=== PATIENT | female | born 1975 | race Caucasian/White ===

== ENCOUNTER 2020-09-13 14:30 | Outpatient (REF) | payer OTHER, SELFPAY ==
--- NOTE | 2020-09-13 14:34 | US_ITS ---
EXAMINATION: US RETROPERITONEAL LIMITED (RENAL ONLY) CLINICAL INFORMATION: Unspecified abdominal pain. COMPARISON: CT abdomen and pelvis 12/28/2018. Ultrasound abdomen 08/09/2010. TECHNIQUE: Real-time imaging of the kidneys. FINDINGS: RIGHT KIDNEY: 10.8 x 4.5 x 5.0 cm (SAG x AP x TRV). The kidney is normal in size, contour, and echogenicity. Renal cortical thickness is normal. No calculi or focal parenchymal lesions. No hydronephrosis. LEFT KIDNEY: 11.1 x 4.6 x 4.9 cm (SAG x AP x TRV). The kidney is normal in size, contour, and echogenicity. Renal cortical thickness is normal. No calculi or focal parenchymal lesions. No hydronephrosis. US/US renal BI IMPRESSION: Unremarkable renal ultrasound.
== END 2020-09-13 14:31 | disposition home or self-care (01) ==
LOC: HO.HMGCX 14:30
PROVIDERS: PCP Internal Medicine; Visit Provider Nurse Practitioner Family
DX: R10.9 Unspecified abdominal pain (principal); R31.9 Hematuria, unspecified
CPT/HCPCS: 76775

== ENCOUNTER 2021-01-02 08:56 | Outpatient (REF) | payer OTHER, SELFPAY ==
[2021-01-02 11:51] LABS: Hematocrit 42.1 % (37-47); Hemoglobin 13.8 g/dl (12.0-16.0)
[2021-01-02 12:02] LABS: Alanine Aminotransferase 24 U/L (0-31); Albumin Level 4.2 g/dL (3.5-5.0); Alkaline Phosphatase 62 U/L (39-117); Anion Gap 12 (12-20); Aspartate Amino Transferase 16 U/L (5-31); Bilirubin Direct 0.3 mg/dL (0.0-0.5); Bilirubin Total 0.7 mg/dL (0.0-1.0); Blood Urea Nitrogen 11 mg/dL (9-16); Calcium 9.6 mg/dL (8.4-10.2); Carbon Dioxide 24 mmol/L (22-29); Chloride 106 mmol/L (96-108); Cholesterol 193 mg/dL; Estimated Glomerular Filt Rate > 60; Glucose Fasting 85 mg/dL (60-99); HDL Cholesterol 49 mg/dL; LDL Cholesterol Calculated 126 mg/dl; Potassium 4.3 mmol/L (3.3-5.1); Sodium 138 mmol/L (135-145); Total Protein 6.7 g/dL (6.5-8.0); Triglycerides 90 mg/dL
== END 2021-01-02 08:57 | disposition home or self-care (01) ==
LOC: HO.HMGCLDS 08:56
PROVIDERS: PCP Internal Medicine; Visit Provider Internal Medicine
DX: Z00.00 Encounter for general adult medical examination without abnormal findings (principal)
CPT/HCPCS: 36415; 80048; 80061; 80076; 85014; 85018

== ENCOUNTER → 2021-01-25 09:17 | Outpatient (REF) | payer OTHER, SELFPAY ==
--- NOTE | 2021-01-25 09:22 | CA_ITS ---
Acquisition Time: 2021-01-25 09:52:30 Total Exercise Time: 00:08:25 Test Indications: R07.9 - Chest pain, unspecified Medications: Protocol: TATIANA Max HR: 123 BPM 71% of Pred: 173 BPM Max BP: 152/086 mmHG Max Work Load: 10.1 METS Exercise stress test using Tatiana protocol, total of 8 min 25 sec. METS 10.10and TAPHR up to 71%. Pt denies any anginal sx. EKG with occ. PVC's no ischemic changes seen during exercise or in recovery, however suboptimal stress test as pt's HR up to only 69% of TAPHR. Normotensive response to exercise. Will call PCP and recommend ECHO, pt does not want to have pharmacological stress test. Test reviewed with Dr. Burgos. Referred By: Lj Murcia Overread By: Mary Mireles NP
== END ==
LOC: HO.CARD 09:17
PROVIDERS: Visit Provider Internal Medicine
DX: R07.9 Chest pain, unspecified (principal)
CPT/HCPCS: 93016; 93017; 93018

== ENCOUNTER → 2021-01-31 11:05 | Outpatient (BNVA) | payer OTHER, SELFPAY | PROVIDERS: PCP Internal Medicine; Referring Provider Internal Medicine; Visit Provider Internal Medicine Cardiovascular Disease | DX: R00.2 Palpitations (principal); R07.89 Other chest pain | CPT/HCPCS: 99202 ==

== ENCOUNTER 2021-09-30 13:21 | Outpatient (REF) | payer OTHER, SELFPAY ==
[2021-09-30 17:15] LABS: TSH reflex Free T4 1.08 uIU/mL (0.32-4.0)
== END 2021-09-30 13:22 | disposition home or self-care (01) ==
LOC: HO.HMGCLDS 13:21
PROVIDERS: PCP Internal Medicine; Visit Provider Internal Medicine
DX: R63.5 Abnormal weight gain (principal)
CPT/HCPCS: 36415; 84443

== ENCOUNTER 2021-10-30 08:23 | Outpatient (REF) | payer OTHER, SELFPAY ==
[2021-10-30 11:08] LABS: MANUAL DIFF FLAG NO
[2021-10-30 11:15] LABS: Basophils Absolute Auto 0.1 X10*3/uL (0.0-0.2); Basophils Percent Auto 0.5 % (0-2); Eosinophils Absolute Auto 0.4 X10*3/uL (0.0-0.4); Hemoglobin 14.2 g/dl (12.0-16.0); Imm Gran Abs Auto 0.03 X10*3/uL (0.00-0.03); Imm Gran Pct Auto 0.3 % (0.0-0.4); Lymphocytes Absolute Auto 1.8 X10*3/uL (1.2-4.9); Lymphocytes Percent Auto 19.6 % (20-40); Mean Corpuscular Hemoglobin 29.8 pg (27.0-33.0); Mean Corpuscular Volume 90.3 fL (80.0-98.0); Mean Platelet Volume 11.3 fL (9.4-12.3); Monocytes Absolute Auto 0.6 X10*3/uL (0.1-1.2); Monocytes Percent Auto 6.6 % (2-11); Neutrophils Absolute Auto 6.3 x10*3/uL (2.0-8.3); Platelet Count 379 X10*3/uL (160-400); Red Blood Count 4.76 X10*6/uL (4.20-5.50); Red Cell Distribution Width 12.3 % (11.0-16.0); White Blood Count 9.2 X10*3/uL (4.8-10.8)
[2021-10-30 11:36] LABS: Alanine Aminotransferase 25 U/L (0-31); Albumin Level 4.2 g/dL (3.5-5.0); Alkaline Phosphatase 72 U/L (39-117); Anion Gap 13 (12-20); Aspartate Amino Transferase 18 U/L (5-31); Bilirubin Total 0.5 mg/dL (0.0-1.0); Blood Urea Nitrogen 15 mg/dL (9-16); Calcium 10.1 mg/dL (8.4-10.2); Carbon Dioxide 22 mmol/L (22-29); Chloride 107 mmol/L (96-108); Cholesterol 197 mg/dL; Estimated Glomerular Filt Rate > 60; Glucose Fasting 108 mg/dL (60-99); HDL Cholesterol 44 mg/dL; LDL Cholesterol Calculated 140 mg/dl; Potassium 4.5 mmol/L (3.3-5.1); Sodium 137 mmol/L (135-145); Total Protein 7.1 g/dL (6.5-8.0); Triglycerides 68 mg/dL
[2021-11-03 15:17] LABS: Vitamin D 25-OH, D2 <4 ng/mL; Vitamin D 25-OH, D3 16 ng/mL; Vitamin D 25-OH, Total 16 ng/mL (30-100)
== END 2021-10-30 08:24 | disposition home or self-care (01) ==
LOC: HO.HMGCLDS 08:23
PROVIDERS: Visit Provider Internal Medicine
DX: Z00.01 Encounter for general adult medical examination with abnormal findings (principal); J45.909 Unspecified asthma, uncomplicated; R63.5 Abnormal weight gain; R92.1 Mammographic calcification found on diagnostic imaging of breast; Z72.0 Tobacco use
CPT/HCPCS: 36415; 80053; 80061; 82306; 85025

== ENCOUNTER → 2021-11-07 14:51 | Outpatient (BNVA) | payer OTHER, SELFPAY | PROVIDERS: PCP Internal Medicine; Referring Provider Internal Medicine; Visit Provider Surgery | DX: K40.90 Unilateral inguinal hernia, without obstruction or gangrene, not specified as recurrent (principal); R07.89 Other chest pain; R00.2 Palpitations; J45.40 Moderate persistent asthma, uncomplicated; Z72.0 Tobacco use; Z91.041 Radiographic dye allergy status; Z91.018 Allergy to other foods; Z91.013 Allergy to seafood; Z88.7 Allergy status to serum and vaccine; Z88.8 Allergy status to other drugs, medicaments and biological substances; Z91.09 Other allergy status, other than to drugs and biological substances; Z79.899 Other long term (current) drug therapy | CPT/HCPCS: 99212 ==

== ENCOUNTER 2021-11-27 08:43 | Outpatient (REF) | payer OTHER, SELFPAY ==
[2021-11-27 11:51] LABS: Appearance Urine CLOUDY; Color Urine YELLOW; Glucose Urine UA NEG (NEG); Leukocyte Esterase Urine NEG (NEG); Nitrite Urine NEG (NEG); PH 5.5 (5.0-8.0); Specific Gravity - Urine >= 1.030 (1.005-1.025); UACC Culture Trigger NO; Urine Blood TRACE (NEG); Urine Ketones NEG (NEG); Urine Protein NEG (NEG-TRACE)
[2021-11-27 12:03] LABS: WBC Urine 0 /HPF (0-4)
[2021-11-27 12:04] LABS: Amorphous Sediment Urine 4+ /LPF; RBC Urine 0 /HPF (0); Squamous Epithelial Cell Urine 1+ /LPF
== END 2021-11-27 08:44 | disposition home or self-care (01) ==
LOC: HO.HMGCLDS 08:43
PROVIDERS: Visit Provider Internal Medicine
DX: R35.0 Frequency of micturition (principal)
CPT/HCPCS: 81001

== ENCOUNTER → 2021-12-17 12:55 | Outpatient (REF) | payer OTHER, SELFPAY ==
--- NOTE | 2021-12-17 12:58 | CA_ITS ---
Transthoracic Echocardiogram Patient (Last, First, Middle): Annette Fenton, Gender: Female Date of : 1975 Age: 46 Procedure Date: 12/17/2021 Procedure Type: Transthoracic Echocardiogram Location: OP Height: 165.1 cm Weight: 76.2 kg BSA: 1.84 m2 Heart Rate: bpm BP: 122 / 78 mmHg Lining Brusher: ALYSE Referring MD: Luis Kearney MD Symptoms: I42.9 - Cardiomyopathy, unspecified Conclusions: - Normal left ventricular size and systolic function. There is mildly increased left ventricular wall thickness. The visually estimated ejection fraction is between 55-60%. - Normal right ventricular cavity size and systolic function. Findings Left Ventricle Normal left ventricular size and systolic function. There is mildly increased left ventricular wall thickness. The visually estimated ejection fraction is between 55-60%. There is no evidence of regional wall motion abnormalities. Diastolic function is normal for age. Right Ventricle Normal right ventricular cavity size and systolic function. Atria Both atria are normal in size. Aortic Valve There is a normal trileaflet aortic valve. There is mild thickening of the aortic valve. There is no aortic valve stenosis. There is no aortic valve regurgitation. Mitral Valve Normal mitral valve structure and function. There is no mitral valve regurgitation. There is no mitral valve stenosis. Pulmonic Valve The pulmonic valve is likely normal. Tricuspid Valve Normal tricuspid valve structure and function. There is trace tricuspid valve regurgitation. Normal right atrial pressure. There is no evidence of pulmonary hypertension. Great Vessels All visible segments of the aorta are normal in size. The visualized portions of the pulmonary artery and branches are normal. Venous The inferior vena cava is normal in size and collapses greater than 50% with inspiration. Pericardium/Pleural There is no evidence of pericardial effusion. Prior Study Comparison No prior study available for comparison. Measurements 2D Linear Measurements IVSd: 1.12 0.6-0.9/0.6-1.0 cm LVIDd: 3.88 3.9-5.3/4.2-5.9 cm LVIDd Index: 2.11 2.4-3.2/2.2-3.1 cm/m2 LVIDs: 2.40 2.0-3.6 cm LVPWd: 1.12 0.7-1.1 cm LA Diam: 3.50 2.7-3.8/3.0-4.0 cm LAIDs Index: 1.90 1.5-2.3 cm/m2 LV Mass: 177.64 67-162/88-224 g LV Mass Index: 96.54 43-95/49-115 g/m2 LVOT Diam: 2.10 3.0+(-)1.3 cm 2D Systolic Function EF 4C: 66.80 >55% EF 2C: 65.60 >55% EF BiP: 66.00 >55% Mitral Valve MV Pk E: 0.86 MV PK A: 0.79 MV Decel Time: 187.00 E/A: 1.10 E'Lateral: 9.90 E'Medial: 7.94 E/E' Med: 10.80 E/E' Lat: 8.70 PHT: 55.00 MVA PHT: 4.00 Decel Gila: 4.61 Aortic Valve AoV Pk Isaias: 1.36 AoV Pk Grad: 7.00 LVOT LVOT Pk Isaias: 0.61 LVOT Mn Isaias: 0.65 LVOT VTI: 0.21 LVOT Pk Grad: 1.00 LVOT Mn Grad: 2.00 LVOT Diam: 2.10 LVOT Area: 3.46 Diastolic Function MV Pk E: 0.86 MV Pk A: 0.79 E/A: 1.10 E'Medial: 7.94 E/E' Med: 10.80 E' Laterial: 9.90 E/E' Lat: 8.70 Right Ventricle TAPSE (mm): 1.87 TVS' Isaias: 12.80 Tricuspid Valve TR Pk Isaias: 2.25 TR Pk Grad: 20.00 RA Press: 3.00 RVSP: 23.00 Great Vessels Aorta Sinus of Valsalva: 3.00 2.0-3.5 cm Ao Asc: 2.90 2.1-3.4 cm Updated in Other Vendor System with Status of Final Luis Kearney MD electronically signed on 12/18/2021 3:23:31 PM with status of Final
== END ==
LOC: HO.CARD 12:55
PROVIDERS: Visit Provider Internal Medicine Cardiovascular Disease
DX: I42.9 Cardiomyopathy, unspecified (principal); R00.2 Palpitations
CPT/HCPCS: 93306

== ENCOUNTER 2022-01-15 08:45 | Outpatient (REF) | payer OTHER, SELFPAY ==
[2022-01-15 11:51] LABS: Appearance Urine CLOUDY; Color Urine YELLOW; Glucose Urine UA NEG (NEG); Leukocyte Esterase Urine NEG (NEG); Nitrite Urine NEG (NEG); PH 5.5 (5.0-8.0); Specific Gravity - Urine >= 1.030 (1.005-1.025); UACC Culture Trigger NO; Urine Blood 1+ (NEG); Urine Ketones NEG (NEG); Urine Protein NEG (NEG-TRACE)
[2022-01-15 12:01] LABS: Estimated Average Glucose 108 mg/dL; Hemoglobin A1c % 5.4 %
[2022-01-15 12:02] LABS: Alanine Aminotransferase 20 U/L (0-31); Albumin Level 4.1 g/dL (3.5-5.0); Alkaline Phosphatase 75 U/L (39-117); Anion Gap 11 (12-20); Aspartate Amino Transferase 15 U/L (5-31); Bilirubin Total 0.5 mg/dL (0.0-1.0); Blood Urea Nitrogen 11 mg/dL (9-16); Calcium 9.9 mg/dL (8.4-10.2); Carbon Dioxide 24 mmol/L (22-29); Chloride 108 mmol/L (96-108); Cholesterol 186 mg/dL; Estimated Glomerular Filt Rate > 60; Glucose Fasting 107 mg/dL (60-99); HDL Cholesterol 44 mg/dL; LDL Cholesterol Calculated 134 mg/dl; Potassium 4.5 mmol/L (3.3-5.1); Sodium 138 mmol/L (135-145); Total Protein 7.1 g/dL (6.5-8.0); Triglycerides 41 mg/dL
[2022-01-15 12:08] LABS: RBC Urine 0-2 /HPF (0); Squamous Epithelial Cell Urine 2+ /LPF; WBC Urine 0-2 /HPF (0-4)
[2022-01-15 12:09] LABS: Amorphous Sediment Urine 3+ /LPF; Bacteria Urine TRACE /LPF
[2022-01-21 14:36] LABS: Vitamin D 25-OH, D2 <4 ng/mL; Vitamin D 25-OH, D3 19 ng/mL; Vitamin D 25-OH, Total 19 ng/mL (30-100)
== END 2022-01-15 08:46 | disposition home or self-care (01) ==
LOC: HO.HMGCLDS 08:45
PROVIDERS: PCP Internal Medicine; Visit Provider Internal Medicine
DX: E55.9 Vitamin D deficiency, unspecified (principal); R35.0 Frequency of micturition; R73.01 Impaired fasting glucose; R00.2 Palpitations; J45.909 Unspecified asthma, uncomplicated; Z72.0 Tobacco use
CPT/HCPCS: 36415; 80053; 80061; 81001; 81003; 82306; 83036

== ENCOUNTER → 2022-11-07 11:01 | Outpatient (BNVA) | payer OTHER, SELFPAY | PROVIDERS: PCP Internal Medicine; Visit Provider Surgery | DX: K40.90 Unilateral inguinal hernia, without obstruction or gangrene, not specified as recurrent (principal); F17.210 Nicotine dependence, cigarettes, uncomplicated | CPT/HCPCS: 99212 ==

== ENCOUNTER 2022-12-30 11:25 | Outpatient (REF) | payer OTHER, SELFPAY ==
[2022-12-30 13:56] LABS: MANUAL DIFF FLAG NO
[2022-12-30 14:06] LABS: Basophils Absolute Auto 0.1 X10*3/uL (0.0-0.2); Basophils Percent Auto 0.8 % (0-2); Eosinophils Absolute Auto 0.3 X10*3/uL (0.0-0.4); Eosinophils Percent Auto 3.3 % (0-4); Hematocrit 43.8 % (37.0-47.0); Hemoglobin 14.4 g/dl (12.0-16.0); Imm Gran Abs Auto 0.02 X10*3/uL (0.00-0.03); Imm Gran Pct Auto 0.2 % (0.0-0.4); Lymphocytes Absolute Auto 2.1 X10*3/uL (1.2-4.9); Lymphocytes Percent Auto 22.3 % (20-40); Mean Corpuscular HGB Conc 32.9 g/dl (31.0-35.0); Mean Corpuscular Hemoglobin 29.4 pg (27.0-33.0); Mean Corpuscular Volume 89.6 fL (80.0-98.0); Mean Platelet Volume 11.1 fL (9.4-12.3); Monocytes Absolute Auto 0.5 X10*3/uL (0.1-1.2); Monocytes Percent Auto 5.5 % (2-11); Neutrophils Absolute Auto 6.3 x10*3/uL (2.0-8.3); Neutrophils Percent Auto 67.9 % (45-73); Platelet Count 384 X10*3/uL (160-400); Red Blood Count 4.89 X10*6/uL (4.20-5.50); Red Cell Distribution Width 12.7 % (11.0-16.0); White Blood Count 9.3 X10*3/uL (4.8-10.8)
[2022-12-30 14:12] LABS: Appearance Urine Clear; Color Urine Yellow; Glucose Urine UA Negative (Negative); Leukocyte Esterase Urine Negative (Negative); Nitrite Urine Negative (Negative); PH 5.5 (5.0-9.0); Specific Gravity - Urine 1.015 (1.005-1.025); UMIC TRIGGER UACC YES; Urine Blood Small (1+) (Negative); Urine Ketones Negative (Negative); Urine Protein Negative (Neg-Trace)
[2022-12-30 14:22] LABS: Bacteria Urine Trace (None Seen); Hyaline Casts Urine 0-2 /LPF (0-2); RBC Urine 0-2 /HPF (0-2); Squamous Epithelial Cell Urine 0-2 /HPF (0-2); WBC Urine 0-5 /HPF (0-5)
[2022-12-30 14:32] LABS: Alanine Aminotransferase 35 U/L (0-31); Albumin Level 4.1 g/dL (3.5-5.0); Alkaline Phosphatase 80 U/L (39-117); Anion Gap 11 (12-20); Aspartate Amino Transferase 19 U/L (5-31); Bilirubin Total 0.5 mg/dL (0.0-1.0); Blood Urea Nitrogen 9 mg/dL (9-16); Calcium 9.3 mg/dL (8.4-10.2); Carbon Dioxide 25 mmol/L (22-29); Chloride 108 mmol/L (96-108); Cholesterol 176 mg/dL; Estimated Glomerular Filt Rate > 60; Glucose Fasting 84 mg/dL (60-99); HDL Cholesterol 43 mg/dL; LDL Cholesterol Calculated 124 mg/dl; Potassium 4.4 mmol/L (3.3-5.1); Sodium 140 mmol/L (135-145); Total Protein 6.7 g/dL (6.5-8.0); Triglycerides 47 mg/dL
[2022-12-30 14:56] LABS: Estimated Average Glucose 114 mg/dL; Hemoglobin A1c % 5.6 %
== END 2022-12-30 11:26 | disposition home or self-care (01) ==
LOC: HO.HMGCLDS 11:25
PROVIDERS: PCP Internal Medicine; Visit Provider Internal Medicine
DX: Z00.01 Encounter for general adult medical examination with abnormal findings (principal); E66.3 Overweight; G43.909 Migraine, unspecified, not intractable, without status migrainosus; K59.01 Slow transit constipation; R42 Dizziness and giddiness; R73.01 Impaired fasting glucose
CPT/HCPCS: 36415; 80053; 80061; 81001; 83036; 84443; 85025

== ENCOUNTER 2023-02-07 14:02 | Outpatient (REF) | payer OTHER, SELFPAY ==
[2023-02-10 22:09] LABS: Lyme Abs Screen <0.90 index
== END 2023-02-07 14:03 | disposition home or self-care (01) ==
LOC: HO.HMGCLDS 14:02
PROVIDERS: PCP Internal Medicine; Visit Provider Nurse Practitioner Family
DX: T14.8XXA Other injury of unspecified body region, initial encounter (principal); W57.XXXA Bitten or stung by nonvenomous insect and other nonvenomous arthropods, initial encounter
CPT/HCPCS: 36415; 86617; 86618

== ENCOUNTER 2023-07-01 10:43 | Outpatient (AMB) | payer OTHER, SELFPAY ==
[2023-07-01 10:43] VITALS: BP 134/82; PULSE 89; O2SAT 97; BMI 35.4
--- NOTE | 2023-07-01 10:43 | A.OFFPC_ITS ---
Vital Signs 07/01/23 10:43 Height 5 ft Weight 181 lb 6 oz BMI 35.4 BP 134/82 Blood Pressure Location Rt brachial Position Sitting Pulse 89 Pulse Source Pulse Oximeter Pulse Oximetry (%) 97 Oxygen Delivery Method Room Air Intake Visit Reasons: 6 Month follow up Allergies epinephrine [From EPIFRIN] Allergy (Intermediate, Verified 07/01/23 10:44) HEADACHES AND TACHYCARDIA Iodinated Contrast Media [IVP DYE] Allergy (Intermediate, Verified 07/01/23 10:44) DIFFICULTY BREATHING amoxicillin Allergy (Unknown, Verified 07/01/23 10:44) itchy tongue cantaloupe [CANTALOUPE] Allergy (Unknown, Verified 07/01/23 10:44) SHORTNESS OF BREATH cheese [CHEESE] Allergy (Unknown, Verified 07/01/23 10:44) UNKNOWN schulz [SCHULZ] Allergy (Unknown, Verified 07/01/23 10:44) SHORTNESS OF BREATH divalproex sodium [From DEPAKOTE] Allergy (Unknown, Verified 07/01/23 10:44) oral bumps fish derived [FISH] Allergy (Unknown, Verified 07/01/23 10:44) HIVES grapefruit [GRAPEFRUIT] Allergy (Unknown, Verified 07/01/23 10:44) UNKNOWN Nitrate Analogues [NITRATE ANALOGUES] Allergy (Unknown, Verified 07/01/23 10:44) UNKNOWN nut - unspecified [NUTS] Allergy (Unknown, Verified 07/01/23 10:44) SHORTNESS OF BREATH paroxetine [From PAXIL] Allergy (Unknown, Verified 07/01/23 10:44) somulence tetanus and diphtheria toxoids Allergy (Unknown, Verified 07/01/23 10:44) fever/hallucinations environmental Allergy (Unknown, Uncoded 02/07/23 13:55) unknown Medication List - Last Reconciled 07/01/23 by Lj Murcia MD albuterol sulfate 90 mcg/actuation (Ventolin HFA) 1 inh inhalation QID PRN 30 days fluticasone propionate 220 mcg/actuation 2 puffs inhalation BID 30 days ibuprofen 600 mg PO BID PRN meclizine 25 mg PO TID PRN 7 days naratriptan mg PO onabotulinumtoxinA (Botox) subcut .[id number] polyethylene glycol 3350 (Miralax) 17 grams PO DAILY 30 days verapamil mg PO Tobacco use date assessed: 07/01/23 Dental Screening Dental Screen Date: 07/01/23 Did you have a dental visit in the last 12 months?: Yes Did you have a dental problem in the last 6 months where you did not have access to dental care?: No Was dental information given to patient?: Patient has dentist HPI 6 Month follow up HPI Details Patient is a 48-year-old female came in today for six-month follow-up appointment on Asthma Patient is on steroid inhaler however tells me that she usually forgets to take it Currently patient is recovering from upper respiratory tract infection, 2 weeks ago she was evaluated in walk-in clinic in [place] And was given antibiotic and prednisone She has finished antibiotic but did not take prednisone Now she has dry irritated cough. She is taking DayQuil, I have told her to stop doing that She may take Delsym [id number]-pfvlrgn and prednisone 5 mg a day for next 1 week. Patient have 20 mg tablets she will break it down into for She also would like to have a Cologuard test done does not want colonoscopy patient is now 48 years old. Migraine treatment is through neurology Patient has impaired fasting sugar diet controlled And chronic vertigo which is stable BMI is elevated at 35.4, patient is obese, I have ordered her appointment with corporate consultant which she has declined Follow-up 6 months [facility] Medical History Palpitations Atypical chest pain Asthma, moderate Tobacco abuse Surgical History History of breast surgery Hx of tubal ligation Family History Father Alcoholic Mother Elevated cholesterol CVD (cardiovascular disease) History of blood clots Son Anxiety Daughter Hearing loss Daughter Asthma Daughter Acid reflux Sister No problems noted. Other Mental health disorder Substance use disorder Social History Housing: Apartment Alcohol intake: current Alcohol intake frequency: holidays/special occasions only Patient Tobacco Use Status: Current everyday Tobacco user Tobacco use type: Cigarette Cigarette Packs Per Day: 1 Cigarettes Per Day: 20 Years Smoked: 30 Packs Per Year: 30 Packs per year/per ci.00 e-Cigarette/Vaping Use: Never Used service: No Current occupational status: unemployed Cognitive needs: No Hearing needs: No Vision needs: No Questionnaire PHQ-9 Over the last 2 weeks, how often have you been bothered by any of the following problems? 1. Little interest or pleasure in doing things: not at all 2. Feeling down, depressed, or hopeless: not at all 3. Trouble falling or staying asleep, or sleeping too much: several days 4. Feeling tired or having little energy: several days 5. Poor appetite or overeating: several days 6. Feeling bad about yourself - or that you are a failure or have let yourself or your family down: not at all 7. Trouble concentrating on things, such as reading the newspaper or watching television: not at all 8. Moving or speaking so slowly that other people could have noticed. Or the opposite - being so fidgety or restless that you have been moving around a lot more than usual: not at all 9. Thoughts that you would be better off or of hurting yourself in some way: not at all Total score: 3 Depression Screening Interpretation: Negative Depression Screening Done: Yes [id number] - PHQ-9 Billing: Yes Source: Developed by Drs. Barrington Guy, Ulysses Mayers and colleagues, with an educational carmen from [employer]. Thrive Questionnaire Date Thrive assessed: 12/30/22 AUDIT C Alcohol Use Questionnaire (AUDIT-C) 1. How often do you have a drink containing alcohol?: Never 3. How often do you have six or more drinks on one occasion?: Never Total Score: 0 Score Reviewed/Action Taken: Yes SUE-7 AMB Questionnaire SUE-7 Date SUE - 7 assessed: 12/30/22 Source: Developed by Drs. Barrington Guy, Ulysses Mayers and colleagues, with an educational carmen from [employer]. Review of Systems Const Denies chills and Denies fever(s) ENT Denies epistaxis and Denies nasal discharge Card Denies chest pain Resp Denies chest congestion and Denies hemoptysis GI Denies diarrhea and Denies nausea Skin/Breast Denies rash Neuro Reports no additional complaints Psych Reports no additional complaints Endo Reports no additional complaints Physical exam (Primary Care) Vital Signs: Last Vital Signs Pulse 89 07/01/23 10:43 BP 134/82 07/01/23 10:43 Pulse Ox 97 07/01/23 10:43 Oxygen Delivery Method Room Air 07/01/23 10:43 BMI result Body Mass Index 35.4 Tobacco/Smoking Status: Tobacco use Status Tobacco use date assessed 07/01/23 07/01/23 10:47 Patient Tobacco Use Status Current everyday Tobacco 07/01/23 10:47 Tobacco use type Cigarette 07/01/23 10:47 e-Cigarette/Vaping Use Never Used 07/01/23 10:47 PHQ-9: PHQ-9 Score PHQ-9: Total score 3 07/01/23 11:11 Depression Screening Interpretation: Negative Thrive Assessment: Date of Thrive Assessment Date Thrive assessed 12/30/22 07/01/23 10:47 Const General: cooperative, comfortable and no acute distress Orientation/consciousness: patient oriented x3 HENMT Head: Yes normocephalic Eyes General: appearance normal, both eyes and all related structures Neck Neck: Yes supple Resp Effort & Inspection: normal respiratory effort and no stridor Auscultation: clear to auscultation bilaterally Cardio Rhythm: regular rhythm Heart sounds: S1 normal heart sound present and S2 normal heart sound present Skin General skin exam: turgor normal Neuro General: patient oriented x3, tone normal and moves all extremities Extrem Right lower extremity: no edema Left lower extremity: no edema Assessment and Plan Assessment & Plan (1) Persistent dry cough: Code(s): R05.3 - Chronic cough (2) Asthma, moderate: Code(s): J45.909 - Unspecified asthma, uncomplicated Qualifiers: Asthma persistence: persistent Asthma complication type: uncomplicated Qualified Code(s): J45.40 - Moderate persistent asthma, uncomplicated (3) Impaired fasting blood sugar: Code(s): R73.01 - Impaired fasting glucose (4) Chronic vertigo: Code(s): R42 - Dizziness and giddiness (5) Obesity due to excess calories: Code(s): E66.09 - Other obesity due to excess calories Qualifiers: Obesity classification: adult class 2 (BMI 35 - 39.9) Serious obesity comorbidity presence: without serious comorbidity Body mass index: BMI 35.0- 35.9 Qualified Code(s): E66.09 - Other obesity due to excess calories; Z68.35 - Body mass index [BMI] 35.0-35.9, adult (6) Migraine headache: Code(s): G43.909 - Migraine, unspecified, not intractable, without status migrainosus Qualifiers: Migraine type: unspecified Status migrainosus presence: without status migrainosus Intractability: intractable Qualified Code(s): G43.919 - Migraine, unspecified, intractable, without status migrainosus Plan Patient is a 48-year-old female came in today for six-month follow-up appo intment on Asthma Patient is on steroid inhaler however tells me that she usually forgets to take it Currently patient is recovering from upper respiratory tract infection, 2 weeks ago she was evaluated in walk-in clinic in [place] And was given antibiotic and prednisone She has finished antibiotic but did not take prednisone Now she has dry irritated cough. She is taking DayQuil, I have told her to stop doing that She may take Delsym onxu-nay-vdxzzhb and prednisone 5 mg a day for next 1 week. Patient have 20 mg tablets she will break it down into for She also would like to have a Cologuard test done does not want colonoscopy patient is now 48 years old. Migraine treatment is through neurology Patient has impaired fasting sugar diet controlled And chronic vertigo which is stable BMI is elevated at 35.4, patient is obese, I have ordered her appointment with corporate consultant which she has declined Follow-up 6 months Orders: Referrals Cologuard Test Z12.11 - Encounter for screening for malignant neoplasm of colon, Z12.12 - Encounter for screening for malignant neoplasm of rectum Medications: Refilled albuterol sulfate 90 mcg/actuation (Ventolin HFA) 1 inh inhalation QID PRN 6.7 grams 5RF shortness of breath or wheezing 30 days fluticasone propionate 220 mcg/actuation 2 puffs inhalation BID 12 grams 2RF 30 days Discontinued meclizine Discontinued Reason: Doctor's Order 25 mg PO TID 7 days PRN 21 tabs 0RF dizziness Coding Level of Care Code Est Pt Level 4 (83002) Diagnoses Persistent dry cough R05.3 Moderate persistent asthma without complication J45.40 Asthma persistence: persistent Asthma complication type: uncomplicated Impaired fasting blood sugar R73.01 Chronic vertigo R42 Class 2 obesity due to excess calories without serious comorbidity with body mass index (BMI) of 35.0 to 35.9 in adult E66.09; Z68.35 Obesity classification: adult class 2 (BMI 35 - 39.9) Serious obesity comorbidity presence: without serious comorbidity Body mass index: BMI 35.0-35.9 Intractable migraine without status migrainosus, unspecified migraine type G43.919 Migraine type: unspecified Status migrainosus presence: without status migrainosus Intractability: intractable
== END 2023-07-01 14:59 | disposition home or self-care (01) ==
PROVIDERS: Visit Provider Internal Medicine
DX: R05.3 Chronic cough (principal); J45.40 Moderate persistent asthma, uncomplicated; R73.01 Impaired fasting glucose; R42 Dizziness and giddiness; E66.09 Other obesity due to excess calories; Z68.35 Body mass index [BMI] 35.0-35.9, adult; G43.919 Migraine, unspecified, intractable, without status migrainosus
CPT/HCPCS: 99214

== ENCOUNTER 2023-08-12 11:57 | Outpatient (AMB) | payer OTHER, SELFPAY ==
--- NOTE | 2023-08-12 11:58 | MHC.PC.OV ---
Vital Signs 08/12/23 12:00 Height 5 ft Weight 180 lb 2 oz BMI 35.2 BP 138/88 Blood Pressure Location Rt brachial Position Sitting Pulse 81 Pulse Source Pulse Oximeter Pulse Oximetry (%) 98 Oxygen Delivery Method Room Air Intake Visit Reasons: rib pain Allergies epinephrine [From EPIFRIN] Allergy (Intermediate, Verified 08/12/23 12:02) HEADACHES AND TACHYCARDIA Iodinated Contrast Media [IVP DYE] Allergy (Intermediate, Verified 08/12/23 12:02) DIFFICULTY BREATHING amoxicillin Allergy (Unknown, Verified 08/12/23 12:02) itchy tongue cantaloupe [CANTALOUPE] Allergy (Unknown, Verified 08/12/23 12:02) SHORTNESS OF BREATH cheese [CHEESE] Allergy (Unknown, Verified 08/12/23 12:02) UNKNOWN schulz [SCHULZ] Allergy (Unknown, Verified 08/12/23 12:02) SHORTNESS OF BREATH divalproex sodium [From DEPAKOTE] Allergy (Unknown, Verified 08/12/23 12:02) oral bumps fish derived [FISH] Allergy (Unknown, Verified 08/12/23 12:02) HIVES grapefruit [GRAPEFRUIT] Allergy (Unknown, Verified 08/12/23 12:02) UNKNOWN Nitrate Analogues [NITRATE ANALOGUES] Allergy (Unknown, Verified 08/12/23 12:02) UNKNOWN nut - unspecified [NUTS] Allergy (Unknown, Verified 08/12/23 12:02) SHORTNESS OF BREATH paroxetine [From PAXIL] Allergy (Unknown, Verified 08/12/23 12:02) somulence tetanus and diphtheria toxoids Allergy (Unknown, Verified 08/12/23 12:02) fever/hallucinations environmental Allergy (Unknown, Uncoded 02/07/23 13:55) unknown Medication List - Last Reconciled 08/12/23 by Lj Murcia MD albuterol sulfate 90 mcg/actuation (Ventolin HFA) 1 inh inhalation QID PRN 30 days fluticasone propionate 220 mcg/actuation 2 puffs inhalation BID 30 days ibuprofen 600 mg PO BID PRN naratriptan mg PO onabotulinumtoxinA (Botox) subcut .[id number] polyethylene glycol 3350 (Miralax) 17 grams PO DAILY 30 days verapamil mg PO Tobacco use date assessed: 08/12/23 Dental Screening Dental Screen Date: 08/12/23 Did you have a dental visit in the last 12 months?: Yes Did you have a dental problem in the last 6 months where you did not have access to dental care?: No Was dental information given to patient?: Patient has dentist HPI rib pain HPI Details Patient is a 48-year-old female came in today to be evaluated for pain right mid back Patient says that the pain started 3 days ago and got worse. She has been using heating pad locally which has caused erythema and it is difficult to see the underneath rash now However there are couple of papules which I can still see. I am treating her with famciclovir 3 times a day which patient is reluctant to take. I have also taken urine sample just to make sure that she does not have any bladder infection causing pain in costovertebral angle Urine is clean, except presence of blood due to recurrent spotting patient is going through menopause Patient is to return in 2 days for follow-up [facility] Medical History Palpitations Atypical chest pain Asthma, moderate Tobacco abuse Surgical History History of breast surgery Hx of tubal ligation Family History Father Alcoholic Mother Elevated cholesterol CVD (cardiovascular disease) History of blood clots Son Anxiety Daughter Hearing loss Daughter Asthma Daughter Acid reflux Sister No problems noted. Other Mental health disorder Substance use disorder Social History Housing: Apartment Alcohol intake: current Alcohol intake frequency: holidays/special occasions only Patient Tobacco Use Status: Current everyday Tobacco user Tobacco use type: Cigarette Cigarette Packs Per Day: 1 Cigarettes Per Day: 20 Years Smoked: 30 e-Cigarette/Vaping Use: Never Used service: No Current occupational status: unemployed Cognitive needs: No Hearing needs: No Vision needs: No Questionnaire Thrive Questionnaire Date Thrive assessed: 12/30/22 AUDIT C Alcohol Use Questionnaire (AUDIT-C) 1. How often do you have a drink containing alcohol?: Never 3. How often do you have six or more drinks on one occasion?: Never Total Score: 0 Score Reviewed/Action Taken: Yes SUE-7 AMB Questionnaire SUE-7 Date SUE - 7 assessed: 12/30/22 Source: Developed by DrsShine Guy, Caryn Hodge, Ulysses Thurman and colleagues, with an educational carmen from [email or web address]. Review of Systems Const All systems reviewed & are unremarkable except as noted in HPI and below Physical exam (Primary Care) Vital Signs: Last Vital Signs Pulse 81 08/12/23 12:00 BP 138/88 08/12/23 12:00 Pulse Ox 98 08/12/23 12:00 Oxygen Delivery Method Room Air 08/12/23 12:00 BMI result Body Mass Index 35.2 Tobacco/Smoking Status: Tobacco use Status Tobacco use date assessed 08/12/23 08/12/23 12:03 Patient Tobacco Use Status Current everyday Tobacco 08/12/23 12:03 Tobacco use type Cigarette 08/12/23 12:03 e-Cigarette/Vaping Use Never Used 08/12/23 12:03 Thrive Assessment: Date of Thrive Assessment Date Thrive assessed 12/30/22 08/12/23 12:03 Const General: no acute distress Orientation/consciousness: patient oriented x3 Eyes General: appearance normal, both eyes and all related structures Resp Effort & Inspection: normal respiratory effort and able to speak in complete sentences Auscultation: clear to auscultation bilaterally Back/Spine/Pelvis Back/spine/pelvis image: 1. Erythema and pain Neuro General: patient oriented x3 Psych Mental Status: mental status grossly normal Results AMB Urinalysis, Automated UA Leukoctes 0 Max/uL Last Edit by Ruma Herring CMA on 08/12/23 12:33 UA Nitrite Negative Last Edit by Ruma Herring CMA on 08/12/23 12:33 UA Urobilinogen 0.2 mg/dL Last Edit by Ruma Herring CMA on 08/12/23 12:33 UA Protein 0 mg/dL Last Edit by Ruma Herring CMA on 08/12/23 12:33 UA pH 6.0 Last Edit by Ruma Herring CMA on 08/12/23 12:33 UA Blood 200 Frank/uL Last Edit by Ruma Herring CMA on 08/12/23 12:33 UA Specific [place] 1.020 Last Edit by Ruma Herring CMA on 08/12/23 12:33 UA Ketone Negative Last Edit by Ruma Herring CMA on 08/12/23 12:33 UA Bilirubin 0 mg/dL Last Edit by Ruma Herring CMA on 08/12/23 12:33 UA Glucose 0 mg/dL Last Edit by Ruma Herring CMA on 08/12/23 12:33 Results Reviewed Results Reviewed: Laboratory Last Values Urine pH (Auto) 6.0 08/12/23 12:31 Specific [place] (Auto) 1.020 08/12/23 12:31 Urine Protein (Auto) 0 mg/dL 08/12/23 12:31 Glucose (UA)(Auto) 0 mg/dL 08/12/23 12:31 Urine Ketones (Auto) Negative 08/12/23 12:31 Urine Blood (Auto) 200 Frank/uL 08/12/23 12:31 Urine Nitrite (Auto) Negative 08/12/23 12:31 Urine Bilirubin (Auto) 0 mg/dL 08/12/23 12:31 Urine Urobilinogen (Auto) 0.2 mg/dL 08/12/23 12:31 Leukocyte Esterase (Auto) 0 Max/uL 08/12/23 12:31 Assessment and Plan Assessment & Plan (1) Herpes zoster: Code(s): B02.9 - Zoster without complications Qualifiers: Herpes zoster complications: without complications Qualified Code(s): B02.9 - Zoster without complications (2) Mid back pain on right side: Code(s): M54.9 - Dorsalgia, unspecified (3) Hematuria: Code(s): R31.9 - Hematuria, unspecified Qualifiers: Hematuria type: asymptomatic microscopic Qualified Code(s): R31.21 - Asymptomatic microscopic hematuria Plan Patient is a 48-year-old female came in today to be evaluated for pain right mid back Patient says that the pain started 3 days ago and got worse. She has been using heating pad locally which has caused erythema and it is difficult to see the underneath rash now However there are couple of papules which I can still see. I am treating her with famciclovir 3 times a day which patient is reluctant to take. I have also taken urine sample just to make sure that she does not have any bladder infection causing pain in costovertebral angle Urine is clean except presence of blood, patient is seeing that she is going through menopause and continued to have spotting she has no frequency or dysuria Patient is to return in 2 days for follow-up Review system: No fever no chills no nausea vomiting diarrhea, no headache There is slight discomfort in abdomen, but appetite is intact Orders: Orders AMB Urinalysis Automated Today Z13.9 - Encounter for screening, unspecified Medications: New famciclovir 500 mg PO Q8H 21 tabs 0RF 7 days Coding Level of Care Code Est Pt Level 4 (89530) Diagnoses Herpes zoster without complication B02.9 Herpes zoster complications: without complications Mid back pain on right side M54.9 Asymptomatic microscopic hematuria R31.21 Hematuria type: asymptomatic microscopic
[2023-08-12 12:00] VITALS: BP 138/88; PULSE 81; O2SAT 98; BMI 35.2
== END 2023-08-12 15:42 | disposition home or self-care (01) ==
PROVIDERS: PCP Internal Medicine; Visit Provider Internal Medicine
DX: B02.9 Zoster without complications (principal); M54.9 Dorsalgia, unspecified; R31.21 Asymptomatic microscopic hematuria
CPT/HCPCS: 81003; 99214

== ENCOUNTER 2023-08-14 07:41 | Outpatient (AMB) | payer OTHER, SELFPAY ==
--- NOTE | 2023-08-14 07:45 | A.OFFPC_ITS ---
Vital Signs 3 08/14/23 07:47 Height 5 ft Weight 178 lb BMI 34.8 BP 132/80 Blood Pressure Location Rt brachial Position Sitting Pulse 85 Pulse Source Pulse Oximeter Pulse Oximetry (%) 99 Oxygen Delivery Method Room Air Intake Visit Reasons: Follow Up Allergies epinephrine [From EPIFRIN] Allergy (Intermediate, Verified 08/14/23 07:45) HEADACHES AND TACHYCARDIA Iodinated Contrast Media [IVP DYE] Allergy (Intermediate, Verified 08/14/23 07:45) DIFFICULTY BREATHING amoxicillin Allergy (Unknown, Verified 08/14/23 07:45) itchy tongue cantaloupe [CANTALOUPE] Allergy (Unknown, Verified 08/14/23 07:45) SHORTNESS OF BREATH cheese [CHEESE] Allergy (Unknown, Verified 08/14/23 07:45) UNKNOWN schulz [SCHULZ] Allergy (Unknown, Verified 08/14/23 07:45) SHORTNESS OF BREATH divalproex sodium [From DEPAKOTE] Allergy (Unknown, Verified 08/14/23 07:45) oral bumps fish derived [FISH] Allergy (Unknown, Verified 08/14/23 07:45) HIVES grapefruit [GRAPEFRUIT] Allergy (Unknown, Verified 08/14/23 07:45) UNKNOWN Nitrate Analogues [NITRATE ANALOGUES] Allergy (Unknown, Verified 08/14/23 07:45) UNKNOWN nut - unspecified [NUTS] Allergy (Unknown, Verified 08/14/23 07:45) SHORTNESS OF BREATH paroxetine [From PAXIL] Allergy (Unknown, Verified 08/14/23 07:45) somulence tetanus and diphtheria toxoids Allergy (Unknown, Verified 08/14/23 07:45) fever/hallucinations environmental Allergy (Unknown, Uncoded 08/14/23 07:45) unknown Medication List - Last Reconciled 08/14/23 by Lj Murcia MD albuterol sulfate 90 mcg/actuation (Ventolin HFA) 1 inh inhalation QID PRN 30 days baclofen 10 mg PO BID 7 days ibuprofen 600 mg PO BID PRN naratriptan mg PO onabotulinumtoxinA (Botox) subcut .[id number] polyethylene glycol 3350 (Miralax) 17 grams PO DAILY 30 days verapamil mg PO Tobacco use date assessed: 08/14/23 Dental Screening Dental Screen Date: 12/08/23 Did you have a dental visit in the last 12 months?: Yes Did you have a dental problem in the last 6 months where you did not have access to dental care?: Yes Was dental information given to patient?: Patient has dentist HPI Follow Up 2 HPI0 Details Patient is a 48-year-old female who was seen 2 days ago when she presented with rash right mid back She has also been using heating pad which was causing erythema. It was not clear if she has developed shingles or it is because of heating pad Patient is also having spotting she is going through menopause I did UA to see if there is any signs of infection, there was blood but no signs of infection I started her on Famvir thinking it could be a shingles rash However patient never took the medication, she says that she does not think it is shingles That night pain got worse, today she is feeling slightly better, I see the erythema due to heating pad has resolved There is no clear shingles rash but pain is located right mid back She says that it hurts to move and cough I have ordered stat ultrasound of her kidneys to rule out kidney stones Meanwhile I have ordered x-ray of her ribs as well right side Patient is to start Levaquin 500 for 5 days And I have sent Percocet t.i.d. for p.r.n. for 4 days. Patient is to return for follow-up Thursday She has no fever no chills nausea or vomiting [facility] Medical History Palpitations Atypical chest pain Asthma, moderate Tobacco abuse Surgical History History of breast surgery Hx of tubal ligation Family History Father Alcoholic Mother Elevated cholesterol CVD (cardiovascular disease) History of blood clots Son Anxiety Daughter Hearing loss Daughter Asthma Daughter Acid reflux Sister No problems noted. Other Mental health disorder Substance use disorder Social History Housing: Apartment Alcohol intake: current Alcohol intake frequency: holidays/special occasions only Patient Tobacco Use Status: Current everyday Tobacco user Tobacco use type: Cigarette Cigarette Packs Per Day: 1 Cigarettes Per Day: 20 Years Smoked: 30 e-Cigarette/Vaping Use: Never Used service: No Current occupational status: unemployed Cognitive needs: No Hearing needs: No Vision needs: No Questionnaire Thrive Questionnaire Date Thrive assessed: 12/30/22 SUE-7 AMB Questionnaire SUE-7 Date SUE - 7 assessed: 12/30/22 Source: Developed by Drs. Barrington Guy, Caryn Hodge, Ulysses Thurman and colleagues, with an educational carmen from [employer]. Review of Systems Const Denies chills and Denies fever(s) ENT Denies epistaxis and Denies nasal discharge Card Denies chest pain Resp Denies chest congestion, Denies cough and Denies hemoptysis GI Denies diarrhea and Denies nausea Skin/Breast Denies rash Neuro Reports no additional complaints Psych Reports no additional complaints Endo Reports no additional complaints Physical exam (Primary Care) Vital Signs: Last Vital Signs Pulse 85 08/14/23 07:47 BP 132/80 08/14/23 07:47 Pulse Ox 99 08/14/23 07:47 Oxygen Delivery Method Room Air 08/14/23 07:47 BMI result Body Mass Index 34.8 Tobacco/Smoking Status: Tobacco use Status Tobacco use date assessed 08/14/23 08/14/23 07:49 Patient Tobacco Use Status Current everyday Tobacco 08/14/23 07:49 Tobacco use type Cigarette 08/14/23 07:49 e-Cigarette/Vaping Use Never Used 08/14/23 07:49 Thrive Assessment: Date of Thrive Assessment Date Thrive assessed 12/30/22 08/14/23 07:49 Const General: cooperative, comfortable and no acute distress Orientation/consciousness: patient oriented x3 [facility] Head: Yes normocephalic Eyes General: appearance normal, both eyes and all related structures Neck Neck: Yes supple Resp Effort & Inspection: normal respiratory effort, no cough and no stridor Cardio Rhythm: regular rhythm Heart sounds: S1 normal heart sound present and S2 normal heart sound present Back/Spine/Pelvis Back/spine/pelvis image: 2 1. Site of pain, still slight erythema present Skin General skin exam: turgor normal Neuro General: patient oriented x3, tone normal and moves all extremities Extrem Right lower extremity: no edema Left lower extremity: no edema Assessment and Plan Assessment & Plan (1) Hematuria: Code(s): R31.9 - Hematuria, unspecified Qualifiers: Hematuria type: asymptomatic microscopic Qualified Code(s): R31.21 - Asymptomatic microscopic hematuria (2) Mid back pain on right side: Code(s): M54.9 - Dorsalgia, unspecified (3) Chest pain, non-cardiac: Code(s): R07.89 - Other chest pain Plan Patient is a 48-year-old female who was seen 2 days ago when she presented with rash right mid back She has also been using heating pad which was causing erythema. It was not clear if she has developed shingles or it is because of heating pad Patient is also having spotting she is going through menopause I did UA to see if there is any signs of infection, there was blood but no signs of infection I started her on Famvir thinking it could be a shingles rash However patient never took the medication, she says that she does not think it is shingles That night pain got worse, today she is feeling slightly better, I see the erythema due to heating pad has resolved There is no clear shingles rash but pain is located right mid back She says that it hurts to move and cough I have ordered stat ultrasound of her kidneys to rule out kidney stones Meanwhile I have ordered x-ray of her ribs as well right side Patient is to start Levaquin 500 for 5 days And I have sent Percocet t.i.d. for p.r.n. for 4 days. Patient is to return for follow-up Thursday She has no fever no chills nausea or vomiting Orders: Orders 2 XR ribs RT min 3V w CXR1V Today R07.89 - Other chest pain Medications: New 2 oxycodone-acetaminophen 5-325 mg (Percocet) Partial Fill upon patient request. 1 tab PO TID PRN 12 tabs 0RF pain 4 days levofloxacin 500 mg PO DAILY 5 tabs 0RF 5 days Refilled 2 baclofen 10 mg PO BID 14 tabs 0RF 7 days B02.9 - Zoster without complications Coding Level of Care Code Est Pt Level 5 (91840) Diagnoses Asymptomatic microscopic hematuria R31.21 Hematuria type: asymptomatic microscopic Mid back pain on right side M54.9 Chest pain, non-cardiac R07.89 Time Spent (min) 45 Comment 20 with patient, 6 charting, 19 minutes arranging for stat ultrasound
[2023-08-14 07:47] VITALS: BP 132/80; PULSE 85; O2SAT 99; BMI 34.8
== END 2023-08-14 11:21 | disposition home or self-care (01) ==
PROVIDERS: PCP Internal Medicine; Visit Provider Internal Medicine
DX: R31.21 Asymptomatic microscopic hematuria (principal); M54.9 Dorsalgia, unspecified; R07.89 Other chest pain
CPT/HCPCS: 99215

== ENCOUNTER 2023-08-14 10:55 | Outpatient (REF) | payer OTHER, SELFPAY ==
--- NOTE | ~2023-08-14 | US_ITS ---
EXAMINATION: US RETROPERITONEAL LIMITED (RENAL ONLY) CLINICAL INFORMATION: Hematuria. COMPARISON: Previous renal ultrasound from [address] of the abdomen and pelvis from 2019 TECHNIQUE: Grayscale and color imaging of the kidneys FINDINGS: RIGHT KIDNEY: 11 x 5 x 5.6 cm (SAG x AP x TRV). The kidney is normal in size, contour, and echogenicity. Renal cortical thickness is normal. Small cyst in the lateral lower pole measuring 1.8 x 1.1 x 1 cm. No imaging follow-up recommended. No calculi or other focal parenchymal lesions. No hydronephrosis. LEFT KIDNEY: 11.8 x 5 x 6 cm (SAG x AP x TRV). The kidney is normal in size, contour, and echogenicity. Renal cortical thickness is normal. No calculi or focal parenchymal lesions. No hydronephrosis. US/US renal BI IMPRESSION: No stone or hydronephrosis.
--- NOTE | ~2023-08-14 | XR_ITS ---
EXAMINATION: XR RIBS, RIGHT CLINICAL INFORMATION: Chest pain COMPARISON: Chest x-ray there are 2017 TECHNIQUE: 3 views of the right ribs were obtained. FINDINGS: Cardiac silhouette is normal in size. Lungs are well aerated. There is no lobar consolidation. No pleural effusion or pneumothorax. Nondisplaced fracture of the right posterolateral 10th rib. Soft tissue calcifications adjacent to the greater tuberosity of the right humerus. XR/XR ribs RT min 3V w CXR1V IMPRESSION: Nondisplaced fracture of the right posterolateral 10th rib. No pneumothorax.
== END 2023-08-14 10:56 | disposition home or self-care (01) ==
LOC: HO.HMGCX 10:55
PROVIDERS: PCP Internal Medicine; Visit Provider Internal Medicine
DX: R07.89 Other chest pain (principal); R31.9 Hematuria, unspecified; M54.9 Dorsalgia, unspecified
CPT/HCPCS: 71101; 76775

== ENCOUNTER 2023-11-12 09:02 | Outpatient (AMB) | payer OTHER, SELFPAY ==
[2023-11-12 10:37] VITALS: BP 122/86; PULSE 82; O2SAT 98
--- NOTE | 2023-11-12 10:37 | MHC.OFFWIV ---
Intake Vital Signs 11/12/23 10:37 Weight 180 lb BP 122/86 Blood Pressure Location Rt brachial Position Sitting Pulse 82 Pulse Source Pulse Oximeter Pulse Oximetry (%) 98 Oxygen Delivery Method Room Air Intake Visit Reasons: EST/right foot infection [id number] Intake Note: Patient here for right big toe pain, she states she does not remember injuring it but could have stubbed her foot a couple of months ago. Patient Tobacco Use Status: Current everyday Tobacco user Allergies epinephrine [From EPIFRIN] Allergy (Intermediate, Verified 11/12/23 10:37) HEADACHES AND TACHYCARDIA Iodinated Contrast Media [IVP DYE] Allergy (Intermediate, Verified 11/12/23 10:37) DIFFICULTY BREATHING amoxicillin Allergy (Unknown, Verified 11/12/23 10:37) itchy tongue cantaloupe [CANTALOUPE] Allergy (Unknown, Verified 11/12/23 10:37) SHORTNESS OF BREATH cheese [CHEESE] Allergy (Unknown, Verified 11/12/23 10:37) UNKNOWN plummer [PLUMMER] Allergy (Unknown, Verified 11/12/23 10:37) SHORTNESS OF BREATH divalproex sodium [From DEPAKOTE] Allergy (Unknown, Verified 11/12/23 10:37) oral bumps fish derived [FISH] Allergy (Unknown, Verified 11/12/23 10:37) HIVES grapefruit [GRAPEFRUIT] Allergy (Unknown, Verified 11/12/23 10:37) UNKNOWN Nitrate Analogues [NITRATE ANALOGUES] Allergy (Unknown, Verified 11/12/23 10:37) UNKNOWN nut - unspecified [NUTS] Allergy (Unknown, Verified 11/12/23 10:37) SHORTNESS OF BREATH paroxetine [From PAXIL] Allergy (Unknown, Verified 11/12/23 10:37) somulence tetanus and diphtheria toxoids Allergy (Unknown, Verified 11/12/23 10:37) fever/hallucinations environmental Allergy (Unknown, Uncoded 11/12/23 10:37) unknown Do you need a note to return to daycare/school/sports/work: No HPI EST/right foot infection [id number] HPI Details This is a 48-year-old female patient who presents today with right big toe pain. She states that she stopped her toenail a few months ago, and this distorted her big toenail growth. Since then she has had slight pain and redness at that nailbed, increasing recently. She denies any drainage. Denies ant fever or chills. Is able to flex the great toe without pain. [facility] Medical History Palpitations Atypical chest pain Asthma, moderate Tobacco abuse Surgical History History of breast surgery Hx of tubal ligation Family History Father Alcoholic Mother Elevated cholesterol CVD (cardiovascular disease) History of blood clots Son Anxiety Daughter Hearing loss Daughter Asthma Daughter Acid reflux Sister No problems noted. Other Mental health disorder Substance use disorder Social History Housing: Apartment Alcohol intake: current Alcohol intake frequency: holidays/special occasions only Patient Tobacco Use Status: Current everyday Tobacco user Tobacco use type: Cigarette Cigarette Packs Per Day: 1 Cigarettes Per Day: 20 Years Smoked: 30 e-Cigarette/Vaping Use: Never Used service: No Current occupational status: unemployed Cognitive needs: No Hearing needs: No Vision needs: No Review of Systems Const All systems reviewed & are unremarkable except as noted in HPI and below Physical Exam Vital Signs: Last Vital Signs Pulse 82 11/12/23 10:37 BP 122/86 11/12/23 10:37 Pulse Ox 98 11/12/23 10:37 Oxygen Delivery Method Room Air 11/12/23 10:37 Const General: cooperative and no acute distress Resp Effort & Inspection: normal respiratory effort Skin Other: Right great toe with cracked/abnormally shaped toenail. Some erythema and tenderness to palpation along medial aspect of nailbed and that side of toe. No excessive warmth. No abscess identified. Full toe ROM. Extrem General: Yes capillary refill normal and Yes no clubbing, cyanosis or edema Psych Appearance: grossly normal Mental Status: mental status grossly normal Speech and movement: Normal speech and movement present Assessment & Plan Assessment & Plan (1) Infection of nail bed of toe of right foot: Code(s): L03.031 - Cellulitis of right toe Plan: Advised Epsom salt soaking on topical antibiotic ointment. I offered to start patient on oral antibiotics for this. She states that the only antibiotic she can tolerate without s/e is azithromycin. I discussed with her that this may not be effective for this type of infection, however am willing to prescribe it to see if she obtains any benefit. We reviewed indications, use, possible side effects of this. She may also take Ibuprofen as needed for pain/inflammation. She has an appointment scheduled with her PCP here next week, which I encouraged she keep. Based on her toenail, she may benefit from seeing podiatry. She will discuss this with her PCP next week. She verbalizes understanding and agrees to plan. Medications: New azithromycin For 250 mg dose pack: take 500 mg today (day 1), then 250 mg for 4 days (days 2-5) PO 6 tabs 0RF L03.031 - Cellulitis of right toe Coding Level of Care Code Est Pt Level 3 (70249) Diagnoses Infection of nail bed of toe of right foot L03.031
== END 2023-11-12 11:47 | disposition home or self-care (01) ==
PROVIDERS: PCP Internal Medicine; Visit Provider Nurse Practitioner Family
DX: L03.031 Cellulitis of right toe (principal)
CPT/HCPCS: 99213

== ENCOUNTER 2023-11-17 10:44 | Outpatient (AMB) | payer OTHER, SELFPAY ==
[2023-11-17 10:52] VITALS: BP 136/80; PULSE 86; TEMP 36.7; O2SAT 96; BMI 35.3
--- NOTE | 2023-11-17 10:52 | MHC.OFFWIV ---
Intake Vital Signs 11/17/23 10:52 Height 5 ft Weight 181 lb BMI 35.3 BP 136/80 Blood Pressure Location Lt brachial Position Sitting Pulse 86 Pulse Source Pulse Oximeter Temp 98.0 F Temp Source Temporal Artery Scan Pulse Oximetry (%) 96 Oxygen Delivery Method Room Air Intake Visit Reasons: EP Ingrown toe nail Intake Note: pt is here today for ingrown toe nail started 3 months Patient Tobacco Use Status: Current everyday Tobacco user Allergies epinephrine [From EPIFRIN] Allergy (Intermediate, Verified 11/17/23 10:52) HEADACHES AND TACHYCARDIA Iodinated Contrast Media [IVP DYE] Allergy (Intermediate, Verified 11/17/23 10:52) DIFFICULTY BREATHING amoxicillin Allergy (Unknown, Verified 11/17/23 10:52) itchy tongue cantaloupe [CANTALOUPE] Allergy (Unknown, Verified 11/17/23 10:52) SHORTNESS OF BREATH cheese [CHEESE] Allergy (Unknown, Verified 11/17/23 10:52) UNKNOWN plummer [PLUMMER] Allergy (Unknown, Verified 11/17/23 10:52) SHORTNESS OF BREATH divalproex sodium [From DEPAKOTE] Allergy (Unknown, Verified 11/17/23 10:52) oral bumps fish derived [FISH] Allergy (Unknown, Verified 11/17/23 10:52) HIVES grapefruit [GRAPEFRUIT] Allergy (Unknown, Verified 11/17/23 10:52) UNKNOWN Nitrate Analogues [NITRATE ANALOGUES] Allergy (Unknown, Verified 11/17/23 10:52) UNKNOWN nut - unspecified [NUTS] Allergy (Unknown, Verified 11/17/23 10:52) SHORTNESS OF BREATH paroxetine [From PAXIL] Allergy (Unknown, Verified 11/17/23 10:52) somulence tetanus and diphtheria toxoids Allergy (Unknown, Verified 11/17/23 10:52) fever/hallucinations environmental Allergy (Unknown, Uncoded 11/12/23 10:37) unknown Do you need a note to return to daycare/school/sports/work: Yes HPI HPI Comments History of Present Illness Details Patient is a 48yo F who presents to office for L great toe infection Seen 11/11 for same issue Was given topical antibiotic and Azithromycin (due to allergies) She said she had improvment of redness/swelling but pain still present 12/15, worse with palpation No fever, chills or drainage She has an area of white/yellow discoloration that occured after injury a while ago Denies seeing lithoduplicator operator of PCP for this [facility] Medical History Palpitations Atypical chest pain Asthma, moderate Tobacco abuse Surgical History History of breast surgery Hx of tubal ligation Family History Father Alcoholic Mother Elevated cholesterol CVD (cardiovascular disease) History of blood clots Son Anxiety Daughter Hearing loss Daughter Asthma Daughter Acid reflux Sister No problems noted. Other Mental health disorder Substance use disorder Social History Housing: Apartment Alcohol intake: current Alcohol intake frequency: holidays/special occasions only Patient Tobacco Use Status: Current everyday Tobacco user Tobacco use type: Cigarette Cigarette Packs Per Day: 1 Cigarettes Per Day: 20 Years Smoked: 30 e-Cigarette/Vaping Use: Never Used service: No Current occupational status: unemployed Cognitive needs: No Hearing needs: No Vision needs: No Review of Systems Const Denies chills, Denies fever(s) and Denies weakness Resp Denies cough Musc Reports arthralgias (L great toe) and Denies tingling Skin/Breast Reports change in pigmentation (nail color change) Neuro Denies tingling and Denies weakness Physical Exam Vital Signs: Last Vital Signs Temp 98.0 F 11/17/23 10:52 Pulse 86 11/17/23 10:52 BP 136/80 11/17/23 10:52 Pulse Ox 96 11/17/23 10:52 Oxygen Delivery Method Room Air 11/17/23 10:52 BMI result Body Mass Index 35.3 General: Non-toxic, NAD. Speaking full sentences. Skin: Warm dry through. L great toenail has white/yellow thickening of distal nail. No significant surrounding edema, erythema or ecchymosis. + tenderness to palpation L great toe distal lateral nail edge. No cuticle tenderness to palpation. No drainage. Respiratory: No respiratory distress Cardiac: Cap refill < 2 seconds L great toe MSK: Full ROM extremities. Neurology: A/O. No aphasia or facial droop. Gait without abnormality Psych: Good mood and affect Assessment & Plan Assessment & Plan (1) Onychomycosis: Code(s): B35.1 - Tinea unguium Plan: Patient seen and evaluated. No bacterial infection/paronychia on exam Discussed continuing warm soaks Topical fungal cream ordered Sent message to patients PCP for podiatry referral Patient gave verbal understanding and had no additional questions or concerns at time of discharge All questions answered Medications: New efinaconazole 10% (Jublia) 1 appl topical DAILY 48 weeks 8 mL 0RF Coding Level of Care Code Est Pt Level 3 (93454) Diagnoses Onychomycosis B35.1
== END 2023-11-17 11:38 | disposition home or self-care (01) ==
PROVIDERS: PCP Internal Medicine; Visit Provider Physician Assistant
DX: B35.1 Tinea unguium (principal)
CPT/HCPCS: 99213

== ENCOUNTER 2023-11-25 12:09 | Outpatient (AMB) | payer OTHER, SELFPAY ==
[2023-11-25 12:17] VITALS: BP 122/78; PULSE 93; O2SAT 96; BMI 35.0
--- NOTE | 2023-11-25 12:17 | A.OFFPC_ITS ---
Vital Signs 3 11/25/23 12:17 Height 5 ft Weight 179 lb 6 oz BMI 35.0 BP 122/78 Blood Pressure Location Lt brachial Position Sitting Pulse 93 Pulse Source Pulse Oximeter Pulse Oximetry (%) 96 Oxygen Delivery Method Room Air Intake Visit Reasons: In grown toe nail Allergies epinephrine [From EPIFRIN] Allergy (Intermediate, Verified 11/25/23 12:17) HEADACHES AND TACHYCARDIA Iodinated Contrast Media [IVP DYE] Allergy (Intermediate, Verified 11/25/23 12:17) DIFFICULTY BREATHING amoxicillin Allergy (Unknown, Verified 11/25/23 12:17) itchy tongue cantaloupe [CANTALOUPE] Allergy (Unknown, Verified 11/25/23 12:17) SHORTNESS OF BREATH cheese [CHEESE] Allergy (Unknown, Verified 11/25/23 12:17) UNKNOWN schulz [SCHULZ] Allergy (Unknown, Verified 11/25/23 12:17) SHORTNESS OF BREATH divalproex sodium [From DEPAKOTE] Allergy (Unknown, Verified 11/25/23 12:17) oral bumps fish derived [FISH] Allergy (Unknown, Verified 11/25/23 12:17) HIVES grapefruit [GRAPEFRUIT] Allergy (Unknown, Verified 11/25/23 12:17) UNKNOWN Nitrate Analogues [NITRATE ANALOGUES] Allergy (Unknown, Verified 11/25/23 12:17) UNKNOWN nut - unspecified [NUTS] Allergy (Unknown, Verified 11/25/23 12:17) SHORTNESS OF BREATH paroxetine [From PAXIL] Allergy (Unknown, Verified 11/25/23 12:17) somulence tetanus and diphtheria toxoids Allergy (Unknown, Verified 11/25/23 12:17) fever/hallucinations environmental Allergy (Unknown, Uncoded 11/12/23 10:37) unknown Medication List - Last Reconciled 11/25/23 by Lj Murcia MD ciclopirox 0.77% 1 appl topical BID 4 weeks ibuprofen 600 mg PO BID PRN meclizine 25 mg PO TID PRN 14 days naratriptan mg PO onabotulinumtoxinA (Botox) subcut .[id number] polyethylene glycol 3350 (Miralax) 17 grams PO DAILY 30 days Pulmicort Flexhaler 90 mcg/actuation (budesonide) 1 inh inhalation BID NS Ventolin HFA 90 mcg/actuation (albuterol sulfate) 1 inh inhalation QID PRN 30 days NS verapamil mg PO Tobacco use date assessed: 11/25/23 Dental Screening Dental Screen Date: 11/25/23 Did you have a dental visit in the last 12 months?: Yes Did you have a dental problem in the last 6 months where you did not have access to dental care?: No Was dental information given to patient?: Patient has dentist HPI In grown toe nail 2 HPI0 Details Patient had injury to right toenail few days ago followed by pain and inflammation She was evaluated in walk-in clinic and was given azithromycin which did help She came in today as pain as restarted, she is also requesting referral to Podiatry which I have placed for her More azithromycin sent [facility] Medical History Palpitations Atypical chest pain Asthma, moderate Tobacco abuse Surgical History History of breast surgery Hx of tubal ligation Family History Father Alcoholic Mother Elevated cholesterol CVD (cardiovascular disease) History of blood clots Son Anxiety Daughter Hearing loss Daughter Asthma Daughter Acid reflux Sister No problems noted. Other Mental health disorder Substance use disorder Social History Housing: Apartment Alcohol intake: current Alcohol intake frequency: holidays/special occasions only Patient Tobacco Use Status: Current everyday Tobacco user Tobacco use type: Cigarette Cigarette Packs Per Day: 1 Cigarettes Per Day: 20 Years Smoked: 30 Packs Per Year: 30 Packs per year/per ci.00 e-Cigarette/Vaping Use: Never Used service: No Current occupational status: unemployed Cognitive needs: No Hearing needs: No Vision needs: No Questionnaire PHQ-9 Over the last 2 weeks, how often have you been bothered by any of the following problems? 1. Little interest or pleasure in doing things: not at all 2. Feeling down, depressed, or hopeless: not at all 3. Trouble falling or staying asleep, or sleeping too much: not at all 4. Feeling tired or having little energy: not at all 5. Poor appetite or overeating: not at all 6. Feeling bad about yourself - or that you are a failure or have let yourself or your family down: not at all 7. Trouble concentrating on things, such as reading the newspaper or watching television: not at all 8. Moving or speaking so slowly that other people could have noticed. Or the opposite - being so fidgety or restless that you have been moving around a lot more than usual: not at all 9. Thoughts that you would be better off or of hurting yourself in some way: not at all Total score: 0 Depression Screening Interpretation: Negative Depression Screening Done: Yes 44441 - PHQ-9 Billing: Yes Source: Developed by Drs. Barrington Guy, Caryn Hodge, Ulysses Thurman and colleagues, with an educational carmen from [employer]. Thrive Questionnaire Date Thrive assessed: 11/25/23 I am a: Patient What is your living situation today?: I choose not to answer this question Within the past 12 months, did the food you bought not last and you didn't have the money to get more?: Never true Within the past 12 months, did you worry whether your food would run out before you got money to buy more?: Never true Do you have trouble paying for medicines?: No Do you have trouble getting transportation to medical appointments?: No Do you have trouble paying your heating and electricity bill?: No Do you have trouble taking care of your child, family member or friend?: No Do you have trouble with day-to-day activities such as bathing, preparing meals, shopping, managing finances, etc.?: No Are you currently unemployed and looking for a job?: No Are you interested in more education?: No Please select the resources that you would like help with: None Currently or been in a relationship where the following occur: no concerns reported THRIVE Score: 0 AUDIT C Alcohol Use Questionnaire (AUDIT-C) 1. How often do you have a drink containing alcohol?: Never 3. How often do you have six or more drinks on one occasion?: Never Total Score: 0 Score Reviewed/Action Taken: No SUE-7 AMB Questionnaire SUE-7 Date SUE - 7 assessed: 11/25/23 Feeling nervous, anxious, or on edge: 0 = Not at all Not being able to stop or control worryin = Not at all Worrying too much about different things: 0 = Not at all Trouble relaxin = Not at all Being so restless that it is hard to sit still: 0 = Not at all Becoming easily annoyed or irritable: 0 = Not at all Feeling afraid as if something awful might happen: 0 = Not at all Total SUE-7 score (0-4 normal; 5-9 mild; 10-14 moderate; 15-21 severe): 0 Source: Developed by Drs. Barrington Guy, Caryn Hodge, Ulysses Thurman and colleagues, with an educational carmen from [employer]. SUE-7 Assessment Billing SUE-7 Assessment Tool: SUE-7 Assessment 98824 Review of Systems Const All systems reviewed & are unremarkable except as noted in HPI and below Physical exam (Primary Care) Vital Signs: Last Vital Signs Pulse 93 11/25/23 12:17 BP 122/78 11/25/23 12:17 Pulse Ox 96 11/25/23 12:17 Oxygen Delivery Method Room Air 11/25/23 12:17 BMI result Body Mass Index 35.0 Tobacco/Smoking Status: Tobacco use Status Tobacco use date assessed 11/25/23 11/25/23 12:18 Patient Tobacco Use Status Current everyday Tobacco 11/25/23 12:18 Tobacco use type Cigarette 11/25/23 12:18 e-Cigarette/Vaping Use Never Used 11/25/23 12:18 PHQ-9: PHQ-9 Score PHQ-9: Total score 0 11/25/23 12:54 Depression Screening Interpretation: Negative Thrive Assessment: Date of Thrive Assessment Date Thrive assessed 11/25/23 11/25/23 12:54 Currently or been in a relationship where the following occur: no concerns reported Const General: no acute distress Orientation/consciousness: patient oriented x3 Eyes General: appearance normal, both eyes and all related structures Resp Effort & Inspection: normal respiratory effort and able to speak in complete sentences Auscultation: clear to auscultation bilaterally Neuro General: patient oriented x3 Extrem Ankle/foot/toe images: 2 1. Disfigured discolored nail with slight inflammation Psych Mental Status: mental status grossly normal Assessment and Plan Assessment & Plan (1) Ingrowing toenail with infection: Code(s): L60.0 - Ingrowing nail (2) Onychomycosis: Code(s): B35.1 - Tinea unguium Plan Patient had injury to right toenail few days ago followed by pain and inflammation She was evaluated in walk-in clinic and was given azithromycin which did help She came in today as pain as restarted, she is also requesting referral to Podiatry which I have placed for her More azithromycin sent Orders: Referrals 2 Podiatry Referral B35.1 - Tinea unguium Medications: Changed 2 From azithromycin For 250 mg dose pack: take 500 mg today (day 1), then 250 mg for 4 days (days 2-5) PO 6 tabs 0RF L03.031 - Cellulitis of right toe To azithromycin Two tablets today then 1 daily until finished 11 tabs 0RF L03.031 - Cellulitis of right toe Discontinued 2 ciclopirox 0.77% Discontinued Reason: Doctor's Order 1 appl topical BID 4 weeks 30 grams 0RF B35.1 - Tinea unguium Coding Level of Care Code Est Pt Level 3 (95117) Diagnoses Ingrowing toenail with infection L60.0 Onychomycosis B35.1 Additional Codes SUE-7 Assessment Billing - SUE-7 Assessment Tool: SUE-7 Assessment 32499 ([id number])
== END 2023-11-25 13:16 | disposition home or self-care (01) ==
PROVIDERS: PCP Internal Medicine; Visit Provider Internal Medicine
DX: L60.0 Ingrowing nail (principal); B35.1 Tinea unguium
CPT/HCPCS: 99213

== ENCOUNTER 2024-01-05 13:28 | Outpatient (AMB) | payer OTHER, SELFPAY ==
[2024-01-05 13:30] VITALS: BP 130/84; PULSE 84; O2SAT 98; BMI 34.0
--- NOTE | 2024-01-05 13:30 | MHC.PC.OV ---
Vital Signs 01/05/24 13:30 Height 5 ft Weight 174 lb BMI 34.0 BP 130/84 Blood Pressure Location Rt brachial Position Sitting Pulse 84 Pulse Source Pulse Oximeter Pulse Oximetry (%) 98 Oxygen Delivery Method Room Air Intake Visit Reasons: 6 m followup asthma Allergies epinephrine [From EPIFRIN] Allergy (Intermediate, Verified 01/05/24 13:30) HEADACHES AND TACHYCARDIA Iodinated Contrast Media [IVP DYE] Allergy (Intermediate, Verified 01/05/24 13:30) DIFFICULTY BREATHING amoxicillin Allergy (Unknown, Verified 01/05/24 13:30) itchy tongue cantaloupe [CANTALOUPE] Allergy (Unknown, Verified 01/05/24 13:30) SHORTNESS OF BREATH cheese [CHEESE] Allergy (Unknown, Verified 01/05/24 13:30) UNKNOWN schulz [SCHULZ] Allergy (Unknown, Verified 01/05/24 13:30) SHORTNESS OF BREATH divalproex sodium [From DEPAKOTE] Allergy (Unknown, Verified 01/05/24 13:30) oral bumps fish derived [FISH] Allergy (Unknown, Verified 01/05/24 13:30) HIVES grapefruit [GRAPEFRUIT] Allergy (Unknown, Verified 01/05/24 13:30) UNKNOWN Nitrate Analogues [NITRATE ANALOGUES] Allergy (Unknown, Verified 01/05/24 13:30) UNKNOWN nut - unspecified [NUTS] Allergy (Unknown, Verified 01/05/24 13:30) SHORTNESS OF BREATH paroxetine [From PAXIL] Allergy (Unknown, Verified 01/05/24 13:30) somulence tetanus and diphtheria toxoids Allergy (Unknown, Verified 01/05/24 13:30) fever/hallucinations environmental Allergy (Unknown, Uncoded 11/12/23 10:37) unknown Medication List - Last Reconciled 01/05/24 by Lj Murcia MD ibuprofen 600 mg PO BID PRN meclizine 25 mg PO TID PRN 14 days naratriptan mg PO onabotulinumtoxinA (Botox) subcut .[id number] polyethylene glycol 3350 (Miralax) 17 grams PO DAILY 30 days Pulmicort Flexhaler 90 mcg/actuation (budesonide) 1 inh inhalation BID NS Ventolin HFA 90 mcg/actuation (albuterol sulfate) 1 inh inhalation QID PRN 30 days NS verapamil mg PO Tobacco use date assessed: 01/05/24 Dental Screening Dental Screen Date: 01/05/24 Did you have a dental visit in the last 12 months?: Yes Did you have a dental problem in the last 6 months where you did not have access to dental care?: No Was dental information given to patient?: Patient has dentist HPI 6 m followup asthma HPI Details Has started eating more vegetables and protein, feeling better and has started losing weight Asthma is stable patient is on Pulmicort which she just recently started as she had leftover Flovent before. She says that she like Flovent better Patient does have seasonal allergy and her allergies are acting up, she can not take long-acting antihistamine as that triggers headache She suffers from migraine headaches and is taking verapamil for that reason, she goes to a Neurology for Botox injection as well Dizziness is stable with meclizine as needed Constipation: Manageable with increasing water and MiraLax, refill sent Continued to smoke, once again we talked about it patient says that she can only do 1 thing at a time She want to lose weight 1st and then she will come to tobacco. She is to return in 3 months for follow-up appointment [facility] Medical History Palpitations Atypical chest pain Asthma, moderate Tobacco abuse Surgical History History of breast surgery Hx of tubal ligation Family History Father Alcoholic Mother Elevated cholesterol CVD (cardiovascular disease) History of blood clots Son Anxiety Daughter Hearing loss Daughter Asthma Daughter Acid reflux Sister No problems noted. Other Mental health disorder Substance use disorder Social History Housing: Apartment Alcohol intake: current Alcohol intake frequency: holidays/special occasions only Patient Tobacco Use Status: Current everyday Tobacco user Tobacco use type: Cigarette Cigarette Packs Per Day: 1 Cigarettes Per Day: 20 Years Smoked: 30 e-Cigarette/Vaping Use: Never Used service: No Current occupational status: unemployed Cognitive needs: No Hearing needs: No Vision needs: No Questionnaire Thrive Questionnaire Date Thrive assessed: 11/25/23 AUDIT C Alcohol Use Questionnaire (AUDIT-C) 1. How often do you have a drink containing alcohol?: Never 3. How often do you have six or more drinks on one occasion?: Never Total Score: 0 Score Reviewed/Action Taken: Yes SUE-7 AMB Questionnaire SUE-7 Date SUE - 7 assessed: 11/25/23 Source: Developed by Drs. Barrington Guy, Caryn Hodge, Ulysses Thurman and colleagues, with an educational carmen from [employer]. Review of Systems Const Denies chills and Denies fever(s) ENT Denies epistaxis and Denies nasal discharge Card Denies chest pain Resp Denies chest congestion, Denies cough and Denies hemoptysis GI Denies diarrhea and Denies nausea Skin/Breast Denies rash Neuro Reports no additional complaints Psych Reports no additional complaints Endo Reports no additional complaints Physical exam (Primary Care) Vital Signs: Last Vital Signs Pulse 84 01/05/24 13:30 BP 130/84 01/05/24 13:30 Pulse Ox 98 01/05/24 13:30 Oxygen Delivery Method Room Air 01/05/24 13:30 BMI result Body Mass Index 34.0 Tobacco/Smoking Status: Tobacco use Status Tobacco use date assessed 01/05/24 01/05/24 13:37 Patient Tobacco Use Status Current everyday Tobacco 01/05/24 13:37 Tobacco use type Cigarette 01/05/24 13:37 e-Cigarette/Vaping Use Never Used 01/05/24 13:37 Thrive Assessment: Date of Thrive Assessment Date Thrive assessed 11/25/23 01/05/24 13:37 Const General: cooperative, comfortable and no acute distress Orientation/consciousness: patient oriented x3 HENTX Head: Yes normocephalic Eyes General: appearance normal, both eyes and all related structures Neck Neck: Yes supple Resp Effort & Inspection: normal respiratory effort, no cough and no stridor Cardio Rhythm: regular rhythm Heart sounds: S1 normal heart sound present and S2 normal heart sound present Skin General skin exam: turgor normal Neuro General: patient oriented x3, tone normal and moves all extremities Extrem Right lower extremity: no edema Left lower extremity: no edema Assessment and Plan Assessment & Plan (1) Chronic vertigo: Code(s): R42 - Dizziness and giddiness (2) Tobacco abuse: Code(s): Z72.0 - Tobacco use (3) Asthma, moderate: Code(s): J45.909 - Unspecified asthma, uncomplicated Qualifiers: Asthma complication type: uncomplicated Asthma persistence: persistent Qualified Code(s): J45.40 - Moderate persistent asthma, uncomplicated (4) Migraine headache: Code(s): G43.909 - Migraine, unspecified, not intractable, without status migrainosus Qualifiers: Intractability: intractable Migraine type: unspecified Status migrainosus presence: without status migrainosus Qualified Code(s): G43.919 - Migraine, unspecified, intractable, without status migrainosus (5) Obesity due to excess calories: Code(s): E66.09 - Other obesity due to excess calories Qualifiers: Body mass index: BMI 35.0-35.9 Obesity classification: adult class 2 (BMI 35 - 39.9) Serious obesity comorbidity presence: without serious comorbidity Qualified Code(s): E66.09 - Other obesity due to excess calories; Z68.35 - Body mass index [BMI] 35.0-35.9, adult (6) Constipation by delayed colonic transit: Code(s): K59.01 - Slow transit constipation (7) Environmental allergies: Code(s): Z91.09 - Other allergy status, other than to drugs and biological substances Plan she has started eating more vegetables and protein, feeling better and has started losing weight Asthma is stable patient is on Pulmicort which she just recently started as she had leftover Flovent before. She says that she like Flovent better Patient does have seasonal allergy and her allergies are acting up, she can not take long-acting antihistamine as that triggers headache She suffers from migraine headaches and is taking verapamil for that reason, she goes to a Neurology for Botox injection as well Dizziness is stable with meclizine as needed Constipation: Manageable with increasing water and MiraLax, refill sent Continued to smoke, once again we talked about it patient says that she can only do 1 thing at a time She want to lose weight 1st and then she will come to tobacco. She is to return in 3 months for follow-up appointment Medications: Refilled polyethylene glycol 3350 (Miralax) 17 grams PO DAILY 510 grams 3RF 30 days meclizine 25 mg PO TID PRN 30 tabs 0RF dizziness 14 days Pulmicort Flexhaler 90 mcg/actuation (budesonide) 1 inh inhalation BID 1 ea 2RF NS Ventolin HFA 90 mcg/actuation (albuterol sulfate) 1 inh inhalation QID PRN 8 grams 2RF shortness of breath or wheezing 30 days NS Coding Level of Care Code Est Pt Level 4 (33179) Complex EM visit Add On G2211 Diagnoses Chronic vertigo R42 Tobacco abuse Z72.0 Moderate persistent asthma without complication J45.40 Asthma complication type: uncomplicated Asthma persistence: persistent Intractable migraine without status migrainosus, unspecified migraine type G43.919 Intractability: intractable Migraine type: unspecified Status migrainosus presence: without status migrainosus Class 2 obesity due to excess calories without serious comorbidity with body mass index (BMI) of 35.0 to 35.9 in adult E66.09; Z68.35 Body mass index: BMI 35.0-35.9 Obesity classification: adult class 2 (BMI 35 - 39.9) Serious obesity comorbidity presence: without serious comorbidity Constipation by delayed colonic transit K59.01 Environmental allergies Z91.09
== END 2024-01-05 13:50 | disposition home or self-care (01) ==
PROVIDERS: PCP Internal Medicine; Visit Provider Internal Medicine
DX: R42 Dizziness and giddiness (principal); Z72.0 Tobacco use; J45.40 Moderate persistent asthma, uncomplicated; G43.919 Migraine, unspecified, intractable, without status migrainosus; E66.09 Other obesity due to excess calories; Z68.35 Body mass index [BMI] 35.0-35.9, adult; K59.01 Slow transit constipation; Z91.09 Other allergy status, other than to drugs and biological substances
CPT/HCPCS: 99214; G2211

== ENCOUNTER 2024-01-20 10:12 | Outpatient (AMB) | payer OTHER, SELFPAY ==
[2024-01-20 10:21] VITALS: BP 122/78; PULSE 68; O2SAT 96; BMI 33.0
--- NOTE | 2024-01-20 10:21 | A.OFFPC_ITS ---
Vital Signs 3 01/20/24 10:21 Height 5 ft Weight 169 lb 2 oz BMI 33.0 BP 122/78 Blood Pressure Location Lt brachial Position Sitting Pulse 68 Pulse Source Pulse Oximeter Pulse Oximetry (%) 96 Oxygen Delivery Method Room Air Intake Visit Reasons: Referral Req/ Concerns of pneumiona~ Allergies epinephrine [From EPIFRIN] Allergy (Intermediate, Verified 01/20/24 10:24) HEADACHES AND TACHYCARDIA Iodinated Contrast Media [IVP DYE] Allergy (Intermediate, Verified 01/20/24 10:24) DIFFICULTY BREATHING amoxicillin Allergy (Unknown, Verified 01/20/24 10:24) itchy tongue cantaloupe [CANTALOUPE] Allergy (Unknown, Verified 01/20/24 10:24) SHORTNESS OF BREATH cheese [CHEESE] Allergy (Unknown, Verified 01/20/24 10:24) UNKNOWN schulz [SCHULZ] Allergy (Unknown, Verified 01/20/24 10:24) SHORTNESS OF BREATH divalproex sodium [From DEPAKOTE] Allergy (Unknown, Verified 01/20/24 10:24) oral bumps fish derived [FISH] Allergy (Unknown, Verified 01/20/24 10:24) HIVES grapefruit [GRAPEFRUIT] Allergy (Unknown, Verified 01/20/24 10:24) UNKNOWN Nitrate Analogues [NITRATE ANALOGUES] Allergy (Unknown, Verified 01/20/24 10:24) UNKNOWN nut - unspecified [NUTS] Allergy (Unknown, Verified 01/20/24 10:24) SHORTNESS OF BREATH paroxetine [From PAXIL] Allergy (Unknown, Verified 01/20/24 10:24) somulence tetanus and diphtheria toxoids Allergy (Unknown, Verified 01/20/24 10:24) fever/hallucinations environmental Allergy (Unknown, Uncoded 11/12/23 10:37) unknown Medication List - Last Reconciled 01/20/24 by Lj Murcia MD ibuprofen 600 mg PO BID PRN meclizine 25 mg PO TID PRN 14 days naratriptan mg PO onabotulinumtoxinA (Botox) subcut .[id number] polyethylene glycol 3350 (Miralax) 17 grams PO DAILY 30 days Pulmicort Flexhaler 90 mcg/actuation (budesonide) 1 inh inhalation BID NS Ventolin HFA 90 mcg/actuation (albuterol sulfate) 1 inh inhalation QID PRN 30 days NS verapamil mg PO Tobacco use date assessed: 01/20/24 Dental Screening Dental Screen Date: 01/20/24 Did you have a dental visit in the last 12 months?: Yes Did you have a dental problem in the last 6 months where you did not have access to dental care?: No Was dental information given to patient?: Patient has dentist HPI Referral Req/ Concerns of pneumiona~ 2 HPI0 Details right big toe nail Patient is a 48-year-old female she came in today to talk about couple of medical problems Patient have severe allergies but she can not take any allergy medication, long- acting antihistamine trigger headaches. And she can not afford montelukast last time she checked I have sent montelukast again she can check with the pharmacy and see how much it cost out of pocket It seems as if her insurance does cover it. She has seen physician office specialist for her right big toe disfigured nail, procedure was explained to patient and she decided not to do it Patient is requesting a 2nd opinion. Referral placed [facility] Medical History Palpitations Atypical chest pain Asthma, moderate Tobacco abuse Surgical History History of breast surgery Hx of tubal ligation Family History Father Alcoholic Mother Elevated cholesterol CVD (cardiovascular disease) History of blood clots Son Anxiety Daughter Hearing loss Daughter Asthma Daughter Acid reflux Sister No problems noted. Other Mental health disorder Substance use disorder Social History Housing: Apartment Alcohol intake: current Alcohol intake frequency: holidays/special occasions only Patient Tobacco Use Status: Current everyday Tobacco user Tobacco use type: Cigarette Cigarette Packs Per Day: 1 Cigarettes Per Day: 20 Years Smoked: 30 Packs Per Year: 30 Packs per year/per ci.00 e-Cigarette/Vaping Use: Never Used service: No Current occupational status: unemployed Cognitive needs: No Hearing needs: No Vision needs: No Questionnaire PHQ-9 Over the last 2 weeks, how often have you been bothered by any of the following problems? 1. Little interest or pleasure in doing things: not at all 2. Feeling down, depressed, or hopeless: not at all 3. Trouble falling or staying asleep, or sleeping too much: not at all 4. Feeling tired or having little energy: not at all 5. Poor appetite or overeating: not at all 6. Feeling bad about yourself - or that you are a failure or have let yourself or your family down: not at all 7. Trouble concentrating on things, such as reading the newspaper or watching television: not at all 8. Moving or speaking so slowly that other people could have noticed. Or the opposite - being so fidgety or restless that you have been moving around a lot more than usual: not at all 9. Thoughts that you would be better off or of hurting yourself in some way: not at all Total score: 0 Depression Screening Interpretation: Negative Depression Screening Done: Yes 93214 - PHQ-9 Billing: Yes Source: Developed by Drs. Barrington Guy, Caryn Hodge, Ulysses Thurman and colleagues, with an educational carmen from [employer]. Thrive Questionnaire Date Thrive assessed: 01/20/24 I am a: Patient What is your living situation today?: I have a steady place to live Within the past 12 months, did the food you bought not last and you didn't have the money to get more?: Never true Within the past 12 months, did you worry whether your food would run out before you got money to buy more?: Never true Do you have trouble paying for medicines?: No Do you have trouble getting transportation to medical appointments?: No Do you have trouble paying your heating and electricity bill?: No Do you have trouble taking care of your child, family member or friend?: No Do you have trouble with day-to-day activities such as bathing, preparing meals, shopping, managing finances, etc.?: No Are you currently unemployed and looking for a job?: No Are you interested in more education?: No Please select the resources that you would like help with: None Currently or been in a relationship where the following occur: no concerns reported THRIVE Score: 0 AUDIT C Alcohol Use Questionnaire (AUDIT-C) 1. How often do you have a drink containing alcohol?: Never 3. How often do you have six or more drinks on one occasion?: Never Total Score: 0 Score Reviewed/Action Taken: Yes SUE-7 AMB Questionnaire SUE-7 Date SUE - 7 assessed: 01/20/24 Feeling nervous, anxious, or on edge: 1 = Several days Not being able to stop or control worryin = Not at all Worrying too much about different things: 0 = Not at all Trouble relaxin = Not at all Being so restless that it is hard to sit still: 0 = Not at all Becoming easily annoyed or irritable: 0 = Not at all Feeling afraid as if something awful might happen: 0 = Not at all Total SUE-7 score (0-4 normal; 5-9 mild; 10-14 moderate; 15-21 severe): 1 Source: Developed by Drs. Barrington Guy, Caryn Hodge, Ulysses Thurman and colleagues, with an educational carmen from [employer]. SUE-7 Assessment Billing SUE-7 Assessment Tool: SUE-7 Assessment 79776 Review of Systems Const Denies chills and Denies fever(s) ENT Denies epistaxis and Denies nasal discharge Card Denies chest pain Resp Denies hemoptysis GI Denies diarrhea and Denies nausea Skin/Breast Denies rash Neuro Reports no additional complaints Psych Reports no additional complaints Endo Reports no additional complaints Physical exam (Primary Care) Vital Signs: Last Vital Signs Pulse 68 01/20/24 10:21 BP 122/78 01/20/24 10:21 Pulse Ox 96 01/20/24 10:21 Oxygen Delivery Method Room Air 01/20/24 10:21 BMI result Body Mass Index 33.0 Tobacco/Smoking Status: Tobacco use Status Tobacco use date assessed 01/20/24 01/20/24 10:25 Patient Tobacco Use Status Current everyday Tobacco 01/20/24 10:25 Tobacco use type Cigarette 01/20/24 10:25 e-Cigarette/Vaping Use Never Used 01/20/24 10:25 PHQ-9: PHQ-9 Score PHQ-9: Total score 0 01/20/24 10:46 Depression Screening Interpretation: Negative Thrive Assessment: Date of Thrive Assessment Date Thrive assessed 01/20/24 01/20/24 10:46 Currently or been in a relationship where the following occur: no concerns reported Const General: cooperative, comfortable and no acute distress Orientation/consciousness: patient oriented x3 HENMT Head: Yes normocephalic Eyes General: appearance normal, both eyes and all related structures Neck Neck: Yes supple Resp Effort & Inspection: normal respiratory effort, no cough and no stridor Skin General skin exam: turgor normal Neuro General: patient oriented x3, tone normal and moves all extremities Extrem Ankle/foot/toe images: 2 1. Slightly disfigured nail causing recurrent ingrown toenail Assessment and Plan Assessment & Plan (1) Ingrowing toenail with infection: Code(s): L60.0 - Ingrowing nail (2) Environmental allergies: Code(s): Z91.09 - Other allergy status, other than to drugs and biological substances (3) Postnasal drip: Code(s): R09.82 - Postnasal drip (4) Nasal discharge: Code(s): J34.89 - Other specified disorders of nose and nasal sinuses Plan Patient is a 48-year-old female she came in today to talk about couple of medical problems Patient have severe allergies but she can not take any allergy medication, long- acting antihistamine trigger headaches. And she can not afford montelukast last time she checked I have sent montelukast again she can check with the pharmacy and see how much it cost out of pocket It seems as if her insurance does cover it. She has seen physician office specialist for her right big toe disfigured nail, procedure was explained to patient and she decided not to do it Patient is requesting a 2nd opinion. Referral placed Orders: Referrals 2 Podiatry Referral L60.0 - Ingrowing nail Medications: New 2 montelukast 10 mg PO DAILY 30 tabs 0RF Coding Level of Care Code Est Pt Level 3 (84705) Diagnoses Ingrowing toenail with infection L60.0 Environmental allergies Z91.09 Postnasal drip R09.82 Nasal discharge J34.89 Additional Codes SUE-7 Assessment Billing - SUE-7 Assessment Tool: SUE-7 Assessment 64001 ([id number])
== END 2024-01-20 11:48 | disposition home or self-care (01) ==
PROVIDERS: PCP Internal Medicine; Visit Provider Internal Medicine
DX: R09.82 Postnasal drip (principal); L60.0 Ingrowing nail; Z91.09 Other allergy status, other than to drugs and biological substances; J34.89 Other specified disorders of nose and nasal sinuses
CPT/HCPCS: 99213

== ENCOUNTER 2024-01-26 09:46 | Outpatient (AMB) | payer OTHER, SELFPAY ==
[2024-01-26 10:03] VITALS: BP 116/80; PULSE 77; TEMP 36.3; O2SAT 97; BMI 33.2
--- NOTE | 2024-01-26 10:03 | MHC.OFFWIV ---
Intake Vital Signs 01/26/24 10:03 Height 5 ft Weight 170 lb BMI 33.2 BP 116/80 Blood Pressure Location Lt brachial Position Sitting Pulse 77 Pulse Source Pulse Oximeter Temp 97.4 F Temp Source Temporal Artery Scan Pulse Oximetry (%) 97 Oxygen Delivery Method Room Air Intake Visit Reasons: ep/ ? asthma [phone] Intake Note: pt is here today for asthma started 2 days Patient Tobacco Use Status: Current everyday Tobacco user Allergies epinephrine [From EPIFRIN] Allergy (Intermediate, Verified 01/26/24 10:05) HEADACHES AND TACHYCARDIA Iodinated Contrast Media [IVP DYE] Allergy (Intermediate, Verified 01/26/24 10:05) DIFFICULTY BREATHING amoxicillin Allergy (Unknown, Verified 01/26/24 10:05) itchy tongue cantaloupe [CANTALOUPE] Allergy (Unknown, Verified 01/26/24 10:05) SHORTNESS OF BREATH cheese [CHEESE] Allergy (Unknown, Verified 01/26/24 10:05) UNKNOWN plummer [PLUMMER] Allergy (Unknown, Verified 01/26/24 10:05) SHORTNESS OF BREATH divalproex sodium [From DEPAKOTE] Allergy (Unknown, Verified 01/26/24 10:05) oral bumps fish derived [FISH] Allergy (Unknown, Verified 01/26/24 10:05) HIVES grapefruit [GRAPEFRUIT] Allergy (Unknown, Verified 01/26/24 10:05) UNKNOWN Nitrate Analogues [NITRATE ANALOGUES] Allergy (Unknown, Verified 01/26/24 10:05) UNKNOWN nut - unspecified [NUTS] Allergy (Unknown, Verified 01/26/24 10:05) SHORTNESS OF BREATH paroxetine [From PAXIL] Allergy (Unknown, Verified 01/26/24 10:05) somulence tetanus and diphtheria toxoids Allergy (Unknown, Verified 01/26/24 10:05) fever/hallucinations environmental Allergy (Unknown, Uncoded 11/12/23 10:37) unknown Do you need a note to return to daycare/school/sports/work: No HPI HPI Comments History of Present Illness Details 48-year-old female presents today complaining of rapid heart rate palpitations and concerns this was an exacerbation of her asthma. She states she did not have any wheezing but was using her albuterol inhaler 2 or 3 times a day. [facility] Medical History Palpitations Atypical chest pain Asthma, moderate Tobacco abuse Surgical History History of breast surgery Hx of tubal ligation Family History Father Alcoholic Mother Elevated cholesterol CVD (cardiovascular disease) History of blood clots Son Anxiety Daughter Hearing loss Daughter Asthma Daughter Acid reflux Sister No problems noted. Other Mental health disorder Substance use disorder Social History Housing: Apartment Alcohol intake: current Alcohol intake frequency: holidays/special occasions only Patient Tobacco Use Status: Current everyday Tobacco user Tobacco use type: Cigarette Cigarette Packs Per Day: 1 Cigarettes Per Day: 20 Years Smoked: 30 e-Cigarette/Vaping Use: Never Used service: No Current occupational status: unemployed Cognitive needs: No Hearing needs: No Vision needs: No Review of Systems Const All systems reviewed & are unremarkable except as noted in HPI and below Eyes Reports no additional complaints ENT Reports no additional complaints Card Reports rapid heart rate, Reports irregular heart rhythm and Reports dyspnea Resp Reports no additional complaints and Reports dyspnea GI Reports no additional complaints Physical Exam Const General: healthy appearing and no acute distress HEENT Head: Yes normal to inspection, Yes normocephalic and Yes atraumatic Ears: hearing grossly normal bilaterally General nose exam: Normal external nose present Face and sinus: Yes normal facial exam Resp Effort & Inspection: normal respiratory effort Auscultation: clear to auscultation bilaterally Cardio Rate: regular rate Rhythm: regular rhythm Heart sounds: S1 normal heart sound present and S2 normal heart sound present Results Reviewed Results Reviewed: EKG done in the office today was normal Assessment & Plan Assessment & Plan (1) Chest pain: Code(s): R07.9 - Chest pain, unspecified Plan: The patient is asymptomatic at the time of her visit. She will return if any chest pain or go to the emergency department. She will follow up her palpitations with her PCP Plan see plan Coding Level of Care Code Est Pt Level 3 (93493) Diagnoses Chest pain R07.9
== END 2024-01-26 11:04 | disposition home or self-care (01) ==
PROVIDERS: PCP Internal Medicine; Visit Provider Physician Assistant Medical
DX: R07.9 Chest pain, unspecified (principal)
CPT/HCPCS: 93000; 99213

== ENCOUNTER → 2024-03-08 14:39 | Outpatient (BNVA) | payer OTHER, SELFPAY | PROVIDERS: PCP Internal Medicine; Visit Provider Surgery | DX: K21.9 Gastro-esophageal reflux disease without esophagitis (principal); E65 Localized adiposity; Z87.19 Personal history of other diseases of the digestive system | CPT/HCPCS: 99212 ==

== ENCOUNTER 2024-03-22 13:29 | Outpatient (AMB) | payer OTHER, SELFPAY ==
[2024-03-22 13:39] VITALS: BP 118/58; PULSE 80; BMI 32.7
--- NOTE | 2024-03-22 13:39 | MHC.OFFVIS ---
Vital Signs 03/22/24 13:39 Height 5 ft Weight 167 lb 8.821 oz BMI 32.7 BP 118/58 L Blood Pressure Location Lt brachial Position Sitting Pulse 80 Pulse Source Monitor Intake Visit Reasons: [facility] ED02/03-Palpitations Allergies epinephrine [From EPIFRIN] Allergy (Intermediate, Verified 03/22/24 13:59) HEADACHES AND TACHYCARDIA Iodinated Contrast Media [IVP DYE] Allergy (Intermediate, Verified 03/22/24 13:59) DIFFICULTY BREATHING amoxicillin Allergy (Unknown, Verified 03/22/24 13:59) itchy tongue cantaloupe [CANTALOUPE] Allergy (Unknown, Verified 03/22/24 13:59) SHORTNESS OF BREATH cheese [CHEESE] Allergy (Unknown, Verified 03/22/24 13:59) UNKNOWN schulz [SCHULZ] Allergy (Unknown, Verified 03/22/24 13:59) SHORTNESS OF BREATH divalproex sodium [From DEPAKOTE] Allergy (Unknown, Verified 03/22/24 13:59) oral bumps fish derived [FISH] Allergy (Unknown, Verified 03/22/24 13:59) HIVES grapefruit [GRAPEFRUIT] Allergy (Unknown, Verified 03/22/24 13:59) UNKNOWN Nitrate Analogues [NITRATE ANALOGUES] Allergy (Unknown, Verified 03/22/24 13:59) UNKNOWN nut - unspecified [NUTS] Allergy (Unknown, Verified 03/22/24 13:59) SHORTNESS OF BREATH paroxetine [From PAXIL] Allergy (Unknown, Verified 03/22/24 13:59) somulence tetanus and diphtheria toxoids Allergy (Unknown, Verified 03/22/24 13:59) fever/hallucinations environmental Allergy (Unknown, Uncoded 03/22/24 13:59) unknown Medication List - Last Reconciled 03/22/24 by Letty Flood NP ibuprofen 600 mg PO BID PRN meclizine 25 mg PO TID PRN 14 days naratriptan mg PO onabotulinumtoxinA (Botox) subcut .d01hgmtm polyethylene glycol 3350 (Miralax) 17 grams PO DAILY 30 days Pulmicort Flexhaler 90 mcg/actuation (budesonide) 1 inh inhalation BID NS Ventolin HFA 90 mcg/actuation (albuterol sulfate) 1 inh inhalation QID PRN 30 days NS verapamil mg PO HPI Comments Details: 48-year-old female presents today for a new patient visit. She had last seen Dr. Kearney back in 2020. She was at [facility] Emergency Department on 02/04/2024 for palpitations and shortness of breath. She was diagnosed with a respiratory infection. Since she has recovered from the respiratory infection her palpitations have improved and they are on an occasion. Her inhaler helps with the shortness of breath. She had a holter placed as she left [facility] ED and that showed less than 1% of ventricular and supraventricular ectopy. She is a smoker. [facility] Medical History Palpitations Atypical chest pain Asthma, moderate Tobacco abuse Surgical History History of breast surgery Hx of tubal ligation Family History Father Alcoholic Mother Elevated cholesterol CVD (cardiovascular disease) History of blood clots Son Anxiety Daughter Hearing loss Daughter Asthma Daughter Acid reflux Sister No problems noted. Other Mental health disorder Substance use disorder Social History Housing: Apartment Alcohol intake: current Alcohol intake frequency: holidays/special occasions only Patient Tobacco Use Status: Current everyday Tobacco user Tobacco use type: Cigarette Cigarette Packs Per Day: 1 Cigarettes Per Day: 20 Years Smoked: 30 e-Cigarette/Vaping Use: Never Used service: No Current occupational status: unemployed Cognitive needs: No Hearing needs: No Vision needs: No Review of Systems Const Denies weakness ENT Denies dizziness Card Denies chest pain, Denies chest pain with activity, Denies syncope, Denies rapid heart rate, Denies pedal edema, Denies edema, Denies leg edema, Denies lightheadedness, Denies palpitations, Denies dyspnea, Denies dyspnea on exertion and Denies orthopnea Resp Denies cough, Denies dyspnea and Denies dyspnea on exertion GI Denies hematochezia and Denies change in stool character Musc Denies abnormal gait, Denies muscle cramps, Denies muscle weakness, Denies numbness, Denies radiating pain into limb and Denies tingling Neuro Denies abnormal gait, Denies dizziness, Denies syncope, Denies numbness, Denies tingling and Denies weakness Endo Denies palpitations Physical Exam Vital Signs: Last Vital Signs Pulse 80 03/22/24 13:39 BP 118/58 L 03/22/24 13:39 BMI result Body Mass Index 32.7 Const General: healthy appearing and no acute distress Orientation/consciousness: patient oriented x3 HEENT Head: Yes normal to inspection Eyes General: appearance normal, both eyes and all related structures Neck Neck: Yes normal visual inspection Chest Chest palpation & inspection: normal inspection of the chest Resp Effort & Inspection: normal respiratory effort Auscultation: clear to auscultation bilaterally Cardio Jugular venous distension: no JVD Palpation: normal PMI Rate: regular rate Rhythm: regular rhythm Heart sounds: S1 normal heart sound present, S2 normal heart sound present, no click, no gallops, no murmurs and no rubs GI Inspection: Yes normal to inspection Palpation (GI): Soft to palpation Skin General skin exam: no rashes or lesions noted Neuro General: patient oriented x3 Extrem General: Yes normal to inspection Psych Appearance: grossly normal Office Procedures EKG Details: EKG today. Normal Sinus Rhythm. Rate 80 bpm. PA 160 ms. QRS 92 ms. QTc 426 ms. [id number], Complete Assessment & Plan Assessment & Plan (1) Palpitations: Code(s): R00.2 - Palpitations Category: Medical Plan Palptiation increase in the setting of viral infection. Has improved. Recent holter from [facility] showed less than 1% of Supraventricular and ventricular ectopy. Will check a echoardiogram to assess for structural changes. Report increase in palpitations, new symptoms, and ED care if needed. Avoidance of stimulants. Orders: Orders CA echo transthoracic complete 03/22/24 R00.2 - Palpitations Coding Level of Care Code New Pt Level 4 (34921) Diagnoses Palpitations R00.2 CPT Codes EKG - CPT: 79396-[id number], Complete ([id number])
== END 2024-03-22 14:10 | disposition home or self-care (01) ==
PROVIDERS: PCP Internal Medicine; Visit Provider Nurse Practitioner
DX: R00.2 Palpitations (principal)
CPT/HCPCS: 93010; 99204

== ENCOUNTER → 2024-03-22 13:29 | Outpatient (BNVA) | payer OTHER, SELFPAY | PROVIDERS: PCP Internal Medicine; Visit Provider Nurse Practitioner | DX: R00.2 Palpitations (principal) | CPT/HCPCS: 93005; 99202 ==

== ENCOUNTER 2024-03-27 09:35 | Emergency (ER) | payer OTHER, SELFPAY ==
[2024-03-27 09:44] VITALS: BP 134/79; PULSE 80; RESP 16; TEMP 36.4; O2SAT 98; BMI 27.5
--- NOTE | 2024-03-27 10:08 | ED.GENADULT ---
HPI - General Adult General Chief complaint: Dental/Oral Stated complaint: tingly feeling in mouth Time Seen by Provider: 03/27/24 10:04 Source: patient Mode of arrival: ambulatory Limitations: no limitations History of Present Illness ED Provider: jeanne SHEPHERD narrative: Patient is a 48-year-old female presenting to emergency department with complaint of pain to teeth of lower jaw as well as facial itching. Patient states symptoms began after eating a grape flavoring popsicle last night. States that she has been eating these popsicles every night for the past week without symptoms. Also reports eating reddish yesterday which she has not eaten for many years so unsure what the trigger for her symptoms was. She has not taken any [id number] medications for her symptoms. States that she has recently seen the dentist. Denies any shortness of breath or difficulty breathing. MD complaint: oral pain Onset (ago): hour(s) Location: face and mouth Treatments prior to arrival: none Related Data Home Medications ?Medication ?Instructions ?Recorded ?Confirmed naratriptan 2.5 mg tablet mg PO 08/23/20 03/08/24 verapamil 120 mg tablet mg PO 08/23/20 03/08/24 onabotulinumtoxinA [Botox] subcut .[id number] 10/24/20 03/08/24 ibuprofen 600 mg tablet 600 mg PO BID PRN 12/04/21 03/08/24 Previous Rx's ?Medication ?Instructions ?Recorded Pulmicort Flexhaler 90 1 inh inhalation BID #1 ea 01/05/24 mcg/actuation breath activated (budesonide) Ventolin HFA 90 mcg/actuation 1 inh inhalation QID PRN shortness 01/05/24 aerosol inhaler (albuterol sulfate) of breath or wheezing 30 days #8 grams polyethylene glycol 3350 17 17 g PO DAILY 30 days #510 grams 01/05/24 gram/dose oral powder (Miralax) meclizine 25 mg tablet 25 mg PO TID PRN dizziness 14 days 03/18/24 #30 tabs cetirizine 10 mg tablet 10 mg PO DAILY #7 tabs 03/27/24 Allergies Allergy/AdvReac Type Severity Reaction Status Date / Time epinephrine [From EPIFRIN] Allergy Intermediate HEADACHES Verified 03/27/24 09:46 AND TACHYCARDIA Iodinated Contrast Media Allergy Intermediate DIFFICULTY Verified 03/27/24 09:46 [IVP DYE] BREATHING amoxicillin Allergy Unknown itchy Verified 03/27/24 09:46 tongue cantaloupe [CANTALOUPE] Allergy Unknown SHORTNESS Verified 03/27/24 09:46 OF BREATH cheese [CHEESE] Allergy Unknown UNKNOWN Verified 03/27/24 09:46 plummer [PLUMMER] Allergy Unknown SHORTNESS Verified 03/27/24 09:46 OF BREATH divalproex sodium Allergy Unknown oral bumps Verified 03/27/24 09:46 [From DEPAKOTE] fish derived [FISH] Allergy Unknown HIVES Verified 03/27/24 09:46 grapefruit [GRAPEFRUIT] Allergy Unknown UNKNOWN Verified 03/27/24 09:46 Nitrate Analogues Allergy Unknown UNKNOWN Verified 03/27/24 09:46 [NITRATE ANALOGUES] nut - unspecified [NUTS] Allergy Unknown SHORTNESS Verified 03/27/24 09:46 OF BREATH paroxetine [From PAXIL] Allergy Unknown somulence Verified 03/27/24 09:46 tetanus and diphtheria Allergy Unknown fever/hallu Verified 03/27/24 09:46 toxoids cinations environmental Allergy Unknown unknown Uncoded 03/22/24 13:59 Review of Systems Review of Systems: As per hPI Yes all other systems are reviewed and are negative Constitutional: Constitutional: Reports as per HPI PMFSH Past Medical History Medical History Palpitations Atypical chest pain Asthma, moderate Tobacco abuse Surgical History History of breast surgery Hx of tubal ligation Family History Family History Father Alcoholic Mother Elevated cholesterol CVD (cardiovascular disease) History of blood clots Son Anxiety Daughter Hearing loss Daughter Asthma Daughter Acid reflux Sister No problems noted. Other Mental health disorder Substance use disorder Social History Social History Housing: Apartment Alcohol intake: current Alcohol intake frequency: holidays/special occasions only Patient Tobacco Use Status: Current everyday Tobacco user Tobacco use type: Cigarette Cigarette Packs Per Day: 1 Cigarettes Per Day: 20 Years Smoked: 30 e-Cigarette/Vaping Use: Never Used Advance Directives: No Advance Directives Information Provided: No Do you have a plan to hurt others: No Plan service: No Current occupational status: unemployed Cognitive needs: No Hearing needs: No Vision needs: No Physical Exam ED Vital Signs: Vital Signs - 24 hr 03/27/24 09:44 Temperature 97.6 F Pulse Rate 80 Respiratory Rate 16 Blood Pressure 134/79 Pulse Oximetry 98 Oxygen Delivery Method Room Air BMI result Body Mass Index 27.5 Vital signs have been reviewed and appear to be correct. Blood pressure normal. Heart rate normal. Respiratory rate normal. Temperature normal. Oxygen saturation normal. Const General: cooperative, healthy appearing and no acute distress Orientation/consciousness: oriented to person, oriented to place, oriented to time and patient oriented x3 Limitations: no limitations [facility] Head: Yes normocephalic and Yes atraumatic Ears: external ears normal General nose exam: Normal external nose present Face and sinus: Yes normal facial exam, Yes sinuses nontender, Yes face symmetric, No erythema, No edema and No Facial tenderness on exam of face and sinuses Mouth: Normal oral and palatal mucosa present, lip normal, tongue normal, Normal salivary glands and ducts present, oropharynx normal, moist mucous membranes, no audible dysphonia, no drooling and no trismus Teeth and gingiva: gingiva normal, poor dentition and other (no tenderness) Throat: Yes posterior oropharynx normal, Yes uvula midline and No uvular edema Eyes Pupils: Equal, round and reactive pupils present Neck Neck: Yes normal visual inspection and Yes supple Lymphatic: no lymphadenopathy noted Resp Effort & Inspection: normal respiratory effort and able to speak in complete sentences Auscultation: clear to auscultation bilaterally Cardio Rate: regular rate Rhythm: regular rhythm Heart sounds: S1 normal heart sound present and S2 normal heart sound present GI Palpation (GI): Soft to palpation and nontender Auscultation: normoactive bowel sounds General: Yes no CVA tenderness Back/Spine/Pelvis Back: no CVA tenderness Skin General skin exam: elasticity normal and turgor normal Neuro General: oriented to person, oriented to place, oriented to time, patient oriented x3, moves all extremities, no focal motor deficits and CN's II-XI intact bilaterally Cranial nerves: Yes Equal, round and reactive pupils present Cognition (Neuro): normal cognition Extrem General: Yes full ROM, Yes no pedal edema and Yes no calf tenderness Psych Mental Status: mental status grossly normal Affect: normal affect Thought process: Normal thought process present Medical Decision Making Medical Decision Making [facility] Narrative: Patient is a 48-year-old female presenting to emergency department with complaint of pain to teeth of lower jaw as well as facial itching. On exam patient is awake, A+Ox3, VS WNL, afebrile, normal neurological exam without focal deficits, physical exam findings as above. Given reported symptoms and physical exam findings, initial differential includes food sensitivity, dental infection, oral pain, nerve pain. Do not suspect Guillermo's angina. No evidence of infection on physical exam. No evidence of allergic reaction or anaphylaxis on physical exam. Advised patient to begin using an NSAIDs such as ibuprofen for discomfort as well as daily antihistamine such as cetirizine. Patient is specifically requesting a prescription for cetirizine. Advised patient to follow-up with dentist for ongoing dental pain and PCP for ongoing facial itching. Return precautions discussed at bedside. Patient verbalized understanding of and agreement with plan. Differential Diagnosis Differential Diagnoses: The differential diagnosis associated with the presentation includes As per MDM. External Record Review External record reviewed: Inpatient record, Office record and Outpatient record Prescription Management I considered prescription management with: Other Discharge Plan Discharge Clinical Impression: Acute oral pain Patient Disposition: Home, Self-Care Additional Instructions: You were evaluated in the emergency department today for oral pain and facial itching. Your evaluation did not show evidence of conditions requiring emergent medical treatment. We recommend taking ibuprofen 600mg every 6 hours for pain as well as an oral antihistamine daily such as cetirizine. Follow up with your dentist and primary care providers for ongoing symptoms. Return to the emergency department for severe pain, fevers, drainage or discharge from your gums, difficulty breathing, if you are unable to swallow your own saliva, or for any other concerning symptoms. Prescriptions: New cetirizine 10 mg tablet 10 mg PO DAILY Qty: 7 0RF No Action meclizine 25 mg tablet 25 mg PO TID PRN (Reason: dizziness) 14 Days Qty: 30 0RF verapamil 120 mg tablet PO naratriptan 2.5 mg tablet PO onabotulinumtoxinA subcut .[id number] ibuprofen 600 mg tablet 600 mg PO BID PRN polyethylene glycol 3350 [Miralax] 17 gram/dose powder 17 g PO DAILY 30 Days Qty: 510 3RF Pulmicort Flexhaler 90 mcg/actuation aerosol powdr breath activated 1 inh inhalation BID Qty: 1 2RF albuterol sulfate [Ventolin HFA] 90 mcg/actuation HFA aerosol inhaler 1 inh inhalation QID PRN (Reason: shortness of breath or wheezing) 30 Days Qty: 8 2RF Print Language: German
[2024-03-27 10:42] VITALS: BP 143/67; PULSE 67; RESP 18; TEMP 36.5; O2SAT 98
== END 2024-03-27 10:43 | disposition home or self-care (01) ==
PROVIDERS: Emergency Provider Emergency Medicine; PCP Internal Medicine
DX: K08.89 Other specified disorders of teeth and supporting structures (principal); K13.79 Other lesions of oral mucosa
CPT/HCPCS: 99282

== ENCOUNTER 2024-04-05 13:45 | Outpatient (AMB) | payer OTHER, SELFPAY ==
[2024-04-05 13:47] VITALS: BP 126/74; PULSE 85; O2SAT 96; BMI 28.7
--- NOTE | 2024-04-05 13:47 | A.OFFPC_ITS ---
Vital Signs 04/05/24 13:47 Height 5 ft 4 in Weight 167 lb 4 oz BMI 28.7 BP 126/74 Blood Pressure Location Rt brachial Position Sitting Pulse 85 Pulse Source Pulse Oximeter Pulse Oximetry (%) 96 Oxygen Delivery Method Room Air Intake Visit Reasons: 3 month follow up Allergies epinephrine [From EPIFRIN] Allergy (Intermediate, Verified 04/05/24 13:47) HEADACHES AND TACHYCARDIA Iodinated Contrast Media [IVP DYE] Allergy (Intermediate, Verified 04/05/24 13:47) DIFFICULTY BREATHING amoxicillin Allergy (Unknown, Verified 04/05/24 13:47) itchy tongue cantaloupe [CANTALOUPE] Allergy (Unknown, Verified 04/05/24 13:47) SHORTNESS OF BREATH cheese [CHEESE] Allergy (Unknown, Verified 04/05/24 13:47) UNKNOWN schulz [SCHULZ] Allergy (Unknown, Verified 04/05/24 13:47) SHORTNESS OF BREATH divalproex sodium [From DEPAKOTE] Allergy (Unknown, Verified 04/05/24 13:47) oral bumps fish derived [FISH] Allergy (Unknown, Verified 04/05/24 13:47) HIVES grapefruit [GRAPEFRUIT] Allergy (Unknown, Verified 04/05/24 13:47) UNKNOWN Nitrate Analogues [NITRATE ANALOGUES] Allergy (Unknown, Verified 04/05/24 13:47) UNKNOWN nut - unspecified [NUTS] Allergy (Unknown, Verified 04/05/24 13:47) SHORTNESS OF BREATH paroxetine [From PAXIL] Allergy (Unknown, Verified 04/05/24 13:47) somulence tetanus and diphtheria toxoids Allergy (Unknown, Verified 04/05/24 13:47) fever/hallucinations environmental Allergy (Unknown, Uncoded 03/22/24 13:59) unknown Medication List - Last Reconciled 04/05/24 by Lj Murcia MD cetirizine 10 mg PO DAILY ibuprofen 600 mg PO BID PRN meclizine 25 mg PO TID PRN 14 days naratriptan mg PO onabotulinumtoxinA (Botox) subcut .[id number] polyethylene glycol 3350 (Miralax) 17 grams PO DAILY 30 days Pulmicort Flexhaler 90 mcg/actuation (budesonide) 1 inh inhalation BID NS Ventolin HFA 90 mcg/actuation (albuterol sulfate) 1 inh inhalation QID PRN 30 days NS verapamil mg PO Tobacco use date assessed: 04/05/24 Dental Screening Dental Screen Date: 04/05/24 Did you have a dental visit in the last 12 months?: Yes Did you have a dental problem in the last 6 months where you did not have access to dental care?: No Was dental information given to patient?: Patient has dentist HPI 3 month follow up HPI Details Patient is a 48-year-old female came today for her regular follow-up appointment She continued to feel anxious, she says that she is going through menopausal symptoms At time she feels as if she is going to have a stroke or heart attack I have sent alprazolam 0.25 mg tablets, she may take that as needed Asthma is stable patient is on Pulmicort , patient says that she like Flovent better I have sent Flovent prescription. Patient does have seasonal allergy , she can not take long-acting antihistamine as that triggers headache She suffers from migraine headaches and is taking verapamil for that reason, she goes to a Neurology for Botox injection as well Dizziness is stable with meclizine as needed Constipation: Manageable with increasing water and MiraLax, refill sent She agreed to colonoscopy today I have placed a referral for her Continued to smoke, once again we talked about it patient says that she can only do 1 thing at a time She want to lose weight 1st and then she will come to tobacco. She is to return in 3 months for follow-up appointment [facility] Medical History Palpitations Atypical chest pain Asthma, moderate Tobacco abuse Surgical History History of breast surgery Hx of tubal ligation Family History Father Alcoholic Mother Elevated cholesterol CVD (cardiovascular disease) History of blood clots Son Anxiety Daughter Hearing loss Daughter Asthma Daughter Acid reflux Sister No problems noted. Other Mental health disorder Substance use disorder Social History Housing: Apartment Alcohol intake: current Alcohol intake frequency: holidays/special occasions only Patient Tobacco Use Status: Current everyday Tobacco user Tobacco use type: Cigarette Cigarette Packs Per Day: 1 Cigarettes Per Day: 20 Years Smoked: 30 e-Cigarette/Vaping Use: Never Used service: No Current occupational status: unemployed Cognitive needs: No Hearing needs: No Vision needs: No Questionnaire PHQ-9 Over the last 2 weeks, how often have you been bothered by any of the following problems? 1. Little interest or pleasure in doing things: several days 2. Feeling down, depressed, or hopeless: several days 3. Trouble falling or staying asleep, or sleeping too much: several days 4. Feeling tired or having little energy: several days 5. Poor appetite or overeating: not at all 6. Feeling bad about yourself - or that you are a failure or have let yourself or your family down: not at all 7. Trouble concentrating on things, such as reading the newspaper or watching television: several days 8. Moving or speaking so slowly that other people could have noticed. Or the opposite - being so fidgety or restless that you have been moving around a lot more than usual: not at all 9. Thoughts that you would be better off or of hurting yourself in some way: not at all Total score: 5 Depression Screening Interpretation: Negative Depression Screening Done: Yes 93614 - PHQ-9 Billing: Yes Source: Developed by Drs. Barrington Guy, Caryn Hodge, Ulysses Thurman and colleagues, with an educational carmen from [employer]. Thrive Questionnaire Date Thrive assessed: 04/05/24 I am a: Patient What is your living situation today?: I have a steady place to live Within the past 12 months, did the food you bought not last and you didn't have the money to get more?: Never true Within the past 12 months, did you worry whether your food would run out before you got money to buy more?: Never true Do you have trouble paying for medicines?: No Do you have trouble getting transportation to medical appointments?: No Do you have trouble paying your heating and electricity bill?: No Do you have trouble taking care of your child, family member or friend?: No Do you have trouble with day-to-day activities such as bathing, preparing meals, shopping, managing finances, etc.?: No Are you currently unemployed and looking for a job?: No Are you interested in more education?: No Please select the resources that you would like help with: Housing/Penitentiary Currently or been in a relationship where the following occur: No concerns reported THRIVE Score: 0 AUDIT C Alcohol Use Questionnaire (AUDIT-C) 1. How often do you have a drink containing alcohol?: Never 3. How often do you have six or more drinks on one occasion?: Never Total Score: 0 Score Reviewed/Action Taken: Yes SUE-7 AMB Questionnaire SUE-7 Date SUE - 7 assessed: 04/05/24 Feeling nervous, anxious, or on edge: 1 = Several days Not being able to stop or control worryin = Several days Worrying too much about different things: 1 = Several days Trouble relaxin = Not at all Being so restless that it is hard to sit still: 0 = Not at all Becoming easily annoyed or irritable: 1 = Several days Feeling afraid as if something awful might happen: 0 = Not at all Total SUE-7 score (0-4 normal; 5-9 mild; 10-14 moderate; 15-21 severe): 4 Source: Developed by Drs. Barrington Guy, Caryn Hodge, Ulysses Thurman and colleagues, with an educational carmen from [employer]. SUE-7 Assessment Billing SUE-7 Assessment Tool: SUE-7 Assessment 01082 Review of Systems Const Denies chills and Denies fever(s) ENT Denies epistaxis and Denies nasal discharge Card Denies chest pain Resp Denies chest congestion, Denies cough and Denies hemoptysis GI Denies diarrhea and Denies nausea Skin/Breast Denies rash Neuro Reports no additional complaints Psych Reports no additional complaints Endo Reports no additional complaints Physical exam (Primary Care) Vital Signs: Last Vital Signs Pulse 85 04/05/24 13:47 BP 126/74 04/05/24 13:47 Pulse Ox 96 04/05/24 13:47 Oxygen Delivery Method Room Air 04/05/24 13:47 BMI result Body Mass Index 28.7 Tobacco/Smoking Status: Tobacco use Status Tobacco use date assessed 04/05/24 04/05/24 13:53 Patient Tobacco Use Status Current everyday Tobacco 04/05/24 13:53 Tobacco use type Cigarette 04/05/24 13:53 e-Cigarette/Vaping Use Never Used 04/05/24 13:53 PHQ-9: PHQ-9 Score PHQ-9: Total score 5 04/05/24 13:54 Depression Screening Interpretation: Negative Thrive Assessment: Date of Thrive Assessment Date Thrive assessed 04/05/24 04/05/24 13:53 Currently or been in a relationship where the following occur: No concerns reported Const General: cooperative, comfortable and no acute distress Orientation/consciousness: patient oriented x3 HENMT Head: Yes normocephalic Eyes General: appearance normal, both eyes and all related structures Neck Neck: Yes supple Resp Effort & Inspection: normal respiratory effort, no cough and no stridor Cardio Rhythm: regular rhythm Heart sounds: S1 normal heart sound present and S2 normal heart sound present Skin General skin exam: turgor normal Neuro General: patient oriented x3, tone normal and moves all extremities Extrem Right lower extremity: no edema Left lower extremity: no edema Assessment and Plan Assessment & Plan (1) Panic anxiety syndrome: Code(s): F41.0 - Panic disorder [episodic paroxysmal anxiety] (2) Asthma, moderate: Code(s): J45.909 - Unspecified asthma, uncomplicated Qualifiers: Asthma persistence: persistent Asthma complication type: uncomplicated Qualified Code(s): J45.40 - Moderate persistent asthma, uncomplicated (3) Chronic vertigo: Code(s): R42 - Dizziness and giddiness (4) Tobacco abuse: Code(s): Z72.0 - Tobacco use (5) Migraine headache: Code(s): G43.909 - Migraine, unspecified, not intractable, without status migrainosus Qualifiers: Migraine type: unspecified Status migrainosus presence: without status migrainosus Intractability: intractable Qualified Code(s): G43.919 - Migraine, unspecified, intractable, without status migrainosus (6) Colon cancer screening: Code(s): Z12.11 - Encounter for screening for malignant neoplasm of colon (7) Environmental allergies: Code(s): Z91.09 - Other allergy status, other than to drugs and biological substances Plan Patient is a 48-year-old female came today for her regular follow-up appointment She continued to feel anxious, she says that she is going through menopausal symptoms At time she feels as if she is going to have a stroke or heart attack I have sent alprazolam 0.25 mg tablets, she may take that as needed Asthma is stable patient is on Pulmicort , patient says that she like Flovent better I have sent Flovent prescription. Patient does have seasonal allergy , she can not take long-acting antihistamine as that triggers headache She suffers from migraine headaches and is taking verapamil for that reason, she goes to a Neurology for Botox injection as well Dizziness is stable with meclizine as needed Constipation: Manageable with increasing water and MiraLax, refill sent She agreed to colonoscopy today I have placed a referral for her Continued to smoke, once again we talked about it patient says that she can only do 1 thing at a time She want to lose weight 1st and then she will come to tobacco. She is to return in 3 months for follow-up appointment Orders: Referrals Gastroenterology Referral Z12.11 - Encounter for screening for malignant neoplasm of colon Medications: New alprazolam 0.25 mg PO DAILY PRN 10 tabs 0RF anxiety Refilled fluticasone propionate 220 mcg/actuation 2 puffs inhalation BID 30 days 12 grams 2RF On Hold Pulmicort Flexhaler 90 mcg/actuation (budesonide) Hold Comment: Doctor's Order 1 inh inhalation BID 1 ea 2RF NS Coding Level of Care Code Est Pt Level 4 (23511) Complex EM visit Add On G2211 Diagnoses Panic anxiety syndrome F41.0 Moderate persistent asthma without complication J45.40 Asthma persistence: persistent Asthma complication type: uncomplicated Chronic vertigo R42 Tobacco abuse Z72.0 Intractable migraine without status migrainosus, unspecified migraine type G43.919 Migraine type: unspecified Status migrainosus presence: without status migrainosus Intractability: intractable Colon cancer screening Z12.11 Environmental allergies Z91.09 Additional Codes SUE-7 Assessment Billing - SUE-7 Assessment Tool: SUE-7 Assessment 61683 ([id number])
== END 2024-04-05 14:13 | disposition home or self-care (01) ==
PROVIDERS: PCP Internal Medicine; Visit Provider Internal Medicine
DX: J45.40 Moderate persistent asthma, uncomplicated (principal); F41.0 Panic disorder [episodic paroxysmal anxiety]; R42 Dizziness and giddiness; Z72.0 Tobacco use; G43.919 Migraine, unspecified, intractable, without status migrainosus; Z12.11 Encounter for screening for malignant neoplasm of colon; Z91.09 Other allergy status, other than to drugs and biological substances
CPT/HCPCS: 99214; G2211

== ENCOUNTER → 2024-04-06 10:51 | Outpatient (REF) | payer OTHER, SELFPAY ==
--- NOTE | 2024-04-06 10:53 | CA_ITS ---
Transthoracic Echocardiogram Patient (Last, First, Middle): Annette Fenton, Gender: Female Date of : 1975 Age: 48 Procedure Date: 04/06/2024 Procedure Type: Transthoracic Echocardiogram Location: OP Height: 162.56 cm Weight: 76.2 kg BSA: 1.82 m2 Heart Rate: bpm BP: 138 / 74 mmHg Hydraulic Strainer Operator: CURRY Referring MD: Letty Flood NP Bridge Rigger: Mitchell Burgos MD Symptoms: R00.2 - Palpitations Study Quality: Adequate ECG Rhythm: Sinus Conclusions: - Essentially normal study Findings Left Ventricle Normal left ventricular size, thickness, and systolic function. The visually estimated ejection fraction is between 60-65%. There is no evidence of regional wall motion abnormalities. Diastolic function is normal for age. Peak GLS is -21.5%, within normal limits. Right Ventricle Normal right ventricular cavity size and systolic function. Atria Both atria are normal in size. Aortic Valve Normal aortic valve structure and function. There is no aortic valve stenosis. There is no aortic valve regurgitation. Mitral Valve Normal mitral valve structure and function. There is trace mitral valve regurgitation. There is no mitral valve stenosis. Pulmonic Valve The pulmonic valve is likely normal. Tricuspid Valve Normal tricuspid valve structure. Tricuspid regurgitation envelope is inadequate for calculation of right ventricular systolic pressure. Normal right atrial pressure. Great Vessels All visible segments of the aorta are normal in size. The pulmonary artery was not well visualized. Venous The inferior vena cava is normal in size and collapses greater than 50% with inspiration. Pericardium/Pleural There is no evidence of pericardial effusion. Measurements 2D Linear Measurements IVSd: 1.05 0.6-0.9/0.6-1.0 cm LVIDd: 4.19 3.9-5.3/4.2-5.9 cm LVIDd Index: 2.30 2.4-3.2/2.2-3.1 cm/m2 LVIDs: 2.41 2.0-3.6 cm LVPWd: 1.00 0.7-1.1 cm LA Diam: 3.10 2.7-3.8/3.0-4.0 cm LAIDs Index: 1.70 1.5-2.3 cm/m2 LV Mass: 175.82 67-162/88-224 g LV Mass Index: 96.61 43-95/49-115 g/m2 LVOT Diam: 2.00 3.0+(-)1.3 cm 2D Systolic Function EF 4C: 59.20 >55% EF 2C: 59.50 >55% EF BiP: 59.80 >55% Mitral Valve MV Pk E: 1.14 MV PK A: 0.96 MV Decel Time: 223.00 E/A: 1.20 E'Lateral: 12.10 E'Medial: 8.70 E/E' Med: 13.10 E/E' Lat: 9.40 PHT: 65.00 MVA PHT: 3.38 Decel [place]: 5.14 Aortic Valve AoV Pk Isaias: 1.53 AoV Mn Isaias: 1.07 AoV VTI: 0.34 AoV Pk Grad: 9.00 Aov Mn Grad: 5.00 AB Cont.VTI: 2.34 LVOT LVOT Pk Isaias: 1.15 LVOT Mn Isaias: 0.69 LVOT VTI: 0.25 LVOT Pk Grad: 5.00 LVOT Mn Grad: 2.00 LVOT Diam: 2.00 LVOT Area: 3.14 Diastolic Function MV Pk E: 1.14 MV Pk A: 0.96 E/A: 1.20 E'Medial: 8.70 E/E' Med: 13.10 E' Laterial: 12.10 E/E' Lat: 9.40 Right Ventricle TAPSE (mm): 22.20 TVS' Isaias: 11.20 Tricuspid Valve RA Press: 3.00 Great Vessels Aorta Sinus of Valsalva: 3.16 2.0-3.[address] Ridge: 2.55 1.7-3.4 cm Ao Asc: 3.00 2.1-3.4 cm Updated in Other Vendor System with Status of Final Mitchell Burgos MD electronically signed on 04/06/2024 12:33:36 PM with status of Final
== END ==
LOC: HO.CARD 10:51
PROVIDERS: PCP Internal Medicine; Visit Provider Nurse Practitioner
DX: R00.2 Palpitations (principal)
CPT/HCPCS: 93306; 93356

== ENCOUNTER → 2024-04-06 10:53 | Outpatient (BNV) | payer OTHER, SELFPAY | PROVIDERS: PCP Internal Medicine; Visit Provider Internal Medicine Cardiovascular Disease | DX: R00.2 Palpitations (principal) | CPT/HCPCS: 93306; 93356 ==

== ENCOUNTER 2024-05-20 14:01 | Outpatient (AMB) | payer OTHER, SELFPAY ==
[2024-05-20 14:08] VITALS: BP 116/72; PULSE 78; O2SAT 97; BMI 28.8
--- NOTE | 2024-05-20 14:08 | MHC.PC.OV ---
Vital Signs 05/20/24 14:08 Height 5 ft 4 in Weight 168 lb BMI 28.8 BP 116/72 Blood Pressure Location Rt brachial Position Sitting Pulse 78 Pulse Source Pulse Oximeter Pulse Oximetry (%) 97 Oxygen Delivery Method Room Air Intake Visit Reasons: botox issue Allergies epinephrine [From EPIFRIN] Allergy (Intermediate, Verified 05/20/24 14:08) HEADACHES AND TACHYCARDIA Iodinated Contrast Media [IVP DYE] Allergy (Intermediate, Verified 05/20/24 14:08) DIFFICULTY BREATHING amoxicillin Allergy (Unknown, Verified 05/20/24 14:08) itchy tongue cantaloupe [CANTALOUPE] Allergy (Unknown, Verified 05/20/24 14:08) SHORTNESS OF BREATH cheese [CHEESE] Allergy (Unknown, Verified 05/20/24 14:08) UNKNOWN schulz [SCHULZ] Allergy (Unknown, Verified 05/20/24 14:08) SHORTNESS OF BREATH divalproex sodium [From DEPAKOTE] Allergy (Unknown, Verified 05/20/24 14:08) oral bumps fish derived [FISH] Allergy (Unknown, Verified 05/20/24 14:08) HIVES grapefruit [GRAPEFRUIT] Allergy (Unknown, Verified 05/20/24 14:08) UNKNOWN Nitrate Analogues [NITRATE ANALOGUES] Allergy (Unknown, Verified 05/20/24 14:08) UNKNOWN nut - unspecified [NUTS] Allergy (Unknown, Verified 05/20/24 14:08) SHORTNESS OF BREATH paroxetine [From PAXIL] Allergy (Unknown, Verified 05/20/24 14:08) somulence tetanus and diphtheria toxoids Allergy (Unknown, Verified 05/20/24 14:08) fever/hallucinations environmental Allergy (Unknown, Uncoded 03/22/24 13:59) unknown Medication List - Last Reconciled 05/20/24 by Lj Murcia MD alprazolam 0.25 mg PO DAILY PRN cetirizine 10 mg PO DAILY fluticasone propionate 220 mcg/actuation 2 puffs inhalation BID ibuprofen 600 mg PO BID PRN meclizine 25 mg PO TID PRN 14 days naratriptan mg PO onabotulinumtoxinA (Botox) subcut .[id number] polyethylene glycol 3350 (Miralax) 17 grams PO DAILY 30 days Pulmicort Flexhaler 90 mcg/actuation (budesonide) 1 inh inhalation BID NS Ventolin HFA 90 mcg/actuation (albuterol sulfate) 1 inh inhalation QID PRN 30 days NS verapamil mg PO Tobacco use date assessed: 04/05/24 Dental Screening Dental Screen Date: 04/05/24 HPI botox issue HPI Details Patient is a 49-year-old female came in today to be evaluated for possible sinus infection Patient has been feeling sick for the past 10 days with postnasal drip and pressure over her cheeks Have some chills but no fever No nausea vomiting no diarrhea no abdominal pain She has migraine headaches for that she gets Botox injections Z-Rory sent she is also requesting refill on her inhaler which I have sent as well. Patient was instructed to use saline nasal spray to keep her nasal passages clear [facility], [facility] Medical History Palpitations Atypical chest pain Asthma, moderate Tobacco abuse Surgical History History of breast surgery Hx of tubal ligation Family History Father Alcoholic Mother Elevated cholesterol CVD (cardiovascular disease) History of blood clots Son Anxiety Daughter Hearing loss Daughter Asthma Daughter Acid reflux Sister No problems noted. Other Mental health disorder Substance use disorder Social History Housing: Apartment Alcohol intake: current Alcohol intake frequency: holidays/special occasions only Patient Tobacco Use Status: Current everyday Tobacco user Tobacco use type: Cigarette Cigarette Packs Per Day: 1 Cigarettes Per Day: 20 Years Smoked: 30 Packs Per Year: 30 Packs per year/per ci.00 e-Cigarette/Vaping Use: Never Used service: No Current occupational status: unemployed Cognitive needs: No Hearing needs: No Vision needs: No Questionnaire PHQ-9 Over the last 2 weeks, how often have you been bothered by any of the following problems? 1. Little interest or pleasure in doing things: several days 2. Feeling down, depressed, or hopeless: several days 3. Trouble falling or staying asleep, or sleeping too much: several days 4. Feeling tired or having little energy: several days 5. Poor appetite or overeating: not at all 6. Feeling bad about yourself - or that you are a failure or have let yourself or your family down: not at all 7. Trouble concentrating on things, such as reading the newspaper or watching television: several days 8. Moving or speaking so slowly that other people could have noticed. Or the opposite - being so fidgety or restless that you have been moving around a lot more than usual: not at all 9. Thoughts that you would be better off or of hurting yourself in some way: not at all Total score: 5 Depression Screening Interpretation: Negative Depression Screening Done: Yes 72724 - PHQ-9 Billing: Yes Source: Developed by Drs. Barrington Guy, Caryn Hodge, Ulysses Thurman and colleagues, with an educational carmen from [employer]. Thrive Questionnaire Date Thrive assessed: 05/20/24 I am a: Patient What is your living situation today?: I have a steady place to live Within the past 12 months, did the food you bought not last and you didn't have the money to get more?: Never true Within the past 12 months, did you worry whether your food would run out before you got money to buy more?: Never true Do you have trouble paying for medicines?: No Do you have trouble getting transportation to medical appointments?: No Do you have trouble paying your heating and electricity bill?: No Do you have trouble taking care of your child, family member or friend?: No Do you have trouble with day-to-day activities such as bathing, preparing meals, shopping, managing finances, etc.?: No Are you currently unemployed and looking for a job?: No Are you interested in more education?: No Please select the resources that you would like help with: None Currently or been in a relationship where the following occur: No concerns reported THRIVE Score: 0 AUDIT C Alcohol Use Questionnaire (AUDIT-C) 1. How often do you have a drink containing alcohol?: Never 3. How often do you have six or more drinks on one occasion?: Never Total Score: 0 Score Reviewed/Action Taken: Yes SUE-7 AMB Questionnaire SUE-7 Date SUE - 7 assessed: 05/20/24 Feeling nervous, anxious, or on edge: 1 = Several days Not being able to stop or control worryin = Several days Worrying too much about different things: 1 = Several days Trouble relaxin = Not at all Being so restless that it is hard to sit still: 0 = Not at all Becoming easily annoyed or irritable: 1 = Several days Feeling afraid as if something awful might happen: 0 = Not at all Total SUE-7 score (0-4 normal; 5-9 mild; 10-14 moderate; 15-21 severe): 4 Source: Developed by Drs. Barrington Guy, Caryn Hodge, Ulysses Thurman and colleagues, with an educational carmen from [employer]. SUE-7 Assessment Billing SUE-7 Assessment Tool: SUE-7 Assessment 65282 Review of Systems Const All systems reviewed & are unremarkable except as noted in HPI and below Physical exam (Primary Care) Vital Signs: Last Vital Signs Pulse 78 05/20/24 14:08 BP 116/72 05/20/24 14:08 Pulse Ox 97 05/20/24 14:08 Oxygen Delivery Method Room Air 05/20/24 14:08 BMI result Body Mass Index 28.8 Tobacco/Smoking Status: Tobacco use Status Tobacco use date assessed 04/05/24 05/20/24 14:10 Patient Tobacco Use Status Current everyday Tobacco 05/20/24 14:10 Tobacco use type Cigarette 05/20/24 14:10 e-Cigarette/Vaping Use Never Used 05/20/24 14:10 PHQ-9: PHQ-9 Score PHQ-9: Total score 5 05/20/24 14:10 Depression Screening Interpretation: Negative Thrive Assessment: Date of Thrive Assessment Date Thrive assessed 05/20/24 05/20/24 14:10 Currently or been in a relationship where the following occur: No concerns reported Const General: no acute distress HENMT Ears: mastoids normal General nose exam: Normal external nose present Throat: Yes posterior oropharynx abnormal Neck Neck: Yes no lymphadenopathy Resp Effort & Inspection: normal respiratory effort Auscultation: clear to auscultation bilaterally Psych Mental Status: mental status grossly normal Assessment and Plan Assessment & Plan (1) Acute sinusitis: Code(s): J01.90 - Acute sinusitis, unspecified Qualifiers: Sinusitis location: unspecified location Recurrence: not specified as recurrent Qualified Code(s): J01.90 - Acute sinusitis, unspecified Plan Patient is a 49-year-old female came in today to be evaluated for possible sinus infection Patient has been feeling sick for the past 10 days with postnasal drip and pressure over her cheeks Have some chills but no fever No nausea vomiting no diarrhea no abdominal pain She has migraine headaches for that she gets Botox injections Z-Rory sent she is also requesting refill on her inhaler which I have sent as well. Patient was instructed to use saline nasal spray to keep her nasal passages clear Medications: New azithromycin Take 2 tablets today then 1 daily 250 mg PO ONCE 6 tabs 0RF 5 days J06.9 - Acute upper respiratory infection, unspecified Refilled Ventolin HFA 90 mcg/actuation (albuterol sulfate) 1 inh inhalation QID PRN 8 grams 2RF shortness of breath or wheezing 30 days NS Coding Level of Care Code Est Pt Level 3 (21476) Diagnoses Acute sinusitis, recurrence not specified, unspecified location J01.90 Sinusitis location: unspecified location Recurrence: not specified as recurrent Additional Codes SUE-7 Assessment Billing - SUE-7 Assessment Tool: SUE-7 Assessment 56667 ([id number])
== END 2024-05-20 14:42 | disposition home or self-care (01) ==
PROVIDERS: PCP Internal Medicine; Visit Provider Internal Medicine
DX: J01.90 Acute sinusitis, unspecified (principal)
CPT/HCPCS: 99213

== ENCOUNTER 2024-07-08 15:03 | Outpatient (AMB) | payer OTHER, SELFPAY ==
[2024-07-08 15:05] VITALS: BP 120/72; PULSE 81; O2SAT 97; BMI 29.0
--- NOTE | 2024-07-08 15:05 | A.OFFPC_ITS ---
Vital Signs 07/08/24 15:05 Height 5 ft 4 in Weight 169 lb BMI 29.0 BP 120/72 Blood Pressure Location Rt brachial Position Sitting Pulse 81 Pulse Source Pulse Oximeter Pulse Oximetry (%) 97 Oxygen Delivery Method Room Air Intake Visit Reasons: 3 month fu Allergies epinephrine [From EPIFRIN] Allergy (Intermediate, Verified 07/08/24 15:10) HEADACHES AND TACHYCARDIA Iodinated Contrast Media [IVP DYE] Allergy (Intermediate, Verified 07/08/24 15:10) DIFFICULTY BREATHING amoxicillin Allergy (Unknown, Verified 07/08/24 15:10) itchy tongue cantaloupe [CANTALOUPE] Allergy (Unknown, Verified 07/08/24 15:10) SHORTNESS OF BREATH cheese [CHEESE] Allergy (Unknown, Verified 07/08/24 15:10) UNKNOWN schulz [SCHULZ] Allergy (Unknown, Verified 07/08/24 15:10) SHORTNESS OF BREATH divalproex sodium [From DEPAKOTE] Allergy (Unknown, Verified 07/08/24 15:10) oral bumps fish derived [FISH] Allergy (Unknown, Verified 07/08/24 15:10) HIVES grapefruit [GRAPEFRUIT] Allergy (Unknown, Verified 07/08/24 15:10) UNKNOWN Nitrate Analogues [NITRATE ANALOGUES] Allergy (Unknown, Verified 07/08/24 15:10) UNKNOWN nut - unspecified [NUTS] Allergy (Unknown, Verified 07/08/24 15:10) SHORTNESS OF BREATH paroxetine [From PAXIL] Allergy (Unknown, Verified 07/08/24 15:10) somulence tetanus and diphtheria toxoids Allergy (Unknown, Verified 07/08/24 15:10) fever/hallucinations environmental Allergy (Unknown, Uncoded 03/22/24 13:59) unknown Medication List - Last Reconciled 07/08/24 by Lj Murcia MD alprazolam 0.25 mg PO DAILY PRN cetirizine 10 mg PO DAILY fluticasone propionate 220 mcg/actuation 2 puffs inhalation BID ibuprofen 600 mg PO BID PRN meclizine 25 mg PO TID PRN 14 days naratriptan mg PO onabotulinumtoxinA (Botox) subcut .[id number] polyethylene glycol 3350 (Miralax) 17 grams PO DAILY 30 days Pulmicort Flexhaler 90 mcg/actuation (budesonide) 1 inh inhalation BID NS Ventolin HFA 90 mcg/actuation (albuterol sulfate) 1 inh inhalation QID PRN 30 days NS verapamil mg PO Tobacco use date assessed: 07/08/24 Dental Screening Dental Screen Date: 07/08/24 Did you have a dental visit in the last 12 months?: Yes Did you have a dental problem in the last 6 months where you did not have access to dental care?: No Was dental information given to patient?: Patient has dentist HPI 3 month fu HPI Details Patient is a 49-year-old female came today for her regular follow-up appointment Anxiety: Patient is doing well with alprazolam 0.25 mg tablet as needed I have sent 45 tablets for next three-month Patient is aware of side effects Asthma is stable patient is on Flovent inhaler Once again patient was advised to stop smoking as soon as possible I wanted to pulmonary function test but patient declined Patient does have seasonal allergy , she can not take long-acting antihistamine as that triggers headache She suffers from migraine headaches and is taking verapamil for that reason, she goes to a Neurology for Botox injection as well Dizziness is stable with meclizine as needed Constipation: Manageable with increasing water and MiraLax, refill sent Follow-up 3 months [facility] Medical History Palpitations Atypical chest pain Asthma, moderate Tobacco abuse Surgical History History of breast surgery Hx of tubal ligation Family History Father Alcoholic Mother Elevated cholesterol CVD (cardiovascular disease) History of blood clots Son Anxiety Daughter Hearing loss Daughter Asthma Daughter Acid reflux Sister No problems noted. Other Mental health disorder Substance use disorder Social History Housing: Apartment Alcohol intake: current Alcohol intake frequency: holidays/special occasions only Patient Tobacco Use Status: Current everyday Tobacco user Tobacco use type: Cigarette Cigarette Packs Per Day: 1 Cigarettes Per Day: 20 Years Smoked: 30 e-Cigarette/Vaping Use: Never Used service: No Current occupational status: unemployed Cognitive needs: No Hearing needs: No Vision needs: No Questionnaire Thrive Questionnaire Date Thrive assessed: 07/08/24 I am a: Patient What is your living situation today?: I have a steady place to live Within the past 12 months, did the food you bought not last and you didn't have the money to get more?: Never true Within the past 12 months, did you worry whether your food would run out before you got money to buy more?: Never true Do you have trouble paying for medicines?: No Do you have trouble getting transportation to medical appointments?: No Do you have trouble paying your heating and electricity bill?: No Do you have trouble taking care of your child, family member or friend?: No Do you have trouble with day-to-day activities such as bathing, preparing meals, shopping, managing finances, etc.?: No Are you currently unemployed and looking for a job?: No Are you interested in more education?: No Please select the resources that you would like help with: None Currently or been in a relationship where the following occur: No concerns reported THRIVE Score: 0 AUDIT C Alcohol Use Questionnaire (AUDIT-C) 1. How often do you have a drink containing alcohol?: Never 3. How often do you have six or more drinks on one occasion?: Never Total Score: 0 Score Reviewed/Action Taken: Yes SUE-7 AMB Questionnaire SUE-7 Date SUE - 7 assessed: 05/20/24 Source: Developed by Drs. Barrington Guy, Caryn Hodge, Ulysses Thurman and colleagues, with an educational carmen from [employer]. Review of Systems Const Denies chills and Denies fever(s) ENT Denies epistaxis and Denies nasal discharge Card Denies chest pain Resp Denies chest congestion, Denies cough and Denies hemoptysis GI Denies diarrhea and Denies nausea Skin/Breast Denies rash Neuro Reports no additional complaints Psych Reports no additional complaints Endo Reports no additional complaints Physical exam (Primary Care) Vital Signs: Last Vital Signs Pulse 81 07/08/24 15:05 BP 120/72 07/08/24 15:05 Pulse Ox 97 07/08/24 15:05 Oxygen Delivery Method Room Air 07/08/24 15:05 BMI result Body Mass Index 29.0 Tobacco/Smoking Status: Tobacco use Status Tobacco use date assessed 07/08/24 07/08/24 15:11 Patient Tobacco Use Status Current everyday Tobacco 07/08/24 15:11 Tobacco use type Cigarette 07/08/24 15:11 e-Cigarette/Vaping Use Never Used 07/08/24 15:11 Thrive Assessment: Date of Thrive Assessment Date Thrive assessed 07/08/24 07/08/24 15:11 Currently or been in a relationship where the following occur: No concerns reported Const General: cooperative, comfortable and no acute distress Orientation/consciousness: patient oriented x3 HENMT Head: Yes normocephalic Eyes General: appearance normal, both eyes and all related structures Neck Neck: Yes supple Resp Effort & Inspection: normal respiratory effort, no cough and no stridor Cardio Rhythm: regular rhythm Heart sounds: S1 normal heart sound present and S2 normal heart sound present Skin General skin exam: turgor normal Neuro General: patient oriented x3, tone normal and moves all extremities Extrem Right lower extremity: no edema Left lower extremity: no edema Coding Level of Care Code Est Pt Level 4 (23087) Complex EM visit Add On G2211 Diagnoses Panic anxiety syndrome F41.0 Environmental allergies Z91.09 Postnasal drip R09.82 Persistent dry cough R05.3 Chronic vertigo R42 Constipation by delayed colonic transit K59.01 Tobacco abuse Z72.0 Intractable migraine without status migrainosus, unspecified migraine type G43.919 Migraine type: unspecified Status migrainosus presence: without status migrainosus Intractability: intractable Assessment & Plan Assessment & Plan (1) Panic anxiety syndrome: Code(s): F41.0 - Panic disorder [episodic paroxysmal anxiety] Category: Medical (2) Environmental allergies: Code(s): Z91.09 - Other allergy status, other than to drugs and biological substances Category: Medical (3) Postnasal drip: Code(s): R09.82 - Postnasal drip Category: Medical (4) Persistent dry cough: Code(s): R05.3 - Chronic cough Category: Medical (5) Chronic vertigo: Code(s): R42 - Dizziness and giddiness Category: Medical (6) Constipation by delayed colonic transit: Code(s): K59.01 - Slow transit constipation Category: Medical (7) Tobacco abuse: Code(s): Z72.0 - Tobacco use Category: Medical (8) Migraine headache: Code(s): G43.909 - Migraine, unspecified, not intractable, without status migrainosus Category: Medical Qualifiers: Migraine type: unspecified Status migrainosus presence: without status migrainosus Intractability: intractable Qualified Code(s): G43.919 - Migraine, unspecified, intractable, without status migrainosus Plan Patient is a 49-year-old female came today for her regular follow-up appointment Anxiety: Patient is doing well with alprazolam 0.25 mg tablet as needed I have sent 45 tablets for next three-month Patient is aware of side effects Asthma is stable patient is on Flovent inhaler Once again patient was advised to stop smoking as soon as possible I wanted to pulmonary function test but patient declined Patient does have seasonal allergy , she can not take long-acting antihistamine as that triggers headache She suffers from migraine headaches and is taking verapamil for that reason, she goes to a Neurology for Botox injection as well Dizziness is stable with meclizine as needed Constipation: Manageable with increasing water and MiraLax, refill sent Follow-up 3 months Medications: Changed From alprazolam 0.25 mg PO DAILY PRN 10 tabs 0RF anxiety To alprazolam 0.25 mg PO DAILY PRN 45 tabs 0RF anxiety 90 days Refilled fluticasone propionate 220 mcg/actuation 2 puffs inhalation BID 36 grams 3RF meclizine 25 mg PO TID PRN 30 tabs 0RF dizziness 14 days Ventolin HFA 90 mcg/actuation (albuterol sulfate) 1 inh inhalation QID PRN 8 grams 2RF shortness of breath or wheezing 30 days NS
== END 2024-07-08 15:25 | disposition home or self-care (01) ==
LOC: HO.HMCC 15:03
PROVIDERS: PCP Internal Medicine; Visit Provider Internal Medicine
DX: F41.0 Panic disorder [episodic paroxysmal anxiety] (principal); Z91.09 Other allergy status, other than to drugs and biological substances; R09.82 Postnasal drip; R05.3 Chronic cough; R42 Dizziness and giddiness; K59.01 Slow transit constipation; Z72.0 Tobacco use; G43.919 Migraine, unspecified, intractable, without status migrainosus

== ENCOUNTER → 2024-07-08 15:03 | Outpatient (BNVA) | payer OTHER, SELFPAY | PROVIDERS: PCP Internal Medicine; Visit Provider Internal Medicine | DX: F41.0 Panic disorder [episodic paroxysmal anxiety] (principal); R09.82 Postnasal drip; R05.3 Chronic cough; R42 Dizziness and giddiness; K59.01 Slow transit constipation; G43.919 Migraine, unspecified, intractable, without status migrainosus; Z91.09 Other allergy status, other than to drugs and biological substances; Z72.0 Tobacco use | CPT/HCPCS: 99212 ==

== ENCOUNTER → 2024-08-01 10:17 | Outpatient (BNVA) | payer OTHER, SELFPAY | PROVIDERS: PCP Internal Medicine; Visit Provider Internal Medicine Cardiovascular Disease ==

== ENCOUNTER → 2024-08-24 14:51 | Outpatient (BNVA) | payer OTHER, SELFPAY | PROVIDERS: PCP Internal Medicine; Visit Provider Internal Medicine Cardiovascular Disease ==

== ENCOUNTER 2024-09-14 13:14 | Outpatient (AMB) | payer OTHER, SELFPAY ==
--- OUTSIDE RECORDS SUMMARY | 2024-09-14 13:17 | XMS_ITS | Data Portability ---
Author Organization JIN clinton [address] Address [address] [place] [address] Assessment No assessment recorded. Plan of Treatment Reminders Order Date Submit Date Provider Last Modified By Organization Details Last Modified Time Details Appointments None recorded . Lab rapid strep group A, throat 02/06/20 [email or web address] _[facility], [address] [place] [address], [id number], 17:21:55 Referral None recorded . Procedures None recorded . Surgeries None recorded . Imaging None recorded . Medication Orders None recorded . Patient TargetsNo targets recorded. Patient Instructions Encounter Date Encounter Id Patient Instructions Last Modified By Organization Details Last Modified Time 02/05/2023 [id number] upper respirator y infection (cold): care instructions [place] [address] Not available 02/05/2023 17:21:55 Reason for Referral None Reported. Results Created Date Observation Date Name Description Value Unit Range Abnormal Flag Note LastModifiedBy Organization Detail LastModifiedTime 02/06/2002/05/2023 rapid strep group A, throa t Unknown Analyte Normal = Negati ve Not Available [facility] [address] [place] [address], [id number], 02/05/2023 16:42:30 02/06/2002/05/2023 rapid strep group A, throa t Unknown Analyte negati ve Not Available [facility] [address] [place] [address], [id number], 02/05/2023 16:42:30 Result Notes None recorded. Problems Name Problem SNOMED Code Status Onset Date Resolution Date Notes Provider Name and Address Organization Details Recorded Time Migraine 82081565 Active 023 JUDSONMORGAN abdi, [place] - [facility] 3 16:40:48 Asthma 249758488 Active 023 JUDSONMORGAN abdi, [place] - [facility] 3 16:41:08 Problem Notes None recorded. Procedures Surgical History Date Name Laterality Status Provider Name and Address Organization Details Recorded Time ligation of fallopian tube completed [facility] - [facility] 02/05/2023 16:42:25 ultrasonography guided transcervical radiofrequency ablation of uterine fibroid completed [facility] 02/05/2023 16:43:30 Imaging Results None recorded. Procedure Notes None recorded. Medical Equipment None Reported. Allergies Allergen ID Allergen Name Allergen Category Reaction Reaction Severity Criticality Documentation Date Start Date Code Code System Note Provider Name and Address Organization Details Recorded Time 679297 Vaccine product containin g only Clostridi um tetani antigen (medicina l product) medicatio n fever Not available Not available 02/05/2023 91351 2003 SNOMED JUDSON HOLDEN abdi, [place] - [facility] 3 16:41:48 Medications Name Sig Start Date Stop Date Status Note LastModified by Organization Details LastModified Time naratriptan active Not Available Not A vailable Not Available verapamil active Not Available Not Gretchen ilable Not Available Botox active Not Available Not Availa ble Not Available Ventolin HFA active Not Available Not Available Not Available Flovent HFA active Not Available Not A vailable Not Available Vitals Date Recorded Body height Body mass index (BMI) Body weight Respiratory rate Oxygen saturation Oxygen saturation in Arterial blood by Pulse oximetry Heart rate Body temperature Systolic blood pressure Diastolic blood pressure Provider Name and Address Organization Details Last Updated DateTime 3 162.56 cm 29.2 kg/m2 85492.7 g 20 /min 98 % 98 % 74 /min 97.9 [degF] 152 mm[Hg] 90 mm[Hg] JUDSON HATCH [facility] 3 16:44:31 Social History Question Answer Notes LastModified by Organizat ion Details LastModified Time Tobacco Smoking Status Current Every Day Smoker JIN Norris - [facility] 02/05/2023 16:42:08 What Is Your Level Of Alcohol Consumption? None [email or web address] Information not available 02/05/2023 How Much Tobacco Do You Smoke? 0.5 PPD [email or web address] Information not available 02/05/2023 Do You Use Any Illicit Or Recreational Drugs? No [email or web address] Information not available 02/05/2023 Have You Recently Traveled Abroad? No [email or web address] Information not available 02/05/2023 Do You Or Have You Ever Used Any Other Forms Of Tobacco Or Nicotine? No [email or web address] Information not available 02/05/2023 Sex: Unknown Functional Status None recorded. Mental Status None recorded. Family History Relationship Description Onset Age of this Age Resolved Age Notes LastModified by Organization Details LastModified Time Father No current problems or disability [email or web address] Not available 02/05 16:41:50 Mother No current problems or disability Not available 02/05 16:41:50 Medical History No medical history recorded. Gynecological History Statement/Question Response Date of LMP 12/06/2022 Is there any chance of ? No Obstetrics History GPAL:G 0 P 0 0 0 0 Past Encounters Encounter ID Performer Location Encounter Start Date Encounter Closed Date Diagnosis/Indication Diagnosis SNOMED-CT Code Diagnosis ICD10 Code Diagnosis Note [id number] [address] [facility] [place] [address] 07/13/2021 10:53:30 07/13/2021 14:09:05 [id number] [address] [place] [address] 12/10/2017 19:23:49 12/10/2017 20:20:45 [id number] [address] [place] [address] 04/24/2018 15:11:26 04/24/2018 15:56:43 [id number] [address] [place] [address] 01/20/2020 12:58:17 01/20/2020 13:43:31 [id number] [address] [place] [address] 05/03/2020 17:21:25 05/03/2020 18:34:07 [id number] [address] [facility] [place] [address] 01/24/2022 11:30:23 01/24/2022 12:43:54 [id number] [address] [facility] [place] [address] 04/17/2019 16:44:12 04/17/2019 17:05:41 [id number] [address] [facility] [place] [address] 07/27/2018 11:56:43 07/27/2018 13:09:15 [id number] Yani Bonilla MD [address] [place] [address] 02/05/2023 16:23:41 02/05/2023 17:23:27 Upper respiratory infection 29333146 J06.9 - Use the medication s prescribed .- Decongesta nts if tolerated. - Recommend recheck if fever develops or no improvemen t in 5-7 days.- Use saline nasal spray or neti-pot flushes once to twice a day to loosen mucus in sinuses.-. Use a cool mist humidifier in the room that you sleep to add moisture to the air, which should soothe the airways and help loosen any mucus that may be present.-C all 911 or proceed to nearest Emergency Department if you develop shortness of breath, chest pain, severe headache or other symptoms that concern you. Health Concerns Section Related Observation LastModified by Organization Detai ls LastModified Time None Recorded Concern Status LastModified by Organization Details LastModified Time None Recorded Advance Directives Directive None Recorded Payers Encounter Date Sequence Insurance Name Policy Number Policy Ford Covered Member ID Ford Member ID Guarantor Name 01/20/2020 1 [facility] (MEDICAID HMO) LEE Fenton [id number] Annette Fenton 05/03/2020 [facility] (MEDICAID HMO) ELE Fenton [id number] Annette Fenton 07/13/2021 1 [facility] PL[facility] (MEDICAID HMO) ELE Annette Sukumar Eliceo [id number] Annette Sukumar Eliceo 01/24/2022 1 [facility] (MEDICAID HMO) ELE Annette M Eliceo [id number] Annette Sukumar Eliceo 02/05/2023 1 [facility] (MEDICAID HMO) ELE Annette Fenton [id number] Annette Fenton Notes Date Note Type Note Provider Name and Address Organization Details Recorded Time 02/05/2023 text/html Sore throatRepor lm bypatient.Location: hroat Quality:hurts to swallow Onset/Timin days Associated Symptoms:no shortness of breath; no wheezing;sore throat;nasal congestion;sinus pain/ congestion Yani Bonilla MD [address] [place] [address] [place], [phone], [place] - [facility] 02/05/2023 19:49:54 OBGyn Episode No OBEpisode recorded.
--- OUTSIDE RECORDS SUMMARY | 2024-09-14 13:17 | XMS_ITS | Patient Health Record ---
[facility] Organization [facility] Address [address] [place] [address] Care Team Providers Care Door To Door Lead Generation Name Role Phone Lj Murcia Primary Care Provider Igor Gil Unavailable [phone] Allergies Allergen (clinical drug ingredient) Drug/Non Drug Allergy documented on EMR Reaction Allergy Type Onset Date Status PAXIL 10 MG/5 ML SUSPENSION (uncoded) SSRIS Allergy Active predniSONE prednisone Drug Allergy Activ e Reason For Referral Reason Chronic Migraine Diagnosis 1 Chronic migraine wit hout aura, intractable, without status migrainosus (G43.719) Diagnosis 2 Episodic cluster hea dache, intractable (G44.011) Diagnosis 3 Myalgia of auxiliary muscles, 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 Referred Provider Igor Wang Referred Address [address] [place] [phone], Referred Provider Specialty Neurology Referral Priority Routine Medications Medication SIG (Take, Route, Frequency, Duration) Notes Start Date End Date Status Ibuprofen 200 mg 9 Oral 3 prn for 0 08/20/2010 Active PROAIR HFA 90 MCG INHALER MCG/ACTUATION 9 for 0 08/20/2010 Active Polyethylene Glycol 3350 17 GM MIX 1 PAC KET IN WATER AND DRINK EVERY MORNING for 28 Active Naratriptan HCl 2.5 MG 1 tablet Orally T wice a day. for 45 days 01/27/2024 Active Verapamil HCl 120 MG TAKE 1 TABLET BY [facility] THREE TIMES A DAY FOR 90 DAYS for 90 Active OnabotulinumtoxinA 200 UNIT Inject into face, head, neck and shoulder per MD IM Injection once for 84 days Active Pulmicort Flexhaler 90 MCG/ACT 1 puff In halation Twice a day 06/29/2024 Active Acetaminophen Extra Strength 500 MG 0 Oral 2 tabs prn for 30 01/30/2020 Active Social History Tobacco Use: Social History Observation Description Date Details (start date - stop date) Current Smoker NA - NA Tobacco Control (Standard) Question Answer Notes Tobacco use: Current smoker How often do you smoke cigarettes? Every day How many cigarettes a day do you smoke? 6-10 How soon after you wake up d o you smoke your first cigarette? After 60 minutes Are you interested in quitting? Thinking about q uitting Additional Findings: Tobacco user Modera te cigarette smoker (10-19 cigs/day) Problems Problem Type SNOMED Code ICD Code Onset Dates Problem Status W/U Status Risk Notes Problem Chronic intractable migraine without aura (14181935463771 5) Chronic migraine without aura, intractable, without status migrainosus (G43.719) Active confirmed Problem Menstrual migraine (34265620) Menstrual migraine, not intractable, without status migrainosus (G43.829) Active confirmed Problem Episodic cluster headache (513041388) Episodic cluster headache, intractable (G44.011) Active confirmed Problem Chronic cluster headache (049238951) Chronic cluster headache, not intractable (G44.029) Active confirmed undefined Problem Atypical facial pain (65571022) 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 Problem Myalgia of auxiliary muscles, 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 Problem Migraine without aura (11125187) Migraine without aura, not intractable, with statu (G43.001) Active confirmed Vital Signs Heart Rate 78 /min 08/15/2024 Blood pressure diastolic 95 mm Hg 08/15/2024 Weight-kg 75.43 kg 08/15/2024 Height 64 in 08/15/2024 Blood pressure systolic 158 mm Hg 08/15/2024 Weight 166.3 lbs 08/15/2024 BMI 28.54 kg/m2 08/15/2024 Encounters Encounter Location Date Provider Diagnosis [address] [address] 01/27/2024 Igor Wang Chronic cluster headache, not intractable G44.[address] [address] 05/05/2024 Igor Wang Chronic migraine without aura, intractable, without status migrainosus G43.719 [employer] [address] [place] [phone] 06/29/2024 Igor Wang Chronic migraine without aura, intractable, without status migrainosus G43.719 [employer] [address] [place] [phone] 12/03/2023 Igor Wang Chronic migraine without aura, intractable, without status migrainosus G43.719 ; Episodic cluster headache, intractable G44.011 ; Myalgia of auxiliary muscles, head and neck M79.12 and Atypical facial pain G50.1 [employer] [address] [place] [phone] 02/25/2024 Igor Wang Chronic migraine without aura, intractable, without status migrainosus G43.719 ; Episodic cluster headache, intractable G44.011 ; Myalgia of auxiliary muscles, head and neck M79.12 and Atypical facial pain G50.1 [employer] [address] [place] [phone] 05/12/2024 Igor Wang Chronic migraine without aura, intractable, without status migrainosus G43.719 ; Episodic cluster headache, intractable G44.011 ; Myalgia of auxiliary muscles, head and neck M79.12 and Atypical facial pain G50.1 [employer] [address] [place] [phone] 08/15/2024 Igor Wang Chronic migraine without aura, intractable, without status migrainosus G43.719 ; Episodic cluster headache, intractable G44.011 ; Myalgia of auxiliary muscles, head and neck M79.12 and Atypical facial pain G50.1 [employer] [address] [place] [address] 12/31/2023 [facility] [address] [place] [address] 01/05/2024 [facility] [address] [place] [address] 09/24/2023 Igor Felipe [facility] [address] [place] [address] 10/20/2023 Igor Fleipe [facility] [address] [place] [address] 11/26/2023 [facility] [address] [place] [address] 11/30/2023 [facility] [address] [place] [address] 12/29/2023 [facility] [address] [place] [phone] 12/31/2023 Igro Wang [facility] [address] [place] [address] 01/05/[facility] [address] [place] [phone] 01/13/2024 [facility] [address] [place] [phone] 01/27/2024 [facility] [address] [place] [phone] 02/13/2024 [facility] [address] [place] [phone] 05/04/2024 [facility] [address] [place] [phone] 06/03/2024 [facility] [address] [place] [phone] 07/19/2024 Igor Sewellley Assessments Encounter Date Diagnosis (ICD Code) Assessment Notes Treatment Notes Treatment Clinical Notes Section Notes 01/27/2024 Chronic cluster headache, not intractable (ICD-10 - G44.029) undefined 02/25/2024 Chronic migraine without aura, intractable, without status migrainosus (ICD-10 - G43.719) Continue same management. Next Botox treatment is scheduled for 06/09. Controlled migraine with aura and controlled cluster headaches. 12/03/2023 Chronic migraine without aura, intractable, without status migrainosus (ICD-10 - G43.719) Continue same management. Next Botox treatment is scheduled for 06/09. Controlled migraine with aura and controlled cluster headaches. 12/03/2023 Episodic cluster headache, intractable (ICD-10 - G44.011) Controlled migraine with aura and controlled cluster headaches. 05/05/2024 Chronic migraine without aura, intractable, without status migrainosus (ICD-10 - G43.719) 05/12/2024 Chronic migraine without aura, intractable, without status migrainosus (ICD-10 - G43.719) Continue the same management. The next Botox treatment is scheduled for 05/12/2024 Controlled migraine with aura and controlled cluster headaches. 06/29/2024 Chronic migraine without aura, intractable, without status migrainosus (ICD-10 - G43.719) 08/15/2024 Chronic migraine without aura, intractable, without status migrainosus (ICD-10 - G43.719) Continue the same management. The next Botox treatment is scheduled for 11/01/2024 Controlled migraine with aura and controlled cluster headaches. 08/15/2024 Episodic cluster headache, intractable (ICD-10 - G44.011) Controlled migraine with aura and controlled cluster headaches. 05/12/2024 Episodic cluster headache, intractable (ICD-10 - G44.011) Controlled migraine with aura and controlled cluster headaches. 12/03/2023 Myalgia of auxiliary muscles, head and neck (ICD-10 - M79.12) Controlled migraine with aura and controlled cluster headaches. 02/25/2024 Episodic cluster headache, intractable (ICD-10 - G44.011) Controlled migraine with aura and controlled cluster headaches. 02/25/2024 Myalgia of auxiliary muscles, head and neck (ICD-10 - M79.12) Controlled migraine with aura and controlled cluster headaches. 12/03/2023 Atypical facial pain (ICD-10 - G50.1) Controlled migraine with aura and controlled cluster headaches. 05/12/2024 Myalgia of auxiliary muscles, head and neck (ICD-10 - M79.12) Controlled migraine with aura and controlled cluster headaches. 08/15/2024 Myalgia of auxiliary muscles, head and neck (ICD-10 - M79.12) Controlled migraine with aura and controlled cluster headaches. 08/15/2024 Atypical facial pain (ICD-10 - G50.1) Controlled migraine with aura and controlled cluster headaches. 05/12/2024 Atypical facial pain (ICD-10 - G50.1) Controlled migraine with aura and controlled cluster headaches. 02/25/2024 Atypical facial pain (ICD-10 - G50.1) Controlled migraine with aura and controlled cluster headaches. Plan Of Treatment Next Appt Details Provider Name:Igoralphonso alberts, 11/01/2024 11:30:00 AM, [address] [place], [address], Insurance Providers Payer Name Payer Address Payer Phone Subscriber Number Group Number Insured Name Patient Relationship to Insured Coverage Start Date Coverage End Date [facility] [place] [employer] [address] [id number] Annette Fenton Self - patient is the insured
--- OUTSIDE RECORDS SUMMARY | 2024-09-14 13:17 | XMS_ITS ---
Author Organization [facility] Address [address] [place] [address] Care Team Providers Care Supervisor Small Appliance Assembly Name Role Phone Lj Murcia Primary Care Provider Igor Gil Unavailable [phone] Medications Medication SIG (Take, Route, Frequency, Duration) Notes Start Date End Date Status Acetaminophen Extra Strength 500 MG 0 Oral 2 tabs prn for 30 01/30/2020 Active Pulmicort Flexhaler 90 MCG/ACT 1 puff In halation Twice a day 06/29/2024 Active PROAIR HFA 90 MCG INHALER MCG/ACTUATION 9 for 0 08/20/2010 Active Ibuprofen 200 mg 9 Oral 3 prn for 0 08/20/2010 Active Polyethylene Glycol 3350 17 GM MIX 1 PAC KET IN WATER AND DRINK EVERY MORNING for 28 Active Verapamil HCl 120 MG TAKE 1 TABLET BY [facility] THREE TIMES A DAY FOR 90 DAYS for 90 Active OnabotulinumtoxinA 200 UNIT Inject into face, head, neck and shoulder per MD IM Injection once for 84 days Active Naratriptan HCl 2.5 MG 1 tablet Orally T wice a day. for 45 days 01/27/2024 Active Vital Signs Blood pressure systolic 147 mm Hg 06/29/20 24 Blood pressure diastolic 83 mm Hg 024 Heart Rate 75 /min 06/29/2024 Height 64 in 06/29/2024 Weight 160.8 lbs 06/29/2024 BMI 27.6 kg/m2 06/29/2024 Weight-kg 72.94 kg 06/29/2024 Encounters Encounter Location Date [facility] [address] [place] [address] 06/29/2024 Igor Wang Chronic migraine wit hout aura, intractable, without status migrainosus G43.719 Assessments Encounter Date Diagnosis (ICD Code) Assessment Notes Treatment Notes Treatment Clinical Notes Section Notes 06/29/2024 Chronic migraine without aura, intractable, without status migrainosus (ICD-10 - G43.719) Plan Of Treatment Next Appt Details Follow Up: 5 weeks after BTX of 08/11, Reason: Provider Name:Igor alberts, 11/01/2024 11:30:00 AM, [address] [place] [address], [phone], Progress Notes * Kenrick SOTOOB:1975 ( 49 yo F)Acc No.[id number]:06/29/2024 Progress Notes Patient:?Annette SOTO Provider:?Igor Wang MD :1975???Age:49 Y???Sex:Female D ate:06/29/2024 Address:[address] [place], [place] [id number] Pcp:Lj Murcia Subjective: * Chief Complaints: * ??? * Medical History:? * Medications:?Taking Pulmicor t Flexhaler 90 MCG/ACT Aerosol Powder Breath Activated [...] per MD IM Injection once Objective: * Vitals:?BP:147/83mm Hg, HR:7 5/min, Wt:160.8lbs, Wt-k.94 kg, Ht: 64 in, BMI:27.6Index, Body Surface Area: 1.81. Assessment: * Assessment: 1.?Chronic migraine without aura, intractable, without status migrainosus - G43.719 (Primary)??? Plan: * Treatment: * Follow Up:?5 weeks after BTX of 08/11 * Billing Information: * Visit Code:? 88716 OFFICE VISIT,EST PT,LEVEL 4. * Procedure Codes:? * Electronic signature of Kaiden Wang MD on 09/14/2024 at 01:16 PM EST Sign off status: Pending * Provider:?Igor Wang MD Date:?06/08 Generated for Vu dean/Luann/eTransmitting on:?09/14/2024 01:16 PM EST
--- OUTSIDE RECORDS SUMMARY | 2024-09-14 13:17 | XMS_ITS ---
Author Organization [facility] Address [address] [place] [address] Care Team Providers Care Industrial Editor Name Role Phone Twin Lynnponcho Primary Care Provider Igor Gil [phone] Medications Medication SIG (Take, Route, Frequency, Duration) Notes Start Date End Date Status OnabotulinumtoxinA 200 UNIT Inject into face, head, neck and shoulder per MD IM Injection once for 84 days Active Encounters Encounter Location Date Provider Diagnosis [facility] [address] [place] [address] 07/19/2024 Igor Wang Plan Of Treatment Medication Medication Name Sig Start Date Stop Date Notes OnabotulinumtoxinA 200 UNIT Inject into face, head, neck and shoulder per MD IM Injection once for 84 days Next Appt Details Provider Name:Igor alberts, 11/01/2024 11:30:00 AM, [address] [place] [address], [phone], Progress Notes * Kenrick SOTOOB:1975 ( 49 yo F)Acc No.[id number]:07/19/2024 Patient:?Annette SOTO :1975???Age:49 Y???Sex:Female Address:[address] [place] [address], [address] * Refills? Refill OnabotulinumtoxinA Solution Reconstituted, 200 UNIT, IM Injection, 1 Each, Inject into face, head, neck and shoulder per MD, once, 84 days, Refills=4 * true * Date:? Generated for Vu dean/Luann/Dianaitting on:?09/14/2024 01:16 PM EST
[2024-09-14 13:23] VITALS: BP 130/76; PULSE 88; BMI 29.7
--- NOTE | 2024-09-14 13:23 | MHC.OFFVIS ---
Vital Signs 09/14/24 13:23 Height 5 ft 4 in Weight 173 lb 4.533 oz BMI 29.7 BP 130/76 Blood Pressure Location Lt brachial Position Sitting Pulse 88 Pulse Source Pulse Oximeter Intake Visit Reasons: 6 mth s/p echo Intake Note: 6 mth f/up echo Rn International Required: No Accompanied by: Self / Same As Patient Allergies epinephrine [From EPIFRIN] Allergy (Intermediate, Verified 07/08/24 15:10) HEADACHES AND TACHYCARDIA Iodinated Contrast Media [IVP DYE] Allergy (Intermediate, Verified 07/08/24 15:10) DIFFICULTY BREATHING amoxicillin Allergy (Unknown, Verified 07/08/24 15:10) itchy tongue cantaloupe [CANTALOUPE] Allergy (Unknown, Verified 07/08/24 15:10) SHORTNESS OF BREATH cheese [CHEESE] Allergy (Unknown, Verified 07/08/24 15:10) UNKNOWN schulz [SCHULZ] Allergy (Unknown, Verified 07/08/24 15:10) SHORTNESS OF BREATH divalproex sodium [From DEPAKOTE] Allergy (Unknown, Verified 07/08/24 15:10) oral bumps fish derived [FISH] Allergy (Unknown, Verified 07/08/24 15:10) HIVES grapefruit [GRAPEFRUIT] Allergy (Unknown, Verified 07/08/24 15:10) UNKNOWN Nitrate Analogues [NITRATE ANALOGUES] Allergy (Unknown, Verified 07/08/24 15:10) UNKNOWN nut - unspecified [NUTS] Allergy (Unknown, Verified 07/08/24 15:10) SHORTNESS OF BREATH paroxetine [From PAXIL] Allergy (Unknown, Verified 07/08/24 15:10) somulence tetanus and diphtheria toxoids Allergy (Unknown, Verified 07/08/24 15:10) fever/hallucinations environmental Allergy (Unknown, Uncoded 03/22/24 13:59) unknown Medication List - Last Reconciled 09/14/24 by Luis Kearney MD alprazolam 0.25 mg PO DAILY PRN 90 days cetirizine 10 mg PO DAILY fluticasone propionate 220 mcg/actuation 2 puffs inhalation BID ibuprofen 600 mg PO BID PRN meclizine 25 mg PO TID PRN 14 days naratriptan mg PO onabotulinumtoxinA (Botox) subcut .[id number] polyethylene glycol 3350 (Miralax) 17 grams PO DAILY 30 days Pulmicort Flexhaler 90 mcg/actuation (budesonide) 1 inh inhalation BID NS Ventolin HFA 90 mcg/actuation (albuterol sulfate) 1 inh inhalation QID PRN 30 days NS HPI Comments Details: 49-year-old female presents today for a new patient visit. She had last seen Dr. Kearney back in 2020. She was at [facility] on 02/04/2024 for palpitations and shortness of breath. She was diagnosed with a respiratory infection. Since she has recovered from the respiratory infection her palpitations have improved and they are on an occasion. Her inhaler helps with the shortness of breath. She had a holter placed as she left [facility] ED and that showed less than 1% of ventricular and supraventricular ectopy. She is a smoker. 09/14/24: She is here for follow-up. She continues to get off and on chest discomfort. She is saying palpitations are stable. She had echocardiography in 03/26/2024 which was essentially normal. She continues to smoke. [facility] Medical History Palpitations Atypical chest pain Asthma, moderate Tobacco abuse Surgical History History of breast surgery Hx of tubal ligation Family History Father Alcoholic Mother Elevated cholesterol CVD (cardiovascular disease) History of blood clots Son Anxiety Daughter Hearing loss Daughter Asthma Daughter Acid reflux Sister No problems noted. Other Mental health disorder Substance use disorder Social History Housing: Apartment Alcohol intake: current Alcohol intake frequency: holidays/special occasions only Patient Tobacco Use Status: Current everyday Tobacco user Tobacco use type: Cigarette Cigarette Packs Per Day: 1 Cigarettes Per Day: 20 Years Smoked: 30 e-Cigarette/Vaping Use: Never Used service: No Current occupational status: unemployed Cognitive needs: No Hearing needs: No Vision needs: No Review of Systems Const Denies chills, Denies fatigue, Denies fever(s), Denies frequent falls, Denies weakness, Denies weight gain and Denies weight loss ENT Denies dizziness Card Denies chest pain, Denies leg edema, Denies lightheadedness, Denies palpitations, Denies dyspnea and Denies dyspnea on exertion Resp Denies cough, Denies dyspnea and Denies dyspnea on exertion GI Denies hematochezia Musc Denies abnormal gait, Denies muscle weakness, Denies numbness, Denies radiating pain into limb and Denies tingling Neuro Denies abnormal gait, Denies dizziness, Denies frequent falls, Denies numbness, Denies tingling and Denies weakness Endo Denies fatigue and Denies palpitations Physical Exam Vital Signs: Last Vital Signs Pulse 88 09/14/24 13:23 BP 130/76 09/14/24 13:23 BMI result Body Mass Index 29.7 GENERAL APPEARANCE: in no acute distress, pleasant. NECK: no carotid bruit, no jugular venous distention. SKIN: no suspicious lesions, warm and dry. HEART: no murmurs, regular rate and rhythm. LUNGS: clear to auscultation bilaterally. ABDOMEN: soft, nontender. EXTREMITIES: no edema. PERIPHERAL PULSES: equal. NEUROLOGIC: No gross deficits, AAO X 3 Assessment & Plan Assessment & Plan (1) Chest pain: Code(s): R07.9 - Chest pain, unspecified Category: Medical Plan Pleasant 49-year-old female who is here for follow-up. She has background history of chest pains and palpitations. No significant arrhythmia had been noticed on previous testing. Echocardiography in 03/26/2024 has been normal. On follow-up she is still complaining of chest pains off and on with activity. Story is little atypical. She is a smoker. We discussed about smoking cessation but she does not want to try any Chantix or other aids currently. I have advised her to exercise tolerance test. If this is abnormal then would pursue a coronary CTA. She will need a contrast prep before she goes for coronary CTA if required. Thank you for allowing me to participate in the care of your patient. Please feel free to contact me if you have any questions. Orders: Orders CA stress test Today R07.9 - Chest pain, unspecified Coding Level of Care Code Est Pt Level 4 (87430) Diagnoses Chest pain R07.9
== END 2024-09-14 14:08 | disposition home or self-care (01) ==
PROVIDERS: PCP Internal Medicine; Visit Provider Internal Medicine Cardiovascular Disease
DX: R07.9 Chest pain, unspecified (principal)
CPT/HCPCS: 99214

== ENCOUNTER → 2024-09-14 13:14 | Outpatient (BNVA) | payer OTHER, SELFPAY | PROVIDERS: PCP Internal Medicine; Visit Provider Internal Medicine Cardiovascular Disease | DX: R07.9 Chest pain, unspecified (principal) | CPT/HCPCS: 99212 ==

== ENCOUNTER → 2024-09-20 10:21 | Outpatient (REF) | payer OTHER, SELFPAY ==
--- NOTE | 2024-09-20 10:24 | CA_ITS ---
Acquisition Time: 2024-09-20 10:41:00 Total Exercise Time: 00:09:39 Test Indications: Abnormal ECG PVC'S/SVT CP,Palpitations Medications: ALPRAZOLAM INHALERRS MECLIZINENARATRIPTAN CETERIZINE Protocol: TATIANA Max HR: 141 BPM 83% of Pred: 169 BPM Max BP: 150/80 mmHG Max Work Load: 11.1 METS Exercise Stress Test with exercise 9 mins 39 secs of Tatiana Protocol, achieving 83% MPHR, with reports of moderate SOB, no chest discomfort, without any arrythmias, with normotensive response to exercise. Without EKG changes meeting criteria for ischemia. In recovery, breathing returned to baseline. Test reviewed with Dr. Kearney. Referred By: Luis Kearney Electronically Signed By: Domenico Wright
--- OUTSIDE RECORDS SUMMARY | 2024-09-20 11:57 | XMS_ITS ---
Author Organization [facility] Address [address] [place] [address] Care Team Providers Care Fourth Hand Name Role Phone Twin Lynnponcho Primary Care Provider Igor Gil [phone] Medications Medication SIG (Take, Route, Frequency, Duration) Notes Start Date End Date Status OnabotulinumtoxinA 200 UNIT Inject into face, head, neck and shoulder per MD IM Injection once for 84 days Active Encounters Encounter Location Date Provider Diagnosis [facility] [address] [place] [address] 07/19/2024 Igor Wang Plan Of Treatment Medication Medication Name Sig Start Date Stop Date Notes OnabotulinumtoxinA 200 UNIT Inject into face, head, neck and shoulder per MD IM Injection once for 84 days Next Appt Details Provider Name:Igor alberts, 11/01/2024 11:30:00 AM, [address] [place] [address], [phone], Progress Notes * Kenrick SOTOOB:1975 ( 49 yo F)Acc No.[id number]:07/19/2024 Patient:?Annette SOTO :1975???Age:49 Y???Sex:Female Address:[address] [place] [address], [address] * Refills? Refill OnabotulinumtoxinA Solution Reconstituted, 200 UNIT, IM Injection, 1 Each, Inject into face, head, neck and shoulder per MD, once, 84 days, Refills=4 * true * Date:? Generated for Vu dean/Luann/Dianaitting on:?09/20/2024 11:57 AM EST
--- OUTSIDE RECORDS SUMMARY | 2024-09-20 11:57 | XMS_ITS ---
Author Organization [facility] Address [address] [place] [address] Care Team Providers Care Courseware Developer Name Role Phone Lj Murcia Primary Care Provider Igor Gil Unavailable [phone] Medications Medication SIG (Take, Route, Frequency, Duration) [...] HCl 120 MG TAKE 1 TABLET BY [facility] THREE TIMES A DAY FOR 90 DAYS [...] 06/29/2024 Encounters Encounter [facility] Date [facility] [address] [place] [address] 06/29/2024 Igor Wang Chronic migraine wit hout aura, intractable, without status migrainosus G43.719 Assessments Encounter Date Diagnosis (ICD Code) Assessment Notes Treatment Notes Treatment Clinical Notes Section Notes 06/29/2024 Chronic migraine without aura, intractable, without status migrainosus (ICD-10 - G43.719) Plan Of Treatment Next Appt Details Follow Up: 5 weeks after BTX of 08/11, Reason: Provider Name:Igor alberts, 11/01/2024 11:30:00 AM, [address] [place] [address], [phone], Progress Notes * Kenrick SOTOOB:1975 ( 49 yo F)Acc No.[id number]:06/29/2024 Progress Notes Patient:?Annette SOTO Provider:?Igor Wang MD :1975???Age:49 Y???Sex:Female D ate:06/29/2024 Address:[address] [place], [place] [id number] Pcp:Lj Murcia Subjective: * Chief Complaints: * [...] 08/11 * Billing Information: * Visit Code:? 47968 OFFICE VISIT,EST PT,LEVEL 4. * Procedure Codes:? * Electronic signature of Kaiden Wang MD on 09/20/2024 at 11:57 AM EST Sign off status: Pending * Provider:?Igor Wang MD Date:?06/08 Generated for Vu dean/Luann/eTransmitting on:?09/20/2024 11:57 AM EST
--- OUTSIDE RECORDS SUMMARY | 2024-09-20 11:57 | XMS_ITS ---
Author Organization [facility] Address [address] [place] [address] Care Team Providers Care Management Specialist Name Role Phone Twin Lynnponcho Primary Care Provider Igor Gil Unavailable [phone] Allergies Allergen (clinical drug ingredient) Drug/Non Drug Allergy documented on EMR Reaction Allergy Type Onset Date Status PAXIL 10 MG/5 ML SUSPENSION (uncoded) SSRIS Allergy Active predniSONE prednisone Drug Allergy Activ e REASON FOR VISIT chronic migraine Medications Medication SIG (Take, Route, Frequency, Duration) Notes Start Date End Date Status Naratriptan HCl 2.5 MG 1 tablet Orally T wice a day. for 45 days 01/27/2024 Active Verapamil HCl 120 MG TAKE 1 TABLET BY [facility] THREE TIMES A DAY FOR 90 DAYS for 90 Active OnabotulinumtoxinA 200 UNIT Inject into face, head, neck and shoulder per MD IM Injection once for 84 days Active Pulmicort Flexhaler 90 MCG/ACT 1 puff In halation Twice a day 06/29/2024 Active Acetaminophen Extra Strength 500 MG 0 Oral 2 tabs prn for 30 01/30/2020 Active Ibuprofen 200 mg 9 Oral 3 prn for 0 08/20/2010 Active PROAIR HFA 90 MCG INHALER MCG/ACTUATION 9 for 0 08/20/2010 Active Polyethylene Glycol 3350 17 GM MIX 1 PAC KET IN WATER AND DRINK EVERY MORNING for 28 Active Vital Signs Blood pressure systolic 158 mm Hg 08/15/20 24 Blood pressure diastolic 95 mm Hg 024 Heart Rate 78 /min 08/15/2024 Height 64 in 08/15/2024 Weight 166.3 lbs 08/15/2024 BMI 28.54 kg/m2 08/15/2024 Weight-kg 75.43 kg 08/15/2024 Encounters Encounter Location Date [facility] [address] [place] [address] 08/15/2024 Igor Wang Chronic migraine wit hout aura, intractable, without status migrainosus G43.719 ; Episodic cluster headache, intractable G44.011 ; Myalgia of auxiliary muscles, head and neck M79.12 and Atypical facial pain G50.1 Assessments Encounter Date Diagnosis (ICD Code) Assessment Notes Treatment Notes Treatment Clinical Notes Section Notes 08/15/2024 Chronic migraine without aura, intractable, without [...] and controlled cluster headaches. Plan Of Treatment Treatment Notes Assessment Notes Chronic migraine without aur a, intractable, without status migrainosus Continue the same management. The next Botox treatment is scheduled for 11/01/2024 Next Appt Details Follow Up: 12 WEEKS, Reason: Botox Provider Name:Igor alberts, 11/01/2024 11:30:00 AM, [address] [place] [address], [phone], Procedure Notes * Category Sub-Category Detail Notes Trigger Point Injection Procedure: The skin was prepped in the usual sterile fashion. Using a 30-gauge, 1/2 inch needle, I then injected the trigger point with approximately 4 mL of Botox.This procedure was repeated for each of the patients trigger points,, Inject 0.1 mL (5 units) L Orbicularis Occuli 2 sites ( total 10 units),Inject 0.1 mL (5 units) R Orbicularis Occuli 2 sites ( total 10 units),Patient Education: Post-injection precautions were reviewed with the patient., The patient was discharged from the clinic in good condition under their own power., Botox 200 units Botox reconstitution Botox 200 u nits reconstitute with 4 mL NS to final constitution of 50 U/mL. Injection Sites In a supine position the patient, Botox was injected into the following sites:,Inject 0.1 mL (5 units) into ProcerusInject 0.1 mL (5 units) Ladle Puller bilateral (total of 10 units),Inject 0.1 mL (5 units) Frontalis 7 sites (total 35 units),Inject 0.1 mL (5 units) L Temporalis 5 injections ( total 25 units),Inject 0.1 mL (5 units) R Temporalis 5 injections ( total 25 units),In a sitting position the patient, Botox was injected into the following sites:,Inject 0.1 mL (5 units) L Occipitalis 10 sites ( total 50 units),Inject 0.1 mL (5 units) R Occipitalis 8 sites ( total 40 units),Inject 0.1 mL (5 units) L Occipitalis 5 sites ( total 25 units), Waste No waste Procedural Pause Procedural pause con ducted to verify: correct patient identity, procedure to be performed, correct side and site, correct patient position, and special requirements. Post Procedural Tolerated procedure wellGave adequate time to recover from the procedure,Offered water, ice, and extra time for recovery,Lot #, [id number] Date, 05/2026 Progress Notes * Kenrick SOTOOB:1975 ( 49 yo F)Acc No.[id number]:08/15/2024 Patient:?Annette SOTO Provider:?Igor Wang MD?Resourc e:Jessica Santiago :1975???Age:49 Y???Sex:Female D ate:08/15/2024 Address:[address] [place] [address] Pcp:Lj Murcia Subjective: * Chief Complaints: * ???Chronic migraine * ROS:?General / Constitutional:?Patient denies?chills, fatigue, fever, night sweats, sleep disturbance, recent exposure to viruses.? * Medical History:? * Surgical History:? * Hospitalization/Major Diagno stic Procedure:? * Medications:?TakingPulmicort Flexhaler 90 MCG/ACT Aerosol Powder Breath Activated 1 puff Inhalation Twice a day Acetaminophen Extra Strength 500 MG Tablet 0 Oral 2 tabs prn Ibuprofen 200 mg Tablet 9 Oral 3 prn PROAIR HFA 90 MCG INHALER MCG/ACTUATION 9 Polyethylene Glycol 3350 17 GM Packet MIX 1 PACKET IN WATER AND DRINK EVERY MORNING Naratriptan HCl 2.5 MG Tablet 1 tablet Orally Twice a day. Verapamil HCl 120 MG Tablet TAKE 1 TABLET BY MOUTH THREE TIMES A DAY FOR 90 DAYS OnabotulinumtoxinA 200 UNIT Solution Reconstituted Inject into face, head, neck and shoulder per MD IM Injection once Medication List reviewed and reconciled with the patientTaking Pulmicort Flexhaler 90 MCG/ACT Aerosol Powder Breath Activated 1 puff Inhalation Twice a day Taking Acetaminophen Extra Strength 500 MG Tablet 0 Oral 2 tabs prn Taking Ibuprofen 200 mg Tablet 9 Oral 3 prn Taking PROAIR HFA 90 MCG INHALER MCG/ACTUATION 9 Taking Polyethylene Glycol 3350 17 GM Packet MIX 1 PACKET IN WATER AND DRINK EVERY MORNING Taking Naratriptan HCl 2.5 MG Tablet 1 tablet Orally Twice a day. Taking Verapamil HCl 120 MG Tablet TAKE 1 TABLET BY MOUTH THREE TIMES A DAY FOR 90 DAYS Taking OnabotulinumtoxinA 200 UNIT Solution Reconstituted Inject into face, head, neck and shoulder per MD IM Injection once Medication List reviewed and reconciled with the patient * Allergies:?PAXIL 10 MG/5 ML SUSPENSION: SSRIS - AllergypredniSONE: prednisone - Allergyno[Allergies Verified] Objective: * Vitals:?BP:158/95mm Hg, HR:7 8/min, Wt:166.3lbs, Wt-k.43 kg, Ht: 64 in, BMI:28.54Index, Pain scale:11-10, Body Surface Area: 1.84. * Examination: ???General Examination: ?General appearance:?alert, pleasant, well-nourished and in no acute distress, , female, , obese,.?Head:?normocephalic, atraumatic.?Throat:?clear.?Skin:?skin is warm and dry, with no rashes, good skin turgor and normal hair distribution.?Neurologic:?nonfocal, alert and oriented, cognitive exam grossly normal, cooperative with exam, cranial nerves 2-12 grossly intact, deep tendon reflexes 2+ symmetrical, gait normal, normal upper and lower extremity motor strength and function, neck is supple without rigidity or tremor, normal exam with no motor or sensory deficits.?Psych:?alert and oriented x 3, cognitive function intact, cooperative with exam, maintains good eye contact, with good judgement and insight, normal affect / mood, anxious appearing.? Assessment: * Assessment: 1.?Chronic migraine without aura, intractable, without status migrainosus - G43.719 (Primary)???2.?Episodic cluster headache, intractable - G44.011???3.?Myalgia of auxiliary muscles, head and neck - M79.12???4.?Atypical facial pain - G50.1??? Controlled migraine with aur a and controlled cluster headaches. Plan: * Treatment: * Procedures:?Botox 200 units:?Botox reconstitution?Botox 200 units reconstitute with 4 mL NS to final constitution of 50 U/mL..?Injection Sites?In a supine position the patient, Botox was injected into the following sites:, Inject 0.1 mL (5 units) into Procerus Inject 0.1 mL (5 units) Ladle Puller bilateral (total of 10 units), Inject 0.1 mL (5 units) Frontalis 7 sites (total 35 units), Inject 0.1 mL (5 units) L Temporalis 5 injections ( total 25 units), Inject 0.1 mL (5 units) R Temporalis 5 injections ( total 25 units), In a sitting position the patient, Botox was injected into the following sites:, Inject 0.1 mL (5 units) L Occipitalis 10 sites ( total 50 units), Inject 0.1 mL (5 units) R Occipitalis 8 sites ( total 40 units), Inject 0.1 mL (5 units) L Occipitalis 5 sites ( total 25 units), .?Procedural Pause?Procedural pause conducted to verify: correct patient identity, procedure to be performed, correct side and site, correct patient position, and special requirements..?Waste?No waste.?Post Procedural?Tolerated procedure well Gave adequate time to recover from the procedure, Offered water, ice, and extra time for recovery, Lot #, [id number] Expiration Date, 05/2026.?Trigger Point Injection:?Procedure:?The skin was prepped in the usual sterile fashion. Using a 30- gauge, 1/2 inch needle, I then injected the trigger point with approximately 4 mL of Botox. This procedure was repeated for each of the patients trigger points,, Inject 0.1 mL (5 units) L Orbicularis Occuli 2 sites ( total 10 units), Inject 0.1 mL (5 units) R Orbicularis Occuli 2 sites ( total 10 units), Patient Education: Post-injection precautions were reviewed with the patient., The patient was discharged from the clinic in good condition under their own power., .? * Procedure Codes:?72794 Chemo denervation for [id number] TRIGGER POINT,3 OR MORE MUSCLE, Modifiers: RANKIN * Follow Up:?12 WEEKS (Reason: Botox) Care Plan: * Problems:? * Billing Information: * Visit Code:? 20996 OFFICE VISIT,EST PT,LEVEL 3. Modifiers: 25 * Procedure Codes:? 36473 Chemodenervation for Migraine. 17127 TRIGGER POINT,3 OR MORE MUSCLE. Modifiers: RANKIN * Sign off status: Completed true * Provider:?Igor Wang MD Date:?05/2024 Generated for Vu dean/Luann/Cristalsmitting on:?09/20/2024 11:57 AM EST History and Physical Notes * Examination Category Sub-Category Detail Notes Category Not es General Examination General appearance: alert, p leasant, well-nourished and in no acute distress, , female, , obese, Head: normocephalic, atrau matic Throat: clear Neurologic: nonfocal, alert and oriented, cognitive exam grossly normal, cooperative with exam, cranial nerves 2-12 grossly intact, deep tendon reflexes 2+ symmetrical, gait normal, normal upper and lower extremity motor strength and function, neck is supple without rigidity or tremor, normal exam with no motor or sensory deficits Skin: skin is warm and dry , with no rashes, good skin turgor and normal hair distribution Psych: alert and oriented x 3, cognitive function intact, cooperative with exam, maintains good eye contact, with good judgement and insight, normal affect / mood, anxious appearing
--- OUTSIDE RECORDS SUMMARY | 2024-09-20 11:58 | XMS_ITS | Patient Health Record ---
Author Organization [facility] Address [address] [place] [address] Care Team Providers Care Critical Care Paramedic Name Role Phone Lj Murcia Primary Care Provider Igor Gil Unavailable [phone] Allergies Allergen (clinical drug ingredient) Drug/Non Drug [...] 4 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) Referred Organization [facility] Referred Provider Igor Wang Referred Address [address] [place] [phone], Referred Provider Specialty Neurology Referral Priority Routine Reason Chronic migraine Diagnosis 1 Episodic cluster hea dache, intractable (G44.011) Diagnosis 2 Chronic migraine wit hout aura, intractable, without status migrainosus (G43.719) Diagnosis 3 Myalgia of auxiliary muscles, 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) Diagnosis 4 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) Referred Organization [facility] Referred Provider Igor Wang Referred Address [address] [place] [phone], Referred Provider Specialty Neurology Referral Priority Routine [...] HCl 120 MG TAKE 1 TABLET BY [facility] THREE TIMES A DAY FOR 90 [...] Notes Problem Chronic intractable migraine without aura (47763292761069 5) Chronic migraine without aura, intractable, without status migrainosus (G43.719) Active confirmed Problem Menstrual migraine (20536656) Menstrual migraine, not intractable, without status migrainosus (G43.829) Active confirmed Problem Episodic cluster headache (376776712) Episodic cluster headache, intractable (G44.011) Active confirmed Problem Chronic cluster headache (057364180) Chronic cluster headache, not intractable (G44.029) Active confirmed undefined Problem Atypical facial pain (30047042) 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 Problem Myalgia of auxiliary muscles, 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 Problem Migraine without aura (85822957) Migraine without aura, not intractable, with statu (G43.001) Active confirmed Vital Signs Heart Rate 78 /min 08/15/2024 Blood pressure diastolic 95 mm Hg 08/15/2024 Weight-kg 75.43 kg 08/15/2024 Height 64 in 08/15/2024 Blood pressure systolic 158 mm Hg 08/15/2024 Weight 166.3 lbs 08/15/2024 BMI 28.54 kg/m2 08/15/2024 Encounters Encounter Location Date Provider Diagnosis [address] [address] 01/27/2024 Igor Wang Chronic cluster headache, not intractable G44.[address] [address] 05/05/2024 Igor Wang Chronic migraine without aura, intractable, without status migrainosus G43.719 [facility] [address] [place] [phone] 06/29/2024 Igor Wang Chronic migraine without aura, intractable, without status migrainosus G43.719 [facility] [address] [place] [phone] 12/03/2023 Igor Wang Chronic migraine without aura, intractable, without status migrainosus G43.719 ; Episodic cluster headache, intractable G44.011 ; Myalgia of auxiliary muscles, head and neck M79.12 and Atypical facial pain G50.1 [facility] [employer] [address] [place] [phone] 02/25/2024 Igor Wang Chronic migraine without aura, intractable, without status migrainosus G43.719 ; Episodic cluster headache, intractable G44.011 ; Myalgia of auxiliary muscles, head and neck M79.12 and Atypical facial pain G50.1 [facility] [address] [place] [phone] 05/12/2024 Igor Wang Chronic migraine without aura, intractable, without status migrainosus G43.719 ; Episodic cluster headache, intractable G44.011 ; Myalgia of auxiliary muscles, head and neck M79.12 and Atypical facial pain G50.1 [facility] [address] [place] [phone] 08/15/2024 Igor Wang Chronic migraine without aura, intractable, without status migrainosus G43.719 ; Episodic cluster headache, intractable G44.011 ; Myalgia of auxiliary muscles, head and neck M79.12 and Atypical facial pain G50.1 [facility] [address] [place] [address] 12/31/2023 [facility] [address] [place] [address] 01/05/2024 [facility] [address] [place] [address] 09/24/2023 Igor Felipe [facility] [address] [place] [address] 10/20/2023 Igor Felipe [facility] [address] [place] [address] 11/26/2023 [facility] [address] [place] [address] 11/30/2023 [facility] [address] [place] [address] 12/29/2023 [facility] [address] [place] [phone] 12/31/2023 Igor Wang [facility] [address] [place] [address] 01/05/20[facility] [address] [place] [phone] 01/13/2024 [facility] [address] [place] [phone] 01/27/2024 [facility] [address] [place] [phone] 02/13/2024 [facility] [address] [place] [phone] 05/04/2024 [facility] [address] [place] [phone] 06/03/2024 [facility] [address] [place] [phone] 07/19/2024 Igor Sewellley Assessments Encounter Date Diagnosis [...] Provider Name:Igoralphonso alberts, 11/01/2024 11:30:00 AM, [address] [place], [address], Insurance Providers Payer Name Payer Address Payer Phone Subscriber Number Group Number Insured Name Patient Relationship to Insured Coverage Start Date Coverage End Date [facility] [employer] [address] [id number] Annette Fenton Self - patient is the insured
--- OUTSIDE RECORDS SUMMARY | 2024-09-20 11:58 | XMS_ITS | Data Portability ---
Author Organization JIN clinton [facility] Address [address] [place] [address] Assessment No assessment recorded. Plan of Treatment Reminders Order Date Submit Date Provider Last Modified By Organization Details Last Modified Time Details Appointments None recorded . Lab rapid strep group A, throat 02/06/20 [email or web address] _[facility], [address] [place] [address], [phone], 17:21:55 Referral None recorded . Procedures None recorded . Surgeries None recorded . Imaging None recorded . Medication Orders None recorded . Patient TargetsNo targets recorded. Patient Instructions Encounter Date Encounter Id Patient Instructions Last Modified By Organization Details Last Modified Time 02/05/2023 [id number] upper respirator y infection (cold): care instructions [place] [id number] Not available 02/05/2023 17:21:55 Reason for Referral None Reported. Results Created Date Observation Date Name Description Value Unit Range Abnormal Flag Note LastModifiedBy Organization Detail LastModifiedTime 02/06/2002/05/2023 rapid strep group A, throa t Unknown Analyte Normal = Negati ve Not Available [facility] [address] [place] [address], [phone], 02/05/2023 16:42:30 02/06/2002/05/2023 rapid strep group A, throa t Unknown Analyte negati ve Not Available [facility] [address] [place] [address], [phone], 02/05/2023 16:42:30 Result Notes None recorded. Problems Name Problem SNOMED Code Status Onset Date Resolution Date Notes Provider Name and Address Organization Details Recorded Time Migraine 82852495 Active 023 JUDSONMORGAN abdi, [place] - [facility] 3 16:40:48 Asthma 854031869 Active 023 JUDSONMORGAN abdi, [place] - [facility] 3 16:41:08 Problem Notes None recorded. Procedures Surgical History Date Name Laterality Status Provider Name and Address Organization Details Recorded Time ligation of fallopian tube completed [facility] - [facility] 02/05/2023 16:42:25 ultrasonography guided transcervical radiofrequency ablation of uterine fibroid completed [facility] 02/05/2023 16:43:30 Imaging Results None recorded. Procedure Notes None recorded. Medical Equipment None Reported. Allergies Allergen ID Allergen Name Allergen Category Reaction Reaction Severity Criticality Documentation Date Start Date Code Code System Note Provider Name and Address Organization Details Recorded Time 227736 Vaccine product containin g only Clostridi um tetani antigen (medicina l product) medicatio n fever Not available Not available 02/05/2023 01725 2003 SNOMED JUDSON HOLDEN abdi, [place] - [facility] 3 16:41:48 Medications Name [...] Updated DateTime 3 162.56 cm 29.2 kg/m2 30178.7 g 20 /min 98 % 98 % 74 /min 97.9 [degF] 152 mm[Hg] 90 mm[Hg] JUDSON H[facility] 3 16:44:31 Social History Question Answer Notes LastModified by Organizat ion Details LastModified Time Tobacco Smoking Status Current Every Day Smoker JIN Norris - [facility] 02/05/2023 16:42:08 What Is Your Level Of Alcohol Consumption? None [email or web address] Information not available 02/05/2023 How Much Tobacco Do You Smoke? 0.5 PPD [email or web address] Information not available 02/05/2023 Do You Use Any Illicit Or Recreational Drugs? No [email or web address] Information not available 02/05/2023 Have You Recently Traveled Abroad? No [email or web address] Information not available 02/05/2023 Do You Or Have You Ever Used Any Other Forms Of Tobacco Or Nicotine? No [email or web address] Information not available 02/05/2023 Sex: Unknown Functional Status None recorded. Mental Status None recorded. Family History Relationship Description Onset Age of this Age Resolved Age Notes LastModified by Organization Details LastModified Time Father No current problems or disability [email or web address] Not available 02/05 16:41:50 Mother No current problems or disability [email or web address] Not available 02/05 16:41:50 Medical History No medical history recorded. Gynecological History Statement/Question Response Date of LMP 12/06/2022 Is there any chance of ? No Obstetrics History GPAL:G 0 P 0 0 0 0 Past Encounters Encounter ID Performer Location Encounter Start Date Encounter Closed Date Diagnosis/Indication Diagnosis SNOMED-CT Code Diagnosis ICD10 Code Diagnosis Note [id number] [address] [place] [address] 07/13/2021 10:53:30 07/13/2021 14:09:05 [id number] [address] [place] [address] 12/10/2017 19:23:49 12/10/2017 20:20:45 [id number] [address] [place] [address] 04/24/2018 15:11:26 04/24/2018 15:56:43 [id number] [address] [place] [address] 01/20/2020 12:58:17 01/20/2020 13:43:31 [id number] [address] [place] [address] 05/03/2020 17:21:25 05/03/2020 18:34:07 [id number] [address] [place] [address] 01/24/2022 11:30:23 01/24/2022 12:43:54 [id number] [address] [place] [address] 04/17/2019 16:44:12 04/17/2019 17:05:41 [id number] [address] [facility] [place] [address] 07/27/2018 11:56:43 07/27/2018 13:09:15 [id number] Yani Bonilla MD [address] [place] [address] 02/05/2023 16:23:41 02/05/2023 17:23:27 Upper respiratory infection 82030625 J06.9 - Use the medication s prescribed [...] Ford Member ID Guarantor Name 01/20/[address] [facility] (MEDICAID HMO) ELE Fenton [id number] Annette Fenton 05/03/2020 [facility] (MEDICAID HMO) ELE Fenton [id number] Annette Fenton 07/13/2021 1 [facility] PL[facility] (MEDICAID HMO) ELE Annette Sukumar Eliceo [id number] Annette Sukumar Eliceo 01/24/2022 1 [facility] (MEDICAID HMO) ELE Annette M Eliceo [id number] Annette Sukumar [place]iceo 02/05/2023 1 [facility] (MEDICAID HMO) ELE Annette Fenton [id number] Annette Fenton Notes Date Note Type Note Provider Name and Address Organization Details Recorded Time 02/05/2023 text/html Sore throatRepor lm bypatient.Location: hroat Quality:hurts to swallow Onset/Timin days Associated Symptoms:no shortness of breath; no wheezing;sore throat;nasal congestion;sinus pain/ congestion Yani Bonilla MD [address] [place] [address] [place], [phone], [place] - [facility] 02/05/2023 19:49:54 OBGyn Episode No OBEpisode recorded.
== END ==
LOC: HO.CARD 10:21
PROVIDERS: PCP Internal Medicine; Visit Provider Internal Medicine Cardiovascular Disease
DX: R07.9 Chest pain, unspecified (principal)
CPT/HCPCS: 93017

== ENCOUNTER → 2024-09-20 10:24 | Outpatient (BNV) | payer OTHER, SELFPAY | PROVIDERS: PCP Internal Medicine | DX: R06.02 Shortness of breath (principal) | CPT/HCPCS: 93016; 93018 ==

== ENCOUNTER 2024-10-12 15:30 | Outpatient (AMB) | payer OTHER, SELFPAY ==
--- NOTE | 2024-10-12 15:35 | A.OFFPC_ITS ---
Vital Signs 10/12/24 15:39 Height 5 ft 4 in Weight 170 lb 8 oz BMI 29.3 BP 126/82 Blood Pressure Location Rt brachial Position Sitting Pulse 83 Pulse Source Pulse Oximeter Pulse Oximetry (%) 97 Oxygen Delivery Method Room Air Intake Visit Reasons: PE/3 months follow up Allergies epinephrine [From EPIFRIN] Allergy (Intermediate, Verified 10/12/24 15:39) HEADACHES AND TACHYCARDIA Iodinated Contrast Media [IVP DYE] Allergy (Intermediate, Verified 10/12/24 15:39) DIFFICULTY BREATHING amoxicillin Allergy (Unknown, Verified 10/12/24 15:39) itchy tongue cantaloupe [CANTALOUPE] Allergy (Unknown, Verified 10/12/24 15:39) SHORTNESS OF BREATH cheese [CHEESE] Allergy (Unknown, Verified 10/12/24 15:39) UNKNOWN schulz [SCHULZ] Allergy (Unknown, Verified 10/12/24 15:39) SHORTNESS OF BREATH divalproex sodium [From DEPAKOTE] Allergy (Unknown, Verified 10/12/24 15:39) oral bumps fish derived [FISH] Allergy (Unknown, Verified 10/12/24 15:39) HIVES grapefruit [GRAPEFRUIT] Allergy (Unknown, Verified 10/12/24 15:39) UNKNOWN Nitrate Analogues [NITRATE ANALOGUES] Allergy (Unknown, Verified 10/12/24 15:39) UNKNOWN nut - unspecified [NUTS] Allergy (Unknown, Verified 10/12/24 15:39) SHORTNESS OF BREATH paroxetine [From PAXIL] Allergy (Unknown, Verified 10/12/24 15:39) somulence tetanus and diphtheria toxoids Allergy (Unknown, Verified 10/12/24 15:39) fever/hallucinations environmental Allergy (Unknown, Uncoded 10/01/24 09:24) unknown Medication List - Last Reconciled 10/12/24 by Lj Murcia MD alprazolam 0.25 mg PO DAILY PRN 90 days azithromycin 250 mg PO ONCE 5 days cetirizine 10 mg PO DAILY fluticasone propionate 220 mcg/actuation 2 puffs inhalation BID ibuprofen 600 mg PO BID PRN meclizine 25 mg PO TID PRN 14 days naratriptan mg PO onabotulinumtoxinA (Botox) subcut .[id number] polyethylene glycol 3350 (Miralax) 17 grams PO DAILY 30 days Pulmicort Flexhaler 90 mcg/actuation (budesonide) 1 inh inhalation BID NS Ventolin HFA 90 mcg/actuation (albuterol sulfate) 1 inh inhalation QID PRN 30 days NS Tobacco use date assessed: 10/12/24 Dental Screening Dental Screen Date: 10/12/24 Did you have a dental visit in the last 12 months?: Yes Did you have a dental problem in the last 6 months where you did not have access to dental care?: No Was dental information given to patient?: Patient has dentist HPI PE/3 months follow up HPI Details Physical exam appointment - The patient is a 49-year-old female pr esenting with sinusitis and related symptoms. - She reports persistent coughing and si nus pressure developing over three weeks, with added challenges due to incomplete antibiotic treatment. - She communicates a history of allergic rhinitis and asthma, both seasonal and as exacerbated by recent viral illness, and highlights tobacco use as a complicating factor. - She has a significant but stable histo ry of vertiginous symptoms known to correlate with specific activities. Health Maintenance - Scheduling of fasting lab tests for as sessment of cholesterol, sugar, and thyroid function. - Assessment of adherence to mammography screenings, which are current. - Counseling is provided on smoking cess ation due to its adverse effects on respiratory health. - Discussion on scheduling and importanc e of a colonoscopy due to the patient's risk factors and past recommendations, despite patient reluctance. - Dental considerations discussed with a plan to address once sinus infection clears. [place] [facility] - OBGYN: Dr. Yang Medications - Asthma medications for asthma manageme nt - Cetirizine for allergies Patient Instructions - Complete a fasting lab test for thyroi d, sugar, and cholesterol levels. - Continue cetirizine for allergy manage ment and maintain asthma medications. - Abstain from tobacco use to aid in sym ptom resolution and improve sinus and overall respiratory health. - Follow up with your dental practitione r for fillings and wisdom tooth extraction once infection clears. - Monitor improvement of symptoms, and u se antibiotics if symptoms persist or worsen. - Consider scheduling a colonoscopy due to your past medical history and GI recommendations. Review of Systems - General: No fever no chills - Neurological: No headaches no dizzin ess - Ear nose throat: No sore throat no hearing difficulty no ear pain - Cardiovascular: No syncope, no chest pain, no palpitations - Gastrointestinal: No nausea vomiting or diarrhea - Endocrine: No polyuria polydipsia no heat intolerance - Genitourinary: No dysuria - Skin: No new complaints Physical Exam General: Cooperative, healthy appearing, comfortable, no acute distress Orientation: Patient oriented x3 Limitations: None Head: Normal to inspection Ears: Within normal limit visually, but patient reports pressure and coughing Nose: Normal external nose present Face and sinus: Normal facial exam, but patient reports congestion and a persistent nasty taste Eyes: Appearance normal, extraocular movement intact pupils reactive Neck: Normal visual inspection and supple Respiratory: Normal respiratory effort and able to speak in complete sentences. Clear to auscultation, no stridor Breast exam through OBGYN Cardiovascular: S1 and S2 GI: Normal to inspection. Soft to palpation and nontender, but patient reports past stomach pain and swollen rectum Skin: Turgor normal, no acute findings Neuro: Patient oriented x3, motor sensory intact, balance intact, tandem pass Extremities: Normal to inspection [facility] Medical History Palpitations Atypical chest pain Asthma, moderate Tobacco abuse Surgical History History of breast surgery Hx of tubal ligation Family History Father Alcoholic Mother Elevated cholesterol CVD (cardiovascular disease) History of blood clots Son Anxiety Daughter Hearing loss Daughter Asthma Daughter Acid reflux Sister No problems noted. Other Mental health disorder Substance use disorder Social History Housing: Apartment Alcohol intake: current Alcohol intake frequency: holidays/special occasions only Patient Tobacco Use Status: Current everyday Tobacco user Tobacco use type: Cigarette Cigarette Packs Per Day: 1 Cigarettes Per Day: 20 Years Smoked: 30 e-Cigarette/Vaping Use: Never Used service: No Current occupational status: unemployed Cognitive needs: No Hearing needs: No Vision needs: No Questionnaire PHQ-9 Over the last 2 weeks, how often have you been bothered by any of the following problems? 1. Little interest or pleasure in doing things: several days 2. Feeling down, depressed, or hopeless: several days 3. Trouble falling or staying asleep, or sleeping too much: not at all 4. Feeling tired or having little energy: several days 5. Poor appetite or overeating: several days 6. Feeling bad about yourself - or that you are a failure or have let yourself or your family down: not at all 7. Trouble concentrating on things, such as reading the newspaper or watching television: several days 8. Moving or speaking so slowly that other people could have noticed. Or the opposite - being so fidgety or restless that you have been moving around a lot more than usual: not at all 9. Thoughts that you would be better off or of hurting yourself in some way: not at all Total score: 5 Depression Screening Interpretation: Negative Depression Screening Done: Yes 12548 - PHQ-9 Billing: Yes Source: Developed by Drs. Barrington Guy, Caryn Hodge, Ulysses Thurman and colleagues, with an educational carmen from [employer]. Thrive Questionnaire Date Thrive assessed: 10/12/24 I am a: Patient What is your living situation today?: I have a steady place to live Within the past 12 months, did the food you bought not last and you didn't have the money to get more?: Never true Within the past 12 months, did you worry whether your food would run out before you got money to buy more?: Never true Do you have trouble paying for medicines?: No Do you have trouble getting transportation to medical appointments?: No Do you have trouble paying your heating and electricity bill?: No Do you have trouble taking care of your child, family member or friend?: No Do you have trouble with day-to-day activities such as bathing, preparing meals, shopping, managing finances, etc.?: No Are you currently unemployed and looking for a job?: No Are you interested in more education?: No Please select the resources that you would like help with: None Currently or been in a relationship where the following occur: No concerns reported THRIVE Score: 0 AUDIT C Alcohol Use Questionnaire (AUDIT-C) 1. How often do you have a drink containing alcohol?: Never 3. How often do you have six or more drinks on one occasion?: Never Total Score: 0 Score Reviewed/Action Taken: Yes SUE-7 AMB Questionnaire SUE-7 Date SUE - 7 assessed: 10/12/24 Feeling nervous, anxious, or on edge: 1 = Several days Not being able to stop or control worryin = Not at all Worrying too much about different things: 1 = Several days Trouble relaxin = Not at all Being so restless that it is hard to sit still: 0 = Not at all Becoming easily annoyed or irritable: 1 = Several days Feeling afraid as if something awful might happen: 0 = Not at all Total SUE-7 score (0-4 normal; 5-9 mild; 10-14 moderate; 15-21 severe): 3 Source: Developed by Drs. Barrington Guy, Caryn Hodge, Ulysses Thurman and colleagues, with an educational carmen from [employer]. SUE-7 Assessment Billing SUE-7 Assessment Tool: SUE-7 Assessment 08456 Physical exam (Primary Care) Tobacco/Smoking Status: Tobacco use Status Tobacco use date assessed 07/08/24 10/12/24 15:37 Patient Tobacco Use Status Current everyday Tobacco 10/12/24 15:37 Tobacco use type Cigarette 10/12/24 15:37 e-Cigarette/Vaping Use Never Used 10/12/24 15:37 Tobacco cessation counseling provided: No Relapse Prevention: discussed the importance of a supportive environment CPT code: 76935 - 4-10 Minutes PHQ-9: PHQ-9 Score PHQ-9: Total score 5 10/12/24 15:37 Depression Screening Interpretation: Negative Thrive Assessment: Date of Thrive Assessment Date Thrive assessed 04/05/24 10/12/24 15:37 Currently or been in a relationship where the following occur: No concerns reported Coding Level of Care Code Est Pt Level 3 (41511) Est Pt Prev Care 40-64y(72803) Diagnoses Encounter for general adult medical examination with abnormal findings Z00.01 Acute recurrent maxillary sinusitis J01.01 Recurrence: recurrent Impaired fasting blood sugar R73.01 Intractable migraine without status migrainosus, unspecified migraine type G43.919 Migraine type: unspecified Status migrainosus presence: without status migrainosus Intractability: intractable Moderate persistent asthma without complication J45.40 Asthma persistence: persistent Asthma complication type: uncomplicated Tobacco abuse Z72.0 Chronic vertigo R42 Environmental allergies Z91.09 Panic anxiety syndrome F41.0 Additional Codes SUE-7 Assessment Billing - SUE-7 Assessment Tool: SUE-7 Assessment 94134 ([id number]) PHQ-9 - 02009 - PHQ-9 Billing: Yes ([id number]) Vital Signs *Quality* - CPT code: 74075 - 4-10 Minutes ([id number]) Assessment & Plan Assessment & Plan (1) Encounter for general adult medical examination with abnormal findings: Code(s): Z00.01 - Encounter for general adult medical examination with abnormal findings Category: Medical (2) Maxillary sinusitis, acute: Code(s): J01.00 - Acute maxillary sinusitis, unspecified Category: Medical Qualifiers: Recurrence: recurrent Qualified Code(s): J01.01 - Acute recurrent maxillary sinusitis (3) Impaired fasting blood sugar: Code(s): R73.01 - Impaired fasting glucose Category: Medical (4) Migraine headache: Code(s): G43.909 - Migraine, unspecified, not intractable, without status migrainosus Category: Medical Qualifiers: Migraine type: unspecified Status migrainosus presence: without status migrainosus Intractability: intractable Qualified Code(s): G43.919 - Migraine, unspecified, intractable, without status migrainosus (5) Asthma, moderate: Code(s): J45.909 - Unspecified asthma, uncomplicated Category: Medical Qualifiers: Asthma persistence: persistent Asthma complication type: uncomplicated Qualified Code(s): J45.40 - Moderate persistent asthma, uncomplicated (6) Tobacco abuse: Code(s): Z72.0 - Tobacco use Category: Medical (7) Chronic vertigo: Code(s): R42 - Dizziness and giddiness Category: Medical (8) Environmental allergies: Code(s): Z91.09 - Other allergy status, other than to drugs and biological substances Category: Medical (9) Panic anxiety syndrome: Code(s): F41.0 - Panic disorder [episodic paroxysmal anxiety] Category: Medical Plan Physical exam appointment - The patient is a 49-year-old female presenting with sinusitis and related symptoms. - She reports persistent coughing and sinus pressure developing over three weeks, with added challenges due to incomplete antibiotic treatment. - She communicates a history of allergic rhinitis and asthma, both seasonal and as exacerbated by recent viral illness, and highlights tobacco use as a complicating factor. - She has a significant but stable history of vertiginous symptoms known to correlate with specific activities. Health Maintenance - Scheduling of fasting lab tests for assessment of cholesterol, sugar, and thyroid function. - Assessment of adherence to mammography screenings, which are current. - Counseling is provided on smoking cessation due to its adverse effects on respiratory health. - Discussion on scheduling and importance of a colonoscopy due to the patient's risk factors and past recommendations, despite patient reluctance. - Dental considerations discussed with a plan to address once sinus infection clears. [place] [facility] - OBGYN: Dr. Yang Medications - Asthma medications for asthma management - Cetirizine for allergies Patient Instructions - Complete a fasting lab test for thyroid, sugar, and cholesterol levels. - Continue cetirizine for allergy management and maintain asthma medications. - Abstain from tobacco use to aid in symptom resolution and improve sinus and overall respiratory health. - Follow up with your dental practitioner for fillings and wisdom tooth extraction once infection clears. - Monitor improvement of symptoms, and use antibiotics if symptoms persist or worsen. - Consider scheduling a colonoscopy due to your past medical history and GI recommendations. Orders: Orders Complete Blood Count Auto Diff Today E55.9 - Vitamin D deficiency, unspecified, G43.919 - Migraine, unspecified, intractable, without status migrainosus, J45.40 - Moderate persistent asthma, uncomplicated, K59.01 - Slow transit constipation, R73.01 - Impaired fasting glucose, Z00.01 - Encounter for general adult medical examination with abnormal findings, Z72.0 - Tobacco use, Z91.09 - Other allergy status, other than to drugs and biological substances Vitamin B12 Today E55.9 - Vitamin D deficiency, unspecified, G43.919 - Migraine, unspecified, intractable, without status migrainosus, J45.40 - Moderate persistent asthma, uncomplicated, K59.01 - Slow transit constipation, R73.01 - Impaired fasting glucose, Z00.01 - Encounter for general adult medical examination with abnormal findings, Z72.0 - Tobacco use, Z91.09 - Other allergy status, other than to drugs and biological substances TSH reflex Free T4 Today E55.9 - Vitamin D deficiency, unspecified, G43.919 - Migraine, unspecified, intractable, without status migrainosus, J45.40 - Moderate persistent asthma, uncomplicated, K59.01 - Slow transit constipation, R73.01 - Impaired fasting glucose, Z00.01 - Encounter for general adult medical examination with abnormal findings, Z72.0 - Tobacco use, Z91.09 - Other allergy status, other than to drugs and biological substances UA CC w/rflx Micro + Cult Today E55.9 - Vitamin D deficiency, unspecified, G43.919 - Migraine, unspecified, intractable, without status migrainosus, J45.40 - Moderate persistent asthma, uncomplicated, K59.01 - Slow transit constipation, R73.01 - Impaired fasting glucose, Z00.01 - Encounter for general adult medical examination with abnormal findings, Z72.0 - Tobacco use, Z91.09 - Other allergy status, other than to drugs and biological substances Comprehensive [place]. Panel Fast Today E55.9 - Vitamin D deficiency, unspecified, G43.919 - Migraine, unspecified, intractable, without status migrainosus, J45.40 - Moderate persistent asthma, uncomplicated, K59.01 - Slow transit constipation, R73.01 - Impaired fasting glucose, Z00.01 - Encounter for general adult medical examination with abnormal findings, Z72.0 - Tobacco use, Z91.09 - Other allergy status, other than to drugs and biological substances Lipid Panel Today E55.9 - Vitamin D deficiency, unspecified, G43.919 - Migraine, unspecified, intractable, without status migrainosus, J45.40 - Moderate persistent asthma, uncomplicated, K59.01 - Slow transit constipation, R73.01 - Impaired fasting glucose, Z00.01 - Encounter for general adult medical examination with abnormal findings, Z72.0 - Tobacco use, Z91.09 - Other allergy status, other than to drugs and biological substances Vitamin D 25-OH (D2 and D3) Today E55.9 - Vitamin D deficiency, unspecified, G43.919 - Migraine, unspecified, intractable, without status migrainosus, J45.40 - Moderate persistent asthma, uncomplicated, K59.01 - Slow transit constipation, R73.01 - Impaired fasting glucose, Z00.01 - Encounter for general adult medical examination with abnormal findings, Z72.0 - Tobacco use, Z91.09 - Other allergy status, other than to drugs and biological substances Hemoglobin A1c Today R73.01 - Impaired fasting glucose Medications: Refilled azithromycin Take 2 tablets today then 1 daily 250 mg PO ONCE 5 days 6 tabs 0RF J06.9 - Acute upper respiratory infection, unspecified
[2024-10-12 15:39] VITALS: BP 126/82; PULSE 83; O2SAT 97; BMI 29.3
--- OUTSIDE RECORDS SUMMARY | 2024-10-12 16:23 | XMS_ITS | Data Portability ---
Author Organization [facility] Address [address] [place] [address] Assessment No assessment recorded. Plan of Treatment Reminders Order Date Submit Date Provider Last Modified By Organization Details Last Modified Time Details Appointments None recorded . Lab rapid strep group A, throat 02/06/20 [email or web address] _[facility], [address] [place] [address], [phone], 17:21:55 Referral None recorded . Procedures None recorded . Surgeries None recorded . Imaging None recorded . Medication Orders None recorded . Patient TargetsNo targets recorded. Patient Instructions Encounter Date Encounter Id Patient Instructions Last Modified By Organization Details Last Modified Time 02/05/2023 [id number] upper respirator y infection (cold): care instructions [place] [id number] Not available 02/05/2023 17:21:55 Reason for Referral None Reported. Results Created Date Observation Date Name Description Value Unit Range Abnormal Flag Note LastModifiedBy Organization Detail LastModifiedTime 02/06/2002/05/2023 rapid strep group A, throa t Unknown Analyte Normal = Negati ve Not Available [facility] [address] [place] [address], [phone], 02/05/2023 16:42:30 02/06/2002/05/2023 rapid strep group A, throa t Unknown Analyte negati ve Not Available [facility] [address] [place] [address], [phone], 02/05/2023 16:42:30 Result Notes None recorded. Problems Name Problem SNOMED Code Status Onset Date Resolution Date Notes Provider Name and Address Organization Details Recorded Time Migraine 41372477 [facility]23 [facility] [place] [facility] 3 16:40:48 Asthma 788543343 Active 023 [facility] [place] - [facility] 3 16:41:08 Problem Notes None recorded. Procedures Surgical History Date Name Laterality Status Provider Name and Address Organization Details Recorded Time ligation of fallopian tube completed [facility] - [facility] 02/05/2023 16:42:25 ultrasonography guided transcervical radiofrequency ablation of uterine fibroid completed [facility] 02/05/2023 16:43:30 Imaging Results None recorded. Procedure Notes None recorded. Medical Equipment None Reported. Allergies Allergen ID Allergen Name Allergen Category Reaction Reaction Severity Criticality Documentation Date Start Date Code Code System Note Provider Name and Address Organization Details Recorded Time 532059 Vaccine product containin g only Clostridi um tetani antigen (medicina l product) medicatio n fever Not available Not available 02/05/2023 69227 2003 SNOMED [facility] [place], [place] - [facility] 3 16:41:48 Medications Name [...] height Body mass index (BMI) Body weight Pain severity - 0-10 verbal numeric rating [Score] - Reported Respiratory rate Oxygen saturation Oxygen saturation in Arterial blood by Pulse oximetry Heart rate Body temperature Systolic blood pressure Diastolic blood pressure Provider Name and Address Organization Details Last Updated DateTime 3 162.56 cm 29.2 kg/m2 15525.7 g 6 20 /min 98 % 98 % 74 /min 97.9 [degF] 152 mm[Hg] 90 mm[Hg] [facility] - [facility] 3 16:44:31 Social History Question Answer Notes LastModified by Organizat ion Details LastModified Time Tobacco Smoking Status Current Every Day Smoker J[facility] Norris - [facility] 02/05/2023 16:42:08 What Is Your Level Of Alcohol Consumption? None [email or web address] Information not available 02/05/2023 How Much Tobacco Do You Smoke? 0.5 PPD [email or web address] Information not available 02/05/2023 Do You Use Any Illicit Or Recreational Drugs? No [email or web address] Information not available 02/05/2023 Have You Recently Traveled Abroad? No [email or web address] Information not available 02/05/2023 Do You Or Have You Ever Used Any Other Forms Of Tobacco Or Nicotine? No Information not available 02/05/2023 Sex: Unknown Functional Status None recorded. Mental Status None recorded. Family History Relationship Description Onset Age of this Age Resolved Age Notes LastModified by Organization Details LastModified Time Father No current problems or disability [email or web address] Not available 02/05 16:41:50 Mother No current problems or disability [email or web address] Not available 02/05 16:41:50 Medical History No medical history recorded. Gynecological History Statement/Question Response Date of LMP 12/06/2022 Is there any chance of ? No Obstetrics History GPAL:G 0 P 0 0 0 0 Past Encounters Encounter ID Performer Location Encounter Start Date Encounter Closed Date Diagnosis/Indication Diagnosis SNOMED-CT Code Diagnosis ICD10 Code Diagnosis Note [id number] [address] [place] [address] 07/13/2021 10:53:30 07/13/2021 14:09:05 [id number] [address] [place] [address] 12/10/2017 19:23:49 12/10/2017 20:20:45 [id number] [address] [place] [address] 04/24/2018 15:11:26 04/24/2018 15:56:43 [id number] [address] [place] [address] 01/20/2020 12:58:17 01/20/2020 13:43:31 [id number] [address] [facility] [place] [address] 05/03/2020 17:21:25 05/03/2020 18:34:07 [id number] [address] [facility] [place] [address] 01/24/2022 11:30:23 01/24/2022 12:43:54 [id number] [address] [facility] [place] [address] 04/17/2019 16:44:12 04/17/2019 17:05:41 [id number] [address] [facility] [place] [address] 07/27/2018 11:56:43 07/27/2018 13:09:15 [id number] Yani Bonilla MD [address] [facility] [place] [address] 02/05/2023 16:23:41 02/05/2023 17:23:27 Upper respiratory infection [id number] J06.9 - Use the medication s prescribed [...] Ford Member ID Guarantor Name 01/20/2020 1 [facility] NET PLAN (MEDICAID HMO) [place] Annette Fenton [id number] Annette Fenton 05/03/2020 1 [facility] (MEDICAID HMO) ELE Annette Sukumar Eliceo [id number] Annette Sukumar Eliceo 07/13/2021 1 [facility] (MEDICAID HMO) E[place] Annette M Eliceo [id number] Annette Sukumar [place]iceo 01/24/2022 1 [facility] (MEDICAID HMO) [place] Annette M Eliceo [id number] Annette Sukumar Eliceo 02/05/2023 1 [facility] (MEDICAID HMO) E[place] Annette Sukumar Eliceo [id number] Annette Fenton Notes Date Note Type Note Provider Name and Address Organization Details Recorded Time 02/05/2023 text/html Sore throatRepor lm bypatient.Location:t hroat Quality:hurts to swallow Onset/Timin days Associated Symptoms:no shortness of breath; no wheezing;sore throat;nasal congestion;sinus pain/ congestion Yani Bonilla MD [address] [place] [address] [place], [address], [place] - [facility] 02/05/2023 19:49:54 OBGyn Episode No OBEpisode recorded.
--- OUTSIDE RECORDS SUMMARY | 2024-10-12 16:23 | XMS_ITS | Encounter Summary ---
Author Organization [employer] Address [address] [place] [address] [address] [place] [address] Care Team Providers Care Head Of Quality Name Role Phone Unavailable Primary Care Provider Unavailabl e Encounter Details Date Type Department Care Team (Latest Contact Info) Description 05/30/2019 Abstract [facility] CONVERSIONS Dental, Provider, DDS Social History Tobacco Use Types Packs/Day Years Used Date Smoking Tobacco: Never Assessed Comments Unknown Sex and Gender Information Value Date Recorded Sex Assigned at Female 07/07/2022 10:22 AM EDT Legal Sex Female 10:22 AM EDT Gender Identity Female 07/07/2022 10:22 AM EDT Sexual Orientation Don't know 07/07/2022 10 :22 AM EDT documented as of this encounter Plan of Treatment Not on file documented as of this encounter Visit Diagnoses Not on filedocumented in this encounter
--- OUTSIDE RECORDS SUMMARY | 2024-10-12 16:23 | XMS_ITS | Encounter Summary ---
Author Organization [employer] Address [address] [place] [address] [address] [place] [address] Care Team Providers Care Night Nurse Name Role Phone Unavailable Primary Care Provider Unavailabl e Encounter Details Date Type Department Care Team (Latest Contact Info) Description 12/04/2020 Abstract [facility] CONVERSION[facility] Dental, Provider, DDS Social History [...]
--- OUTSIDE RECORDS SUMMARY | 2024-10-12 16:23 | XMS_ITS | Clinical Summary ---
Author Organization [employer] Address [address] [place] [address] [address] [place] [address] Care Team Providers Care Record Clerk Name Role Phone Unavailable Primary Care Provider Unavailabl e Social History Tobacco Use Types Packs/Day Years Used Date Smoking Tobacco: Never Assessed Comments Unknown Sex and Gender Information Value Date Recorded Sex Assigned at Female 07/07/2022 10:22 AM EDT Legal Sex Female 10:22 AM EDT Gender Identity Female 07/07/2022 10:22 AM EDT Sexual Orientation Don't know 07/07/2022 10 :22 AM EDT Plan of Treatment Health Maintenance Due Date Last Done Comments CT Colonography 1973 Colonoscopy 1973 Colorectal Cancer Screening 1973 Depression Screening 1973 FIT DNA/Cologuard 1973 FIT 1973 FOBT 1973 Sigmoidoscopy 1973 Alcohol/Substance Use Screening 1985 Tobacco Screening 1985 Family Planning (PISQ) 1988 DTaP/Tdap/Td Vaccines (1 - Tdap) 1992 Hepatitis B Vaccines (1 of 3 - 19+ 3-dose series) 1992 Pap Smear 1994 Cervical Cancer Screening 2003 HPV/Cotest 2003 Mammogram 2013 Pneumococcal Vaccine: 50+ Ye ars (1 of 1 - PCV) 2023 Zoster Vaccines (1 of 2) 2023 COVID-19 Vaccine ( - 2023-2 5 season) 2024 Influenza Vaccine (#1) 2024 RSV Patients and Pa tients Aged 60 years or older (1 - 1-dose 75+ series) 2048 HIB Vaccines Aged Out No longer eligi ble based on patient's age to complete this topic HPV Vaccines Aged Out No longer eligi ble based on patient's age to complete this topic Hepatitis A Vaccines Aged Out No long er eligible based on patient's age to complete this topic IPV Vaccines Aged Out No longer eligi ble based on patient's age to complete this topic Meningococcal Vaccine Aged Out No alexys romulo eligible based on patient's age to complete this topic Pneumococcal Vaccine: Pediat rics (0 to 5 Years) and At-Risk Patients (6 to 49) Years) Aged Out No longer eligible b ased on patient's age to complete this topic RSV under 20 months Aged Out No longe r eligible based on patient's age to complete this topic Rotavirus Vaccines Aged Out No longer eligible based on patient's age to complete this topic
--- OUTSIDE RECORDS SUMMARY | 2024-10-12 16:23 | XMS_ITS | Clinical Summary ---
Author Organization [facility] Address [address] [place] [address] Care Team Providers Care Sales Engagement Executive Name Role Phone Lj Murcia MD Primary Care Provider [phone] Allergies Active Allergy Reactions Criticality Noted Date Comments Divalproex Hives 05/04/2015 Paroxetine Hcl 05/04/2015 Paxil [fd&c Blue #2 Al Nicole-paroxetine] Medications Medication Sig Dispensed Refills Start Date End Date Status albuterol HFA (PROAIR HFA ; PROVENTIL HFA ; VENTOLIN HFA) 90 mcg/actuation inhaler Inhale 2 puffs by mouth every 4 (four) hours if needed. Active cetirizine HCl (ZYRTEC ORAL) Take by mouth. Active fluticasone HFA (FLOVENT HFA) 110 mcg/actuation inhaler Inhale 1 puff by mouth 2 (two) times a day. Active ibuprofen (ADVIL,MOTRIN) 600 mg tablet Take 1 Tab by mouth every 6 hours as needed for Pain. 06/26/2016 Active metroNIDAZOLE (METROGEL) 0.75 % (37.5mg/5 gram) vaginal gel Si applicator full after menses & Si applicator full nightly for 5 nights 06/05/2022 Active naratriptan (AMERGE) 2.5 mg tablet Take 1 tablet (2.5 mg total) by mouth 2 (two) times a day. Active ONABOTULINUMTOXI NA INJ OnabotulinumtoxinA (BOTOX IJ)- Inject as directed. Active polyethylene glycol 3350 (MIRALAX ORAL) Take by mouth. Active verapamiL (CALAN) 120 mg tablet Take 1 tablet (120 mg total) by mouth 3 (three) times a day. Active Active Problems Problem Noted Date Diagnosed Date Bacterial vaginosis 03/06/2021 Overview (09/21/2024): Last Assessment & Plan: Given recurrent, will treat for 5 days followed by once after menses. Trichomonas antigen sent to ensure not an additional cause of sx. Vaginal discharge 03/06/2021 Overview (09/21/2024): Last Assessment & Plan: C/w BV. Treated with Metrogel as noted. I recommended she treat with Metrogel once after menses to avoid future symptoms. She will try this. May resolve now that IUD has been removed. Displacement of intrauterine contraceptive devic e 12/13/2020 Overview (09/21/2024): Last Assessment & Plan: Recommended removal based on US findings. She agreed. IUD removal The patient is a 45 yr. who presents for IUD removal. She has TL for contraception. IUD Type Mirena IUD Removal Reason displaced into MYRNA The IUD removal process is discussed with the patient, including risk of pain, bleeding, and difficulties with removal. Procedure: The patient was positioned on the table in a lithotomy position. A speculum was inserted into the vagina and the cervix and IUD strings were visualized. The IUD strings were grasped and the IUD was removed without difficulty. The patient tolerated the procedure well. Cluster headache 01/21/2019 Overview (09/21/2024): Follows with [facility] in [place] Last Assessment & Plan: Pt will continue to see [facility] every 3 months. Will keep diary as above to determine if [facility] seem to be related to IUD. Migraine with aura 01/21/2019 Overview (09/21/2024): Has seen neuro at [facility] in [place] Smoker 11/16/2018 Overview (09/21/2024): Last Assessment & Plan: Encouraged smoking cessation to improve chances of erradication of BV. Dysmenorrhea 10/18/2018 Overview (09/21/2024): Last Assessment & Plan: Improved and likely transitioning to menopause. Will continue current treatment and consider starting POP if sx worsen again. She will call if this is the case. Uterine leiomyoma 10/18/2018 Overview (09/21/2024): Last Assessment & Plan: Reviewed US findings and natural history of fibroids. No intervention necessary at this time. Pap smear of cervix shows high risk HPV present 10/08/2016 Overview (09/21/2024): Repeat 09/2017 normal and neg HPV, repeat co-testing in 3 years Intractable episodic cluster headache 05/04/2015 Surgical History Surgery Date Site/Laterality Comments TUBAL LIGATION PROCEDURE: HISTORICAL TUBAL LIGATION MULTIPLE TOOTH EXTRACTIONS PROCEDURE: HISTORICAL DENTAL EXTRACTION ENDOMETRIAL ABLATION 06/06/2015 PROCEDURE: MT ENDOMETRIAL ABLTJ THERMAL W/O HYSTEROSCOPIC GUID; COMMENT: Novasure OTHER SURGICAL HISTORY 09/2017 PROCEDURE: HISTORICAL D&C; COMMENT: Using Myosure device for suspected hematometra BREAST SURGERY 2018 Right PROCEDURE: MT UNLISTED PROCEDURE BREAST; COMMENT: removed fibroid & other lump BREAST SURGERY pt doesn't remember Bilateral PROCEDURE: MT UNLISTED PROCEDURE BREAST BREAST BIOPSY pt. doesnt remember when Bilateral PROCEDURE: BX BREAST; PERC NEEDLE CORE W/IMAG GUID; COMMENT: bxs. of both breasts-removed lumps BREAST BIOPSY 2018 Right PROCEDURE: MT BX BREAST W/DEVICE 1ST LESION ULTRASOUND GUID OTHER SURGICAL HISTORY 05/20/2022 Left PROCEDURE: MT BX BREAST W/DEVICE 1ST LESION STEREOTACTIC GUID; COMMENT: benign Medical History Medical History Date Comments Intractable episodic cluster headache 05/04/2015 DX:Intractable episodic cluster headache Iron deficiency anemia due t o chronic blood loss 05/04/2015 DX:Iron deficiency anemia du e to chronic blood loss Menorrhagia 05/04/2015 DX:Menorrhagia Iron deficiency anemia due t o chronic blood loss 05/04/2015 DX:Iron deficiency anemia du e to chronic blood loss Family History Medical History Relation Name Comments Colon cancer Aunt fath side 60 Breast cancer Neg Hx Ovarian cancer Neg Hx Pancreatic cancer Neg Hx Prostate cancer Neg Hx Uterine cancer Neg Hx Relation Name Status Comments Aunt fath side 60 Alive Social History Tobacco Use Types Packs/Day Years Used Date Smoking Tobacco: Every Day Cigarettes 0.7 38.1 Started: 09/07/1986 Smokeless Tobacco: Never Alcohol Use Standard Drinks/Week Comments Not Currently 0 (1 standard drink = 0.6 oz pur e alcohol) Sex and Gender Information Value Date Recorded Sex Assigned at Not on file Gender Identity Not on file Sexual Orientation Not on file Job Start Date Occupation Industry Not on file Not on file Not on file Obstetrics History Last Filed Vital Signs Vital Sign Reading Time Taken Comments Blood Pressure 122/72 05/22/2023 2:03 PM EDT Pulse 74 05/22/2023 2:03 PM EDT Temperature - - Respiratory Rate - - Oxygen Saturation - - Inhaled Oxygen Concentration - - Weight 80.6 kg (177 lb 9.6 oz) 05/22/2023 2:03 P M EDT Height 165.1 cm (5' 5 ) 05/22/2023 2:03 PM EDT Body Mass Index 29.55 05/22/2023 2:03 PM EDT Plan of Treatment Upcoming Encounters Date Type Department Care Team (Late st Contact Info) Description 11/18/2024 11:10 AM EDT Appointment Radiology Department - [address] [phone] 12/16/2024 3:30 PM EDT Office Visit Obstetrics and Gynecology - [address] [phone] Yesica Alvarez MD [address] [place], [place] Health Maintenance Due Date Last Done Comments Pneumococcal Vaccine: Pediatrics (0 to 5 Years) and At-Risk Patients (6 to 64 Years) (1 of 2 - PCV) 1979 DTaP,Tdap,and Td Vaccines (1 - Tdap) 1992 Hepatitis B Vaccines (1 of 3 - 19+ 3-dose series) 1992 Colorectal Cancer Screening: Colonoscopy 08/16/2022 Depression Screening 08/16/2022 HIV Screening 08/16/2022 Hepatitis C Screening 08/16/2022 Social Influencers of Health Screening 08/16/2022 Zoster Vaccines (1 of 2) 2023 COVID-19 Vaccine (1 - 2024-25 season) 2024 Influenza Vaccine (#1) 2024 Breast Cancer Screening 11/10/2025 11/11/19 24, 11/11/2023, 10/17/2022, Additional history exists Cervical Cancer Screening: HPV 12/03/2026 12/03/2021 HIB Vaccines Aged Out No longer eligi [...] on patient's age to complete this topic MMR Vaccines Aged Out No longer eligi ble based on patient's age to complete this topic Meningococcal ACWY Vaccine Aged Out N o longer eligible based on patient's age to complete this topic RSV Immunization Patients Under 20 months Aged Out No longer eligible based on patient's age to complete this topic Varicella Vaccines Aged Out No longer eligible based on patient's age to complete this topic Procedures Procedure Name Priority Date/Time Associated Diagnosis Comments SCREENING MAMMOGRAPHY BI 2-VIEW BREAST INC CAD Routine 11/11/2023 11:33 AM EST Encounter for screening mammogram for malignant neoplasm of breast HM HPV Routine 12/03/2021 from Last 3 Months or Most Recently Relevant to Health Maintenance Results * SCREENING MAMMOGRAPHY BI 2-VIEW BREAST INC CAD (11/11/2023 11:33 AM EST) Anatomical Region Laterality Modality Radiographic Daysi ging 10/17/2022 11:3 5 AM EST Narrative 11/11/2023 6:31 PM EST This is a summary report. The complete report is available in the patient's medical record. If you cannot access the medical record, please contact the sending organization for a detailed fax or copy. Study: SCREENING MAMMOGRAPHY BI 2-VIEW BREAST INC CAD Technique: Bilateral full-field digital screening mammography is obtained and read in conjunction with computer aided detection. ??Tomosynthesis as well as 2D C-View imaging were obtained. Comparison: Comparison made to multiple prior, most recent October 17, 2022, and most remote June 29, 2015. Breast composition: The breast tissue is heterogeneously dense, which may obscure small masses. Right breast: History of previous excisional biopsies. ??No suspicious masses, suspicious calcifications or other abnormalities are seen. Left breast: History of previous excisional biopsies. ??Tissue markers from previous needle core biopsies. ??No suspicious masses, suspicious calcifications or other abnormalities are seen. IMPRESSION: Impression: Bilateral breasts: Benign, no specific mammographic evidence of malignancy. ??Normal interval follow-up is recommended in 12 months. BI-RADS: Category 2: Benign Procedure Note Alejandra Valdivia MD - 04/25/2024 This is a summary report. The complete report is available in thepatient's medical record. If you cannot access the medical record, pleasecontact the sending organization for a detailed fax or copy. Study: SCREENING MAMMOGRAPHY BI 2-VIEW BREAST INC CAD Technique: Bilateral full-field digital screening mammography is obtainedand read in conjunction with computer aided detection. Tomosynthesis aswell as 2D C-View imaging were obtained. Comparison: Comparison made to multiple prior, most recent October, and most remote June 29, 2015. Breast composition: The breast tissue is heterogeneously dense, which mayobscure small masses. Right breast: History of previous excisional biopsies. No suspiciousmasses, suspicious calcifications or other abnormalities are seen. Left breast: History of previous excisional biopsies. Tissue markers fromprevious needle core biopsies. No suspicious masses, suspiciouscalcifications or other abnormalities are seen. IMPRESSION: Impression: Bilateral breasts: Benign, no specific mammographic evidence ofmalignancy. Normal interval follow-up is recommended in 12 months. BI-RADS: Category 2: Benign Lj Murcia MD IMG XR PROCEDURES * Cervical Cancer Screening: HPV (12/03/2021) Cervical Cancer Screening: HPV negative, abstracted Historical Provider MD SHANICE Garibay from Last 3 Months or Most Recently Relevant to Health Maintenance Care Teams Sales Engagement Executive Relationship Specialty Start Date End Date Lj Murcia MD [address] [place] [address] PCP - General Internal Medicine 11/02/20
== END 2024-10-12 15:56 | disposition home or self-care (01) ==
PROVIDERS: PCP Internal Medicine; Visit Provider Internal Medicine
DX: Z00.00 Encounter for general adult medical examination without abnormal findings (principal); J01.01 Acute recurrent maxillary sinusitis; R73.01 Impaired fasting glucose; G43.919 Migraine, unspecified, intractable, without status migrainosus; J45.40 Moderate persistent asthma, uncomplicated; Z72.0 Tobacco use; R42 Dizziness and giddiness; Z91.09 Other allergy status, other than to drugs and biological substances; F41.0 Panic disorder [episodic paroxysmal anxiety]

== ENCOUNTER → 2024-10-12 15:30 | Outpatient (BNVA) | payer OTHER, SELFPAY | PROVIDERS: PCP Internal Medicine; Visit Provider Internal Medicine | DX: Z00.01 Encounter for general adult medical examination with abnormal findings (principal); J01.01 Acute recurrent maxillary sinusitis; R73.01 Impaired fasting glucose; G43.919 Migraine, unspecified, intractable, without status migrainosus; J45.40 Moderate persistent asthma, uncomplicated; R42 Dizziness and giddiness; F41.0 Panic disorder [episodic paroxysmal anxiety]; Z72.0 Tobacco use; Z91.09 Other allergy status, other than to drugs and biological substances | CPT/HCPCS: 96127; 99396 ==

== ENCOUNTER 2024-11-01 07:33 | Outpatient (REF) | payer OTHER, SELFPAY ==
--- OUTSIDE RECORDS SUMMARY | 2024-11-01 07:36 | XMS_ITS ---
Author Organization [facility] Address [address] [place] [address] Care Team Providers Care Gear Roller Name Role Phone Lj Murcia Primary Care Provider Igor Gil Unavailable [phone] REASON FOR VISIT Refills Medications Medication SIG (Take, Route, Fr equency, Duration) Notes Start Date End Date Status Naratriptan HCl 2.5 MG 1 tablet Orally T wice a day. for 45 days 01/27/2024 Active Encounters Encounter Location Date Provider Diagnosis [facility] [address] [place] [address] 09/21/2024 Igor Wang Chronic cluster headache, not intractable G44.029 Assessments Encounter Date Diagnosis (ICD Code) Assessment Notes Treatment Notes Treatment Clinical Notes Section Notes 09/21/2024 Chronic cluster headache, not intractable (ICD-10 - G44.029) Plan Of Treatment Medication Medication Name Sig Start Date Stop Date Notes Naratriptan HCl 2.5 MG 1 tablet Orally T wice a day. for 45 days 01/27/2024 Next Appt Details Provider Name:Igor alberts, 11/01/2024 11:30:00 AM, [address] [place] [address], [phone], Progress Notes * Kenrick SOTOOB:1975 ( 49 yo F)Acc No.[id number]:09/21/2024 Patient:?Annette SOTO :1975???Age:49 Y???Sex:Female Address: [address] , [place], [address] * Refills? Refill Naratriptan HCl Tablet, 2.5 MG, Orally, 90, 1 tablet, Twice a day., 45 days, Refills=5 * true * Date:? Generated for Vu dean/Luann/Dianaitting on:?11/01/2024 07:36 AM EST
--- OUTSIDE RECORDS SUMMARY | 2024-11-01 07:36 | XMS_ITS | Encounter Summary ---
Author Organization [employer] Address [address] [place] [address] [address] [place] [address] Care Team Providers Care Fish Grader Name Role Phone Unavailable Primary Care Provider Unavailabl e Encounter Details Date Type Department Care Team (Latest Contact Info) Description 05/30/2019 Abstract [facility] CONVERSIONS Dental, Provider, DDS Social History [...]
--- OUTSIDE RECORDS SUMMARY | 2024-11-01 07:36 | XMS_ITS ---
Author Organization [facility] Address [address] [place] [address] Care Team Providers Care Fitter/Welder Name Role Phone Lj Murcia Primary Care Provider Igor Gil Unavailable [phone] Encounters Encounter Location Date Provider Diagnosis [facility] [address] [place] [address] 11/01/2024 Igor Wang Plan Of Treatment Next Appt Details Provider Name:Igor alberts, 11/01/2024 11:30:00 AM, [address] [place] [address], [phone], Progress Notes * Kenrick SOTOOB:1975 ( 49 yo F)Acc No.[id number]:11/01/2024 Patient:?CHARLES Annette Provider:?Igor Wang MD?Resourc e:Jessica Santiago :1975???Age:49 Y???Sex:Female D ate:11/01/2024 Address:[address] [place], [place] [address] Pcp:Lj Murcia Subjective: * Chief Complaints: * ??? * Medical History:? Objective: * Vitals:? Assessment: Plan: * Treatment: Care Plan: * Problems:? * Billing Information: * Visit Code:? * Procedure Codes:? * Electronic [place], [id number] on 11/01/2024 at 07:35 AM EST Sign off status: Pending * Provider:?Igor Wang MD Date:?10/09 Generated for Vu dean/Luann/Wesly on:?11/01/2024 07:35 AM EST
--- OUTSIDE RECORDS SUMMARY | 2024-11-01 07:36 | XMS_ITS | Data Portability ---
Author Organization [facility] Address [address] [place] [address] Assessment No assessment recorded. Plan of Treatment Reminders Order Date Submit Date Provider Last Modified By Organization Details Last Modified Time Details Appointments None recorded . Lab rapid strep group A, throat 02/06/20 [email or web address] _[facility], [address] [place] [address], [phone], 17:21:55 Referral None recorded . Procedures None recorded . Surgeries None recorded . Imaging None recorded . Medication Orders None recorded . Patient TargetsNo targets recorded. Patient Instructions Encounter Date Encounter Id Patient Instructions Last Modified By Organization Details Last Modified Time 02/05/2023 [id number] upper respirator y infection (cold): care instructions [place] [id number] Not available 02/05/2023 17:21:55 Reason for Referral None Reported. Results Created Date Observation Date Name Description Value Unit Range Abnormal Flag Note LastModifiedBy Organization Detail LastModifiedTime 02/06/2002/05/2023 rapid strep group A, throa t Unknown Analyte Normal = Negati ve Not Available [facility] [address] [place] [address], [phone], 02/05/2023 16:42:30 02/06/2002/05/2023 rapid strep group A, throa t Unknown Analyte negati ve Not Available [facility] [address] [place] [address], [phone], 02/05/2023 16:42:30 Result Notes None recorded. Problems Name Problem SNOMED Code Status Onset Date Resolution Date Notes Provider Name and Address Organization Details Recorded Time Migraine 96371889 [facility] [place] [facility] 3 16:40:48 Asthma 019459476 Active [facility] [place] [facility] 3 16:41:08 Problem Notes None recorded. Procedures Surgical History Date Name Laterality Status Provider Name and Address Organization Details Recorded Time ligation of fallopian tube completed [facility] - [facility] 02/05/2023 16:42:25 ultrasonography guided transcervical radiofrequency ablation of uterine fibroid completed [facility] 02/05/2023 16:43:30 Imaging Results None recorded. Procedure Notes None recorded. Medical Equipment None Reported. Allergies Allergen ID Allergen Name Allergen Category Reaction Reaction Severity Criticality Documentation Date Start Date Code Code System Note Provider Name and Address Organization Details Recorded Time 485818 Vaccine product containin g only Clostridi um tetani antigen (medicina l product) medicatio n fever Not available Not available 02/05/2023 94252 2003 [facility] [place] [facility] 3 16:41:48 Medications Name [...] Updated DateTime 3 162.56 cm 29.2 kg/m2 60769.7 g 6 20 /min 98 % 98 % 74 /min 97.9 [degF] 152 mm[Hg] 90 mm[Hg] [facility] - [facility] 3 16:44:31 Social History Question Answer Notes LastModified by Organizat ion Details LastModified Time Tobacco Smoking Status Current Every Day Smoker J[facility] Norris - [facility] 02/05/2023 16:42:08 What Is Your Level Of Alcohol Consumption? None [email or web address] Information not available 02/05/2023 How Much Tobacco Do You Smoke? 0.5 PPD [email or web address] Information not available 02/05/2023 Do You Use Any Illicit Or Recreational Drugs? No [email or web address] Information not available 02/05/2023 Have You Recently Traveled Abroad? No [email or web address] Information not available 02/05/2023 Do You Or Have You Ever Used Any Other Forms Of Tobacco Or Nicotine? No [email or web address] Information not available 02/05/2023 Sex: Unknown Functional Status None recorded. Mental Status None recorded. Family History Relationship Description Onset Age of this Age Resolved Age Notes LastModified by Organization Details LastModified Time Father No current problems or disability [email or web address] Not available 02/05 16:41:50 Mother No current [...] SNOMED-CT Code Diagnosis ICD10 Code Diagnosis Note [id number] [address] [place] [address] 07/13/2021 10:53:30 07/13/2021 14:09:05 [id number] [address] [place] [address] 12/10/2017 19:23:49 12/10/2017 20:20:45 [id number] [address] [place] [address] 04/24/2018 15:11:26 04/24/2018 15:56:43 [id number] [address] [place] [address] 01/20/2020 12:58:17 01/20/2020 13:43:31 [id number] [address] [facility] [place] [address] 05/03/2020 17:21:25 05/03/2020 18:34:07 [id number] [address] [facility] [place] [address] 01/24/2022 11:30:23 01/24/2022 12:43:54 [id number] [address] [facility] [place] [address] 04/17/2019 16:44:12 04/17/2019 17:05:41 [id number] [address] [facility] [place] Silva [address] 07/27/2018 11:56:43 07/27/2018 13:09:15 [id number] Yani Bonilla MD [address] [facility] [place] [address] 02/05/2023 16:23:41 02/05/2023 17:23:27 Upper respiratory infection 54829524 J06.9 - Use the medication s prescribed [...] Ford Member ID Guarantor Name 01/20/2020 1 [facility] NET PLAN (MEDICAID HMO) [place] Annette Fenton [id number] Annette Fenton 05/03/2020 1 [facility] (MEDICAID HMO) ELE Annette Sukumar Eliceo [id number] Annette Sukumar Eliceo 07/13/2021 1 [facility] (MEDICAID HMO) ELE Annette M Eliceo [id number] Annette Sukumar Eliceo 01/24/2022 1 [facility] (MEDICAID HMO) ELE Annette M Eliceo [id number] Annette Sukumar Eliceo 02/05/2023 1 [facility] (MEDICAID HMO) ELE Annette Sukumar Eliceo [id number] Annette Fenton Notes Date Note Type Note Provider Name and Address Organization Details Recorded Time 02/05/2023 text/html Sore throatRepor lm bypatient.Location:t hroat Quality:hurts to swallow Onset/Timin days Associated Symptoms:no shortness of breath; no wheezing;sore throat;nasal congestion;sinus pain/ congestion Yani Bonilla MD [address] [place] [address] [place], [address], [place] - [facility] 02/05/2023 19:49:54 OBGyn Episode No OBEpisode recorded.
--- OUTSIDE RECORDS SUMMARY | 2024-11-01 07:36 | XMS_ITS | Clinical Summary ---
Author Organization [employer] Address [address] [place] [address] [address] [place] [address] Care Team Providers Care Field Sales Associate Name Role Phone Unavailable Primary Care Provider [...]
--- OUTSIDE RECORDS SUMMARY | 2024-11-01 07:36 | XMS_ITS | Patient Health Record ---
Author Organization [facility] Address [address] [place] [address] Care Team Providers Care Hogshead Wrecker Name Role Phone Lj uMrcia Primary Care Provider Igor Gil Unavailable [phone] Allergies Allergen (clinical drug ingredient) Drug/Non Drug [...] 4 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) Referred Organization [employer]. 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 Referred Provider Igor Wang Referred Address [address] [place] [phone], Referred Provider Specialty Neurology Referral Priority Routine Medications Medication SIG (Take, Route, Frequency, Duration) Notes Start Date End Date Status OnabotulinumtoxinA 200 UNIT Inject into face, head, neck and shoulder per MD IM Injection once for 84 days Active Ibuprofen 200 mg 9 Oral 3 prn for 0 08/20/2010 Active PROAIR HFA 90 MCG INHALER MCG/ACTUATION 9 for 0 08/20/2010 Active Naratriptan HCl 2.5 MG 1 tablet Orally T wice a day. for 45 days 01/27/2024 Active Polyethylene Glycol 3350 17 GM MIX 1 PAC KET IN WATER AND DRINK EVERY MORNING for 28 Active Verapamil HCl 120 MG TAKE 1 TABLET BY [facility] THREE TIMES A DAY FOR 90 DAYS for 90 Active Pulmicort Flexhaler 90 MCG/ACT 1 puff [...] Notes Problem Chronic intractable migraine without aura (16070665554771 5) Chronic migraine without aura, intractable, without status migrainosus (G43.719) Active confirmed Problem Menstrual migraine (07251210) Menstrual migraine, not intractable, without status migrainosus (G43.829) Active confirmed Problem Episodic cluster headache (116814648) Episodic cluster headache, intractable (G44.011) Active confirmed Problem Chronic cluster headache (298627212) Chronic cluster headache, not intractable (G44.029) Active confirmed undefined Problem Atypical facial pain (75999688) 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 Problem Myalgia of auxiliary muscles, 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 Problem Migraine without aura (70849986) Migraine without aura, not intractable, with statu (G43.001) Active confirmed Vital Signs Heart Rate 78 /min 08/15/2024 Blood pressure diastolic 95 mm Hg 08/15/2024 Weight-kg 75.43 kg 08/15/2024 Height 64 in 08/15/2024 Blood pressure systolic 158 mm Hg 08/15/2024 Weight 166.3 lbs 08/15/2024 BMI 28.54 kg/m2 08/15/2024 Encounters Encounter Location Date Provider Diagnosis [address] [address] 01/27/2024 Igor Wang Chronic cluster headache, not intractable G44.029 [facility] [address] [address] 05/05/2024 Igor Wang Chronic migraine without aura, intractable, without status migrainosus G43.719 [facility] [address] [place] [address] 06/29/2024 Igor Wang Chronic migraine without aura, intractable, without status migrainosus G43.719 [facility] [address] [place] [address] 12/03/2023 Igor Wang Chronic migraine without aura, intractable, without status migrainosus G43.719 ; Episodic cluster headache, intractable G44.011 ; Myalgia of auxiliary muscles, head and neck M79.12 and Atypical facial pain G50.1 [facility] [address] [place] [address] 02/25/2024 Igor Wang Chronic migraine without aura, intractable, without status migrainosus G43.719 ; Episodic cluster headache, intractable G44.011 ; Myalgia of auxiliary muscles, head and neck M79.12 and Atypical facial pain G50.1 [facility] [address] [place] [address] 05/12/2024 Igor Wang Chronic migraine without aura, intractable, without status migrainosus G43.719 ; Episodic cluster headache, intractable G44.011 ; Myalgia of auxiliary muscles, head and neck M79.12 and Atypical facial pain G50.1 [facility] [facility] [address] [place] [address] 08/15/2024 Igor Wang Chronic migraine without aura, intractable, without status migrainosus G43.719 ; Episodic cluster headache, intractable G44.011 ; Myalgia of auxiliary muscles, head and neck M79.12 and Atypical facial pain G50.1 [facility] [address] [place] [address] 12/31/2023 Igor Wang [facility] [address] [place] [address] 01/05/2024 Igor Wang [facility] [address] [place] [address] 11/26/2023 Igor Wang [facility] [address] [place] [address] 11/30/2023 Igor Wang [facility] [address] [place] [address] 12/29/2023 Igor Wang [facility] [address] [place] [address] 12/31/2023 Igor Wang [facility] [address] [place] [address] 01/05/2024 Igor Wang [facility] [address] [place] [address] 01/13/2024 Igor Wang [facility] [address] [place] [address] 01/27/2024 Igor Wang [facility] [address] [place] [address] 02/13/2024 Igor Wang [facility] [address] [place] [address] 05/04/2024 Igor Wang [facility] [address] [place] [address] 06/03/2024 Igor Wang [facility] [address] [place] [address] 07/19/2024 Igor Wang [facility] [address] [place] [address] 09/21/2024 Igor Wang Chronic cluster headache, not intractable G44.029 [facility] [address] [place] [address] 10/07/2024 Igor Wang Assessments Encounter Date Diagnosis (ICD Code) Assessment [...] migraine with aura and controlled cluster headaches. 09/21/2024 Chronic cluster headache, not intractable (ICD-10 - G44.029) 08/15/2024 Episodic cluster headache, intractable (ICD-10 - [...] Of Treatment Next Appt Details Provider Name:Igor Sewell lexus, 11/01/2024 11:30:00 AM, [address] [place] [address], [phone], Insurance Providers Payer Name Payer Address Payer Phone Subscriber Number Group Number Insured Name Patient Relationship to Insured Coverage Start Date Coverage End Date [facility] [employer] [facility] [address] [address] [id number] Annette Fenton Self - patient is the insured
--- OUTSIDE RECORDS SUMMARY | 2024-11-01 07:36 | XMS_ITS ---
Author Organization [facility] Address [address] [place] [address] Care Team Providers Care Hr Payroll Coordinator Name Role Phone Twin Lynnponcho Primary Care Provider Igor Gil [phone] Medications Medication SIG (Take, Route, Frequency, Duration) Notes Start Date End Date Status OnabotulinumtoxinA 200 UNIT Inject into face, head, neck and shoulder per MD IM Injection once for 84 days Active Encounters Encounter Location Date Provider Diagnosis [facility] [address] [place] [address] 10/07/2024 Igor Wang Plan Of Treatment Medication Medication Name Sig Start Date Stop Date Notes OnabotulinumtoxinA 200 UNIT Inject into face, head, neck and shoulder per MD IM Injection once for 84 days Next Appt Details Provider Name:Igor alberts, 11/01/2024 11:30:00 AM, [address] [place] [address], [address], Progress Notes * Kenrick SOTOOB:1975 ( 49 yo F)Acc No.[id number]:10/07/2024 Patient:?Annette SOTO :1975???Age:49 Y???Sex:Female Address:[address] [place] [address], [address] * Refills? Refill OnabotulinumtoxinA Solution Reconstituted, 200 UNIT, IM Injection, 1 Each, Inject into face, head, neck and shoulder per MD, once, 84 days, Refills=4 * true * Date:? Generated for Vu dean/Luann/Dianaitting on:?11/01/2024 07:35 AM EST
--- OUTSIDE RECORDS SUMMARY | 2024-11-01 07:36 | XMS_ITS | Encounter Summary ---
Author Organization [employer] Address [address] [place] [address] 7t [place] [address] Care Team Providers Care Screen Printing Supervisor Name Role Phone Unavailable Primary Care Provider Unavailabl e Encounter Details Date Type Department Care Team (Latest Contact Info) Description 12/04/2020 Abstract [facility] Dental, Provider, DDS Social History Tobacco [...]
--- OUTSIDE RECORDS SUMMARY | 2024-11-01 07:36 | XMS_ITS | Clinical Summary ---
Author Organization [facility] it Address [address] [place] [address] Care Team Providers Care Bakery Associate Name Role Phone Lj Murcia MD Primary Care Provider [phone] Allergies Active Allergy Reactions Criticality Noted Date Comments Divalproex Hives 05/04/2015 Paroxetine Hcl 05/04/2015 Paxil [fd&c Blue #2 Al Nicole-paroxetine] Medications albuterol HFA (PROAIR HFA ; PROVENTIL HFA ; VENTOLIN HFA) 90 mcg/actuation inhaler Inhale 2 puffs by mouth every 4 (four) hours if needed. Active cetirizine HCl (ZYRTEC ORAL) Take by mouth. A ctive fluticasone HFA (FLOVENT HFA) 110 mcg/actuation inhaler Inhale 1 puff by mouth 2 (two) times a day. Active ibuprofen (ADVIL,MOTRIN) 600 mg tablet Take 1 Tab by mouth every 6 hours as needed for Pain. 06/26/20 16 Active metroNIDAZOLE (METROGEL) 0.75 % (37.5mg/5 gram) vaginal gel Si applicator full after menses & Si applicator full nightly for 5 nights 06/05/20 22 Active naratriptan (AMERGE) 2.5 mg tablet Take 1 tablet (2.5 mg total) by mouth 2 (two) times a day. Active ONABOTULINUMTO XINA INJ OnabotulinumtoxinA (BOTOX IJ)- Inject as directed. Active polyethylene glycol 3350 (MIRALAX ORAL) Take by mouth. Active verapamiL (CALAN) 120 mg tablet Take 1 tablet (120 mg total) by mouth 3 (three) times a day. Acti ve Active Problems Problem Noted Date Diagnosed Date [...] Overview (09/21/2024): Follows with [facility] in [place] Last Assessment & Plan: Pt will continue to see [facility] every 3 months. Will keep diary as above to determine if [facility] seem to be related to IUD. Migraine with aura 01/21/2019 Overview (09/21/2024): Has seen neuro at [facility] in [place] Smoker 11/16/2018 Overview (09/21/2024): Last Assessment & [...] HISTORICAL DENTAL EXTRACTION ENDOMETRIAL ABLATION 06/06/2015 PROCEDURE: [place] ENDOMETRIAL ABLTJ THERMAL W/O HYSTEROSCOPIC GUID; COMMENT: Novasure OTHER SURGICAL HISTORY 09/2017 PROCEDURE: HISTORICAL D&C; COMMENT: Using Myosure device for suspected hematometra BREAST SURGERY 2018 Right PROCEDURE: W[place] UNLISTED PROCEDURE BREAST; COMMENT: removed fibroid & other lump BREAST SURGERY pt doesn't remember Bilateral PROCEDURE: [place] UNLISTED PROCEDURE BREAST BREAST BIOPSY pt. doesnt remember when Bilateral PROCEDURE: BX BREAST; PERC NEEDLE CORE W/IMAG GUID; COMMENT: bxs. of both breasts-removed lumps BREAST BIOPSY 2018 Right PROCEDURE: [place] BX BREAST W/DEVICE 1ST LESION ULTRASOUND GUID OTHER SURGICAL HISTORY 05/20/2022 Left PROCEDURE: [place] BX BREAST W/DEVICE 1ST LESION STEREOTACTIC GUID; [...] Used Date Smoking Tobacco: Every Day Cigarettes 0.8 38.2 Started: 09/07/1986 Smokeless Tobacco: Never Alcohol Use Standard Drinks/Week Comments Not Currently 0 (1 standard drink = 0.6 oz pur e alcohol) Comments Unknown Sex and Gender Information Value Date Recorded Sex Assigned at Not on file Legal Sex Female 5:11 AM EST Gender Identity Not on file Sexual Orientation Not on file Obstetrics History Last Filed [...] 11:10 AM EDT Appointment Radiology Department - [address] [phone] 12/16/2024 3:30 PM EDT Office Visit Obstetrics and Gynecology - [address] [phone] Yesica Alvarez MD [address] [place], [place] Health Maintenance Due Date Last Done Comments DTaP,Tdap,and Td Vaccines (1 - Tdap) 1992 Hepatitis B Vaccines (1 of 3 - 19+ 3-dose series) 1992 Pneumococcal Vaccine: 50+ Years (1 of 2 - PCV) 1992 Pneumococcal Vaccine: Pediatrics (0 to 5 Years) and At-Risk Patients (6 to 64 Years) (1 of 2 - PCV) 1992 Colorectal Cancer Screening: Colonoscopy 08/16/2022 Depression Screening 08/16/2022 HIV Screening 08/16/2022 Hepatitis C Screening 08/16/2022 Social Influencers of Health Screening 08/16/2022 Zoster Vaccines (1 of 2) 2023 COVID-19 Vaccine ( season) 2024 Influenza Vaccine (#1) 2024 Breast [...] patient's age to complete this topic Meningococcal B Vacine Aged Out No lo nger eligible based on patient's age to complete [...] screening mammogram for malignant neoplasm of breast HPV Routine 12/03/2021 from Last 3 Months [...] Benign Lj Murcia MD IMG XR PROCEDURES Final Result * Cervical Cancer Screening: HPV (12/03/2021) Cervical Cancer Screening: HPV negative, abstracted [facility] Provider HEALTH MAINTENANCE Final Result from Last 3 Months or Most Recently Relevant to Health Maintenance Insurance [facility] [employer] [place] PL[employer] Care Teams Bakery Associate Relationship Specialty Start Date End Date Lj Murcia MD [address] [facility] [place] [id number] PCP - General Internal Medicine 11/02/20
[2024-11-01 10:05] LABS: MANUAL DIFF FLAG NO
[2024-11-01 10:10] LABS: Appearance Urine Turbid; Color Urine Yellow; Glucose Urine UA Negative (Negative); Leukocyte Esterase Urine Negative (Negative); Nitrite Urine Negative (Negative); PH 5.5 (5.0-9.0); Specific Gravity - Urine >= 1.030 (1.005-1.025); UMIC TRIGGER UACC YES; Urine Blood Small (1+) (Negative); Urine Ketones Negative (Negative); Urine Protein Negative (Neg-Trace)
[2024-11-01 10:11] LABS: Basophils Absolute Auto 0.1 X10*3/uL (0.0-0.2); Basophils Percent Auto 0.9 % (0-2); Eosinophils Absolute Auto 0.4 X10*3/uL (0.0-0.4); Eosinophils Percent Auto 4.6 % (0-4); Hematocrit 43.2 % (37.0-47.0); Hemoglobin 14.5 g/dl (12.0-16.0); Imm Gran Abs Auto 0.03 X10*3/uL (0.00-0.03); Imm Gran Pct Auto 0.3 % (0.0-0.4); Lymphocytes Absolute Auto 1.9 X10*3/uL (1.2-4.9); Lymphocytes Percent Auto 20.7 % (20-40); Mean Corpuscular HGB Conc 33.6 g/dl (31.0-35.0); Mean Corpuscular Hemoglobin 30.2 pg (27.0-33.0); Mean Platelet Volume 11.2 fL (9.4-12.3); Monocytes Absolute Auto 0.6 X10*3/uL (0.1-1.2); Monocytes Percent Auto 6.7 % (2-11); Neutrophils Percent Auto 66.8 % (45-73); Platelet Count 330 X10*3/uL (160-400); Red Cell Distribution Width 12.8 % (11.0-16.0); White Blood Count 9.1 X10*3/uL (4.8-10.8)
[2024-11-01 10:12] LABS: Bacteria Urine 2+ (None Seen); Hyaline Casts Urine 0-2 /LPF (0-2); WBC Urine 0-5 /HPF (0-5)
[2024-11-01 10:25] LABS: Estimated Average Glucose 111 mg/dL; Hemoglobin A1c % 5.5 % (<6.0)
[2024-11-01 10:33] LABS: Alanine Aminotransferase 25 U/L (0-31); Alkaline Phosphatase 69 U/L (39-117); Anion Gap 11 (12-20); Aspartate Amino Transferase 23 U/L (5-31); Bilirubin Total 0.6 mg/dL (0.0-1.0); Blood Urea Nitrogen 11 mg/dL (9-16); Calcium 9.1 mg/dL (8.4-10.2); Carbon Dioxide 22 mmol/L (22-29); Chloride 110 mmol/L (96-108); Cholesterol 155 mg/dL (<200); Estimated Glomerular Filt Rate > 60; Glucose Fasting 103 mg/dL (60-99); HDL Cholesterol 44 mg/dL (>40); LDL Cholesterol Calculated 98 mg/dL (<100); Sodium 139 mmol/L (135-145); Total Protein 7.2 g/dL (6.5-8.0); Triglycerides 67 mg/dL (<150)
[2024-11-01 10:47] LABS: Vitamin B12 412 pg/mL (200-900)
[2024-11-01 10:56] LABS: TSH reflex Free T4 1.12 uIU/mL (0.32-4.0)
[2024-11-05 01:54] LABS: Vitamin D 25-OH, D2 <4 ng/mL; Vitamin D 25-OH, D3 17 ng/mL; Vitamin D 25-OH, Total 17 ng/mL (30-100)
== END 2024-11-01 07:34 | disposition home or self-care (01) ==
LOC: HO.HMGCLDS 07:33
PROVIDERS: PCP Internal Medicine; Visit Provider Internal Medicine
DX: Z00.01 Encounter for general adult medical examination with abnormal findings (principal); G43.919 Migraine, unspecified, intractable, without status migrainosus; J45.40 Moderate persistent asthma, uncomplicated; Z72.0 Tobacco use; R73.01 Impaired fasting glucose; E55.9 Vitamin D deficiency, unspecified; K59.01 Slow transit constipation; Z91.09 Other allergy status, other than to drugs and biological substances
CPT/HCPCS: 36415; 80053; 80061; 81001; 82306; 82607; 83036; 84443; 85025

== ENCOUNTER 2024-11-03 08:14 | Outpatient (AMB) | payer OTHER, SELFPAY ==
--- OUTSIDE RECORDS SUMMARY | 2024-11-03 08:34 | XMS_ITS | Patient Health Record ---
Author Organization [facility] Address [address] [place] [address] Care Team Providers Care Global Ceo Name Role Phone Lj Mucria Primary Care Provider Igor Gil Unavailable [phone] Allergies Allergen (clinical drug ingredient) Drug/Non Drug [...] 4 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) Referred Organization [employer]. 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 Referred Provider Igor Wang Referred Address [address] [place] [phone], Referred Provider Specialty Neurology Referral Priority Routine Medications Medication SIG (Take, Route, Frequency, Duration) Notes Start Date End Date Status Naratriptan HCl 2.5 MG 1 tablet Orally T wice a day. for 45 days 01/27/2024 Active Verapamil HCl 120 MG TAKE 1 TABLET BY [facility] THREE TIMES A DAY FOR 90 DAYS for 90 Active OnabotulinumtoxinA 200 UNIT Inject into face, head, neck and shoulder per MD IM Injection once for 84 days Active PROAIR HFA 90 MCG INHALER MCG/ACTUATION 9 for 0 08/20/2010 Active Ibuprofen 200 mg 9 Oral 3 prn for 0 08/20/2010 Active Polyethylene Glycol 3350 17 GM MIX 1 PAC KET IN WATER AND DRINK EVERY MORNING for 28 Active Acetaminophen Extra Strength 500 MG 0 Oral 2 tabs prn for 30 01/30/2020 Active Pulmicort Flexhaler 90 MCG/ACT 1 puff In halation Twice a day 06/29/2024 Active Social History Tobacco Use: Social History [...] Problem Status W/U Status Risk Notes Problem Fear of medical treatment (675920714) Fear of injections and transfusions (F40.231) Active confirmed Problem Chronic intractable migraine without aura (08223535679744 5) Chronic migraine without aura, intractable, without status migrainosus (G43.719) Active confirmed Problem Menstrual migraine (26042308) Menstrual migraine, not intractable, without status migrainosus (G43.829) Active confirmed Problem Episodic cluster headache (957965154) Episodic cluster headache, intractable (G44.011) Active confirmed Problem Chronic cluster headache (228946485) Chronic cluster headache, not intractable (G44.029) Active confirmed undefined Problem Atypical facial pain (56776000) 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 Problem Myalgia of auxiliary muscles, 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 Problem Migraine without aura (69020059) Migraine without aura, not intractable, with statu (G43.001) Active confirmed Vital Signs Heart Rate 77 /min 11/01/2024 Blood pressure diastolic 90 mm Hg 11/01/2024 Weight-kg 74.57 kg 11/01/2024 Height 64 in 11/01/2024 Blood pressure systolic 130 mm Hg 11/01/2024 Weight 164.4 lbs 11/01/2024 BMI 28.22 kg/m2 11/01/2024 Encounters Encounter Location Date Provider Diagnosis [address] [address] 01/27/2024 Igor Wang Chronic cluster headache, not intractable G44.029 [facility] [address] [address] 05/05/2024 Igor Wang Chronic migraine without aura, intractable, without status migrainosus G43.719 [facility] [address] [place] [address] 06/29/2024 Igor Wang Chronic migraine without aura, intractable, without status migrainosus G43.719 [facility] [address] [place] [address] 12/03/2023 Igor Wang Chronic migraine without aura, intractable, without status migrainosus G43.719 ; Episodic cluster headache, intractable G44.011 ; Myalgia of auxiliary muscles, head and neck M79.12 and Atypical facial pain G50.1 [facility] [address] [place] [address] 02/25/2024 Igor Wang Chronic migraine without aura, intractable, without status migrainosus G43.719 ; Episodic cluster headache, intractable G44.011 ; Myalgia of auxiliary muscles, head and neck M79.12 and Atypical facial pain G50.1 [facility] [address] [place] [phone] 05/12/2024 Igor Wang Chronic migraine without aura, intractable, without status migrainosus G43.719 ; Episodic cluster headache, intractable G44.011 ; Myalgia of auxiliary muscles, head and neck M79.12 and Atypical facial pain G50.1 [facility] [address] [place] [phone] 08/15/2024 Igor Wang Chronic migraine without aura, intractable, without status migrainosus G43.719 ; Episodic cluster headache, intractable G44.011 ; Myalgia of auxiliary muscles, head and neck M79.12 and Atypical facial pain G50.1 [facility] [address] [place] [address] 11/01/2024 Igor Wang Chronic migraine without aura, intractable, without status migrainosus G43.719 ; Episodic cluster headache, intractable G44.011 ; Myalgia of auxiliary muscles, head and neck M79.12 ; Atypical facial pain G50.1 and Fear of injections and transfusions F40.231 [facility] [address] [place] [address] 12/31/2023 Igor Wang [facility] [address] [place] [address] 01/05/2024 Igor Wang [facility] [address] [place] [phone] 11/26/2023 Igor Wang [facility] [address] [place] [phone] 11/30/2023 Igor Wang [facility] [address] [place] [phone] 12/29/2023 Igor Wang [facility] [address] [place] [phone] 12/31/2023 Igor Wang [facility] [address] [place] [address] 01/05/2024 Igor Wang [facility] [address] [place] [phone] 01/13/2024 Igor Wang [facility] [address] [place] [phone] 01/27/2024 Igor Wang [facility] [address] [place] [phone] 02/13/2024 Igor Wang [facility] [address] [place] [address] 05/04/2024 Igor Wang [facility] [address] [place] [phone] 06/03/2024 Igor Wang [facility] [address] [place] [phone] 07/19/2024 Igor Wang [facility] [address] [place] [phone] 09/21/2024 Igor Sewellley Chronic cluster headache, not intractable G44.029 [facility] [address] [place] [address] 10/07/2024 Igor Wang Assessments Encounter Date Diagnosis [...] cluster headache, not intractable (ICD-10 - G44.029) 11/01/2024 Chronic migraine without aura, intractable, without status migrainosus (ICD-10 - G43.719) Continue the same management. The next Botox treatment is scheduled for 11/01/2024 Controlled migraine with aura and controlled cluster headaches. 11/01/2024 Episodic cluster headache, intractable (ICD-10 - G44.011) Controlled migraine with aura and controlled cluster headaches. 11/01/2024 Myalgia of auxiliary muscles, head and neck [...] migraine with aura and controlled cluster headaches. 11/01/2024 Atypical facial pain (ICD-10 - G50.1) Controlled migraine with aura and controlled cluster headaches. 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 08/15/2024 Atypical facial pain (ICD-10 - G50.1) Controlled migraine with aura and controlled cluster headaches. 05/12/2024 Atypical facial pain (ICD-10 - G50.1) Controlled migraine with aura and controlled cluster headaches. 02/25/2024 Atypical facial pain (ICD-10 - G50.1) Controlled migraine with aura and controlled cluster headaches. Plan Of Treatment Next Appt Details Provider Name:Igor alberts, 01/24/2025 11:30:00 AM, [address] [place], [address], Insurance Providers Payer Name Payer Address Payer Phone Subscriber Number Group Number Insured Name Patient Relationship to Insured Coverage Start Date Coverage End Date [facility] [address] [phone] [id number] Annette Fenton Self - patient is the insured
--- OUTSIDE RECORDS SUMMARY | 2024-11-03 08:34 | XMS_ITS ---
Author Organization [facility] Address [address] [place] [address] Care Team Providers Care Bridge Teacher Name Role Phone Twin Lynnponcho Primary Care Provider Igor Gil [phone] Medications Medication SIG (Take, Route, Frequency, Duration) Notes Start Date End Date Status OnabotulinumtoxinA 200 UNIT Inject into face, head, neck and shoulder per MD IM Injection once for 84 days Active Encounters Encounter Location Date Provider Diagnosis [facility] [address] [place] [address] 10/07/2024 Igor Wang Plan Of Treatment Medication Medication Name Sig Start Date Stop Date Notes OnabotulinumtoxinA 200 UNIT Inject into face, head, neck and shoulder per MD IM Injection once for 84 days Next Appt Details Provider Name:Igor alberts, 01/24/2025 11:30:00 AM, [address] [place] [address], [phone], Progress Notes * Kenrick SOTOOB:1975 ( 49 yo F)Acc No.[id number]:10/07/2024 Patient:?Annette SOTO :1975???Age:49 Y???Sex:Female Address:[address] [place] [address], [address] * Refills? Refill OnabotulinumtoxinA Solution Reconstituted, 200 UNIT, IM Injection, 1 Each, Inject into face, head, neck and shoulder per MD, once, 84 days, Refills=4 * true * Date:? Generated for Vu dean/Luann/Dianaitting on:?11/03/2024 08:34 AM EST
--- OUTSIDE RECORDS SUMMARY | 2024-11-03 08:34 | XMS_ITS | Encounter Summary ---
Author Organization [employer] Address [address] [place] [address] [address] [place] [address] Care Team Providers Care Heating Fixture Tender Name Role Phone Unavailable Primary Care Provider Unavailabl e Encounter Details Date Type Department Care Team (Latest Contact Info) Description 05/30/2019 Abstract [facility] CONVERSIONS Dental, Provider, DDS Social History Tobacco [...]
--- OUTSIDE RECORDS SUMMARY | 2024-11-03 08:35 | XMS_ITS | Clinical Summary ---
Author Organization [employer] Address [address] [place] [address] [address] [place] [address] Care Team Providers Care Event Specialist Food Demonstrator Name Role Phone Unavailable Primary Care Provider [...]
--- OUTSIDE RECORDS SUMMARY | 2024-11-03 08:35 | XMS_ITS | Data Portability ---
Author Organization [facility] Address [address] [place] [address] Assessment No assessment recorded. Plan of Treatment Reminders Order Date Submit Date Provider Last Modified By Organization Details Last Modified Time Details Appointments None recorded . Lab rapid strep group A, throat 02/06/20 [email or web address] [facility], [address] [place] [address], [phone], 17:21:55 Referral None recorded . Procedures None recorded . Surgeries None recorded . Imaging None recorded . Medication Orders None recorded . Patient TargetsNo targets recorded. Patient Instructions Encounter Date Encounter Id Patient Instructions Last Modified By Organization Details Last Modified Time 02/05/2023 [id number] upper respirator y infection (cold): care instructions [place] [id number] Not available 02/05/2023 17:21:55 Reason for Referral None Reported. Results Created Date Observation Date Name Description Value Unit Range Abnormal Flag Note LastModifiedBy Organization Detail LastModifiedTime 02/06/2002/05/2023 rapid strep group A, throa t Unknown Analyte Normal = Negati ve Not Available [facility] [address] [place] [address], [phone], 02/05/2023 16:42:30 02/06/2002/05/2023 rapid strep group A, throa t Unknown Analyte negati ve Not Available [facility] [address] [place] [address], [phone], 02/05/2023 16:42:30 Result Notes None recorded. Problems Name Problem SNOMED Code Status Onset Date Resolution Date Notes Provider Name and Address Organization Details Recorded Time Migraine 30595987 [facility] [place] [facility] 3 16:40:48 Asthma 530211223 Active 023 [facility] [place] [facility] 3 16:41:08 Problem Notes None recorded. Procedures Surgical History Date Name Laterality Status Provider Name and Address Organization Details Recorded Time ligation of fallopian tube completed [facility] - [facility] 02/05/2023 16:42:25 ultrasonography guided transcervical radiofrequency ablation of uterine fibroid completed [facility] 02/05/2023 16:43:30 Imaging Results None recorded. Procedure Notes None recorded. Medical Equipment None Reported. Allergies Allergen ID Allergen Name Allergen Category Reaction Reaction Severity Criticality Documentation Date Start Date Code Code System Note Provider Name and Address Organization Details Recorded Time 274929 Vaccine product containin g only Clostridi um tetani antigen (medicina l product) medicatio n fever Not available Not available 02/05/2023 [address]9075 2003 SNOMED [facility] [place], [place] - [facility] 3 16:41:48 Medications Name [...] Updated DateTime 3 162.56 cm 29.2 kg/m2 36089.7 g 6 20 /min 98 % 98 % 74 /min 97.9 [degF] 152 mm[Hg] 90 mm[Hg] [facility] - [facility] 3 16:44:31 Social History Question Answer Notes LastModified by Organizat ion Details LastModified Time Tobacco Smoking Status Current Every Day Smoker J[facility] Norris - [facility] 02/05/2023 16:42:08 What Is Your Level Of Alcohol Consumption? None [email or web address] Information not available 02/05/2023 How Much Tobacco Do You Smoke? 0.5 PPD Information not available 02/05/2023 Do You Use Any Illicit Or Recreational Drugs? No [email or web address] Information not available 02/05/2023 Have You Recently Traveled Abroad? No [email or web address] Information not available 02/05/2023 Do You Or Have You Ever Used Any Other Forms Of Tobacco Or Nicotine? No [email or web address] Information not available 02/05/2023 Sex: Unknown Functional Status None recorded. Mental Status None recorded. Family History Relationship Description Onset Age of this Age Resolved Age Notes LastModified by Organization Details LastModified Time Father No current problems or disability [email or web address] Not available 02/05 16:41:50 Mother No current problems or disability [email or web address] Not available 02/05 16:41:50 Medical History No medical history recorded. Gynecological History Statement/Question Response Date of LMP 12/06/2022 Is there any chance of ? No Obstetrics History GPAL:G 0 P 0 0 0 0 Past Encounters Encounter ID Performer Location Encounter Start Date Encounter Closed Date Diagnosis/Indication Diagnosis SNOMED-CT Code Diagnosis ICD10 Code Diagnosis Note [id number] [address] [place] [address] 07/13/2021 10:53:30 07/13/2021 14:09:05 [id number] [address] [place] [address] 12/10/2017 19:23:49 12/10/2017 20:20:45 [id number] [address] [place] [address] 04/24/2018 15:11:26 04/24/2018 15:56:43 [id number] [address] [place] [address] 01/20/2020 12:58:17 01/20/2020 13:43:31 [id number] [address] [facility] [place] [address] 05/03/2020 17:21:25 05/03/2020 18:34:07 [id number] [address] [facility] [place] [address] 01/24/2022 11:30:23 01/24/2022 12:43:54 [id number] [address] [facility] [place] [address] 04/17/2019 16:44:12 04/17/2019 17:05:41 [id number] [address] [facility] [place] [address] 07/27/2018 11:56:43 07/27/2018 13:09:15 [id number] Yani Bonilla MD [address] [facility] [place] [address] 02/05/2023 16:23:41 02/05/2023 17:23:27 Upper respiratory infection [id number] J06.9 - Use the medication s prescribed [...] Ford Member ID Guarantor Name 01/20/2020 1 [facility] PL[facility] (MEDICAID HMO) [place] Annette Fenton [id number] Annette Fenton 05/03/2020 1 [facility] (MEDICAID HMO) [place] Annette Sukumar Eliceo [id number] Annette Sukumar [place]iceo 07/13/2021 1 [facility] (MEDICAID HMO) [place] Annette M Eliceo [id number] Annette Sukumar [place] 01/24/2022 1 [facility] (MEDICAID HMO) [place] Annette M Eliceo [id number] Annette Sukumar [place] 02/05/2023 1 [facility] (MEDICAID HMO) [place] Annette Sukumar [place] [id number] Annette Fenton Notes Date Note Type Note Provider Name and Address Organization Details Recorded Time 02/05/2023 text/html Sore throatRepor lm bypatient.Location:t hroat Quality:hurts to swallow Onset/Timin days Associated Symptoms:no shortness of breath; no wheezing;sore throat;nasal congestion;sinus pain/ congestion Yani Bonilla MD [address] [place] [address] [place], [address], [place] - [facility] 02/05/2023 19:49:54 OBGyn Episode No OBEpisode recorded.
--- OUTSIDE RECORDS SUMMARY | 2024-11-03 08:35 | XMS_ITS ---
Author Organization [facility] Address [address] [place] [address] Care Team Providers Care Tray Line Worker Name Role Phone Lj Murcia Primary Care Provider Igor Gil Unavailable [phone] Allergies Allergen (clinical drug ingredient) Drug/Non Drug [...] HCl 120 MG TAKE 1 TABLET BY [facility] THREE TIMES A DAY FOR 90 DAYS for 90 Active OnabotulinumtoxinA 200 UNIT Inject into face, head, neck and shoulder per MD IM Injection once for 84 days Active PROAIR HFA 90 MCG INHALER MCG/ACTUATION 9 for 0 08/20/2010 Active Polyethylene Glycol 3350 17 GM MIX 1 PAC KET IN WATER AND DRINK EVERY MORNING for 28 Active Ibuprofen 200 mg 9 Oral 3 prn for 0 08/20/2010 Active Acetaminophen Extra Strength 500 MG 0 Oral 2 tabs prn for 30 01/30/2020 Active Pulmicort Flexhaler 90 MCG/ACT 1 puff In halation Twice a day 06/29/2024 Active Problems Problem Type SNOMED Code ICD Code Onset Dates Problem Status W/U Status Risk Notes Problem Fear of medical treatment (772636638) 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 [address] [place] [address] 11/01/2024 Igor Wang Chronic migraine wit hout aura, intractable, without status migrainosus G43.719 ; Episodic cluster headache, intractable G44.011 ; Myalgia of auxiliary muscles, head and neck M79.12 ; Atypical facial pain G50.1 and Fear of injections and transfusions F40.231 Assessments Encounter Date Diagnosis (ICD Code) Assessment Notes Treatment Notes Treatment Clinical Notes Section Notes 11/01/2024 Chronic migraine without aura, intractable, without [...] Up: 12 WEEKS, Reason: Botox Provider Name:Igor alonzoy, 01/24/2025 11:30:00 AM, [address] [place] [address], [id number], Procedure Notes * Category Sub-Category Detail Notes [...] units) into ProcerusInject 0.1 mL (5 units) Customs Brokerage Agent bilateral (total of 10 units),Inject 0.1 mL [...] ice, and extra time for recovery,Lot #, [id number] Date, 12/2026 Progress Notes * Kenrick SOTOOB:1975 ( 49 yo F)Acc No.[id number]:11/01/2024 Patient:?Annette SOTO Provider:?Igor Wang MD?Resourc e:Jessica Santiago :1975???Age:49 Y???Sex:Female D ate:11/01/2024 Address:[address] [place] [address], [place], [id number] Pcp:Lj Murcia Subjective: * Chief Complaints: * ???Chronic migraine * HPI: ???Headache:? Annette is a 49-year-old female here today for her scheduled Botox treatment. She reports a level 3/10 headache. Annette is always very apprehensive about her injections. She does not tolerate them. An she is has severe needle phobia (trypanophobia). At her last visit she reported that she is premenopausal and is very agitated. Her PCP wanted to start her on Ativan, but she is cautious about beginning any medications. I gave her information about supplements made by [facility]. Estratone and Magnesium with Ashwagandha on her last visit. She reports it is working well for her. We discussed a plan for smoking cessation. * ROS:?General / Constitutional:?Patient denies?chills, fatigue, fever, [...] PACKET IN WATER AND DRINK EVERY MORNING Verapamil HCl 120 MG Tablet TAKE 1 TABLET BY MOUTH THREE TIMES A DAY FOR 90 DAYS Naratriptan HCl 2.5 MG Tablet 1 tablet Orally Twice a day. OnabotulinumtoxinA 200 UNIT Solution Reconstituted Inject into [...] IN WATER AND DRINK EVERY MORNING Taking Verapamil HCl 120 MG Tablet TAKE 1 TABLET BY MOUTH THREE TIMES A DAY FOR 90 DAYS Taking Naratriptan HCl 2.5 MG Tablet 1 tablet Orally Twice a day. Taking OnabotulinumtoxinA 200 UNIT Solution Reconstituted Inject into face, head, neck and shoulder per MD IM Injection once Medication List reviewed and reconciled with the patient * Allergies:?PAXIL 10 MG/5 ML SUSPENSION: SSRIS - AllergypredniSONE: prednisone - Allergyno[Allergies Verified] Objective: * Vitals:?BP:130/90mm Hg, HR:7 7/min, Wt:164.4lbs, Wt-k.57 kg, Ht: 64 in, BMI:28.22Index, Body Surface Area: 1.83. * Examination: ???General Examination: ?General appearance:?alert, pleasant, [...] judgement and insight, normal affect / mood, ?anxious appearing.? 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 Controlled migraine with aur a and controlled cluster headaches. Plan: * Treatment: * Procedures:?Botox 200 units:?Botox reconstitution?Botox 200 units reconstitute with 4 mL NS to final constitution of 50 U/mL..?Injection Sites?In a supine position the patient, Botox was injected into the following sites:, ?Inject 0.1 mL (5 units) into Procerus ?Inject 0.1 mL (5 units) Customs Brokerage Agent bilateral (total of 10 units), ?Inject 0.1 mL (5 units) Frontalis 7 sites (total 35 units), ?Inject 0.1 mL (5 units) L Temporalis 5 injections ( total 25 units), ?Inject 0.1 mL (5 units) R Temporalis 5 injections ( total 25 units), ?In a sitting position the patient, Botox was injected into the following sites:, ?Inject 0.1 mL (5 units) L Occipitalis 10 sites ( total 50 units), ?Inject 0.1 mL (5 units) R Occipitalis 8 sites ( total 40 units), ?Inject 0.1 mL (5 units) L Occipitalis 5 sites ( total 25 units), .?Procedural Pause?Procedural pause conducted to verify: correct patient identity, procedure to be performed, correct side and site, correct patient position, and special requirements..?Waste?No waste.?Post Procedural?Tolerated procedure well ?Gave adequate time to recover from the procedure, ?Offered water, ice, and extra time for recovery, ?Lot #, [id number] ?Expiration Date, 12/2026.?Trigger Point Injection:?Procedure:?The skin was prepped in the usual sterile fashion. Using a 30- gauge, 1/2 inch needle, I then injected the trigger point with approximately 4 mL of Botox. ?This procedure was repeated for each of the patients trigger points,, ?Inject 0.1 mL (5 units) L Orbicularis Occuli 2 sites ( total 10 units), ?Inject 0.1 mL (5 units) R Orbicularis Occuli 2 sites ( total 10 units), ?Patient Education: Post-injection precautions were reviewed with the patient., ?The patient was discharged from the clinic in good condition under their own power., ?.? * Procedure Codes:?50111 Chemo denervation for [id number] TRIGGER POINT,3 OR MORE MUSCLE, Modifiers: RANKIN * Follow Up:?12 WEEKS (Reason: Botox) Care Plan: * Problems:? * Billing Information: * Visit Code:? 21720 OFFICE VISIT,EST PT,LEVEL 3. * Procedure Codes:? 69546 Chemodenervation for Migraine. 27276 TRIGGER POINT,3 OR MORE MUSCLE. Modifiers: RANKIN * Sign off status: Completed true * Provider:?Igor Wang MD Date:?10/09 Generated for Vu dean/Luann/eTransmitting on:?11/03/2024 08:34 AM EST History and Physical Notes * [...]
--- OUTSIDE RECORDS SUMMARY | 2024-11-03 08:35 | XMS_ITS | Encounter Summary ---
Author Organization [employer] Address [address] [place] [address] [address] [place] [address] Care Team Providers Care Gang Tailer Name Role Phone Unavailable Primary Care Provider Unavailabl e Encounter Details Date Type Department Care Team (Latest Contact Info) Description 12/04/2020 Abstract [facility] CONVERSIONS Dental, Provider, DDS Social [...]
--- OUTSIDE RECORDS SUMMARY | 2024-11-03 08:35 | XMS_ITS | Clinical Summary ---
Author Organization [facility] it Address [address] [place] [address] Care Team Providers Care Air Pollution Engineer Name Role Phone Lj Murcia MD Primary Care Provider [phone] Allergies Active Allergy Reactions Criticality Noted Date [...] Overview (09/21/2024): Follows with [facility] in [place] Last Assessment & Plan: Pt will continue to see [facility] every 3 months. Will keep diary as above to determine if [facility] seem to be related to IUD. Migraine with aura 01/21/2019 Overview (09/21/2024): Has seen neuro at [facility] in [place] Smoker 11/16/2018 Overview (09/21/2024): Last Assessment & [...] HISTORICAL DENTAL EXTRACTION ENDOMETRIAL ABLATION 06/06/2015 PROCEDURE: CA ENDOMETRIAL ABLTJ THERMAL W/O HYSTEROSCOPIC GUID; COMMENT: Novasure OTHER SURGICAL HISTORY 09/2017 PROCEDURE: HISTORICAL D&C; COMMENT: Using Myosure device for suspected hematometra BREAST SURGERY 2018 Right PROCEDURE: CA UNLISTED PROCEDURE BREAST; COMMENT: removed fibroid & other lump BREAST SURGERY pt doesn't remember Bilateral PROCEDURE: CA UNLISTED PROCEDURE BREAST BREAST BIOPSY pt. doesnt remember when Bilateral PROCEDURE: BX BREAST; PERC NEEDLE CORE W/IMAG GUID; COMMENT: bxs. of both breasts-removed lumps BREAST BIOPSY 2018 Right PROCEDURE: CA BX BREAST W/DEVICE 1ST LESION ULTRASOUND GUID OTHER SURGICAL HISTORY 05/20/2022 Left PROCEDURE: CA BX BREAST W/DEVICE 1ST LESION STEREOTACTIC GUID; [...] 11:10 AM EDT Appointment Radiology Department - [address] [phone] 12/16/2024 3:30 PM EDT Office Visit Obstetrics and Gynecology - [address] [phone] Yesica Alvarez MD [address], [place] Health Maintenance Due Date Last Done [...] (12/03/2021) Cervical Cancer Screening: HPV negative, abstracted [facility] Provider HEALTH MAINTENANCE Final Result from Last 3 Months or Most Recently Relevant to Health Maintenance Insurance [facility] [employer] Care Teams Air Pollution Engineer Relationship Specialty Start Date End Date Lj Murcia MD [address] [facility] [place] [place] [phone] PCP - General Internal Medicine 11/02/20
--- NOTE | 2024-11-03 09:18 | MHC.PC.OV ---
Intake Visit Reasons: lab result - urine Allergies epinephrine [From EPIFRIN] Allergy (Intermediate, Verified 10/12/24 15:39) HEADACHES AND TACHYCARDIA Iodinated Contrast Media [IVP DYE] Allergy (Intermediate, Verified 10/12/24 15:39) DIFFICULTY BREATHING amoxicillin Allergy (Unknown, Verified 10/12/24 15:39) itchy tongue cantaloupe [CANTALOUPE] Allergy (Unknown, Verified 10/12/24 15:39) SHORTNESS OF BREATH cheese [CHEESE] Allergy (Unknown, Verified 10/12/24 15:39) UNKNOWN schulz [SCHULZ] Allergy (Unknown, Verified 10/12/24 15:39) SHORTNESS OF BREATH divalproex sodium [From DEPAKOTE] Allergy (Unknown, Verified 10/12/24 15:39) oral bumps fish derived [FISH] Allergy (Unknown, Verified 10/12/24 15:39) HIVES grapefruit [GRAPEFRUIT] Allergy (Unknown, Verified 10/12/24 15:39) UNKNOWN Nitrate Analogues [NITRATE ANALOGUES] Allergy (Unknown, Verified 10/12/24 15:39) UNKNOWN nut - unspecified [NUTS] Allergy (Unknown, Verified 10/12/24 15:39) SHORTNESS OF BREATH paroxetine [From PAXIL] Allergy (Unknown, Verified 10/12/24 15:39) somulence tetanus and diphtheria toxoids Allergy (Unknown, Verified 10/12/24 15:39) fever/hallucinations environmental Allergy (Unknown, Uncoded 10/01/24 09:24) unknown Medication List - Last Reconciled 11/03/24 by Lj Murcia MD alprazolam 0.25 mg PO DAILY PRN 90 days azithromycin 250 mg PO ONCE 5 days cetirizine 10 mg PO DAILY fluticasone propionate 220 mcg/actuation 2 puffs inhalation BID ibuprofen 600 mg PO BID PRN meclizine 25 mg PO TID PRN 14 days naratriptan mg PO onabotulinumtoxinA (Botox) subcut .[id number] polyethylene glycol 3350 (Miralax) 17 grams PO DAILY 30 days Pulmicort Flexhaler 90 mcg/actuation (budesonide) 1 inh inhalation BID NS Ventolin HFA 90 mcg/actuation (albuterol sulfate) 1 inh inhalation QID PRN 30 days NS Tobacco use date assessed: 10/12/24 Dental Screening Dental Screen Date: 10/12/24 HPI lab result - urine HPI Details Telehealth Attestation This telehealth visit was conducted via phone. Documentation reflects an accurate account of the conversation with the patient. Interval History - The patient is a 49-year-old female presenting with urinary symptoms and hematuria. - Hematuria: Ongoing presence of small amounts of blood in urine since 2022. Previously identified during episodes of bladder inflammation. - Bladder Inflammation: Symptoms consistent with frequent urination, burning sensation after urination, and minor itching. Alleviated by increased water intake. - Urinary Tract Infection: No urology consults. History of previous screenings during physical exams; symptoms worsened within the last 1.5 to 2 weeks. Plan 1. Hematuria Continued urinalysis monitoring to assess persistence of hematuria following antibiotic therapy, with a focus on inflammatory or infectious etiology. 2. Urinary Tract Infection Administer 5-day course of Bactrim, increase water intake, and monitor symptom resolution. Repeat urinalysis post-course to ensure eradication. 3. Bladder Inflammation Anticipate resolution of inflammation with Bactrim. Reinforce hydration and stress the avoidance of irritants. Review of Systems - Genitourinary: Reports frequent urination, minor burning sensation post-urination, mild itching; denies significant pain or fever. - General: Reports increased thirst resolving some symptoms, denies significant dietary changes recently. - Menstrual: Denies recent OBGYN visit beyond planned upcoming appointment; notes sporadic spotting but not observed in undergarments between urination. [facility] Medical History Palpitations Atypical chest pain Asthma, moderate Tobacco abuse Surgical History History of breast surgery Hx of tubal ligation Family History Father Alcoholic Mother Elevated cholesterol CVD (cardiovascular disease) History of blood clots Son Anxiety Daughter Hearing loss Daughter Asthma Daughter Acid reflux Sister No problems noted. Other Mental health disorder Substance use disorder Social History Housing: Apartment Alcohol intake: current Alcohol intake frequency: holidays/special occasions only Patient Tobacco Use Status: Current everyday Tobacco user Tobacco use type: Cigarette Cigarette Packs Per Day: 1 Cigarettes Per Day: 20 Years Smoked: 30 Packs Per Year: 30 Packs per year/per ci.00 e-Cigarette/Vaping Use: Never Used service: No Current occupational status: unemployed Cognitive needs: No Hearing needs: No Vision needs: No Questionnaire Thrive Questionnaire Date Thrive assessed: 10/12/24 I am a: Patient What is your living situation today?: I have a steady place to live Within the past 12 months, did the food you bought not last and you didn't have the money to get more?: Never true Within the past 12 months, did you worry whether your food would run out before you got money to buy more?: Never true Do you have trouble paying for medicines?: No Do you have trouble getting transportation to medical appointments?: No Do you have trouble paying your heating and electricity bill?: No Do you have trouble taking care of your child, family member or friend?: No Do you have trouble with day-to-day activities such as bathing, preparing meals, shopping, managing finances, etc.?: No Are you currently unemployed and looking for a job?: No Are you interested in more education?: No Please select the resources that you would like help with: None Currently or been in a relationship where the following occur: No concerns reported THRIVE Score: 0 AUDIT C Alcohol Use Questionnaire (AUDIT-C) 3. How often do you have six or more drinks on one occasion?: Never Total Score: 0 SUE-7 AMB Questionnaire SEU-7 Date SUE - 7 assessed: 10/12/24 Source: Developed by Drs. Barrington Guy, Caryn Hodge, Ulysses Thurman and colleagues, with an educational carmen from [employer]. Physical exam (Primary Care) Tobacco/Smoking Status: Tobacco use Status Tobacco use date assessed 10/12/24 11/03/24 09:18 Patient Tobacco Use Status Current everyday Tobacco 11/03/24 09:18 Tobacco use type Cigarette 11/03/24 09:18 e-Cigarette/Vaping Use Never Used 11/03/24 09:18 Thrive Assessment: Date of Thrive Assessment Date Thrive assessed 10/12/24 11/03/24 09:18 Currently or been in a relationship where the following occur: No concerns reported Telehealth Telehealth Telehealth Platform: [employer] Location of provider rendering services: practice address Location of patient: address on file Patient Identification confirmed using: Name, : Yes Telehealth method: voice only Patient verbally consented to treatment: Yes Patient verbally consented to billing insurance company: Yes Patient informed of any privacy concerns related to visit: Yes Minutes spent on Phone/Video with Pt.: 13 Coding Level of Care Code Tele Est Pt Level 3 (65755) Diagnoses Asymptomatic microscopic hematuria R31.21 Hematuria type: asymptomatic microscopic Assessment & Plan Assessment & Plan (1) Hematuria: Code(s): R31.9 - Hematuria, unspecified Category: Medical Qualifiers: Hematuria type: asymptomatic microscopic Qualified Code(s): R31.21 - Asymptomatic microscopic hematuria Plan Telehealth Attestation This telehealth visit was conducted via phone. Documentation reflects an accurate account of the conversation with the patient. Interval History - The patient is a 49-year-old female presenting with urinary symptoms and hematuria. - Hematuria: Ongoing presence of small amounts of blood in urine since 2022. Previously identified during episodes of bladder inflammation. - Bladder Inflammation: Symptoms consistent with frequent urination, burning sensation after urination, and minor itching. Alleviated by increased water intake. - Urinary Tract Infection: No urology consults. History of previous screenings during physical exams; symptoms worsened within the last 1.5 to 2 weeks. Plan 1. Hematuria Continued urinalysis monitoring to assess persistence of hematuria following antibiotic therapy, with a focus on inflammatory or infectious etiology. 2. Urinary Tract Infection Administer 5-day course of Bactrim, increase water intake, and monitor symptom resolution. Repeat urinalysis post-course to ensure eradication. 3. Bladder Inflammation Anticipate resolution of inflammation with Bactrim. Reinforce hydration and stress the avoidance of irritants. Orders: Orders UA CC w/rflx Micro + Cult Today R31.21 - Asymptomatic microscopic hematuria Medications: New sulfamethoxazole-trimethoprim 400-80 mg (Bactrim) 1 tab PO BID 10 tabs 0RF 5 days
== END 2024-11-03 09:26 | disposition home or self-care (01) ==
LOC: HO.HMCC 08:15
PROVIDERS: PCP Internal Medicine; Visit Provider Internal Medicine
DX: R31.21 Asymptomatic microscopic hematuria (principal)

== ENCOUNTER 2024-11-08 14:56 | Outpatient (AMB) | payer OTHER, SELFPAY ==
--- NOTE | 2024-11-08 14:57 | MHC.OFFVIS ---
Vital Signs 11/08/24 14:59 Height 5 ft 4 in Weight 171 lb 8.314 oz BMI 29.4 BP 146/90 H Blood Pressure Location Rt brachial Position Sitting Pulse 86 Pulse Source Pulse Oximeter Pulse Oximetry (%) 97 Oxygen Delivery Method Room Air Intake Visit Reasons: Colonoscopy Screening Intake Note: NEW PATIENT for initial colo screening. Chief Complaint; C/O occasional reflux, difficulty with full evacuation of bowels. Pt denies any additional concerns at this time. Rouge Sifter Required: No Accompanied by: Family/Other Allergies epinephrine [From EPIFRIN] Allergy (Intermediate, Verified 11/25/24 13:17) HEADACHES AND TACHYCARDIA Iodinated Contrast Media [IVP DYE] Allergy (Intermediate, Verified 11/25/24 13:17) DIFFICULTY BREATHING amoxicillin Allergy (Unknown, Verified 11/25/24 13:17) itchy tongue cantaloupe [CANTALOUPE] Allergy (Unknown, Verified 11/25/24 13:17) SHORTNESS OF BREATH cheese [CHEESE] Allergy (Unknown, Verified 11/25/24 13:17) UNKNOWN plummer [PLUMMER] Allergy (Unknown, Verified 11/25/24 13:17) SHORTNESS OF BREATH divalproex sodium [From DEPAKOTE] Allergy (Unknown, Verified 11/25/24 13:17) oral bumps fish derived [FISH] Allergy (Unknown, Verified 11/25/24 13:17) HIVES grapefruit [GRAPEFRUIT] Allergy (Unknown, Verified 11/25/24 13:17) UNKNOWN Nitrate Analogues [NITRATE ANALOGUES] Allergy (Unknown, Verified 11/25/24 13:17) UNKNOWN nut - unspecified [NUTS] Allergy (Unknown, Verified 11/25/24 13:17) SHORTNESS OF BREATH paroxetine [From PAXIL] Allergy (Unknown, Verified 11/25/24 13:17) somulence tetanus and diphtheria toxoids Allergy (Unknown, Verified 11/25/24 13:17) fever/hallucinations environmental Allergy (Unknown, Uncoded 11/09/24 08:05) unknown HPI HPI Colonoscopy Screening: Details: 49 year old? female with past medical history of nicotine dependence, anxiety, vertigo, umbilical hernia, environmental allergies, hematuria, migraine headaches is here today for pre colonoscopy screening.? Patient was sent to us by her PCP.? This is her first colonoscopy screening.? Patient denies any gastrointestinal symptoms in the past or at present.? However patient does report occasional acid reflux and constipation. Patient reports that when she drinks more water she does well. Paternal aunt was diagnosed with colorectal cancer in her 40s.? Denies history of difficulty with sedation or anesthesia in the past.? Negative for history of sleep apnea.? Denies any history of cardiac, renal, pulmonary, or hepatic disease.?? No history of infectious? diseases like hepatitis A, B, C, HIV or tuberculosis.? Patient is not on any anticoagulation. Patient reports of urinary frequency and urgency specially at night time. [facility] Medical History Palpitations Atypical chest pain Asthma, moderate Tobacco abuse Surgical History History of breast surgery Hx of tubal ligation Family History Father Alcoholic Mother Elevated cholesterol CVD (cardiovascular disease) History of blood clots Son Anxiety Daughter Hearing loss Daughter Asthma Daughter Acid reflux Sister No problems noted. Other Mental health disorder Substance use disorder Social History Housing: Apartment Alcohol intake: current Alcohol intake frequency: holidays/special occasions only Patient Tobacco Use Status: Current everyday Tobacco user Tobacco use type: Cigarette Cigarette Packs Per Day: 1 Cigarettes Per Day: 20 Years Smoked: 30 Packs Per Year: 30 Packs per year/per ci.00 e-Cigarette/Vaping Use: Never Used service: No Current occupational status: unemployed Cognitive needs: No Hearing needs: No Vision needs: No Review of Systems Const Denies weight gain and Denies weight loss ENT Reports no additional complaints, Denies dysphagia and Denies odynophagia Card Reports no additional complaints Resp Reports no additional complaints GI Denies abdominal pain, Denies belching, Denies melena, Denies bloating, Denies change in bowel habits, Reports constipation (Occasional), Denies dysphagia, Denies excessive flatus, Denies dyspepsia, Reports heartburn (Occasional), Denies diarrhea, Denies loose stools, Denies nausea, Denies odynophagia and Denies vomiting Reports nocturia Musc Reports no additional complaints Neuro Reports no additional complaints Psych Reports no additional complaints Endo Reports no additional complaints Physical Exam Vital Signs: Last Vital Signs Pulse 86 11/08/24 14:59 BP 146/90 H 11/08/24 14:59 Pulse Ox 97 11/08/24 14:59 Oxygen Delivery Method Room Air 11/08/24 14:59 BMI result Body Mass Index 29.4 Const General: healthy appearing, no acute distress and well developed Nutritional Appearance: well nourished Orientation/consciousness: patient oriented x3 Resp Effort & Inspection: normal respiratory effort, able to speak in complete sentences, no tracheal deviation and symmetric chest movement Auscultation: clear to auscultation bilaterally Cardio Rate: regular rate GI Inspection: Yes normal to inspection and No distended Palpation (GI): Soft to palpation, not firm, nontender and No hepatosplenomegaly present Auscultation: normal bowel sounds General: Yes no CVA tenderness Back/Spine/Pelvis Back: no CVA tenderness Skin General skin exam: elasticity normal, turgor normal and dry skin Neuro General: patient oriented x3 Psych Appearance: grossly normal Mental Status: mental status grossly normal Assessment & Plan Assessment & Plan (1) Colon cancer screening: Code(s): Z12.11 - Encounter for screening for malignant neoplasm of colon Category: Medical (2) Constipation: Code(s): K59.00 - Constipation, unspecified Qualifiers: Constipation type: slow transit constipation Qualified Code(s): K59.01 - Slow transit constipation Plan Patient denies any GI, cardiac or respiratory symptoms.? Occasional constipation depending on what she eats. Occasional acid reflux. Denies any issues with anesthesia in the past.? Denies any history of sleep apnea.? No history infectious diseases in the past or present.? Not on any anticoagulation therapy.? No family or personal history of colon cancer or polyps.? Patient denies melena, hematochezia, unintentional weight loss or ribbon like stools.? Discussed at length the pre-procedure,? prep, diet & medications as well as what to expect prior, during and after the procedure.?? Stressed the importance of good bowel prep.? Recommended the use of Vaseline or Calmoseptine OTC & baby wipes with bowel movements to promote comfort.? ?Patient verbalizes understanding and agrees to plan of care.? She was given the opportunity to ask questions and all questions answered.? We will see her after the procedure.? Orders: Referrals Urology Referral Z87.898 - Personal history of other specified conditions Medications: New bisacodyl (Dulcolax (bisacodyl)) take 4 tabs at noon the day before your colonoscopy 20 mg (4 x 5 mg) PO ONCE 4 tabs 0RF 1 day Z12.11 - Encounter for screening for malignant neoplasm of colon polyethylene glycol 3350 (Miralax) As directed by gastroenterology department at [facility] 238 grams PO ONCE 238 grams 0RF Z12.11 - Encounter for screening for malignant neoplasm of colon Coding Level of Care Code New Pt Level 3 (23735) Diagnoses Colon cancer screening Z12.11 Slow transit constipation K59.01 Constipation type: slow transit constipation Time Spent (min) 40 Comment 30 minutes spent with patient and additional 10 minutes spent reviewing her records
[2024-11-08 14:59] VITALS: BP 146/90; PULSE 86; O2SAT 97; BMI 29.4
--- OUTSIDE RECORDS SUMMARY | 2024-11-08 18:54 | XMS_ITS | Clinical Summary ---
Author Organization [employer] Address [address] [place] [address] [address] [place] [address] Care Team Providers Care Sprinkler Irrigation Equipment Mechanic Name Role Phone Unavailable Primary Care Provider [...]
--- OUTSIDE RECORDS SUMMARY | 2024-11-08 18:54 | XMS_ITS ---
Author Organization [facility] Address [address] [place] [address] Care Team Providers Care School Treasurer Name Role Phone TwinLj melendez Primary Care Provider Igor Gil Unavailable [phone] Encounters Encounter Location Date Provider Diagnosis [facility] [address] [place] [address] 11/03/2024 Igor Wang Plan Of Treatment Next Appt Details Provider Name:Igor alberts, 01/24/2025 11:30:00 AM, [address] [place], [address], Progress Notes * Kenrick SOTOOB:1975 ( 49 yo F)Acc No.[id number]:11/03/2024 Patient:?Annette SOTO :1975???Age:49 Y???Sex:Female Address:[address] [place] [address], [address] * true * Date:? Generated for Printi dianne/Luann/eTransmitting on:?11/08/2024 06:54 PM EST
--- OUTSIDE RECORDS SUMMARY | 2024-11-08 18:54 | XMS_ITS | Clinical Summary ---
Author Organization [facility] it Address [address] [place] [address] Care Team Providers Care Medical Oncologist Name Role Phone Lj Murcia MD Primary Care Provider [phone] Allergies Active Allergy Reactions Criticality Noted Date [...] Overview (09/21/2024): Follows with [facility] in [place] Last Assessment & Plan: Pt will continue to see [facility] every 3 months. Will keep diary as above to determine if [facility] seem to be related to IUD. Migraine with aura 01/21/2019 Overview (09/21/2024): Has seen neuro at [facility] in [place] Smoker 11/16/2018 Overview (09/21/2024): Last Assessment & [...] HISTORICAL DENTAL EXTRACTION ENDOMETRIAL ABLATION 06/06/2015 PROCEDURE: DE ENDOMETRIAL ABLTJ THERMAL W/O HYSTEROSCOPIC GUID; COMMENT: Novasure OTHER SURGICAL HISTORY 09/2017 PROCEDURE: HISTORICAL D&C; COMMENT: Using Myosure device for suspected hematometra BREAST SURGERY 2018 Right PROCEDURE: DE UNLISTED PROCEDURE BREAST; COMMENT: removed fibroid & other lump BREAST SURGERY pt doesn't remember Bilateral PROCEDURE: DE UNLISTED PROCEDURE BREAST BREAST BIOPSY pt. doesnt remember when Bilateral PROCEDURE: BX BREAST; PERC NEEDLE CORE W/IMAG GUID; COMMENT: bxs. of both breasts-removed lumps BREAST BIOPSY 2018 Right PROCEDURE: DE BX BREAST W/DEVICE 1ST LESION ULTRASOUND GUID OTHER SURGICAL HISTORY 05/20/2022 Left PROCEDURE: DE BX BREAST W/DEVICE 1ST LESION STEREOTACTIC GUID; [...] 11:10 AM EDT Appointment Radiology Department - [address] [phone] 12/16/2024 3:30 PM EDT Office Visit Obstetrics and Gynecology - [address] [phone] Yesica Alvarez MD [address] [place], [place] Health Maintenance Due Date Last Done [...] (12/03/2021) Cervical Cancer Screening: HPV negative, abstracted [facility] Provider HEALTH MAINTENANCE Final Result from Last 3 Months or Most Recently Relevant to Health Maintenance Insurance [facility] [employer] PLAN Care Teams Medical Oncologist Relationship Specialty Start Date End Date Lj Murcia MD [address] [facility] [place] [id number] PCP - General Internal Medicine 11/02/20
--- OUTSIDE RECORDS SUMMARY | 2024-11-08 18:54 | XMS_ITS ---
Author Organization [facility] Address [address] [place] [address] Care Team Providers Care Sausage Cooker Name Role Phone Lj Murcia Primary Care Provider Igor Gil [phone] Medications Medication SIG (Take, Route, Frequency, Duration) Notes Start Date End Date Status OnabotulinumtoxinA 200 UNIT Inject into face, head, neck and shoulder per MD IM Injection once for 84 days Active Encounters Encounter Location Date Provider Diagnosis [facility] [address] [place] [address] 10/07/2024 Igor Wang Plan Of Treatment Medication Medication Name Sig Start Date Stop Date Notes OnabotulinumtoxinA 200 UNIT Inject into face, head, neck and shoulder per MD IM Injection once for 84 days Next Appt Details Provider Name:Igor alberts, 01/24/2025 11:30:00 AM, [address] [place] [address], [phone], Progress Notes * Kenrick SOTOOB:1975 ( 49 yo F)Acc No.[id number]:10/07/2024 Patient:?Annette SOTO :1975???Age:49 Y???Sex:Female Address:[address] [place] [address], [address] * Refills? Refill OnabotulinumtoxinA Solution Reconstituted, 200 UNIT, IM Injection, 1 Each, Inject into face, head, neck and shoulder per MD, once, 84 days, Refills=4 * true * Date:? Generated for Vu dean/Luann/Dianaitting on:?11/08/2024 06:54 PM EST
--- OUTSIDE RECORDS SUMMARY | 2024-11-08 18:54 | XMS_ITS | Encounter Summary ---
Author Organization [employer] Address [address] [place] [address] [address] [place] [address] Care Team Providers Care Special Education Professional Name Role Phone Unavailable Primary Care Provider Unavailabl e Encounter Details Date Type Department Care Team (Latest Contact Info) Description 05/30/2019 Abstract [facility] CONVERSIONS Dental, Provider, DDS Social History [...]
--- OUTSIDE RECORDS SUMMARY | 2024-11-08 18:54 | XMS_ITS | Encounter Summary ---
Author Organization [employer] Address [address] [place] [address] 7[address] [place] [address] Care Team Providers Care Residential Door Installer Name Role Phone Unavailable Primary Care Provider Unavailabl e Encounter Details Date Type Department Care Team (Latest Contact Info) Description 12/04/2020 Abstract [facility] CONVERSIONS Dental, Provider, DDS Social History [...]
--- OUTSIDE RECORDS SUMMARY | 2024-11-08 18:54 | XMS_ITS | Data Portability ---
Author Organization [facility] Address [address] [place] [address] Assessment No assessment recorded. Plan of Treatment Reminders Order Date Submit Date Provider Last Modified By Organization Details Last Modified Time Details Appointments None recorded . Lab rapid strep group A, throat 02/06/20 [email or web address] _[facility], [address] [place] [address], [phone], 17:21:55 Referral None recorded . Procedures None recorded . Surgeries None recorded . Imaging None recorded . Medication Orders None recorded . Patient TargetsNo targets recorded. Patient Instructions Encounter Date Encounter Id Patient Instructions Last Modified By Organization Details Last Modified Time 02/05/2023 [id number] upper respirator y infection (cold): care instructions [place] [address] Not available 02/05/2023 17:21:55 Reason for Referral None Reported. Results Created Date Observation Date Name Description Value Unit Range Abnormal Flag Note LastModifiedBy Organization Detail LastModifiedTime 02/06/2002/05/2023 rapid strep group A, throa t Unknown Analyte Normal = Negati ve Not Available [facility] [address] [place] [address], [phone], 02/05/2023 16:42:30 02/06/2002/05/2023 rapid strep group A, throa t Unknown Analyte negati ve Not Available [facility] [address] [place] [address], [phone], 02/05/2023 16:42:30 Result Notes None recorded. Problems Name Problem SNOMED Code Status Onset Date Resolution Date Notes Provider Name and Address Organization Details Recorded Time Migraine 47568470 [facility] [place] [place] [facility] 3 16:40:48 Asthma 266507505 Active 023 [facility] [place] - [facility] 3 16:41:08 Problem Notes None recorded. Procedures Surgical History Date Name Laterality Status Provider Name and Address Organization Details Recorded Time ligation of fallopian tube completed [facility] - [facility] 02/05/2023 16:42:25 ultrasonography guided transcervical radiofrequency ablation of uterine fibroid completed [facility] 02/05/2023 16:43:30 Imaging Results None recorded. Procedure Notes None recorded. Medical Equipment None Reported. Allergies Allergen ID Allergen Name Allergen Category Reaction Reaction Severity Criticality Documentation Date Start Date Code Code System Note Provider Name and Address Organization Details Recorded Time 646566 Vaccine product containin g only Clostridi um tetani antigen (medicina l product) medicatio n fever Not available Not available 02/05/2023 87779 2003 SNOMED [facility] [place], [place] - [facility] 3 16:41:48 Medications Name [...] Updated DateTime 3 162.56 cm 29.2 kg/m2 64103.7 g 6 20 /min 98 % 98 % 74 /min 97.9 [degF] 152 mm[Hg] 90 mm[Hg] [facility] - [facility] 3 16:44:31 Social History Question Answer Notes LastModified by Organizat ion Details LastModified Time Tobacco Smoking Status Current Every Day Smoker [facility] - [facility] 02/05/2023 16:42:08 What Is Your Level Of Alcohol Consumption? None Information not available 02/05/2023 How Much Tobacco Do You Smoke? 0.5 PPD [email or web address] Information not available 02/05/2023 Do You Use Any Illicit Or Recreational Drugs? No [email or web address] Information not available 02/05/2023 Have You Recently Traveled Abroad? No [email or web address] Information not available 02/05/2023 Do You Or Have You Ever Used Any Other Forms Of Tobacco Or Nicotine? No [email or web address] Information not available 02/05/2023 Sex: Unknown Functional Status None recorded. Mental Status None recorded. Family History Relationship Description Onset Age of this Age Resolved Age Notes LastModified by Organization Details LastModified Time Father No current problems or disability [email or web address] Not available 02/05 16:41:50 Mother No current problems or disability [email or web address] Not available 02/05 16:41:50 Medical History No medical history recorded. Gynecological History Statement/Question Response Date of LMP 12/06/2022 Is there any chance of ? No Obstetrics History GPAL:G 0 P 0 0 0 0 Past Encounters Encounter ID Performer Location Encounter Start Date Encounter Closed Date Diagnosis/Indication Diagnosis SNOMED-CT Code Diagnosis ICD10 Code Diagnosis Note [id number] [address] [place] [address] 07/13/2021 10:53:30 07/13/2021 14:09:05 [id number] [address] [place] [address] 12/10/2017 19:23:49 12/10/2017 20:20:45 [id number] [address] [place] [address] 04/24/2018 15:11:26 04/24/2018 15:56:43 [id number] [address] [place] [address] 01/20/2020 12:58:17 01/20/2020 13:43:31 [id number] [address] [facility] [place] [address] 05/03/2020 17:21:25 05/03/2020 18:34:07 [id number] [address] [facility] [place] [address] 01/24/2022 11:30:23 01/24/2022 12:43:54 [id number] [address] [facility] [place] [address] 04/17/2019 16:44:12 04/17/2019 17:05:41 [id number] [address] [facility] [place] [address] 07/27/2018 11:56:43 07/27/2018 13:09:15 [id number] Yani Bonilla MD [address] [facility] [place] [address] 02/05/2023 16:23:41 02/05/2023 17:23:27 Upper respiratory infection [id number] J06.9 - Use the medication s prescribed [...] [place] Member ID Guarantor Name 01/20/2020 1 [facility] (MEDICAID HMO) [place] Annette Fenton [id number] Annette Fenton 05/03/2020 1 [facility] (MEDICAID HMO) ELE Annette Sukumar Eliceo [id number] Annette Sukumar Eliceo 07/13/2021 1 [facility] (MEDICAID HMO) ELE Annette M Eliceo [id number] Annette Sukumar Eliceo 01/24/2022 1 [facility] (MEDICAID HMO) ELE Annette M Eliceo [id number] Annette Sukumar Eliceo 02/05/2023 1 [facility] (MEDICAID HMO) ELE Annette Sukumar Eliceo [id number] Annette Fenton Notes Date Note Type Note Provider Name and Address Organization Details Recorded Time 02/05/2023 text/html Sore throatRepor lm bypatient.Location:t hroat Quality:hurts to swallow Onset/Timin days Associated Symptoms:no shortness of breath; no wheezing;sore throat;nasal congestion;sinus pain/ congestion Yani Bonilla MD [address] [place] [address] [place], [address], [place] - [facility] 02/05/2023 19:49:54 OBGyn Episode No OBEpisode recorded.
--- OUTSIDE RECORDS SUMMARY | 2024-11-08 18:54 | XMS_ITS ---
Author Organization [facility] Address [address] [place] [address] Care Team Providers Care Flat Sorting Machine Clerk Name Role Phone Lj Murcia Primary Care Provider Igor Gil Unavailable [phone] Allergies Allergen (clinical drug ingredient) Drug/Non Drug [...] HCl 120 MG TAKE 1 TABLET BY [facility] THREE TIMES A DAY [...] Risk Notes Problem Fear of medical treatment (980180936) 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 [address] [place] [address] 11/01/2024 Igor Wang Chronic migraine wit hout [...] Botox Provider Name:Igor alonzoy, 01/24/2025 11:30:00 AM, [address] [place] [address], [phone], Procedure Notes * Category Sub-Category Detail Notes [...] units) into ProcerusInject 0.1 mL (5 units) Intelligence Analyst bilateral (total of 10 units),Inject 0.1 mL [...] ice, and extra time for recovery,Lot #, [id number] Date, 12/2026 Progress Notes * Kenrick OSTOOB:1975 ( 49 yo F)Acc No.[id number]:11/01/2024 Patient:?Annette SOTO Provider:?Igor Wang MD?Resourc e:Jessica Santiago :1975???Age:49 Y???Sex:Female D ate:11/01/2024 Address:[address] [place] [address], [phone] Pcp:Lj Murcia Subjective: * Chief Complaints: * [...] into Procerus ?Inject 0.1 mL (5 units) Intelligence Analyst bilateral (total of 10 units), ?Inject 0.1 [...] and extra time for recovery, ?Lot #, [id number] ?Expiration Date, 12/2026.?Trigger Point Injection:?Procedure:?The skin was [...] under their own power., ?.? * Procedure Codes:?95840 Chemo denervation for [id number] TRIGGER POINT,3 OR MORE MUSCLE, Modifiers: RANKIN * Follow Up:?12 WEEKS (Reason: Botox) Care Plan: * Problems:? * Billing Information: * Visit Code:? 52989 OFFICE VISIT,EST PT,LEVEL 3. * Procedure Codes:? 04388 Chemodenervation for Migraine. 11096 TRIGGER POINT,3 OR MORE MUSCLE. Modifiers: RANKIN * Sign off status: Completed true * Provider:?Igor Wang MD Date:?10/09 Generated for Vu dean/Luann/eTransmitting on:?11/08/2024 06:54 PM EST History and Physical Notes * Examination [...]
== END 2024-11-08 15:54 | disposition home or self-care (01) ==
PROVIDERS: PCP Internal Medicine; Visit Provider Nurse Practitioner Family
DX: Z01.818 Encounter for other preprocedural examination (principal); Z12.11 Encounter for screening for malignant neoplasm of colon; K59.01 Slow transit constipation
CPT/HCPCS: 99202

== ENCOUNTER → 2024-11-08 14:56 | Outpatient (BNVA) | payer OTHER, SELFPAY | PROVIDERS: PCP Internal Medicine; Visit Provider Nurse Practitioner Family | DX: Z12.11 Encounter for screening for malignant neoplasm of colon (principal); K59.01 Slow transit constipation | CPT/HCPCS: 99202 ==

== ENCOUNTER 2024-11-09 07:30 | Outpatient (AMB) | payer OTHER, SELFPAY ==
--- OUTSIDE RECORDS SUMMARY | 2024-11-09 07:32 | XMS_ITS ---
Author Organization [facility] Address [address] [place] [address] Care Team Providers Care Matting Press Tender Name Role Phone Lj Murcia Primary Care Provider Igor Gil [phone] Medications Medication SIG (Take, Route, Frequency, Duration) Notes Start Date End Date Status OnabotulinumtoxinA 200 UNIT Inject into face, head, neck and shoulder per MD IM Injection once for 84 days Active Encounters Encounter Location Date Provider Diagnosis [facility] [address] [place] [address] 10/07/2024 Igor Wang Plan Of Treatment Medication Medication Name Sig Start Date Stop Date Notes OnabotulinumtoxinA 200 UNIT Inject into face, head, neck and shoulder per MD IM Injection once for 84 days Next Appt Details Provider Name:Igor alberts, 01/24/2025 11:30:00 AM, [address] [place] [address], [phone], Progress Notes * Kenrick SOTOOB:1975 ( 49 yo F)Acc No.[id number]:10/07/2024 Patient:?Annette SOTO :1975???Age:49 Y???Sex:Female Address:[address] [place] [address], [address] * Refills? Refill OnabotulinumtoxinA Solution Reconstituted, 200 UNIT, IM Injection, 1 Each, Inject into face, head, neck and shoulder per MD, once, 84 days, Refills=4 * true * Date:? Generated for Vu dean/Luann/Dianaitting on:?11/09/2024 07:32 AM EST
--- OUTSIDE RECORDS SUMMARY | 2024-11-09 07:32 | XMS_ITS | Patient Health Record ---
Author Organization [facility] Address [address] [place] [address] Care Team Providers Care Epitaxial Reactor Operator Name Role Phone Twin Lynnponcho Primary Care Provider Sheba e Igor Wang Unavailable [phone] Allergies Allergen (clinical drug ingredient) Drug/Non Drug Allergy documented on EMR Reaction Allergy Type Onset Date Status PAXIL 10 MG/5 ML SUSPENSION (uncoded) SSRIS Allergy Active predniSONE prednisone Drug Allergy Activ e Reason For Referral Reason Chronic migraine Diagnosis 1 Episodic cluster hea dache, intractable (G44.011) Diagnosis 2 Chronic migraine wit hout aura, intractable, without status migrainosus (G43.719) Diagnosis 3 Myalgia of auxiliary muscles, 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 Referred Provider Igor Wang Referred Address [address] [place], [place],[address], Referred Provider Specialty Neurology Referral Priority Routine [...] Risk Notes Problem Fear of medical treatment (592671595) Fear of injections and transfusions (F40.231) Active confirmed Problem Chronic intractable migraine without aura (50809846481449 5) Chronic migraine without aura, intractable, without status migrainosus (G43.719) Active confirmed Problem Menstrual migraine (02936806) Menstrual migraine, not intractable, without status migrainosus (G43.829) Active confirmed Problem Episodic cluster headache (791469719) Episodic cluster headache, intractable (G44.011) Active confirmed Problem Chronic cluster headache (817749458) Chronic cluster headache, not intractable (G44.029) Active confirmed undefined Problem Atypical facial pain (11784689) 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 Problem Myalgia of auxiliary muscles, 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029 [facility] [address] [place] [address] 05/05/2024 Igor Wang Chronic migraine without aura, intractable, without status migrainosus G43.719 [facility] [address] [place] [address] 06/29/2024 Igor Wang Chronic migraine without aura, intractable, without status migrainosus G43.719 [facility] [address] [place] [address] 12/03/2023 Igor Wang Chronic migraine without aura, intractable, without status migrainosus G43.719 ; Episodic cluster headache, intractable G44.011 ; Myalgia of auxiliary muscles, head and neck M79.12 and Atypical facial pain G50.1 [facility] [address] [place] [address] 02/25/2024 Igor Wang Chronic migraine without aura, intractable, without status migrainosus G43.719 ; Episodic cluster headache, intractable G44.011 ; Myalgia of auxiliary muscles, head and neck M79.12 and Atypical facial pain G50.1 [facility] [address] [place] [address] 05/12/2024 Igor Wang Chronic migraine without aura, intractable, without status migrainosus G43.719 ; Episodic cluster headache, intractable G44.011 ; Myalgia of auxiliary muscles, head and neck M79.12 and Atypical facial pain G50.1 [facility] [place] [address] 08/15/2024 Igor Wang Chronic migraine without aura, intractable, without status migrainosus G43.719 ; Episodic cluster headache, intractable G44.011 ; Myalgia of auxiliary muscles, head and neck M79.12 and Atypical facial pain G50.1 [facility] [address] [place] [address] 11/01/2024 Igor Wang Chronic migraine without aura, intractable, without status migrainosus G43.719 ; Episodic cluster headache, intractable G44.011 ; Myalgia of auxiliary muscles, head and neck M79.12 ; Atypical facial pain G50.1 and Fear of injections and transfusions F40.231 [facility] [address] [place] [address] 12/31/2023 Igor Wang [facility] [address] [place] [address] 01/05/2024 Igor Wang [facility] [address] [place] [address] 11/26/2023 Igor Wang [facility] [address] [place] [address] 11/30/2023 Igor Wang [facility] [address] [place] [address] 12/29/2023 Igor Wang [facility] [address] [place] [address] 12/31/2023 Igor Wang [facility] [address] [place] [address] 01/05/2024 Igor Wang [facility] [address] [place] [address] 01/13/2024 Igor Wang [facility] [address] [place] [address] 01/27/2024 Igor Wang [facility] [address] [place] [address] 02/13/2024 Igor Wang [facility] [address] [place] [address] 05/04/20[facility] [address] [place] [address] 06/03/2024 Igor Wang [facility] [address] [place] [address] 07/19/2024 Igor Wang [facility] [address] [place] [address] 09/21/2024 Igor Wang Chronic cluster headache, not intractable G44.029 [facility] [address] [place] [address] 10/07/2024 Igor Wang [facility] [address] [place] [address] 11/03/2024 Igor Wang Assessments Encounter Date Diagnosis (ICD [...] Of Treatment Next Appt Details Provider Name:Igor Butler Donato lexus, 01/24/2025 11:30:00 AM, [address] [place], [address], Insurance Providers Payer Name Payer Address Payer Phone Subscriber Number Group Number Insured Name Patient Relationship to Insured Coverage Start Date Coverage End Date [facility] [employer] PLAN [address] [id number] Annette Fenton Self - patient is the insured
--- OUTSIDE RECORDS SUMMARY | 2024-11-09 07:32 | XMS_ITS | Encounter Summary ---
Author Organization [employer] Address [address] [place] [address] [address] [place] [address] Care Team Providers Care Lock Tender Chief Operator Name Role Phone Unavailable Primary Care Provider Unavailabl e Encounter Details Date Type Department Care Team (Latest Contact Info) Description 05/30/2019 Abstract [facility] CONVERSIONS Dental, Provider, DDS Social [...]
--- NOTE | 2024-11-09 07:33 | A.OFFVIS_ITS ---
Intake Visit Reasons: Incomplete bladder emptying/ Blood in urine Intake Note: New Patient presents for initial visit for incomplete bladder emptying and blood in urine Urology Medications: none Blood Thinner: none PVR: Road Boss Required: No Accompanied by: Child Allergies epinephrine [From EPIFRIN] Allergy (Intermediate, Verified 11/09/24 08:05) HEADACHES AND TACHYCARDIA Iodinated Contrast Media [IVP DYE] Allergy (Intermediate, Verified 11/09/24 08:05) DIFFICULTY BREATHING amoxicillin Allergy (Unknown, Verified 11/09/24 08:05) itchy tongue cantaloupe [CANTALOUPE] Allergy (Unknown, Verified 11/09/24 08:05) SHORTNESS OF BREATH cheese [CHEESE] Allergy (Unknown, Verified 11/09/24 08:05) UNKNOWN plummer [PLUMMER] Allergy (Unknown, Verified 11/09/24 08:05) SHORTNESS OF BREATH divalproex sodium [From DEPAKOTE] Allergy (Unknown, Verified 11/09/24 08:05) oral bumps fish derived [FISH] Allergy (Unknown, Verified 11/09/24 08:05) HIVES grapefruit [GRAPEFRUIT] Allergy (Unknown, Verified 11/09/24 08:05) UNKNOWN Nitrate Analogues [NITRATE ANALOGUES] Allergy (Unknown, Verified 11/09/24 08:05) UNKNOWN nut - unspecified [NUTS] Allergy (Unknown, Verified 11/09/24 08:05) SHORTNESS OF BREATH paroxetine [From PAXIL] Allergy (Unknown, Verified 11/09/24 08:05) somulence tetanus and diphtheria toxoids Allergy (Unknown, Verified 11/09/24 08:05) fever/hallucinations environmental Allergy (Unknown, Uncoded 11/09/24 08:05) unknown Medication List - Last Reconciled 11/09/24 by VEL Munguia alprazolam 0.25 mg PO DAILY PRN 90 days bisacodyl (Dulcolax (bisacodyl)) 20 mg (4 x 5 mg) PO ONCE 1 day cetirizine 10 mg PO DAILY fluticasone propionate 220 mcg/actuation 2 puffs inhalation BID ibuprofen 600 mg PO BID PRN meclizine 25 mg PO TID PRN 14 days naratriptan mg PO onabotulinumtoxinA (Botox) units IM ONCE polyethylene glycol 3350 (Miralax) 17 grams PO DAILY 30 days polyethylene glycol 3350 (Miralax) 238 grams PO ONCE Pulmicort Flexhaler 90 mcg/actuation (budesonide) 1 inh inhalation BID NS Ventolin HFA 90 mcg/actuation (albuterol sulfate) 1 inh inhalation QID PRN 30 days NS verapamil mg PO DAILY HPI Comments Details: Annette is a 49-year-old female patient of Twin who was accompanied by her daughter at today's office visit. She has a past medical history of asthma and nicotine dependence. She presents to the office today as a new patient for microscopic hematuria in the setting of nicotine dependence. In discussion with the patient today she reports having followed up with her mental health program specialist in discussing ongoing issues she has been experiencing with blood in her urine at which time recommendations were made for urology referral for further assessment evaluation. She does report a longstanding history of nicotine dependence for over 20 years. She reports smoking approximately 1 pack per day however has been attempting to decrease her amount of nicotine. She reports having followed up with her PCP over 2 years ago and being told she had blood in her urine however was not interested in following up with Urology. In review of patient's chart it appears patient with urinalysis is noting microscopic hematuria since 2020. We discussed at length potential causes and further treatment options of microscopic hematuria. We discussed reasons for blood in the urine may include but are not limited to kidney stones, cancer in the urinary tract, kidney stone disease or inflammatory conditions of the urinary tract. I have discussed workup to include cystoscopy evaluation. She reports noting intermittent episodes of urinary urgency and frequency. She reports having woke up this morning with her menses. We discussed obtaining CT without contrast given patient's allergy and undergoing bilateral retrogrades with cystoscopy in OR for further assessment evaluation. This was discussed at length. All questions were answered. She otherwise denies incontinence, nocturia, visible/gross hematuria, dysuria, foul smelling urine, changes to urinary stream, flank pain, fever, and or chills. She is happy with her current voiding parameters. [facility] Medical History Palpitations Atypical chest pain Asthma, moderate Tobacco abuse Surgical History History of breast surgery Hx of tubal ligation Family History Father Alcoholic Mother Elevated cholesterol CVD (cardiovascular disease) History of blood clots Son Anxiety Daughter Hearing loss Daughter Asthma Daughter Acid reflux Sister No problems noted. Other Mental health disorder Substance use disorder Social History Housing: Apartment Alcohol intake: current Alcohol intake frequency: holidays/special occasions only Patient Tobacco Use Status: Current everyday Tobacco user Tobacco use type: Cigarette Cigarette Packs Per Day: 1 Cigarettes Per Day: 20 Years Smoked: 30 e-Cigarette/Vaping Use: Never Used service: No Current occupational status: unemployed Cognitive needs: No Hearing needs: No Vision needs: No Review of Systems Const All systems reviewed & are unremarkable except as noted in HPI and below Physical Exam Const General: cooperative, healthy appearing, comfortable, no acute distress, well developed, alert and awake Orientation/consciousness: patient oriented x3 Limitations: no limitations HEENT Head: Yes normal to inspection, Yes normocephalic and Yes atraumatic Ears: hearing grossly normal bilaterally Eyes General: appearance normal, both eyes and all related structures Neck Neck: Yes normal visual inspection and Yes trachea midline Chest Chest palpation & inspection: normal inspection of the chest Resp Effort & Inspection: normal respiratory effort and able to speak in complete sentences Cardio Rate: regular rate GI Inspection: Yes normal to inspection General: Yes no CVA tenderness Back/Spine/Pelvis Back: no CVA tenderness Skin General skin exam: no rashes or lesions noted Neuro General: patient oriented x3 Extrem General: Yes normal to inspection Psych Appearance: grossly normal and well kempt Mental Status: mental status grossly normal Speech and movement: Normal speech and movement present and Clear speech present Affect: normal affect Attitude: cooperative Thought process: Normal thought process present Thought content: Normal thought content present Insight: Fair insight present (Psych) Judgement: Fair judgement present (Psych) Office Procedures Post Void Residual Post Residual Void Post Void Residual (PVR): 0 59150-Ztqo Void Residual by ultrasound Results AMB Urinalysis, Automated UA Leukoctes 0 Max/uL Last Edit by Benjie Roberson on 11/09/24 07:53 UA Nitrite Last Edit by Benjie Roberson on 11/09/24 07:53 UA Urobilinogen 0.2 mg/dL Last Edit by Benjie Roberson on 11/09/24 07:53 UA Protein 15 mg/dL Last Edit by Benjie Roberson on 11/09/24 07:53 UA pH 5.5 Last Edit by Benjie Roberson on 11/09/24 07:53 UA Blood 200 Frank/uL Last Edit by Benjie Roberson on 11/09/24 07:53 UA Specific [place] 1.025 Last Edit by Benjie Roberson on 11/09/24 07:53 UA Ketone Last Edit by Benjie Roberson on 11/09/24 07:53 UA Bilirubin 0 mg/dL Last Edit by Benjie Roberson on 11/09/24 07:53 UA Glucose 0 mg/dL Last Edit by Benjie Roberson on 11/09/24 07:53 Results Reviewed Results Reviewed: Laboratory Last Values Urine pH (Auto) 5.5 11/09/24 07:40 Specific [place] (Auto) 1.025 11/09/24 07:40 Urine Protein (Auto) 15 mg/dL 11/09/24 07:40 Glucose (UA)(Auto) 0 mg/dL 11/09/24 07:40 Urine Blood (Auto) 200 Frank/uL 11/09/24 07:40 Urine Bilirubin (Auto) 0 mg/dL 11/09/24 07:40 Urine Urobilinogen (Auto) 0.2 mg/dL 11/09/24 07:40 Leukocyte Esterase (Auto) 0 Max/uL 11/09/24 07:40 Assessment & Plan Assessment & Plan (1) Nicotine dependence: Code(s): F17.200 - Nicotine dependence, unspecified, uncomplicated Category: Medical (2) Microscopic hematuria: Code(s): R31.29 - Other microscopic hematuria Category: Medical Plan In office urinalysis results reviewed with the patient today; as noted above; will send for urine cytology. We discussed at length further assessment evaluation of microscopic hematuria and risks and benefits of these interventions. Discussed, educated, and stressed the importance of limiting/quitting nicotine dependence for overall health and well-being. She reports be happy with current voiding parameters. We discussed potential causes of microscopic hematuria. Patient discusses her reluctant see in further workup at this time although we did discussed potential for delay in treatment. Follow-up in 3 months; or sooner with any issues, concerns, and or questions. Orders: Orders AMB Urinalysis Automated Today Z13.9 - Encounter for screening, unspecified Urine Cytology Today R31.21 - Asymptomatic microscopic hematuria AMB Post Void Residual by ultrasound Today R35.0 - Frequency of micturition Patient Instructions: The patient had an opportunity to ask questions regarding the treatment plan. All questions were answered. Physical exam, labs, and imaging were discussed and reviewed in detail. As well as risks, benefits, and discussion of treatment choices. No major barriers to understanding were identified. The patient expressed understanding and agreement with the above treatment plan. The patient was made aware they should contact our office by phone for worsening of their current condition, the appearance of new symptoms, or with any questions or concerns. Compliance is encouraged with any medications and follow up testing that is ordered. It is a privilege to be allowed the opportunity to participate in? your urological care.? Again, if you have any questions or concerns If you have any questions or concerns please do not hesitate to contact me. The office is [phone]. This note is constructed using voice recognition software. While every effort has been made to ensure accuracy imaging nurse errors may have been included. Yours sincerely, VEL Munguia Coding Level of Care Code New Pt Level 3 (97630) Diagnoses Nicotine dependence F17.200 Microscopic hematuria R31.29 CPT Codes Post Residual Void - PVR CPT Code: 46372-Ujgq Void Residual by ultrasound ([id number])
--- OUTSIDE RECORDS SUMMARY | 2024-11-09 07:33 | XMS_ITS | Encounter Summary ---
Author Organization [employer] Address [address] [place] [address] [address] [place] [address] Care Team Providers Care Log Brander Name Role Phone Unavailable Primary Care Provider Unavailabl e Encounter Details Date Type Department Care Team (Latest Contact Info) Description 12/04/2020 Abstract [facility] CONVERSIONS Dental, Provider, DDS Social History [...]
--- OUTSIDE RECORDS SUMMARY | 2024-11-09 07:33 | XMS_ITS | Clinical Summary ---
Author Organization [facility] it Address [address] [place] [address] Care Team Providers Care Video Game Engineer Name Role Phone Lj Murcia MD Primary Care Provider [phone] Allergies Active Allergy Reactions Criticality Noted Date [...] Overview (09/21/2024): Follows with [facility] in [place] Last Assessment & Plan: Pt will continue to see [facility] every 3 months. Will keep diary as above to determine if [facility] seem to be related to IUD. Migraine with aura 01/21/2019 Overview (09/21/2024): Has seen neuro at [facility] in [place] Smoker 11/16/2018 Overview (09/21/2024): Last Assessment & [...] HISTORICAL DENTAL EXTRACTION ENDOMETRIAL ABLATION 06/06/2015 PROCEDURE: NC ENDOMETRIAL ABLTJ THERMAL W/O HYSTEROSCOPIC GUID; COMMENT: Novasure OTHER SURGICAL HISTORY 09/2017 PROCEDURE: HISTORICAL D&C; COMMENT: Using Myosure device for suspected hematometra BREAST SURGERY 2018 Right PROCEDURE: NC UNLISTED PROCEDURE BREAST; COMMENT: removed fibroid & other lump BREAST SURGERY pt doesn't remember Bilateral PROCEDURE: NC UNLISTED PROCEDURE BREAST BREAST BIOPSY pt. doesnt remember when Bilateral PROCEDURE: BX BREAST; PERC NEEDLE CORE W/IMAG GUID; COMMENT: bxs. of both breasts-removed lumps BREAST BIOPSY 2018 Right PROCEDURE: NC BX BREAST W/DEVICE 1ST LESION ULTRASOUND GUID OTHER SURGICAL HISTORY 05/20/2022 Left PROCEDURE: NC BX BREAST W/DEVICE 1ST LESION STEREOTACTIC GUID; [...] 11:10 AM EDT Appointment Radiology Department - [address] [phone] 12/16/2024 3:30 PM EDT Office Visit Obstetrics and Gynecology - [address] [phone] Yesica Alvarez MD [address] [place], [place] Health Maintenance Due Date Last Done [...] (12/03/2021) Cervical Cancer Screening: HPV negative, abstracted [facility] Provider HEALTH MAINTENANCE Final Result from Last 3 Months or Most Recently Relevant to Health Maintenance Insurance [facility] [employer] Care Teams Video Game Engineer Relationship Specialty Start Date End Date Lj Murcia MD [address] [facility] [place] [id number] PCP - General Internal Medicine 11/02/20
--- OUTSIDE RECORDS SUMMARY | 2024-11-09 07:33 | XMS_ITS ---
Author Organization [facility] Address [address] [place] [address] Care Team Providers Care Package Checker Name Role Phone Lj Murcia Primary Care Provider Igor Gil Unavailable [phone] Allergies Allergen (clinical drug ingredient) Drug/Non Drug [...] HCl 120 MG TAKE 1 TABLET BY [facility] THREE TIMES A DAY FOR 90 [...] Risk Notes Problem Fear of medical treatment (747307823) 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 [address] [place] [address] 11/01/2024 Igor Wang Chronic migraine wit hout [...] Botox Provider Name:Igor alonzoy, 01/24/2025 11:30:00 AM, [address] [place] [address], [phone], Procedure Notes * Category Sub-Category Detail Notes [...] units) into ProcerusInject 0.1 mL (5 units) In Store Banker bilateral (total of 10 units),Inject 0.1 mL [...] ice, and extra time for recovery,Lot #, [id number] Date, 12/2026 Progress Notes * Kenrick SOTOOB:1975 ( 49 yo F)Acc No.[id number]:11/01/2024 Patient:?Annette SOTO Provider:?Igor Wang MD?Resourc e:Jessica Santiago :1975???Age:49 Y???Sex:Female D ate:11/01/2024 Address:[address] [place] [address], [place] Pcp:Lj Murcia Subjective: * Chief Complaints: * [...] into Procerus ?Inject 0.1 mL (5 units) In Store Banker bilateral (total of 10 units), ?Inject 0.1 [...] and extra time for recovery, ?Lot #, [id number] ?Expiration Date, 12/2026.?Trigger Point Injection:?Procedure:?The skin was [...] under their own power., ?.? * Procedure Codes:?65914 Chemo denervation for [id number] TRIGGER POINT,3 OR MORE MUSCLE, Modifiers: RANKIN * Follow Up:?12 WEEKS (Reason: Botox) Care Plan: * Problems:? * Billing Information: * Visit Code:? 78701 OFFICE VISIT,EST PT,LEVEL 3. * Procedure Codes:? 96518 Chemodenervation for Migraine. 31794 TRIGGER POINT,3 OR MORE MUSCLE. Modifiers: RANKIN * Sign off status: Completed true * Provider:?Igor Wang MD Date:?10/09 Generated for Vu dean/Luann/eTransmitting on:?11/09/2024 07:32 AM EST History and Physical Notes * [...]
--- OUTSIDE RECORDS SUMMARY | 2024-11-09 07:33 | XMS_ITS | Clinical Summary ---
Author Organization [employer] Address [address] [place] [address] [address]t [place] [address] Care Team Providers Care Middle School History Teacher Name Role Phone Unavailable Primary Care Provider [...]
--- OUTSIDE RECORDS SUMMARY | 2024-11-09 07:33 | XMS_ITS ---
Author Organization [facility] Address [address] [place] [address] Care Team Providers Care Division Superintendent Name Role Phone TwinLj melendez Primary Care Provider Igor Gil Unavailable [phone] Encounters Encounter Location Date Provider Diagnosis [facility] [address] [place] [address] 11/03/2024 Igor Wang Plan Of Treatment Next Appt Details Provider Name:Igor alberts, 01/24/2025 11:30:00 AM, [address] [place], [address], Progress Notes * Kenrick SOTOOB:1975 ( 49 yo F)Acc No.[id number]:11/03/2024 Patient:?Annette SOTO :1975???Age:49 Y???Sex:Female Address:[address] [place] [address], [address] * true * Date:? Generated for Printi dianne/Fameerag/eTransmitting on:?11/09/2024 07:33 AM EST
== END 2024-11-09 08:05 | disposition home or self-care (01) ==
PROVIDERS: PCP Internal Medicine; Visit Provider Nurse Practitioner Family
DX: F17.200 Nicotine dependence, unspecified, uncomplicated (principal); R31.29 Other microscopic hematuria; Z13.9 Encounter for screening, unspecified
CPT/HCPCS: 99203

== ENCOUNTER 2024-11-09 07:30 | Outpatient (REF) | payer OTHER, SELFPAY ==
[2024-11-09 16:47] LABS: Urine Cytology See Pathology rpt
== END 2024-11-09 07:31 | disposition home or self-care (01) ==
LOC: HO.LNP 07:30
PROVIDERS: PCP Internal Medicine; Visit Provider Nurse Practitioner Family
DX: R31.21 Asymptomatic microscopic hematuria (principal); R31.29 Other microscopic hematuria; R35.0 Frequency of micturition; F17.200 Nicotine dependence, unspecified, uncomplicated
CPT/HCPCS: 51798; 81003; 88112; 99202

== ENCOUNTER 2024-11-25 13:16 | Outpatient (REF) | payer OTHER, SELFPAY ==
[2024-11-25 16:42] LABS: Appearance Urine Turbid; Color Urine Yellow; Glucose Urine UA Negative (Negative); Leukocyte Esterase Urine Negative (Negative); Nitrite Urine Negative (Negative); Specific Gravity - Urine 1.025 (1.005-1.025); UMIC TRIGGER UACC YES; Urine Blood Trace (Negative); Urine Ketones Trace mg/dL (Negative); Urine Protein Negative (Neg-Trace)
[2024-11-25 16:50] LABS: Bacteria Urine None Seen (None Seen); Hyaline Casts Urine 0-2 /LPF (0-2); RBC Urine 0-2 /HPF (0-2); Squamous Epithelial Cell Urine 0-2 /HPF (0-2); WBC Urine 0-5 /HPF (0-5)
== END 2024-11-25 13:17 | disposition home or self-care (01) ==
LOC: HO.HMGCLDS 13:16
PROVIDERS: PCP Internal Medicine; Visit Provider Internal Medicine
DX: R31.29 Other microscopic hematuria (principal); F17.210 Nicotine dependence, cigarettes, uncomplicated; R45.89 Other symptoms and signs involving emotional state; R73.01 Impaired fasting glucose; R92.8 Other abnormal and inconclusive findings on diagnostic imaging of breast; E55.9 Vitamin D deficiency, unspecified
CPT/HCPCS: 81001; 99212

== ENCOUNTER 2024-11-25 13:16 | Outpatient (AMB) | payer OTHER, SELFPAY ==
[2024-11-25 13:17] VITALS: BP 132/82; PULSE 88; O2SAT 97; BMI 29.7
--- NOTE | 2024-11-25 13:17 | MHC.PC.OV ---
Vital Signs 11/25/24 13:17 Height 5 ft 4 in Weight 173 lb 2 oz BMI 29.7 BP 132/82 Blood Pressure Location Lt brachial Position Sitting Pulse 88 Pulse Source Pulse Oximeter Pulse Oximetry (%) 97 Oxygen Delivery Method Room Air Intake Visit Reasons: Ultrasound Req Allergies epinephrine [From EPIFRIN] Allergy (Intermediate, Verified 11/25/24 13:17) HEADACHES AND TACHYCARDIA Iodinated Contrast Media [IVP DYE] Allergy (Intermediate, Verified 11/25/24 13:17) DIFFICULTY BREATHING amoxicillin Allergy (Unknown, Verified 11/25/24 13:17) itchy tongue cantaloupe [CANTALOUPE] Allergy (Unknown, Verified 11/25/24 13:17) SHORTNESS OF BREATH cheese [CHEESE] Allergy (Unknown, Verified 11/25/24 13:17) UNKNOWN schulz [SCHULZ] Allergy (Unknown, Verified 11/25/24 13:17) SHORTNESS OF BREATH divalproex sodium [From DEPAKOTE] Allergy (Unknown, Verified 11/25/24 13:17) oral bumps fish derived [FISH] Allergy (Unknown, Verified 11/25/24 13:17) HIVES grapefruit [GRAPEFRUIT] Allergy (Unknown, Verified 11/25/24 13:17) UNKNOWN Nitrate Analogues [NITRATE ANALOGUES] Allergy (Unknown, Verified 11/25/24 13:17) UNKNOWN nut - unspecified [NUTS] Allergy (Unknown, Verified 11/25/24 13:17) SHORTNESS OF BREATH paroxetine [From PAXIL] Allergy (Unknown, Verified 11/25/24 13:17) somulence tetanus and diphtheria toxoids Allergy (Unknown, Verified 11/25/24 13:17) fever/hallucinations environmental Allergy (Unknown, Uncoded 11/09/24 08:05) unknown Medication List - Last Reconciled 11/25/24 by Lj Murcia MD alprazolam 0.25 mg PO DAILY PRN 90 days bisacodyl (Dulcolax (bisacodyl)) 20 mg (4 x 5 mg) PO ONCE 1 day cetirizine 10 mg PO DAILY fluticasone propionate 220 mcg/actuation 2 puffs inhalation BID ibuprofen 600 mg PO BID PRN meclizine 25 mg PO TID PRN 14 days naratriptan mg PO onabotulinumtoxinA (Botox) units IM ONCE polyethylene glycol 3350 (Miralax) 17 grams PO DAILY 30 days polyethylene glycol 3350 (Miralax) 238 grams PO ONCE Pulmicort Flexhaler 90 mcg/actuation (budesonide) 1 inh inhalation BID NS Ventolin HFA 90 mcg/actuation (albuterol sulfate) 1 inh inhalation QID PRN 30 days NS verapamil mg PO DAILY Tobacco use date assessed: 11/25/24 Dental Screening Dental Screen Date: 11/25/24 Did you have a dental visit in the last 12 months?: Yes Did you have a dental problem in the last 6 months where you did not have access to dental care?: No Was dental information given to patient?: Patient has dentist HPI Ultrasound Req HPI Details History - The patient is a 49 year old female presenting with macroscopic hematuria. - Previously conducted urinalysis on November 09 was confounded by menstrual bleeding, impairing clinical interpretation. - Improvement in urine appearance noted by the patient following cessation of menstruation, with no current menstrual cycle. - The patient is a smoker, increasing her risk for bladder cancer, contributing to her concerns. - patient has already seen a urologist, she is expressing unsatisfactory visit - Blood work shows prediabetes (fasting glucose 103) and vitamin D deficiency. - Breast imaging identified dense tissue, warranting further diagnostic evaluation for identified asymmetry. Left breast only Order placed for diagnostic mammogram and ultrasound Problem List - Macroscopic Hematuria - Vitamin D Deficiency - Prediabetes - Dense Breast Tissue - Smoking Patient Instructions - repeat urine analysis at the lab. - Continue discussions with the urologist as scheduled. - Maintain awareness of any changes in symptoms and report promptly. - Increase dietary vitamin D or consider supplementation as advised. - Work on weight loss to manage prediabetes. - Encourage cessation of smoking to reduce health risks. Review of Systems - General: No fever no chills - Neurological: No headaches no dizziness - Ear nose throat: No sore throat no hearing difficulty no ear pain - Cardiovascular: No syncope, no chest pain, no palpitations - Gastrointestinal: No nausea vomiting or diarrhea - Endocrine: No polyuria polydipsia no heat intolerance - Genitourinary: No dysuria , no blood in urine at this time Physical Exam - General: No acute distress - HEENT: No acute findings - Neck: Supple - Respiratory system: Able to talk in full sentences, no audible wheeze - Cardiovascular: S1-S2 regular in rate and rhythm - Gastrointestinal: No pain - Extremities: No new findings - OIL PIT ATTENDANT: Alert awake oriented x3 motor sensory intact - Skin: Normal turgor PFSH Medical History Palpitations Atypical chest pain Asthma, moderate Tobacco abuse Surgical History History of breast surgery Hx of tubal ligation Family History Father Alcoholic Mother Elevated cholesterol CVD (cardiovascular disease) History of blood clots Son Anxiety Daughter Hearing loss Daughter Asthma Daughter Acid reflux Sister No problems noted. Other Mental health disorder Substance use disorder Social History Housing: Apartment Alcohol intake: current Alcohol intake frequency: holidays/special occasions only Patient Tobacco Use Status: Current everyday Tobacco user Tobacco use type: Cigarette Cigarette Packs Per Day: 1 Cigarettes Per Day: 20 Years Smoked: 30 Packs Per Year: 30 Packs per year/per ci.00 e-Cigarette/Vaping Use: Never Used service: No Current occupational status: unemployed Cognitive needs: No Hearing needs: No Vision needs: No Questionnaire PHQ-9 Over the last 2 weeks, how often have you been bothered by any of the following problems? 35267 - PHQ-9 Billing: Patient declined-do not bill Source: Developed by Drs. Barrington Guy, Caryn Hodge, Ulysses Thurman and colleagues, with an educational carmen from [employer]. Thrive Questionnaire Date Thrive assessed: 11/25/24 I am a: Patient What is your living situation today?: I have a steady place to live Within the past 12 months, did the food you bought not last and you didn't have the money to get more?: Never true Within the past 12 months, did you worry whether your food would run out before you got money to buy more?: Never true Do you have trouble paying for medicines?: No Do you have trouble getting transportation to medical appointments?: No Do you have trouble paying your heating and electricity bill?: No Do you have trouble taking care of your child, family member or friend?: No Do you have trouble with day-to-day activities such as bathing, preparing meals, shopping, managing finances, etc.?: No Are you currently unemployed and looking for a job?: No Are you interested in more education?: No Please select the resources that you would like help with: None Currently or been in a relationship where the following occur: No concerns reported THRIVE Score: 0 AUDIT C Alcohol Use Questionnaire (AUDIT-C) 1. How often do you have a drink containing alcohol?: Never 3. How often do you have six or more drinks on one occasion?: Never Total Score: 0 Score Reviewed/Action Taken: Yes SUE-7 AMB Questionnaire SUE-7 Date SUE - 7 assessed: 10/12/24 Source: Developed by Drs. Barrington Guy, Caryn Hodge, Ulysses Thurman and colleagues, with an educational carmen from [employer]. Physical exam (Primary Care) Vital Signs: Last Vital Signs Pulse 88 11/25/24 13:17 BP 132/82 11/25/24 13:17 Pulse Ox 97 11/25/24 13:17 Oxygen Delivery Method Room Air 11/25/24 13:17 BMI result Body Mass Index 29.7 Tobacco/Smoking Status: Tobacco use Status Tobacco use date assessed 11/25/24 11/25/24 13:20 Patient Tobacco Use Status Current everyday Tobacco 11/25/24 13:20 Tobacco use type Cigarette 11/25/24 13:20 e-Cigarette/Vaping Use Never Used 11/25/24 13:20 Thrive Assessment: Date of Thrive Assessment Date Thrive assessed 11/25/24 11/25/24 13:24 Currently or been in a relationship where the following occur: No concerns reported Coding Level of Care Code Est Pt Level 4 (30990) Diagnoses Microscopic hematuria R31.29 Cigarette nicotine dependence without complication F17.210 Nicotine product type: cigarettes Substance use status: uncomplicated Anxiety about health R45.89 Impaired fasting blood sugar R73.01 Abnormal mammogram of left breast R92.8 Vitamin D deficiency E55.9 Assessment & Plan Assessment & Plan (1) Microscopic hematuria: Code(s): R31.29 - Other microscopic hematuria Category: Medical (2) Nicotine dependence: Code(s): F17.200 - Nicotine dependence, unspecified, uncomplicated Category: Medical Qualifiers: Nicotine product type: cigarettes Substance use status: uncomplicated Qualified Code(s): F17.210 - Nicotine dependence, cigarettes, uncomplicated (3) Anxiety about health: Code(s): R45.89 - Other symptoms and signs involving emotional state Category: Medical (4) Impaired fasting blood sugar: Code(s): R73.01 - Impaired fasting glucose Category: Medical (5) Abnormal mammogram of left breast: Code(s): R92.8 - Other abnormal and inconclusive findings on diagnostic imaging of breast Category: Medical (6) Vitamin D deficiency: Code(s): E55.9 - Vitamin D deficiency, unspecified Category: Medical Plan History - The patient is a 49 year old female presenting with macroscopic hematuria. - Previously conducted urinalysis on November 09 was confounded by menstrual bleeding, impairing clinical interpretation. - Improvement in urine appearance noted by the patient following cessation of menstruation, with no current menstrual cycle. - The patient is a smoker, increasing her risk for bladder cancer, contributing to her concerns. - patient has already seen a urologist, she is expressing unsatisfactory visit - Blood work shows prediabetes (fasting glucose 103) and vitamin D deficiency. - Breast imaging identified dense tissue, warranting further diagnostic evaluation for identified asymmetry. Left breast only Order placed for diagnostic mammogram and ultrasound Problem List - Macroscopic Hematuria - Vitamin D Deficiency - Prediabetes - Dense Breast Tissue - Smoking Patient Instructions - repeat urine analysis at the lab. - Continue discussions with the urologist as scheduled. - Maintain awareness of any changes in symptoms and report promptly. - Increase dietary vitamin D or consider supplementation as advised. - Work on weight loss to manage prediabetes. - Encourage cessation of smoking to reduce health risks. Orders: Orders UA CC w/rflx Micro + Cult Today R31.29 - Other microscopic hematuria
--- OUTSIDE RECORDS SUMMARY | 2024-11-25 15:37 | XMS_ITS | Clinical Summary ---
Author Organization [employer] Address [address] [place] [address] [address] [place] [address] Care Team Providers Care Quality Cloth Tester Name Role Phone Unavailable Primary Care Provider [...]
--- OUTSIDE RECORDS SUMMARY | 2024-11-25 15:37 | XMS_ITS | Encounter Summary ---
Author Organization [facility] Address [address] [place] [address] Care Team Providers Care Physicist Astrophysics Name Role Phone Lj Murcia MD Primary Care Provider [phone] Reason for Visit * Imaging (Routine) - Authorized Specialty Diagnoses / Procedures Referred By Francine arana Referred To Contact Radiology Diagnoses Encounter for screening mammogram for breast cancer Procedures MG Mammo Digital Screening w Mejia bilat MG Mammo Digital Screening w Mejia bilat Lj Murcia MD [address] [place] [address] Phone: tel: fax: [facility] Referral ID Status Reason Start Date Expiration Date V isits Requested Visits Authorized [id number] Authorized 06/23/2024 06/23/2025 1 1 Encounter Details Date Type Department Care Team (Latest Contact Info) Description 11/22/2024 1:14 PM EDT - 11/22/2024 11:59 PM EDT Hospital Encounter Radiology Department - [address] [address] Encounter for screening mammogram for breast cancer Discharge Disposition: Home or Self Care Social History Tobacco Use Types Packs/Day Years Used Date Smoking Tobacco: Every Day Cigarettes 0.8 38.2 Started: 09/07/1986 Smokeless Tobacco: Never Alcohol Use Standard Drinks/Week Comments Not Currently 0 (1 standard drink = 0.6 oz pur e alcohol) Comments No Sex and Gender Information Value Date Recorded Sex Assigned at Not on file Legal Sex Female 5:11 AM EST Gender Identity Not on file Sexual Orientation Not on file documented as of this encounter Medications at Time of Discharge albuterol HFA (PROAIR HFA ; PROVENTIL HFA ; VENTOLIN HFA) 90 mcg/actuation inhaler Inhale 2 puffs by mouth every 4 (four) hours if needed. cetirizine HCl (ZYRTEC ORAL) Take by mouth. fluticasone HFA (FLOVENT HFA) 110 mcg/actuation inhaler Inhale 1 puff by mouth 2 (two) times a day. ibuprofen (ADVIL,MOTRIN) 600 mg tablet Take 1 Tab by mouth every 6 hours as needed for Pain. 6 metroNIDAZOLE (METROGEL) 0.75 % (37.5mg/5 gram) vaginal gel Si applicator full after menses & Si applicator full nightly for 5 nights 2 naratriptan (AMERGE) 2.5 mg tablet Take 1 tablet (2.5 mg total) by mouth 2 (two) times a day. ONABOTULINUMTOX OMAR INJ OnabotulinumtoxinA (BOTOX IJ)- Inject as directed. polyethylene glycol 3350 (MIRALAX ORAL) Take by mouth. verapamiL (CALAN) 120 mg tablet Take 1 tablet (120 mg total) by mouth 3 (three) times a day. documented as of this encounter Discharge Disposition Disposition Code Departure Means Destination Home or Self Care documented in this encounter Plan of Treatment Upcoming Encounters Date Type Department Care Team (Late st Contact Info) Description 12/16/2024 3:30 PM EDT Office Visit Obstetrics and Gynecology [address] [phone] Yesica Alvarez MD [address] [place], [place] documented as of this encounter Procedures Procedure Name Priority Date/Time Associated Diagnosis Comments MG MAMMO DIGITAL SCREENING W MEJIA BILAT Routine 11/22/2024 1:35 PM EDT Encounter for screening mammogram for breast cancer documented in this encounter Results * (ABNORMAL) MG Mammo Digital Screening w Mejia bilat (11/22/2024 1:35 PM EDT) Anatomical Region Laterality Modality Breast Bilateral Mammography 11/23/2024 10:4 8 AM EDT Impressions 11/23/2024 11:07 AM EDT 1. ??Right: No mammographic evidence of malignancy 2. left: Indeterminate lower inner middle depth focal asymmetry 3. Heterogeneous breast parenchyma BI-RADS CATEGORY: 0 - INCOMPLETE - NEED ADDITIONAL IMAGING EVALUATION RECOMMENDATION: Additional left breast imaging recommended. Left breast CC and MLO spot compression, targeted ultrasound Mammo Location: [facility], [address] [place] [address], [id number], . -------- FINAL REPORT -------- Dictated By: Anna Conrad Dictated Date: 11/23/2024 10:48 ET Assigned Physician: Anna Conrad Reviewed and Electronically Signed By: Anna Conrad Signed Date: 11/23/2024 11:07 ET Workstation ID: [id number] Transcribed By: Self Edit Transcribed Date: 11/23/2024 10:48 ET Narrative 11/23/2024 11:07 AM EDT A BILATERAL DIGITAL 3D SCREENING MAMMOGRAPHY HISTORY: Routine screening. ??No family history of breast cancer. COMPARISON: Multiple priors dating back to 10/05/2020 Technique: Bilateral full field digital mammography (3D) was performed using standard CC and MLO projections , left breast exaggerated CC CAD ??was used to evaluate this mammogram. FINDINGS: Right: No suspicious masses, groups of microcalcification or areas of architectural distortion identified. Stable typically benign parenchymal asymmetries. Left: Indeterminate lower inner middle depth focal asymmetry BREAST DENSITY: C - The breasts are heterogeneously dense which may obscure small masses. Procedure Note Anna Conrad MD - 11/23/2024 A BILATERAL DIGITAL 3D SCREENING MAMMOGRAPHY HISTORY: Routine screening. No family history of breast cancer. COMPARISON: Multiple priors dating back to 10/05/2020 Technique: Bilateral full field digital mammography (3D) was performedusing standard CC and MLO projections , left breast exaggerated CC CAD was used to evaluate this mammogram. FINDINGS: Right: No suspicious masses, groups of microcalcification or areas ofarchitectural distortion identified. Stable typically benign parenchymalasymmetries. Left: Indeterminate lower inner middle depth focal asymmetry BREAST DENSITY: C - The breasts are heterogeneously dense which mayobscure small masses. IMPRESSION: 1. Right: No mammographic evidence of malignancy 2. left: Indeterminate lower inner middle depth focal asymmetry 3. Heterogeneous breast parenchyma BI-RADS CATEGORY: 0 - INCOMPLETE - NEED ADDITIONAL IMAGING EVALUATION RECOMMENDATION: Additional left breast imaging recommended. Left breast CC and MLO spotcompression, targeted ultrasound Mammo Location: [facility], [address] [place] [address], [id number], . -------- FINAL REPORT -------- Dictated By: Anna Conrad Dictated Date: 11/23/2024 10:48 ET Assigned Physician: Anna Conrad Reviewed and Electronically Signed By: Anna Conrad Signed Date: 11/23/2024 11:07 ET Workstation ID: [id number] Transcribed By: Self Edit Transcribed Date: 11/23/2024 10:48 ET Lj Murcia MD IMG BI PROCEDURES Final Result documented in this encounter Visit Diagnoses Diagnosis Encounter for screening mammogram for breast cancer documented in this encounter Care Teams Physicist Astrophysics Relationship Specialty Start Date End Date Lj Murcia MD [address] [place] [address] PCP - General Internal Medicine 11/02/20 documented as of this encounter
--- OUTSIDE RECORDS SUMMARY | 2024-11-25 15:37 | XMS_ITS ---
Author Organization [facility] Address [address] [place] [address] Care Team Providers Care Pulp House Supervisor Name Role Phone Lj Murcia Primary Care Provider Igor Gil Unavailable [phone] Allergies Allergen (clinical drug ingredient) Drug/Non Drug [...] Risk Notes Problem Fear of medical treatment ([id number]) 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 [address] [place] [address] 11/01/2024 Igor Wang Chronic migraine wit hout [...] Botox Provider Name:Igor alonzoy, 01/24/2025 11:30:00 AM, [address] [place] [address], [phone], Procedure Notes * Category Sub-Category Detail Notes [...] units) into ProcerusInject 0.1 mL (5 units) Supervisor Train Operations bilateral (total of 10 units),Inject 0.1 mL [...] ice, and extra time for recovery,Lot #, [id number] Date, 12/2026 Progress Notes * Kenrick SOTOOB:1975 ( 49 yo F)Acc No.[id number]:11/01/2024 Patient:?Annette SOTO Provider:?Igor aWng MD?Resourc e:Jessica Santiago :1975???Age:49 Y???Sex:Female D ate:11/01/2024 Address:[address] [place] [address], [place], [phone] Pcp:Lj Murcia Subjective: * Chief Complaints: * [...] into Procerus ?Inject 0.1 mL (5 units) Supervisor Train Operations bilateral (total of 10 units), ?Inject 0.1 [...] and extra time for recovery, ?Lot #, [id number] ?Expiration Date, 12/2026.?Trigger Point Injection:?Procedure:?The skin was [...] under their own power., ?.? * Procedure Codes:?51570 Chemo denervation for [id number] TRIGGER POINT,3 OR MORE MUSCLE, Modifiers: RANKIN * Follow Up:?12 WEEKS (Reason: Botox) Care Plan: * Problems:? * Billing Information: * Visit Code:? 61201 OFFICE VISIT,EST PT,LEVEL 3. * Procedure Codes:? 60696 Chemodenervation for Migraine. 29443 TRIGGER POINT,3 OR MORE MUSCLE. Modifiers: RANKIN * Sign off status: Completed true * Provider:?Igor Wang MD Date:?10/09 Generated for Vu dean/Luann/eTransmitting on:?11/25/2024 03:37 PM EDT History and Physical Notes * Examination Category [...]
--- OUTSIDE RECORDS SUMMARY | 2024-11-25 15:37 | XMS_ITS ---
Author Organization [facility] Address [address] [place] [address] Care Team Providers Care Eastern Philosophy Professor Name Role Phone Twin Lynnponcho Primary Care Provider Igor Gil [phone] Medications Medication SIG (Take, Route, Frequency, Duration) Notes Start Date End Date Status OnabotulinumtoxinA 200 UNIT Inject into face, head, neck and shoulder per MD IM Injection once for 84 days Active Encounters Encounter Location Date Provider Diagnosis [facility] [address] [place] [address] 10/07/2024 Igor Wang Plan Of Treatment Medication Medication Name Sig Start Date Stop Date Notes OnabotulinumtoxinA 200 UNIT Inject into face, head, neck and shoulder per MD IM Injection once for 84 days Next Appt Details Provider Name:Igor alberts, 01/24/2025 11:30:00 AM, [address] [place] [address], [phone], Progress Notes * Kenrick SOTOOB:1975 ( 49 yo F)Acc No.[id number]:10/07/2024 Patient:?Annette SOTO :1975???Age:49 Y???Sex:Female Address:[address] [place] [address], [address] * Refills? Refill OnabotulinumtoxinA Solution Reconstituted, 200 UNIT, IM Injection, 1 Each, Inject into face, head, neck and shoulder per MD, once, 84 days, Refills=4 * true * Date:? Generated for Vu dean/Luann/Dianaitting on:?11/25/2024 03:37 PM EDT
--- OUTSIDE RECORDS SUMMARY | 2024-11-25 15:37 | XMS_ITS | Patient Health Record ---
Author Organization [facility] Address [address] [place] [address] Care Team Providers Care Senior Architect Name Role Phone Twin Lynnponcho Primary Care Provider Sheba e Igor Wang Unavailable [phone] Allergies Allergen (clinical drug ingredient) Drug/Non Drug [...] 4 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) Referred Organization [facility], [place]. Referred Provider Igor Wang Referred Address [address] [place], [place],[address], Referred Provider Specialty Neurology Referral Priority Routine Medications Medication SIG (Take, Route, Frequency, Duration) Notes Start Date End Date Status Naratriptan HCl 2.5 MG 1 tablet Orally T wice a day. for 45 days 01/27/2024 Active Verapamil HCl 120 MG TAKE 1 TABLET BY [facility] THREE TIMES A DAY FOR 90 [...] Risk Notes Problem Fear of medical treatment (393482040) Fear of injections and transfusions (F40.231) Active confirmed Problem Chronic intractable migraine without aura (22332140746658 5) Chronic migraine without aura, intractable, without status migrainosus (G43.719) Active confirmed Problem Menstrual migraine (10771341) Menstrual migraine, not intractable, without status migrainosus (G43.829) Active confirmed Problem Episodic cluster headache (617919097) Episodic cluster headache, intractable (G44.011) Active confirmed Problem Chronic cluster headache (962130664) Chronic cluster headache, not intractable (G44.029) Active confirmed undefined Problem Atypical facial pain (77101312) 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 Problem Myalgia of auxiliary muscles, 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 Problem Migraine without aura (99547835) Migraine without aura, not intractable, with statu (G43.001) Active confirmed Vital Signs Heart Rate 77 /min 11/01/2024 Blood pressure diastolic 90 mm Hg 11/01/2024 Weight-kg 74.57 kg 11/01/2024 Height 64 in 11/01/2024 Blood pressure systolic 130 mm Hg 11/01/2024 Weight 164.4 lbs 11/01/2024 BMI 28.22 kg/m2 11/01/2024 Encounters Encounter Location Date Provider Diagnosis [facility] [address] [place] [phone] 01/27/2024 Igor Wang Chronic cluster headache, not intractable G44.029 [facility] [address] [place] [address] 05/05/2024 Igor Wang Chronic migraine without aura, intractable, without status migrainosus G43.719 [facility] [address] [place] [address] 06/29/2024 Igor Wang Chronic migraine without aura, intractable, without status migrainosus G43.719 [facility] [address] [place] [address] 12/03/2023 Igor Wang Chronic migraine without aura, intractable, without status migrainosus G43.719 ; Episodic cluster headache, intractable G44.011 ; Myalgia of auxiliary muscles, head and neck M79.12 and Atypical facial pain G50.1 [facility] [address] [place] [address] 02/25/2024 Igor Wang Chronic migraine without aura, intractable, without status migrainosus G43.719 ; Episodic cluster headache, intractable G44.011 ; Myalgia of auxiliary muscles, head and neck M79.12 and Atypical facial pain G50.1 [facility] [address] [place] [address] 05/12/2024 Igor Wang Chronic migraine without aura, intractable, without status migrainosus G43.719 ; Episodic cluster headache, intractable G44.011 ; Myalgia of auxiliary muscles, head and neck M79.12 and Atypical facial pain G50.1 [facility] [place] [place] [address] 08/15/2024 Igor Wang Chronic migraine without aura, intractable, without status migrainosus G43.719 ; Episodic cluster headache, intractable G44.011 ; Myalgia of auxiliary muscles, head and neck M79.12 and Atypical facial pain G50.1 [facility] [address] [place] [address] 11/01/2024 Igor Wang Chronic migraine without aura, intractable, without status migrainosus G43.719 ; Episodic cluster headache, intractable G44.011 ; Myalgia of auxiliary muscles, head and neck M79.12 ; Atypical facial pain G50.1 and Fear of injections and transfusions F40.231 [facility] [address] [place] [address] 12/31/2023 Igor Wang [facility] [address] [place] [address] 01/05/2024 Igor Wnag [facility] [address] [place] [phone] 11/26/2023 Igor Wang [facility] [address] [place] [phone] 11/30/2023 Igor Wang [facility] [address] [place] [phone] 12/29/2023 Igor Wang [facility] [address] [place] [phone] 12/31/2023 Igor Wang [facility] [address] [place] [phone] 01/05/2024 Igor Wang [facility] [address] [place] [phone] 01/13/2024 Igor Wang [facility] [address] [place] [phone] 01/27/2024 Igor Wang [facility] [address] [place] [phone] 02/13/2024 Igor Wang [facility] [address] [place] [address] 05/04/20[facility] [address] [place] [phone] 06/03/2024 Igor Wang [facility] [address] [place] [address] 07/19/2024 Igor Wang [facility] [address] [place] [phone] 09/21/2024 Igor Wang Chronic cluster headache, not intractable G44.029 [facility] [address] [place] [phone] 10/07/2024 Igor Wang [facility] [address] [place] [phone] 11/03/2024 Igor Wang Assessments Encounter Date Diagnosis [...] Butler Donato lexus, 01/24/2025 11:30:00 AM, [address] [place], [address], Insurance Providers Payer Name Payer Address Payer Phone Subscriber Number Group Number Insured Name Patient Relationship to Insured Coverage Start Date Coverage End Date [facility] / [facility] [place] [facility] [address] [address] [id number] Annette Fenton Self - patient is the insured
--- OUTSIDE RECORDS SUMMARY | 2024-11-25 15:37 | XMS_ITS | Encounter Summary ---
Author Organization [employer] Address [address] [place] [address] [address] [place] [address] Care Team Providers Care Nanoelectronics Engineer Name Role Phone Unavailable Primary Care Provider Unavailabl e Encounter Details Date Type Department Care Team (Latest Contact Info) Description 05/30/2019 Abstract [facility] CONVERSIONS Dental, Provider, DDS Social [...]
--- OUTSIDE RECORDS SUMMARY | 2024-11-25 15:38 | XMS_ITS | Clinical Summary ---
Author Organization [facility] [address] [place] [address] [place] [phone] Phone Care Team Providers Care Correspondence Review Clerk Name Role Phone Lj Murcia MD Primary Care Provider [phone] Allergies Active Allergy Reactions Criticality Noted Date [...] Overview (09/21/2024): Follows with [facility] in [place] Last Assessment & Plan: Pt will continue to see [facility] every 3 months. Will keep diary as above to determine if [facility] seem to be related to IUD. Migraine with aura 01/21/2019 Overview (09/21/2024): Has seen neuro at [facility] in [place] Smoker 11/16/2018 Overview (09/21/2024): Last Assessment & [...] 3 years Intractable episodic cluster headache 05/04/2015 Encounters Date Type Department Care Team Description 11/22/2024 1:14 PM EDT - 11/22/2024 11:59 PM EDT Hospital Encounter Radiology Department - [address] [address] Encounter for screening mammogram for breast cancer Discharge Disposition: Home or Self Care from Last 3 Months Surgical History Surgery Date Site/Laterality Comments TUBAL LIGATION PROCEDURE: HISTORICAL TUBAL LIGATION MULTIPLE TOOTH EXTRACTIONS PROCEDURE: HISTORICAL DENTAL EXTRACTION ENDOMETRIAL ABLATION 06/06/2015 PROCEDURE: MD ENDOMETRIAL ABLTJ THERMAL W/O HYSTEROSCOPIC GUID; COMMENT: Novasure OTHER SURGICAL HISTORY 09/2017 PROCEDURE: HISTORICAL D&C; COMMENT: Using Myosure device for suspected hematometra BREAST SURGERY 2018 Right PROCEDURE: MD UNLISTED PROCEDURE BREAST; COMMENT: removed fibroid & other lump BREAST SURGERY pt doesn't remember Bilateral PROCEDURE: MD UNLISTED PROCEDURE BREAST BREAST BIOPSY pt. doesnt remember when Bilateral PROCEDURE: BX BREAST; PERC NEEDLE CORE W/IMAG GUID; COMMENT: bxs. of both breasts-removed lumps BREAST BIOPSY 2018 Right PROCEDURE: MD BX BREAST W/DEVICE 1ST LESION ULTRASOUND GUID OTHER SURGICAL HISTORY 05/20/2022 Left PROCEDURE: MD BX BREAST W/DEVICE 1ST LESION STEREOTACTIC GUID; [...] Sexual Orientation Not on file Obstetrics History Para Term AB IAB SAB Ectopic Multiple Livin g Live Births 4 4 4 4 Date Outcome GA Total Labor Labor/2nd/3rd Weight Sex Type Anes PTL Paulette A1 A5 Name Clin Term Term Term Term Last Filed Vital Signs Vital Sign Reading [...] EDT Office Visit Obstetrics and Gynecology - [address] [phone] Yesica Alvarez MD [address] [place], [place] Health Maintenance Due Date Last Done Comments Hepatitis B Vaccines (1 of 3 - 19+ 3-dose series) 1992 Pneumococcal Vaccine: 50+ Years (1 of 2 - PCV) 1992 Pneumococcal Vaccine: Pediatrics (0 to 5 Years) and At-Risk Patients (6 to 64 Years) (1 of 2 - PCV) 1992 DTaP,Tdap,and Td Vaccines (2 - Td or Tdap) 07/03/2007 07/03/1997 Cholesterol Screening (Lipid Panel) 08/16/2022 Colorectal Cancer Screening: Colonoscopy 08/16/2022 Depression Screening 08/16/2022 HIV Screening 08/16/2022 Hepatitis C Screening 08/16/2022 Lung Cancer Screening (Low Dose CT) 08/16/2022 Social Influencers of Health Screening 08/16/2022 Zoster Vaccines (1 of 2) 2023 COVID-19 Vaccine ( season) 2024 Influenza Vaccine (#1) 2024 Breast Cancer Screening 11/22/2026 11/23/19 25, 11/11/2023, 11/11/2023, Additional history exists Cervical Cancer Screening: HPV [...] Encounter for screening mammogram for breast cancer HM HPV Routine 12/03/2021 from Last 3 Months or Most Recently Relevant to Health Maintenance Results * (ABNORMAL) MG Mammo Digital Screening [...] MLO spot compression, targeted ultrasound Mammo Location: [facility], [address] [place] [address], [address], . -------- FINAL REPORT -------- Dictated By: Anna Conrad Dictated Date: 11/23/2024 10:48 ET Assigned Physician: Anna Conrad Reviewed and Electronically Signed By: Anna Conrad Signed Date: 11/23/2024 11:07 ET Workstation ID: [id number] Transcribed By: Self Edit Transcribed Date: 11/23/2024 [...] and MLO spotcompression, targeted ultrasound Mammo Location: [facility], [address] [place] [address], [address], . -------- FINAL REPORT -------- Dictated By: Anna Conrad Dictated Date: 11/23/2024 10:48 ET Assigned Physician: Anna Conrad Reviewed and Electronically Signed By: Anna Conrad Signed Date: 11/23/2024 11:07 ET Workstation ID: [id number] Transcribed By: Self Edit Transcribed Date: 11/23/2024 10:48 ET Lj Murcia MD IMG BI PROCEDURES Final Result * Cervical Cancer Screening: HPV (12/03/2021) Cervical Cancer Screening: HPV negative, abstracted Historical Provider HEALTH MAINTENANCE Final Result from Last 3 Months or Most Recently Relevant to Health Maintenance Insurance [facility] Care Teams Correspondence Review Clerk Relationship Specialty Start Date End Date Lj Murcia MD [address] [place] [phone] PCP - General Internal Medicine 11/02/20
--- OUTSIDE RECORDS SUMMARY | 2024-11-25 15:38 | XMS_ITS | Encounter Summary ---
Author Organization [employer] Address [address] [place] [address] [address] [place] [address] Care Team Providers Care Design Engineering Intern Name Role Phone Unavailable Primary Care Provider Unavailabl e Encounter Details Date Type Department Care Team (Latest Contact Info) Description 12/04/2020 Abstract [facility] CONVERSIONS Dental, Provider, DDS Social History [...]
--- OUTSIDE RECORDS SUMMARY | 2024-11-25 15:38 | XMS_ITS | Data Portability ---
Author Organization [facility] Address [address] [place] [address] Assessment No assessment recorded. Plan of Treatment Reminders Order Date Submit Date Provider Last Modified By Organization Details Last Modified Time Details Appointments None recorded . Lab rapid strep group A, throat 02/06/20 [email or web address] _[facility], [address] [place] [address], [phone], 17:21:55 Referral None recorded . Procedures None recorded . Surgeries None recorded . Imaging None recorded . Medication Orders None recorded . Patient TargetsNo targets recorded. Patient Instructions Encounter Date Encounter Id Patient Instructions Last Modified By Organization Details Last Modified Time 02/05/2023 [id number] upper respirator y infection (cold): care instructions [place] [address] Not available 02/05/2023 17:21:55 Reason for Referral None Reported. Results Created Date Observation Date Name Description Value Unit Range Abnormal Flag Note LastModifiedBy Organization Detail LastModifiedTime 02/06/2002/05/2023 rapid strep group A, throa t Unknown Analyte Normal = Negati ve Not Available [facility] [address] [place] [address], [phone], 02/05/2023 16:42:30 02/06/2002/05/2023 rapid strep group A, throa t Unknown Analyte negati ve Not Available [facility] [address] [place] [address], [phone], 02/05/2023 16:42:30 Result Notes None recorded. Problems Name Problem SNOMED Code Status Onset Date Resolution Date Notes Provider Name and Address Organization Details Recorded Time Migraine 69218166 Active [facility] [place] [facility] 3 16:40:48 Asthma 983494676 Active 023 [facility] [place] - [facility] 3 16:41:08 Problem Notes None recorded. Procedures Surgical History Date Name Laterality Status Provider Name and Address Organization Details Recorded Time ligation of fallopian tube completed [facility] - [facility] 02/05/2023 16:42:25 ultrasonography guided transcervical radiofrequency ablation of uterine fibroid completed [facility] 02/05/2023 16:43:30 Imaging Results None recorded. Procedure Notes None recorded. Medical Equipment None Reported. Allergies Allergen ID Allergen Name Allergen Category Reaction Reaction Severity Criticality Documentation Date Start Date Code Code System Note Provider Name and Address Organization Details Recorded Time 831428 Vaccine product containin g only Clostridi um tetani antigen (medicina l product) medicatio n fever Not available Not available 02/05/2023 97377 2003 SNOMED [facility] [place] - [facility] 3 16:41:48 Medications Name [...] Updated DateTime 3 162.56 cm 29.2 kg/m2 88502.7 g 6 20 /min 98 % 98 % 74 /min 97.9 [degF] 152 mm[Hg] 90 mm[Hg] [facility] - [facility] 3 16:44:31 Social History Question Answer Notes LastModified by Organizat ion Details LastModified Time Tobacco Smoking Status Current Every Day Smoker J[facility] - [facility] 02/05/2023 16:42:08 What Is Your Level Of Alcohol Consumption? None Information not available 02/05/2023 How Much Tobacco Do You Smoke? 0.5 PPD [email or web address] Information not available 02/05/2023 Do You Use Any Illicit Or Recreational Drugs? No [email or web address] Information not available 02/05/2023 Have You Recently Traveled Abroad? No [email or web address] Information not available 02/05/2023 Do You Or Have You Ever Used Any Other Forms Of Tobacco Or Nicotine? No [email or web address] Information not available 02/05/2023 Sex: Unknown Functional Status None recorded. Mental Status None recorded. Family History Relationship Description Onset Age of this Age Resolved Age Notes LastModified by Organization Details LastModified Time Father No current problems or disability Not available 02/05 16:41:50 Mother No current problems or disability [email or web address] Not available 02/05 16:41:50 Medical History No medical history recorded. Gynecological History Statement/Question Response Date of LMP 12/06/2022 Is there any chance of ? No Obstetrics History GPAL:G 0 P 0 0 0 0 Past Encounters Encounter ID Performer Location Encounter Start Date Encounter Closed Date Diagnosis/Indication Diagnosis SNOMED-CT Code Diagnosis ICD10 Code Diagnosis Note [id number] [address] [place] [address] 07/13/2021 10:53:30 07/13/2021 14:09:05 [id number] [address] [place] [address] 12/10/2017 19:23:49 12/10/2017 20:20:45 [id number] [address] [place] [address] 04/24/2018 15:11:26 04/24/2018 15:56:43 [id number] [address] [place] [address] 01/20/2020 12:58:17 01/20/2020 13:43:31 [id number] [address] [facility] [place] [address] 05/03/2020 17:21:25 05/03/2020 18:34:07 [id number] [address] [facility] [place] [address] 01/24/2022 11:30:23 01/24/2022 12:43:54 [id number] [address] [facility] [place] [address] 04/17/2019 16:44:12 04/17/2019 17:05:41 [id number] [address] [facility] [place] [address] 07/27/2018 11:56:43 07/27/2018 13:09:15 [id number] Yani Bonilla MD [address] [facility] [place] [address] 02/05/2023 16:23:41 02/05/2023 17:23:27 Upper respiratory infection [id number] J06.9 - Use the medication s prescribed [...] Ford Member ID Guarantor Name 01/20/2020 1 [facility] PLAN (MEDICAID HMO) [place] Annette Fenton [id number] Annette Fenton 05/03/2020 1 [facility] (MEDICAID HMO) ELE Annette Sukumar [place] [id number] Annette Sukumar [place] 07/13/2021 1 [facility] (MEDICAID HMO) LEE Annette M [place]o [id number] Annette Sukumar [place] 01/24/2022 1 [facility] (MEDICAID HMO) ELE Annette M [place] [id number] Annette Sukumar [place] 02/05/2023 1 [facility] (MEDICAID HMO) ELE Annette Sukumar [place] [id number] Annette Fenton Notes Date Note Type Note Provider Name and Address Organization Details Recorded Time 02/05/2023 text/html Sore throatRepor lm bypatient.Location:t hroat Quality:hurts to swallow Onset/Timin days Associated Symptoms:no shortness of breath; no wheezing;sore throat;nasal congestion;sinus pain/ congestion Yani Bonilla MD [address] [place] [address] [place], [address], [place] - [facility] 02/05/2023 19:49:54 OBGyn Episode No OBEpisode recorded.
--- OUTSIDE RECORDS SUMMARY | 2024-11-25 15:38 | XMS_ITS ---
Author Organization [facility] Address [address] [place] [address] Care Team Providers Care Developer Advocate Name Role Phone TwinLj melendez Primary Care Provider Igor Gil Unavailable [phone] Encounters Encounter Location Date Provider Diagnosis [facility] [address] [place] [address] 11/03/2024 Igor Wang Plan Of Treatment Next Appt Details Provider Name:Igor alberts, 01/24/2025 11:30:00 AM, [address] [place], [address], Progress Notes * Kenrick SOTOOB:1975 ( 49 yo F)Acc No.[id number]:11/03/2024 Patient:?Annette SOTO :1975???Age:49 Y???Sex:Female Address:[address] [place] [address], [address] * true * Date:? Generated for Printi ng/Faxing/eTransmitting on:?11/25/2024 03:38 PM EDT
== END 2024-11-25 15:17 | disposition home or self-care (01) ==
LOC: HO.HMCC 13:16
PROVIDERS: PCP Internal Medicine; Visit Provider Internal Medicine
DX: R31.29 Other microscopic hematuria (principal); F17.210 Nicotine dependence, cigarettes, uncomplicated; R45.89 Other symptoms and signs involving emotional state; R73.01 Impaired fasting glucose; R92.8 Other abnormal and inconclusive findings on diagnostic imaging of breast; E55.9 Vitamin D deficiency, unspecified

== ENCOUNTER 2024-12-19 14:06 | Outpatient (AMB) | payer OTHER, SELFPAY ==
--- NOTE | 2024-12-19 14:15 | MHC.OFFVIS ---
Vital Signs 12/19/24 14:16 Height 5 ft 4 in Weight 172 lb 13.478 oz BMI 29.7 BP 130/76 Blood Pressure Location Lt brachial Position Sitting Pulse 79 Pulse Source Pulse Oximeter Intake Visit Reasons: 3m follow up Intake Note: 3 th f/up Special Services Supervisor Required: No Accompanied by: Self / Same As Patient Allergies epinephrine [From EPIFRIN] Allergy (Intermediate, Verified 11/25/24 13:17) HEADACHES AND TACHYCARDIA Iodinated Contrast Media [IVP DYE] Allergy (Intermediate, Verified 11/25/24 13:17) DIFFICULTY BREATHING amoxicillin Allergy (Unknown, Verified 11/25/24 13:17) itchy tongue cantaloupe [CANTALOUPE] Allergy (Unknown, Verified 11/25/24 13:17) SHORTNESS OF BREATH cheese [CHEESE] Allergy (Unknown, Verified 11/25/24 13:17) UNKNOWN schulz [SCHULZ] Allergy (Unknown, Verified 11/25/24 13:17) SHORTNESS OF BREATH divalproex sodium [From DEPAKOTE] Allergy (Unknown, Verified 11/25/24 13:17) oral bumps fish derived [FISH] Allergy (Unknown, Verified 11/25/24 13:17) HIVES grapefruit [GRAPEFRUIT] Allergy (Unknown, Verified 11/25/24 13:17) UNKNOWN Nitrate Analogues [NITRATE ANALOGUES] Allergy (Unknown, Verified 11/25/24 13:17) UNKNOWN nut - unspecified [NUTS] Allergy (Unknown, Verified 11/25/24 13:17) SHORTNESS OF BREATH paroxetine [From PAXIL] Allergy (Unknown, Verified 11/25/24 13:17) somulence tetanus and diphtheria toxoids Allergy (Unknown, Verified 11/25/24 13:17) fever/hallucinations environmental Allergy (Unknown, Uncoded 11/09/24 08:05) unknown Medication List - Last Reconciled 12/19/24 by Luis Kearney MD alprazolam 0.25 mg PO DAILY PRN 90 days bisacodyl (Dulcolax (bisacodyl)) 20 mg (4 x 5 mg) PO ONCE 1 day cetirizine 10 mg PO DAILY fluticasone propionate 220 mcg/actuation 2 puffs inhalation BID ibuprofen 600 mg PO BID PRN meclizine 25 mg PO TID PRN 14 days naratriptan mg PO onabotulinumtoxinA (Botox) units IM ONCE polyethylene glycol 3350 (Miralax) 17 grams PO DAILY 30 days polyethylene glycol 3350 (Miralax) 238 grams PO ONCE Pulmicort Flexhaler 90 mcg/actuation (budesonide) 1 inh inhalation BID NS Ventolin HFA 90 mcg/actuation (albuterol sulfate) 1 inh inhalation QID PRN 30 days NS verapamil mg PO DAILY HPI Comments Details: 49-year-old female presents today for a new patient visit. She had last seen Dr. Kearney back in 2020. She was at [facility] Emergency Department on 02/04/2024 for palpitations and shortness of breath. She was diagnosed with a respiratory infection. Since she has recovered from the respiratory infection her palpitations have improved and they are on an occasion. Her inhaler helps with the shortness of breath. She had a holter placed as she left [facility] ED and that showed less than 1% of ventricular and supraventricular ectopy. She is a smoker. 09/14/24: She is here for follow-up. She continues to get off and on chest discomfort. She is saying palpitations are stable. She had echocardiography in 03/26/2024 which was essentially normal. She continues to smoke. 12/19/2024: She is here for follow-up. Denying any chest pain or shortness of breath. Recent exercise stress test at good workload was normal. [facility] Medical History Palpitations Atypical chest pain Asthma, moderate Tobacco abuse Surgical History History of breast surgery Hx of tubal ligation Family History Father Alcoholic Mother Elevated cholesterol CVD (cardiovascular disease) History of blood clots Son Anxiety Daughter Hearing loss Daughter Asthma Daughter Acid reflux Sister No problems noted. Other Mental health disorder Substance use disorder Social History Housing: Apartment Alcohol intake: current Alcohol intake frequency: holidays/special occasions only Patient Tobacco Use Status: Current everyday Tobacco user Tobacco use type: Cigarette Cigarette Packs Per Day: 1 Cigarettes Per Day: 20 Years Smoked: 30 e-Cigarette/Vaping Use: Never Used service: No Current occupational status: unemployed Cognitive needs: No Hearing needs: No Vision needs: No Review of Systems Const Denies chills, Denies fatigue, Denies fever(s), Denies frequent falls, Denies weakness, Denies weight gain and Denies weight loss ENT Denies dizziness Card Denies chest pain, Denies leg edema, Denies lightheadedness, Denies palpitations, Denies dyspnea and Denies dyspnea on exertion Resp Denies cough, Denies dyspnea and Denies dyspnea on exertion GI Denies hematochezia Musc Denies abnormal gait, Denies muscle weakness, Denies numbness, Denies radiating pain into limb and Denies tingling Neuro Denies abnormal gait, Denies dizziness, Denies frequent falls, Denies numbness, Denies tingling and Denies weakness Endo Denies fatigue and Denies palpitations Physical Exam Vital Signs: Last Vital Signs Pulse 79 12/19/24 14:16 BP 130/76 12/19/24 14:16 BMI result Body Mass Index 29.7 GENERAL APPEARANCE: in no acute distress, pleasant. NECK: no carotid bruit, no jugular venous distention. SKIN: no suspicious lesions, warm and dry. HEART: no murmurs, regular rate and rhythm. LUNGS: clear to auscultation bilaterally. ABDOMEN: soft, nontender. EXTREMITIES: no edema. PERIPHERAL PULSES: equal. NEUROLOGIC: No gross deficits, AAO X 3 Assessment & Plan Assessment & Plan (1) Current tobacco use: Code(s): Z72.0 - Tobacco use Category: Medical (2) Chest pain, non-cardiac: Code(s): R07.89 - Other chest pain Category: Medical Plan [age] year female who is here for follow-up. She has been experiencing atypical chest pains. She underwent an exercise stress test where she did well and had no exertional chest discomfort. She did develop some shortness of breath. No ischemic EKG changes were noted. Blood pressure control is good. We discussed about smoking cessation and she feels her child with mental disorder plays a big role in her anxiety and stress. She is ready to try nicotine gum and we will send that for her. She will follow up with us in a year. Thank you for allowing me to participate in the care of your patient. Please feel free to contact me if you have any questions. Coding Level of Care Code Est Pt Level 4 (95392) Diagnoses Current tobacco use Z72.0 Chest pain, non-cardiac R07.89
[2024-12-19 14:16] VITALS: BP 130/76; PULSE 79; BMI 29.7
--- OUTSIDE RECORDS SUMMARY | 2024-12-19 16:27 | XMS_ITS ---
Author Organization [facility] Address [address] [place] [address] Care Team Providers Care Wool Spotter Name Role Phone Lj Murcia Primary Care Provider Igor Gil [phone] Medications Medication SIG (Take, Route, Frequency, Duration) Notes Start Date End Date Status OnabotulinumtoxinA 200 UNIT Inject into face, head, neck and shoulder per MD IM Injection once for 84 days Active Encounters Encounter Location Date Provider Diagnosis [facility] [address] [place] [address] 10/07/2024 Igor Wang Plan Of Treatment Medication Medication Name Sig Start Date Stop Date Notes OnabotulinumtoxinA 200 UNIT Inject into face, head, neck and shoulder per MD IM Injection once for 84 days Next Appt Details Provider Name:Igor alberts, 01/24/2025 11:30:00 AM, [address] [place] [address], [address], Progress Notes * Kenrick SOTOOB:1975 ( 49 yo F)Acc No.[id number]:10/07/2024 Patient:?Annette SOTO :1975???Age:49 Y???Sex:Female Address:[address] [place] [address], [address] * Refills? Refill OnabotulinumtoxinA Solution Reconstituted, 200 UNIT, IM Injection, 1 Each, Inject into face, head, neck and shoulder per MD, once, 84 days, Refills=4 * true * Date:? Generated for Vu dean/Luann/Dianaitting on:?12/19/2024 04:27 PM EDT
--- OUTSIDE RECORDS SUMMARY | 2024-12-19 16:27 | XMS_ITS | Encounter Summary ---
Author Organization [employer] Address [address] [place] [address] [address] [place] [address] Care Team Providers Care Business Office Coordinator Name Role Phone Unavailable Primary Care Provider Unavailabl e Encounter Details Date Type Department Care Team (Latest Contact Info) Description 05/30/2019 Abstract [facility] CONVERSIONS Dental, Provider, DDS Social History [...]
--- OUTSIDE RECORDS SUMMARY | 2024-12-19 16:27 | XMS_ITS | Patient Health Record ---
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 Referred Provider Igor Wang Referred Address [address] [place], [place],[address], Referred Provider Specialty Neurology Referral Priority Routine Medications Medication SIG (Take, Route, Frequency, Duration) Notes Start Date End Date Status Naratriptan HCl 2.5 MG 1 tablet Orally T wice a day. for 45 days 01/27/2024 Active Verapamil HCl 120 MG TAKE 1 TABLET BY [facility] THREE TIMES A DAY FOR 90 DAYS [...] Risk Notes Problem Fear of medical treatment (304258303) Fear of injections and transfusions (F40.231) Active confirmed Problem Chronic intractable migraine without aura (31613032149965 5) Chronic migraine without aura, intractable, without status migrainosus (G43.719) Active confirmed Problem Menstrual migraine (48048552) Menstrual migraine, not intractable, without status migrainosus (G43.829) Active confirmed Problem Episodic cluster headache (443882089) Episodic cluster headache, intractable (G44.011) Active confirmed Problem Chronic cluster headache (959744987) Chronic cluster headache, not intractable (G44.029) Active confirmed undefined Problem Atypical facial pain (42150360) 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 [address] [place] [address] 12/31/2023 [facility] [address] [place] [address] 01/05/2024 Igor Wang [facility] [address] [place] [address] 12/29/2023 Igor Wang [facility] [address] [place] [address] 12/31/2023 Igor Wang [facility] [address] [place] [address] 01/05/2024 Igor Wang [facility] [address] [place] [address] 01/13/2024 Igor Wang [facility] [address] [place] [address] 01/27/2024 Igor Wang [facility] [address] [place] [address] 02/13/2024 Igor Wang [facility] [address] [place] [address] 05/04/2024 Igor Wang [facility] [address] [place] [address] 06/03/2024 Igor Wang [facility] [address] [place] [phone] 07/19/2024 Igor Wang [facility] [address] [place] [address] 09/21/2024 Igor Wang Chronic cluster headache, not intractable G44.029 [facility] [address] [place] [phone] 10/07/2024 Igor Wang [facility] [address] [place] [address] 11/03/2024 Igor Wang [facility] [address] [place] [address] 06/29/2024 Igor Wang Chronic migraine without aura, intractable, without status migrainosus G43.719 [facility] [address] [place] [address] 02/25/2024 Igor Wang Chronic migraine without aura, intractable, without status migrainosus G43.719 ; Episodic cluster headache, intractable G44.011 ; Myalgia of auxiliary muscles, head and neck M79.12 and Atypical facial pain G50.1 [facility] [address] [place] [address] 05/12/2024 Igor Wang Chronic migraine without aura, intractable, without status migrainosus G43.719 ; Episodic cluster headache, intractable G44.011 ; Myalgia of auxiliary muscles, head and neck M79.12 and Atypical facial pain G50.1 [facility] [address] [place] [address] 08/15/2024 Igor Wang Chronic migraine without aura, intractable, without status migrainosus G43.719 ; Episodic cluster headache, intractable G44.011 ; Myalgia of auxiliary muscles, head and neck M79.12 and Atypical facial pain G50.1 [facility] [address] [place] [phone] 11/01/2024 Igor Wang Chronic migraine without aura, intractable, without status migrainosus G43.719 ; Episodic cluster headache, intractable G44.011 ; Myalgia of auxiliary muscles, head and neck M79.12 ; Atypical facial pain G50.1 and Fear of injections and transfusions F40.231 [facility] [address] [address] 01/27/2024 Igor Wang Chronic cluster headache, not intractable G44.029 [facility] [address] [address] 05/05/2024 Igor Wang Chronic migraine without aura, [...] Provider Name:Igor alberts, 01/24/2025 11:30:00 AM, [address] [place], [address], Insurance Providers Payer Name Payer Address Payer Phone Subscriber Number Group Number Insured Name Patient Relationship to Insured Coverage Start Date Coverage End Date [facility] [employer] [address] [id number] Annette Fenton Self - patient is the insured
--- OUTSIDE RECORDS SUMMARY | 2024-12-19 16:28 | XMS_ITS ---
Author Organization [facility] Address [address] [place] [address] Care Team Providers Care Crane Mechanic Name Role Phone Lj Murcia Primary Care Provider Igor Gil Unavailable [phone] Allergies Allergen (clinical drug ingredient) Drug/Non Drug [...] 120 MG TAKE 1 TABLET BY [facility] THREE TIMES A DAY FOR [...] Risk Notes Problem Fear of medical treatment (497435149) Fear of injections and transfusions (F40.231) Active confirmed Vital Signs Blood pressure systolic 130 mm Hg 02/25/20 25 Blood pressure diastolic 90 mm Hg 025 Heart Rate 77 /min 11/01/2024 Height 64 in 11/01/2024 Weight 164.4 lbs 11/01/2024 BMI 28.22 kg/m2 11/01/2024 Weight-kg 74.57 kg 11/01/2024 Encounters Encounter Location Date Provider Diagnosis [facility] [address] [place] [address] 11/01/2024 Igor Wang Chronic migraine wit hout [...] Botox Provider Name:Igor alonzoy, 01/24/2025 11:30:00 AM, [address] [place] [address], [phone], Procedure Notes * Category Sub-Category Detail Notes [...] units) into ProcerusInject 0.1 mL (5 units) Timber Rider bilateral (total of 10 units),Inject 0.1 mL [...] ice, and extra time for recovery,Lot #, [id number] Date, 12/2026 Progress Notes * Kenrick SOTOOB:1975 ( 49 yo F)Acc No.[id number]:11/01/2024 Patient:?Annette SOTO Provider:?Igor Wang MD?Resourc e:Jessica Santiago :1975???Age:49 Y???Sex:Female D ate:11/01/2024 Address:[address] [place] [address], [place], [place] Pcp:Lj Murcia Subjective: * Chief Complaints: * [...] into Procerus ?Inject 0.1 mL (5 units) Timber Rider bilateral (total of 10 units), ?Inject 0.1 [...] and extra time for recovery, ?Lot #, [id number] ?Expiration Date, 12/2026.?Trigger Point Injection:?Procedure:?The skin was [...] under their own power., ?.? * Procedure Codes:?98627 Chemo denervation for [id number] TRIGGER POINT,3 OR MORE MUSCLE, Modifiers: RANKIN * Follow Up:?12 WEEKS (Reason: Botox) Care Plan: * Problems:? * Billing Information: * Visit Code:? 05153 OFFICE VISIT,EST PT,LEVEL 3. * Procedure Codes:? 87127 Chemodenervation for Migraine. 89220 TRIGGER POINT,3 OR MORE MUSCLE. Modifiers: RANKIN * Sign off status: Completed true * Provider:?Igor Wang MD Date:?10/09 Generated for Vu dean/Luann/eTransmitting on:?12/19/2024 04:27 PM EDT History and Physical Notes * [...]
--- OUTSIDE RECORDS SUMMARY | 2024-12-19 16:28 | XMS_ITS | Encounter Summary ---
Author Organization [employer] Address [address] [place] [address] [address] [place] [address] Care Team Providers Care Regulatory Compliance Manager Name Role Phone Unavailable Primary Care Provider Unavailabl e Encounter Details Date Type Department Care Team (Latest Contact Info) Description 12/04/2020 Abstract [facility] CONVERSIONS Dental, Provider, DDS Social History [...]
--- OUTSIDE RECORDS SUMMARY | 2024-12-19 16:28 | XMS_ITS | Encounter Summary ---
Author Organization [facility] Address [address] [place] [address] Care Team Providers Care Survey Cad Technician Name Role Phone Lj Murcia MD Primary Care Provider [phone] Reason for Visit * Imaging (Routine) - Pending Review Specialty Diagnoses / Procedures Referred By Contac t Referred To Contact Radiology Diagnoses Intermenstrual bleeding Procedures US Pelvis Non OB Complete w Transvaginal Yesica Alvarez MD [address] [place], [place] Phone: tel: fax: [address] Phone: tel: Referral ID Status Reason Start Date Expiration Date V isits Requested Visits Authorized [id number] Pending Review 12/16/2024 12/16/2025 1 1 Encounter Details Date Type Department Care Team (Late st Contact Info) Description 12/19/2024 5:00 PM EDT Hospital Encounter Radiology Department - [address] [phone] Social History Tobacco Use Types Packs/Day Years Used Date Smoking Tobacco: Every Day Cigarettes 0.8 38.3 Started: 09/07/1986 Smokeless Tobacco: Never Alcohol Use Standard Drinks/Week Comments Not Currently 0 (1 standard drink = 0.6 oz pur e alcohol) Comments No Sex and Gender Information Value Date Recorded Sex Assigned at Not on file Legal Sex Female 5:11 AM EST Gender Identity Not on file Sexual Orientation Not on file documented as of this encounter Plan of Treatment Scheduled Orders Name Type Priority Associated Diagnoses Orde r Schedule US Pelvis Non OB Complete w Transvaginal Imaging Routine Intermenstrual bleeding Expected: 12/16/2024, Expires: 12/16/2025 documented as of this encounter Visit Diagnoses Not on filedocumented in this encounter Care Teams Survey Cad Technician Relationship Specialty Start Date End Date Lj Murcia MD [address] [place] [address] PCP - General Internal Medicine 11/02/20 documented as of this encounter
--- OUTSIDE RECORDS SUMMARY | 2024-12-19 16:28 | XMS_ITS | Data Portability ---
Author Organization [facility] Address [address] [place] [address] Assessment No assessment recorded. Plan of Treatment Reminders Order Date Submit Date Provider Last Modified By Organization Details Last Modified Time Details Appointments None recorded . Lab rapid strep group A, throat 02/06/20 [email or web address] _[facility], [address] [place] [address], [phone], 17:21:55 Referral None recorded . Procedures None recorded . Surgeries None recorded . Imaging None recorded . Medication Orders None recorded . Patient TargetsNo targets recorded. Patient Instructions Encounter Date Encounter Id Patient Instructions Last Modified By Organization Details Last Modified Time 02/05/2023 [id number] upper respirator y infection (cold): care instructions [place] [address] Not available 02/05/2023 17:21:55 Reason for Referral None Reported. Results Created Date Observation Date Name Description Value Unit Range Abnormal Flag Note LastModifiedBy Organization Detail LastModifiedTime 02/06/2002/05/2023 rapid strep group A, throa t Unknown Analyte Normal = Negati ve Not Available [facility] [address] [place] [address], [phone], 02/05/2023 16:42:30 02/06/2002/05/2023 rapid strep group A, throa t Unknown Analyte negati ve Not Available [facility] [address] [place] [address], [phone], 02/05/2023 16:42:30 Result Notes None recorded. Problems Name Problem SNOMED Code Status Onset Date Resolution Date Notes Provider Name and Address Organization Details Recorded Time Migraine 36404229 [facility] [place] [facility] 3 16:40:48 Asthma 592295207 Active 023 [facility] [place] - [facility] 3 16:41:08 Problem Notes None recorded. Procedures Surgical History Date Name Laterality Status Provider Name and Address Organization Details Recorded Time ligation of fallopian tube completed [facility] - [facility] 02/05/2023 16:42:25 ultrasonography guided transcervical radiofrequency ablation of uterine fibroid completed [facility] 02/05/2023 16:43:30 Imaging Results None recorded. Procedure Notes None recorded. Medical Equipment None Reported. Allergies Allergen ID Allergen Name Allergen Category Reaction Reaction Severity Criticality Documentation Date Start Date Code Code System Note Provider Name and Address Organization Details Recorded Time 134686 Vaccine product containin g only Clostridi um tetani antigen (medicina l product) medicatio n fever Not available Not available 02/05/2023 51088 2003 SNOMED [facility] [place], [place] - [facility] 3 16:41:48 Medications Name [...] Updated DateTime 3 162.56 cm 29.2 kg/m2 46975.7 g 6 20 /min 98 % 98 % 74 /min 97.9 [degF] 152 mm[Hg] 90 mm[Hg] [facility] - [facility] 3 16:44:31 Social History Question Answer Notes LastModified by Organizat ion Details LastModified Time Tobacco Smoking Status Current Every Day Smoker J[facility] Norris - [facility] 02/05/2023 16:42:08 What Is Your Level Of Alcohol Consumption? None [email or web address] Information not available 02/05/2023 How Much Tobacco Do You Smoke? 0.5 PPD [email or web address] Information not available 02/05/2023 Do You Use Any Illicit Or Recreational Drugs? No [email or web address] Information not available 02/05/2023 Have You Recently Traveled Abroad? No Information not available 02/05/2023 Do You Or Have You Ever Used Any Other Forms Of Tobacco Or Nicotine? No Information not available 02/05/2023 Sex: Unknown Functional Status None recorded. Mental Status None recorded. Family History Relationship Description Onset Age of this Age Resolved Age Notes LastModified by Organization Details LastModified Time Father No current problems or disability [email or web address] Not available 02/05 16:41:50 Mother No current problems or disability [email or web address] Not available 02/05 16:41:50 Medical History No medical history recorded. Gynecological History Statement/Question Response Date of LMP 12/06/2022 Is there any chance of ? No Obstetrics History GPAL:G 0 P 0 0 0 0 Past Encounters Encounter ID Performer Location Encounter Start Date Encounter Closed Date Diagnosis/Indication Diagnosis SNOMED-CT Code Diagnosis ICD10 Code Diagnosis Note [id number] [address] [place] [address] 07/13/2021 10:53:30 07/13/2021 14:09:05 [id number] [address] [place] [address] 12/10/2017 19:23:49 12/10/2017 20:20:45 [id number] [address] [place] [address] 04/24/2018 15:11:26 04/24/2018 15:56:43 [id number] [address] [place] [address] 01/20/2020 12:58:17 01/20/2020 13:43:31 [id number] [address] [facility] [place] [address] 05/03/2020 17:21:25 05/03/2020 18:34:07 [id number] [address] [facility] [place] [address] 01/24/2022 11:30:23 01/24/2022 12:43:54 [id number] [address] [facility] [place] [address] 04/17/2019 16:44:12 04/17/2019 17:05:41 [id number] [address] [facility] [place] [address] 07/27/2018 11:56:43 07/27/2018 13:09:15 [id number] Yani Bonilla MD [address] [facility] [place] [address] 02/05/2023 16:23:41 02/05/2023 17:23:27 Upper respiratory infection 12874655 J06.9 - Use the medication s prescribed [...] Ford Member ID Guarantor Name 01/20/2020 1 [facility]AN (MEDICAID HMO) [place] Annette Fenton [id number] Annette Fenton 05/03/2020 1 [facility] (MEDICAID HMO) ELE Annette Sukumar Eliceo [id number] Annette Sukumar Eliceo 07/13/2021 1 [facility] (MEDICAID HMO) [place] Annette M Eliceo [id number] Annette Sukumar Eliceo 01/24/2022 1 [facility] (MEDICAID HMO) [place] Annette M Eliceo [id number] Annette Sukumar Eliceo 02/05/2023 1 [facility] (MEDICAID HMO) [place] Annette Sukumar Eliceo [id number] Annette Fenton Notes Date Note Type Note Provider Name and Address Organization Details Recorded Time 02/05/2023 text/html Sore throatRepor lm bypatient.Location:t hroat Quality:hurts to swallow Onset/Timin days Associated Symptoms:no shortness of breath; no wheezing;sore throat;nasal congestion;sinus pain/ congestion Yani Bonilla MD [address] [place] [address] [place], [address], [place] - [facility] 02/05/2023 19:49:54 OBGyn Episode No OBEpisode recorded.
--- OUTSIDE RECORDS SUMMARY | 2024-12-19 16:28 | XMS_ITS | Clinical Summary ---
Author Organization [facility] [address] [place] [address] [place] [phone] Phone Care Team Providers Care Water Softener Installer Name Role Phone Lj Murcia MD Primary Care Provider [phone] Allergies Active Allergy Reactions Criticality Noted Date Comments Divalproex Hives 05/04/2015 Paroxetine Hcl 05/04/2015 Paxil [fd&c Blue #2 Al Nicole-paroxetine] Medications albuterol HFA (PROAIR HFA ; PROVENTIL HFA ; VENTOLIN HFA) 90 mcg/actuation inhaler Inhale 2 puffs by mouth every 4 (four) hours if needed. Active cetirizine HCl (ZYRTEC ORAL) Take by mouth. Activ e fluticasone HFA (FLOVENT HFA) 110 mcg/actuation inhaler Inhale 1 puff by mouth 2 (two) times a day. Active ibuprofen (ADVIL,MOTRIN ) 600 mg tablet Take 1 Tab by mouth every 6 hours as needed for Pain. 016 Active metroNIDAZOLE (METROGEL) 0.75 % (37.5mg/5 gram) vaginal gel Si applicator full after menses & Si applicator full nightly for 5 nights 022 Active naratriptan (AMERGE) 2.5 mg tablet Take 1 tablet (2.5 mg total) by mouth 2 (two) times a day. Active ONABOTULINUMT OXINA INJ OnabotulinumtoxinA (BOTOX IJ)- Inject as directed. Active polyethylene glycol 3350 (MIRALAX ORAL) Take by mouth. Activ e verapamiL (CALAN) 120 mg tablet Take 1 tablet (120 mg total) by mouth 3 (three) times a day. Acti ve terbinafine (LamISIL AT) 1 % cream Apply a thin layer to affected area twice daily for two weeks. 30 g 025 Active terbinafine (LamISIL) 250 mg tablet Take 1 tablet (250 mg total) by mouth 1 (one) time each day for 14 days. 14 each 025 2024 Discontinued Active Problems Problem Noted Date Diagnosed Date Tinea corporis 12/16/2024 Assessment & Plan (12/17/2024 9:04 AM EDT): Will treat with terbinafine Intermenstrual bleeding 12/16/2024 Assessment & Plan (12/17/2024 9:04 AM EDT): Will obtain US to evaluate for intracavitary pathology. Could just be menopausal transition. Cluster headache 01/21/2019 Overview (09/21/2024): Follows with [facility] [place] Last Assessment & Plan: Pt will continue to see [facility] every 3 months. Will keep diary as above to determine if [facility] seem to be related to IUD. Migraine with aura 01/21/2019 Overview (09/21/2024): Has seen neuro at [facility] [place] Smoker 11/16/2018 Overview (09/21/2024): Last Assessment & Plan: Encouraged smoking cessation to improve chances of erradication of BV. Uterine leiomyoma 10/18/2018 Overview (09/21/2024): Last Assessment & Plan: Reviewed US findings and natural history of fibroids. No intervention necessary at this time. Pap smear of cervix shows high risk HPV present 10/08/2016 Overview (09/21/2024): Repeat 09/2017 normal and neg HPV, repeat co-testing in 3 years Intractable episodic cluster headache 05/04/2015 Resolved Problems Problem Noted Date Diagnosed Date Resolved Date Bacterial vaginosis 03/06/2021 12/18/19 Overview (09/21/2024): Last Assessment & Plan: Given recurrent, will treat for 5 days followed by once after menses. Trichomonas antigen sent to ensure not an additional cause of sx. Vaginal discharge 03/06/2021 12/17/2024 Overview (09/21/2024): Last Assessment & Plan: C/w BV. Treated with Metrogel as noted. I recommended she treat with Metrogel once after menses to avoid future symptoms. She will try this. May resolve now that IUD has been removed. Displacement of intrauterine contraceptive device 12/13/2020 12/17/2024 Overview (09/21/2024): Last Assessment & Plan: Recommended [...] difficulty. The patient tolerated the procedure well. Dysmenorrhea 10/18/2018 12/17/2024 Overview (09/21/2024): Last Assessment & Plan: Improved and likely transitioning to menopause. Will continue current treatment and consider starting POP if sx worsen again. She will call if this is the case. Encounters Date Type Department Care Team Description 12/19/2024 5:00 PM EDT Hospital Encounter Radiology Department - [address] [address] 12/16/2024 3:30 PM EDT Office Visit Obstetrics and Gynecology - [address] [phone] Yesica Alvarez MD Encounter for gynecological examination with abnormal finding (Primary Dx); Intermenstrual bleeding; Tinea corporis 12/16/2024 Telephone Obstetrics and Gynecology - [address] [phone] Yesica Alvarez MD 12/05/2024 1:46 PM EDT - 12/05/2024 11:59 PM EDT Hospital Encounter Radiology Department - [address] [phone] Abnormal mammogram Discharge Disposition: Home or Self Care 12/05/2024 1:46 PM EDT - 12/05/2024 11:59 PM EDT Hospital Encounter Radiology Department - [address] [phone] Abnormal mammogram Discharge Disposition: Home or Self Care 11/22/2024 1:14 PM EDT - 11/22/2024 11:59 PM EDT Hospital Encounter Radiology Department - [address] [phone] Encounter for screening mammogram for breast cancer Discharge Disposition: Home or Self Care from Last 3 Months Surgical History Surgery Date Site/Laterality Comments TUBAL LIGATION PROCEDURE: HISTORICAL TUBAL LIGATION MULTIPLE TOOTH EXTRACTIONS PROCEDURE: HISTORICAL DENTAL EXTRACTION ENDOMETRIAL ABLATION 06/06/2015 PROCEDURE: NE ENDOMETRIAL ABLTJ THERMAL W/O HYSTEROSCOPIC GUID; COMMENT: Daysi OTHER SURGICAL HISTORY 09/2017 PROCEDURE: HISTORICAL D&C; COMMENT: Using Myosure device for suspected hematometra BREAST SURGERY 2018 Right PROCEDURE: NE UNLISTED PROCEDURE BREAST; COMMENT: removed fibroid & other lump BREAST SURGERY pt doesn't remember Bilateral PROCEDURE: NE UNLISTED PROCEDURE BREAST BREAST BIOPSY pt. doesnt remember when Bilateral PROCEDURE: BX BREAST; PERC NEEDLE CORE W/IMAG GUID; COMMENT: bxs. of both breasts-removed lumps BREAST BIOPSY 2018 Right PROCEDURE: NE BX BREAST W/DEVICE 1ST LESION ULTRASOUND GUID OTHER SURGICAL HISTORY 05/20/2022 Left PROCEDURE: NE BX BREAST W/DEVICE 1ST LESION STEREOTACTIC GUID; [...] SAB Ectopic Multiple Livin g Live Births 6 4 4 2 2 4 4 Date Outcome GA Total Labor Labor/2nd/3rd Weight Sex Type Anes PTL Paulette A1 A5 Name Clin Term Vag-S pont Living Term Vag-S pont Living Term Vag-S pont Living Term Vag-S pont Living IAB IAB Last Filed Vital Signs Vital Sign Reading Time Taken Comments Blood Pressure 134/80 12/16/2024 3:40 PM EDT Pulse 78 12/16/2024 3:40 PM EDT Temperature - - Respiratory Rate 16 12/16/2024 3:40 PM EDT Oxygen Saturation - - Inhaled Oxygen Concentration - - Weight 77.3 kg (170 lb 6.4 oz) 12/16/2024 3:40 P M EDT Height 165.1 cm (5' 5 ) 12/16/2024 3:40 PM EDT Body Mass Index 28.36 12/16/2024 3:40 PM EDT Plan of Treatment Upcoming Encounters Date Type Department Care Team (Late st Contact Info) Description 12/19/2024 5:00 PM EDT Hospital Encounter Radiology Department - [address] [phone] Health Maintenance Due Date Last Done Comments [...] of 2) 2023 COVID-19 Vaccine ( - season) 2024 Influenza Vaccine (Season Ended) 2025 Cervical Cancer Screening: HPV 12/03/2026 12/03/2021 Breast Cancer Screening 12/05/2026 12/06/19, 11/22/2024, 11/11/2023, Additional history exists HIB Vaccines Aged Out No longer eligi [...] age to complete this topic Meningococcal B Vaccine Aged Out No l onger eligible based on patient's age to complete this topic RSV Immunization Patients Under 20 months Aged Out No longer eligible based on patient's age to complete this topic Varicella Vaccines Aged Out No longer eligible based on patient's age to complete this topic Procedures Procedure Name Priority Date/Time Associated Diagnosis Comments US BREAST LIMITED LEFT Routine 12/05/2024 2:11 PM EDT Abnormal mammogram MG MAMMO DIGITAL DIAGNOSTIC W MEJIA LEFT Routine 12/05/2024 1:58 PM EDT Abnormal mammogram MG MAMMO DIGITAL SCREENING W MEJIA BILAT Routine 11/22/2024 1:35 PM EDT Encounter for screening mammogram for breast cancer HPV Routine 12/03/2021 from Last 3 Months or Most Recently Relevant to Health Maintenance Results * US Breast Limited Left (12/05/2024 2:11 PM EDT) Anatomical Region Laterality Modality Breast Left Ultrasound 12/16/2024 11:0 5 AM EDT Narrative 12/16/2024 11:07 AM EDT Left breast ultrasound: See combined report with diagnostic mammogram of the same day. BIRADS 2-benign -------- FINAL REPORT -------- Dictated By: Kate Kiran Dictated Date: 12/16/2024 11:05 ET Assigned Physician: Kate Kiran Reviewed and Electronically Signed By: Kate Kiran Signed Date: 12/16/2024 11:07 ET Workstation ID: [id number] Transcribed By: Self Edit Transcribed Date: 12/16/2024 11:05 ET Procedure Note Kate Kiran MD - 12/16/2024 Left breast ultrasound: See combined report with diagnostic mammogram ofthe same day. BIRADS 2-benign -------- FINAL REPORT -------- Dictated By: Kate Kiran Dictated Date: 12/16/2024 11:05 ET Assigned Physician: Kate Kiran Reviewed and Electronically Signed By: Kate Kirna Signed Date: 12/16/2024 11:07 ET Workstation ID: [id number] Transcribed By: Self Edit Transcribed Date: 12/16/2024 11:05 ET us Lj Murcia MD IMG US PROCEDURES Final Result * MG Mammo Digital Diagnostic w Mejia Left (12/05/2024 1:58 PM EDT) Anatomical Region Laterality Modality Breast Left Mammography 12/05/2024 2:01 PM EDT Impressions 12/05/2024 2:14 PM EDT Benign. ??Findings and recommendations were conveyed to the patient. ? BI-RADS CATEGORY: 2 - BENIGN RECOMMENDATION: Return to annual mammography. Return to annual mammography. Return to annual mammography. Return to annual mammography. Mammo Location: [facility], [address] [place] [address], [phone], . -------- FINAL REPORT -------- Dictated By: Kate Kiran Dictated Date: 12/05/2024 14:01 ET Assigned Physician: Kate Kiran Reviewed and Electronically Signed By: Kate Kiran Signed Date: 12/05/2024 14:14 ET Workstation ID: [id number] Transcribed By: Self Edit Transcribed Date: 12/05/2024 14:06 ET Narrative 12/05/2024 2:14 PM EDT CLINICAL: 49 years old, Female, focal asymmetry medial lower left breast on screening mammogram of 11/22/2024.. COMPARISON: Mammograms dating back to 08/04/2018. ?? FINDINGS: MAMMOGRAPHY TECHNIQUE: CC, spot compression CC, and spot compression MLO views were obtained digitally with 3-D mammogram (digital breast tomosynthesis). ??Computer-aided detection was utilized in evaluation of this exam (CAD). Focal asymmetry in the medial lower left breast is a persistent finding. BREAST DENSITY: C - The breasts are heterogeneously dense which may obscure small masses. ULTRASOUND TECHNIQUE: Ultrasound evaluation of the medial lower left breast was performed. There is a 1.9 x 1.6 x 1.0 cm cyst at the 6 o'clock position 1 cm from the nipple, and this corresponds to the mammographic finding. Procedure Note Kate Kiran MD - 12/05/2024 CLINICAL: 49 years old, Female, focal asymmetry medial lower left breaston screening mammogram of 11/22/2024.. COMPARISON: Mammograms dating back to 08/04/2018. FINDINGS: MAMMOGRAPHY TECHNIQUE: CC, spot compression CC, and spot compression MLO views wereobtained digitally with 3-D mammogram (digital breast tomosynthesis).Computer-aided detection was utilized in evaluation of this exam (CAD). Focal asymmetry in the medial lower left breast is a persistent finding. BREAST DENSITY: C - The breasts are heterogeneously dense which mayobscure small masses. ULTRASOUND TECHNIQUE: Ultrasound evaluation of the medial lower left breast wasperformed. There is a 1.9 x 1.6 x 1.0 cm cyst at the 6 o'clock position 1 cm from thenipple, and this corresponds to the mammographic finding. IMPRESSION: Benign. Findings and recommendations were conveyed to the patient. BI-RADS CATEGORY: 2 - BENIGN RECOMMENDATION: Return to annual mammography. Return to annual mammography. Return toannual mammography. Return to annual mammography. Mammo Location: [facility], [address] [place] [address], [phone], . -------- FINAL REPORT -------- Dictated By: Kate Kiran Dictated Date: 12/05/2024 14:01 ET Assigned Physician: Kate Kiran Reviewed and Electronically Signed By: Kate Kiran Signed Date: 12/05/2024 14:14 ET Workstation ID: [id number] Transcribed By: Self Edit Transcribed Date: 12/05/2024 14:06 ET Lj Murcia MD IMG BI PROCEDURES Final Result * (ABNORMAL) MG Mammo Digital Screening w [...] MLO spot compression, targeted ultrasound Mammo Location: [facility], [address] [place] [address], [phone], . -------- FINAL REPORT -------- Dictated By: Anna Conrad Dictated Date: 11/23/2024 10:48 ET Assigned Physician: Anna Conrad Reviewed and Electronically Signed By: Anna Conrad Signed Date: 11/23/2024 11:07 ET Workstation ID: [id number] Transcribed By: Self Edit Transcribed Date: 11/23/2024 [...] and MLO spotcompression, targeted ultrasound Mammo Location: [facility], [address] [place] [address], [phone], . -------- FINAL REPORT -------- Dictated By: Anna Conrad Dictated Date: 11/23/2024 10:48 ET Assigned Physician: Anna Conrad Reviewed and Electronically Signed By: Anna Conrad Signed Date: 11/23/2024 11:07 ET Workstation ID: [id number] Transcribed By: Self Edit Transcribed Date: 11/23/2024 10:48 ET Lj Murcia MD IMG BI PROCEDURES Final Result * Cervical Cancer Screening: HPV (12/03/2021) Cervical Cancer Screening: HPV negative, abstracted Historical Provider HEALTH MAINTENANCE Final Result from Last 3 Months or Most Recently Relevant to Health Maintenance Insurance [facility] [id number] PLAN Care Teams Water Softener Installer Relationship Specialty Start Date End Date Lj Murcia MD [address] [place] [address] PCP - General Internal Medicine 11/02/20
--- OUTSIDE RECORDS SUMMARY | 2024-12-19 16:28 | XMS_ITS | Clinical Summary ---
Author Organization [employer] Address [address] [place] [address] [address] [place] [address] Care Team Providers Care Catheter Builder Name Role Phone Unavailable Primary Care Provider [...]
--- OUTSIDE RECORDS SUMMARY | 2024-12-19 16:29 | XMS_ITS | Encounter Summary ---
Author Organization [facility] [address] Address [address] [place] [address] Care Team Providers Care Humidifier Operator Name Role Phone Lj Murcia MD Primary Care Provider [phone] Reason for Referral * Imaging (Routine) - Pending Review Specialty Diagnoses / Procedures Referred By Contjolie t Referred To Contact Radiology Diagnoses Intermenstrual bleeding Procedures US Pelvis Non OB Complete w Transvaginal Yesica Alvarez MD [address] [place] [address] Phone: tel: fax: [address] Phone: tel: Referral ID Status Reason Start Date Expiration Date V isits Requested Visits Authorized [id number] Pending Review 12/16/2024 12/16/2025 1 1 Reason for Visit * Reason Comments Annual Exam Encounter Details Date Type Department Care Team (Latest Contact Info) Description 12/16/2024 3:30 PM EDT Office Visit Obstetrics and Gynecology - [address] [phone] Yesica Alvarez MD [address] [place] [address] Encounter for gynecological examination with abnormal finding (Primary Dx); Intermenstrual bleeding; Tinea corporis Social History Tobacco Use Types Packs/Day Years [...] on file documented as of this encounter Last Filed Vital Signs Vital Sign Reading [...] Mass Index 28.36 12/16/2024 3:40 PM EDT documented in this encounter Ordered Prescriptions Prescription Sig Dispense Quantity Refills Last Filled Start Date End Date terbinafine (LamISIL AT) 1 % cream Apply a thin layer to affected area twice daily for two weeks. 30 g 12/16/2024 terbinafine (LamISIL) 250 mg tablet Take 1 tablet (250 mg total) by mouth 1 (one) time each day for 14 days. 14 each 12/16/2024 documented in this encounter Progress Notes * Yesica Alvarez MD - 12/17/2024 9:04 AM EDTAssociated Problem(s): Intermenstrual bleeding Will obtain US to evaluate for intracavitary pathology. Could just be menopausal transition. * Yesica Alvarez MD - 12/17/2024 9:04 AM EDTAssociated Problem(s): Tinea corporis Will treat with terbinafine * Yesica Alvarez MD - 12/16/2024 3:30 PM EDT Office note: Annual Exam Encounter Date: 12/16/2024 HPI: Annette Fenton is a 49 y.o. who presents for routine annual exam. Patient's last menstrual period was 12/12/2024. Irregular menses for the past year. Awaiting menopause. Not sexually active. Follows with PCP. Mood is anxious lately. She was given meds for panic from her PCP. Lots of stress with her adopted daughter. She has impulsive behaviors, intrusive thoughts, violent at times. Is going to court to get her out of the house. Walking regularly for exercise. Referred by PCP to Urology forblood in urine. Review of Systems - General ROS: negative Psychological ROS: negative Ophthalmic ROS: negative ENT ROS: negative Allergy and Immunology ROS: negative Hematological and Lymphatic ROS: negative Endocrine ROS: negative Breast ROS: negative for breast lumps Respiratory ROS: no cough, shortness of breath, or wheezing Cardiovascular ROS: no chest pain or dyspnea on exertion Gastrointestinal ROS: no abdominal pain, change in bowel habits, or black or bloody stools Genito-Urinary ROS: no dysuria, trouble voiding, or hematuria Musculoskeletal ROS: negative Neurological ROS: negative Dermatological ROS: negative Health Maintenance and Preventative Care: Health Maintenance: Last mammogram: birads 2, neg Last colonoscopy: never had one, scheduled coming up There is no immunization history on file for this patient. 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 History: Last Pap: 2021 neg, neg HPV H/o abnormal Pap: yes Patient Active Problem List Diagnosis Cluster headache Intractable episodic cluster headache Migraine with aura Pap smear of cervix shows high risk HPV present Smoker Uterine leiomyoma Tinea corporis Intermenstrual bleeding Past Medical History: Diagnosis Date Intractable episodic cluster headache 05/04/2015 DX:Intractable episodic cluster headache Iron deficiency anemia due to chronic blood loss 05/04/2015 DX:Iron deficiency anemia due to chronic blood loss Iron deficiency anemia due to chronic blood loss 05/04/2015 DX:Iron deficiency anemia due to chronic blood loss Menorrhagia 05/04/2015 DX:Menorrhagia Past Surgical History: Procedure Laterality Date BREAST BIOPSY Bilateral pt. doesnt remember when PROCEDURE: BX BREAST; PERC NEEDLE CORE W/IMAG GUID; COMMENT: bxs. of both breasts-removed lumps BREAST BIOPSY Right 2017 PROCEDURE: DC BX BREAST W/DEVICE 1ST LESION ULTRASOUND GUID BREAST SURGERY Right 2017 PROCEDURE: DC UNLISTED PROCEDURE BREAST; COMMENT: removed fibroid & other lump BREAST SURGERY Bilateral pt doesn't remember PROCEDURE: DC UNLISTED PROCEDURE BREAST ENDOMETRIAL ABLATION 06/06/2015 PROCEDURE: DC ENDOMETRIAL ABLTJ THERMAL W/O HYSTEROSCOPIC GUID; COMMENT: Novasure MULTIPLE TOOTH EXTRACTIONS PROCEDURE: HISTORICAL DENTAL EXTRACTION OTHER SURGICAL HISTORY 09/2017 PROCEDURE: HISTORICAL D&C; COMMENT: Using Myosure device for suspected hematometra OTHER SURGICAL HISTORY Left 05/20/2022 PROCEDURE: DC BX BREAST W/DEVICE 1ST LESION STEREOTACTIC GUID; COMMENT: benign TUBAL LIGATION PROCEDURE: HISTORICAL TUBAL LIGATION Family History Problem Relation Name Age of Onset Colon cancer Aunt fath side 60 Breast cancer Neg Hx Ovarian cancer Neg Hx Uterine cancer Neg Hx Pancreatic cancer Neg Hx Prostate cancer Neg Hx Social History Socioeconomic History Marital status: Single Spouse name: Not on file Number of children: Not on file Years of education: Not on file Highest education level: Not on file Occupational History Not on file Tobacco Use Smoking status: Every Day Current packs/day: 0.75 Average packs/day: 0.8 packs/day for 38.3 years (28.7 ttl pk-yrs) Types: Cigarettes Start date: 09/07/1986 Smokeless tobacco: Never Substance and Sexual Activity Alcohol use: Not Currently Drug use: No Sexual activity: Not Currently control/protection: Surgical Comment: TL, SOMETIMES Other Topics Concern Not on file Social History Narrative Not on file Allergies Allergen Reactions Divalproex Hives Paroxetine Hcl Paxil [fd&c Blue #2 Al Nicole-paroxetine] Current Outpatient Medications on File Prior to Visit Medication Sig Dispense Refill albuterol HFA (PROAIR HFA ; PROVENTIL HFA ; VENTOLIN HFA) 90 mcg/actuation inhaler Inhale 2 puffs by mouth every 4 (four) hours if needed. cetirizine HCl (ZYRTEC ORAL) Take by mouth. ibuprofen (ADVIL,MOTRIN) 600 mg tablet Take 1 Tab by mouth every 6 hours as needed for Pain. naratriptan (AMERGE) 2.5 mg tablet Take 1 tablet (2.5 mg total) by mouth 2 (two) times a day. ONABOTULINUMTOXINA INJ OnabotulinumtoxinA (BOTOX IJ)- Inject as directed. polyethylene glycol 3350 (MIRALAX ORAL) Take by mouth. verapamiL (CALAN) 120 mg tablet Take 1 tablet (120 mg total) by mouth 3 (three) times a day. fluticasone HFA (FLOVENT HFA) 110 mcg/actuation inhaler Inhale 1 puff by mouth 2 (two) times a day. metroNIDAZOLE (METROGEL) 0.75 % (37.5mg/5 gram) vaginal gel Si applicator full after menses & Si applicator full nightly for 5 nights (Patient not taking: Reported on 12/16/2024) No current facility-administered medications on file prior to visit. Physical exam: Blood pressure 134/80, pulse 78, resp. rate 16, height 1.651 m (65 ), weight 77.3 kg (170 lb 6.4 oz), last menstrual period 12/12/2024. Body mass index is 28.36 kg/m??. Gen: Alert, cooperative. Well-appearing on today's exam HEENT: head normocephalic without obvious deformity. Cardiovascular: regular rate and rhythm, no m/r/g Lung: clear to auscultation bilaterally, no wheezing, ronchi, normal respiratory effort Breast: Normal appearance, no masses or tenderness, no nipple retraction or dimpling bilaterally. No axillary or supraclavicular lymphadenopathy. Abdomen: Soft,non-tender. No masses palpable, no organomegaly. Extremities: no calf tenderness, discoloration or edema, atraumatic without deformity Skin: Skin color, texture, turgor normal. No rashes or lesions Psych: Mood and affect appropriate. Pelvic: External Genitalia: Exam chaperoned by medical registrar. Normal architecture, without lesions. No inguinal lymphadenopathy. Vagina: Mucosa is pink with normal rugae. No abnormal discharge or lesions. Speculum used for this exam. Cervix: Normal appearance, without discharge or lesions. No cervical motion tenderness. Uterus: Enlarge to about 12-14 weeks size due to known fibroid. Anteverted position. Non-tender. Mobile Adnexa: No adnexal masses or tenderness bilaterally. Perianal area without lesions Assessment/Plan: 49 y.o. 1. Health Maintenance and Screening -Reviewed ASCCP guidelines. Pap smear 2026, yearly pelvic exam. -Reviewed and encouraged diet and exercise for cardiovascular health. -Reviewed breast self awareness. Continue yearly mammogram. -Discussed use of 3 times per week weight bearing exercise, Vitamin D3 and 4 servings of dietary calcium daily for osteoporosis prevention. DEXA at age 63. -Continue to follow with PCP for general medical care, immunizations, colon cancer screening -Family and personal history of cancer reviewed. Bj screening not indicated. Tinea corporis Will treat with terbinafine Intermenstrual bleeding Will obtain US to evaluate for intracavitary pathology. Could just be menopausal transition. Orders Placed This Encounter Procedures US Pelvis Non OB Complete w Transvaginal Standing Status: Future Standing Expiration Date: 12/16/2025 Order Specific Question: In what REGION should this be scheduled? Answer: [facility] [[id number]] Order Specific Question: In what [place] LOCATION should this be scheduled? Answer: [address] [[id number]] Yesica Alvarez MD documented in this encounter Plan of Treatment Upcoming Encounters Date Type Department Care Team (Late st Contact Info) Description 12/19/2024 5:00 PM EDT Hospital Encounter Radiology Department - [address] [address] Scheduled Orders Name Type Priority Associated Diagnoses Orde r Schedule US Pelvis Non OB Complete w Transvaginal Imaging Routine Intermenstrual bleeding Expected: 12/16/2024, Expires: 12/16/2025 documented as of this encounter Visit Diagnoses Diagnosis Encounter for gynecological examination with abnormal finding- Primary Intermenstrual bleeding Metrorrhagia Tinea corporis Dermatophytosis of the body documented in this encounter Discontinued Medications Medication Sig Discontinue Reason Start Date End Da te terbinafine (LamISIL) 250 mg tablet Take 1 tablet (250 mg total) by mouth 1 (one) time each day for 14 days. 12/16/2024 12/16/2024 documented as of this encounter Care Teams Humidifier Operator Relationship Specialty Start Date End Date Lj Murcia MD [address] [place] [id number] PCP - General Internal Medicine 11/02/20 documented as of this encounter
--- OUTSIDE RECORDS SUMMARY | 2024-12-19 16:29 | XMS_ITS | Encounter Summary ---
Author Organization [facility] Address [address] [place] [address] Care Team Providers Care Light Rail Signal Technician Name Role Phone Lj Murcia MD Primary Care Provider [phone] Encounter Details Date Type Department Care Team ([facility] Contact Info) Description 12/16/2024 Telephone Obstetrics and Gynecology - [address] [phone] Yesica Alvarez MD [address] [place] [address] Social History Tobacco Use Types Packs/Day Years [...] as of this encounter Plan of Treatment Upcoming Encounters Date Type Department Care Team (Late Contact Info) Description 12/19/2024 5:00 PM EDT Hospital Encounter Radiology Department - [address] [phone] documented as of this encounter Visit Diagnoses Not on filedocumented in this encounter Care Teams Light Rail Signal Technician Relationship Specialty Start Date End Date Lj Murcia MD [address] [place] [address] PCP - General Internal Medicine 11/02/20 documented as of this encounter
--- OUTSIDE RECORDS SUMMARY | 2024-12-19 16:29 | XMS_ITS ---
Author Organization [facility] Address [address] [place] [address] Care Team Providers Care Technical Service Specialist Name Role Phone [employer]on[employer] Primary Care Provider Igor Gil Unavailable [phone] Encounters Encounter Location Date Provider Diagnosis [facility] [address] [place] [address] 11/03/2024 Igor Wang Plan Of Treatment Next Appt Details Provider Name:Igor alberts, 01/24/2025 11:30:00 AM, [address] [place], [address], Progress Notes * Kenrick SOTOOB:1975 ( 49 yo F)Acc No.[id number]:11/03/2024 Patient:?Annette SOTO :1975???Age:49 Y???Sex:Female Address:[address] [place] [address], [address] * true * Date:? Generated for Printi ng/Faxing/eTransmitting on:?12/19/2024 04:28 PM EDT
== END 2024-12-19 15:11 | disposition home or self-care (01) ==
LOC: HO.HCS 14:06
PROVIDERS: PCP Internal Medicine; Visit Provider Internal Medicine Cardiovascular Disease
DX: Z72.0 Tobacco use (principal); R07.89 Other chest pain
CPT/HCPCS: 99214

== ENCOUNTER → 2024-12-19 14:06 | Outpatient (BNVA) | payer OTHER, SELFPAY | PROVIDERS: PCP Internal Medicine; Visit Provider Internal Medicine Cardiovascular Disease | DX: R07.89 Other chest pain (principal); F17.210 Nicotine dependence, cigarettes, uncomplicated | CPT/HCPCS: 99212 ==

== ENCOUNTER → 2025-01-26 15:25 | Outpatient (BNVA) | payer OTHER, SELFPAY | PROVIDERS: PCP Internal Medicine; Visit Provider Internal Medicine ==

== ENCOUNTER 2025-01-27 11:01 | Outpatient (AMB) | payer OTHER, SELFPAY ==
[2025-01-27 11:05] VITALS: BP 138/82; PULSE 89; O2SAT 98; BMI 29.3
--- NOTE | 2025-01-27 11:05 | A.OFFPC_ITS ---
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 Accompanied by: Self / Same As Patient Allergies epinephrine [From EPIFRIN] Allergy (Intermediate, Verified 01/27/25 11:07) HEADACHES AND TACHYCARDIA Iodinated Contrast Media [IVP DYE] Allergy (Intermediate, Verified 01/27/25 11:07) DIFFICULTY BREATHING amoxicillin Allergy (Unknown, Verified 01/27/25 11:07) itchy tongue cantaloupe [CANTALOUPE] Allergy (Unknown, Verified 01/27/25 11:07) SHORTNESS OF BREATH cheese [CHEESE] Allergy (Unknown, Verified 01/27/25 11:07) UNKNOWN schulz [SCHULZ] Allergy (Unknown, Verified 01/27/25 11:07) SHORTNESS OF BREATH divalproex sodium [From DEPAKOTE] Allergy (Unknown, Verified 01/27/25 11:07) oral bumps fish derived [FISH] Allergy (Unknown, Verified 01/27/25 11:07) HIVES grapefruit [GRAPEFRUIT] Allergy (Unknown, Verified 01/27/25 11:07) UNKNOWN Nitrate Analogues [NITRATE ANALOGUES] Allergy (Unknown, Verified 01/27/25 11:07) UNKNOWN nut - unspecified [NUTS] Allergy (Unknown, Verified 01/27/25 11:07) SHORTNESS OF BREATH paroxetine [From PAXIL] Allergy (Unknown, Verified 01/27/25 11:07) somulence tetanus and diphtheria toxoids Allergy (Unknown, Verified 01/27/25 11:07) fever/hallucinations environmental Allergy (Unknown, Uncoded 11/09/24 08:05) unknown Medication List - Last Reconciled 01/27/25 by Lj Murcia MD alprazolam 0.25 mg PO DAILY PRN 90 days cetirizine 10 mg PO DAILY fluticasone propionate 220 mcg/actuation 2 puffs inhalation BID ibuprofen 600 mg PO BID PRN meclizine 25 mg PO TID PRN 14 days naratriptan mg PO nicotine (polacrilex) 2 mg buccal Q2H onabotulinumtoxinA (Botox) units IM ONCE polyethylene glycol 3350 (Miralax) 17 grams PO DAILY 30 days Pulmicort Flexhaler 90 mcg/actuation (budesonide) 1 inh inhalation BID NS Ventolin HFA 90 mcg/actuation (albuterol sulfate) 1 inh inhalation QID PRN 30 days NS verapamil mg PO DAILY Tobacco use date assessed: 11/25/24 Dental Screening Dental Screen Date: 11/25/24 HPI blood pressure HPI Details History - The patient is a 49-year-old female pr esenting with hypertension and headache management. - Hypertension: Patient reports variable blood pressure readings. Noted an samantha vated systolic blood pressure reading of 138 mmHg during this visit; previous readings at home and in various healthcare settings have fluctuated. Complaints of devices providing inconsistent results and manual readings appearing more reliable. Anxiety about inaccurate readings and past instances of high readings (e.g., 150s systolic). Reports non-adherence to verapamil prescribed for headache through neurology, citing adverse effects like bloating. Has not attempted other antihypertensive therapies due to concerns about efficacy and side effects. Medications that raise blood pressure include naratriptan, taken twice daily. - Chronic Migraine: Patient has a histor y of chronic headaches for which she was prescribed verapamil. She experiences headache flares and was advised by her neurologist for flexible dosing to manage attacks but expresses dissatisfaction with side effects and effectiveness. Verapamil was prescribed more for headache prophylaxis, and recent management has shifted towards finding an alternative. - COPD: She is a chronic smoker with ass ociated pulmonary concerns. Reports history of using a steroid inhaler but discontinued due to dissatisfaction, noticing worsening lung symptoms without inhaler use. Has previously undergone pulmonary function tests with no recent tests planned; reports resistance to additional testing currently due to multiple appointments. Problem List - Essential Hypertension - Chronic Migraine - Chronic Obstructive Pulmonary Disease (COPD) - smoker Patient Instructions - Stop using malfunctioning blood pressu re devices at home; consider replacing them for accurate readings. - Begin taking atenolol as it can help m anage both blood pressure and migraines; take one tablet daily at the same time each day. - Monitor for side effects such as aller gic reactions, rash, and gastrointestinal issues; discontinue if these occur. - Attempt to reduce and eventually stop smoking to improve lung health and potentially reduce COPD progression. - Carry medication bottles during the ne xt visit for review. - Continue with healthy lifestyle practi martita and avoid high salt intake which may affect blood pressure levels. - Return for a follow-up to evaluate blo od pressure and medication efficacy. Review of Systems - General: No fever no chills - Neurological: No headaches no dizziness - Ear nose throat: No sore throat no hearing difficulty no ear pain - Cardiovascular: No syncope, no chest pain, no palpitations - Gastrointestinal: No nausea vomiting or diarrhea - Endocrine: No polyuria polydipsia no heat intolerance - Genitourinary: No dysuria , no blood in urine Physical Exam General: No acute distress HEENT: No acute findings Neck: Supple Respiratory system: Lungs not expanding fully, possible signs of emphysema, no audible wheeze Cardiovascular: S1-S2 regular in rate and rhythm Gastrointestinal: No pain Extremities: No new findings 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 Other Mental health disorder Substance use disorder Social History Housing: Apartment Alcohol intake: current Alcohol intake frequency: holidays/special occasions only Patient Tobacco Use Status: Current everyday Tobacco user Tobacco use type: Cigarette Cigarette Packs Per Day: 1 Cigarettes Per Day: 20 Years Smoked: 30 e-Cigarette/Vaping Use: Never Used service: No Current occupational status: unemployed Cognitive needs: No Hearing needs: No Vision needs: No Questionnaire Thrive Questionnaire Date Thrive assessed: 10/12/24 I am a: Patient What is your living situation today?: I have a steady place to live Within the past 12 months, did the food you bought not last and you didn't have the money to get more?: Never true Within the past 12 months, did you worry whether your food would run out before you got money to buy more?: Never true Do you have trouble paying for medicines?: No Do you have trouble getting transportation to medical appointments?: No Do you have trouble paying your heating and electricity bill?: No Do you have trouble taking care of your child, family member or friend?: No Do you have trouble with day-to-day activities such as bathing, preparing meals, shopping, managing finances, etc.?: No Are you currently unemployed and looking for a job?: No Are you interested in more education?: No Please select the resources that you would like help with: None Currently or been in a relationship where the following occur: No concerns reported THRIVE Score: 0 SUE-7 AMB Questionnaire SUE-7 Date SUE - 7 assessed: 10/12/24 Source: Developed by Drs. Barrington Guy, Caryn Hodge, Ulysses Thurman and colleagues, with an educational carmen from [employer]. Physical exam (Primary Care) Vital Signs: Last Vital Signs Pulse 89 01/27/25 11:05 BP 138/82 01/27/25 11:05 Pulse Ox 98 01/27/25 11:05 Oxygen Delivery Method Room Air 01/27/25 11:05 BMI result Body Mass Index 29.3 Tobacco/Smoking Status: Tobacco use Status Tobacco use date assessed 11/25/24 01/27/25 11:06 Patient Tobacco Use Status Current everyday Tobacco 01/27/25 11:06 Tobacco use type Cigarette 01/27/25 11:06 e-Cigarette/Vaping Use Never Used 01/27/25 11:06 Are you ready to quit: No Tobacco cessation counseling provided: Yes Relapse Prevention: discussed the importance of a supportive environment Number of minutes spent counselin CPT code: 40557 - 4-10 Minutes Thrive Assessment: Date of Thrive Assessment Date Thrive assessed 10/12/24 01/27/25 11:06 Currently or been in a relationship where the following occur: No concerns reported Coding Level of Care Code Est Pt Level 4 (26418) Complex EM visit Add On G2211 Diagnoses Hypertension, essential I10 Intractable migraine without status migrainosus, unspecified migraine type G43.919 Migraine type: unspecified Status migrainosus presence: without status migrainosus Intractability: intractable Moderate persistent asthma without complication J45.40 Asthma persistence: persistent Asthma complication type: uncomplicated Anxiety about health R45.89 Cigarette nicotine dependence without complication F17.210 Nicotine product type: cigarettes Substance use status: uncomplicated Tobacco abuse counseling Z71.6 Additional Codes Vital Signs *Quality* - CPT code: 09335 - 4-10 Minutes ([id number]) Assessment & Plan Assessment & Plan (1) Hypertension, essential: Code(s): I10 - Essential (primary) hypertension Category: Medical (2) Migraine headache: Code(s): G43.909 - Migraine, unspecified, not intractable, without status migrainosus Category: Medical Qualifiers: Migraine type: unspecified Status migrainosus presence: without status migrainosus Intractability: intractable Qualified Code(s): G43.919 - Migraine, unspecified, intractable, without status migrainosus (3) Asthma, moderate: Code(s): J45.909 - Unspecified asthma, uncomplicated Category: Medical Qualifiers: Asthma persistence: persistent Asthma complication type: uncomplicated Qualified Code(s): J45.40 - Moderate persistent asthma, uncomplicated (4) Anxiety about health: Code(s): R45.89 - Other symptoms and signs involving emotional state Category: Medical (5) Nicotine dependence: Code(s): F17.200 - Nicotine dependence, unspecified, uncomplicated Category: Medical Qualifiers: Nicotine product type: cigarettes Substance use status: uncomplicated Qualified Code(s): F17.210 - Nicotine dependence, cigarettes, uncomplicated (6) Tobacco abuse counseling: Code(s): Z71.6 - Tobacco abuse counseling Category: Medical Plan History - The patient is a 49-year-old female presenting with hypertension and headache management. - Hypertension: Patient reports variable blood pressure readings. Noted an elevated systolic blood pressure reading of 138 mmHg during this visit; previous readings at home and in various healthcare settings have fluctuated. Complaints of devices providing inconsistent results and manual readings appearing more reliable. Anxiety about inaccurate readings and past instances of high readings (e.g., 150s systolic). Reports non-adherence to verapamil prescribed for headache through neurology, citing adverse effects like bloating. Has not attempted other antihypertensive therapies due to concerns about efficacy and side effects. Medications that raise blood pressure include naratriptan, taken twice daily. - Chronic Migraine: Patient has a history of chronic headaches for which she was prescribed verapamil. She experiences headache flares and was advised by her neurologist for flexible dosing to manage attacks but expresses dissatisfaction with side effects and effectiveness. Verapamil was prescribed more for headache prophylaxis, and recent management has shifted towards finding an alternative. - COPD: She is a chronic smoker with associated pulmonary concerns. Reports history of using a steroid inhaler but discontinued due to dissatisfaction, noticing worsening lung symptoms without inhaler use. Has previously undergone pulmonary function tests with no recent tests planned; reports resistance to additional testing currently due to multiple appointments. Problem List - Essential Hypertension - Chronic Migraine - Chronic Obstructive Pulmonary Disease (COPD) - smoker Patient Instructions - Stop using malfunctioning blood pressure devices at home; consider replacing them for accurate readings. - Begin taking atenolol as it can help manage both blood pressure and migraines; take one tablet daily at the same time each day. - Monitor for side effects such as allergic reactions, rash, and gastrointestinal issues; discontinue if these occur. - Attempt to reduce and eventually stop smoking to improve lung health and potentially reduce COPD progression. - Carry medication bottles during the next visit for review. - Continue with healthy lifestyle practices and avoid high salt intake which may affect blood pressure levels. - Return for a follow-up to evaluate blood pressure and medication efficacy. Medications: New atenolol 25 mg PO DAILY 30 tabs 0RF
--- OUTSIDE RECORDS SUMMARY | 2025-01-27 11:09 | XMS_ITS | Encounter Summary ---
Author Organization [employer] Address [address] [place] [address] [address] [place] [address] Care Team Providers Care Aerosol Supervisor Name Role Phone Unavailable Primary Care Provider Unavailabl e Encounter Details Date Type Department Care Team (Latest Contact Info) Description 05/30/2019 Abstract [facility] CONVERSIONS Dental, Provider, DDS Social [...]
== END 2025-01-27 11:32 | disposition home or self-care (01) ==
LOC: HO.HMCC 11:02
PROVIDERS: PCP Internal Medicine; Visit Provider Internal Medicine
DX: I10 Essential (primary) hypertension (principal); G43.919 Migraine, unspecified, intractable, without status migrainosus; J45.40 Moderate persistent asthma, uncomplicated; R45.89 Other symptoms and signs involving emotional state; F17.210 Nicotine dependence, cigarettes, uncomplicated; Z71.6 Tobacco abuse counseling

== ENCOUNTER → 2025-01-27 11:01 | Outpatient (BNVA) | payer OTHER, SELFPAY | PROVIDERS: PCP Internal Medicine; Visit Provider Internal Medicine | DX: I10 Essential (primary) hypertension (principal); G43.919 Migraine, unspecified, intractable, without status migrainosus; J44.9 Chronic obstructive pulmonary disease, unspecified; J45.40 Moderate persistent asthma, uncomplicated; R45.89 Other symptoms and signs involving emotional state; F17.210 Nicotine dependence, cigarettes, uncomplicated; Z71.6 Tobacco abuse counseling | CPT/HCPCS: 99212 ==

== ENCOUNTER 2025-02-02 08:16 | Outpatient (AMB) | payer OTHER, SELFPAY ==
--- OUTSIDE RECORDS SUMMARY | 2025-02-02 08:21 | XMS_ITS | Encounter Summary ---
Author Organization [employer] Address [address] [place] [address] [address] [place] [address] Care Team Providers Care Side Boss Name Role Phone Unavailable Primary Care Provider Unavailabl e Encounter Details Date Type Department Care Team (Latest Contact Info) Description 05/30/2019 Abstract [facility] CONVERSIONS Dental, Provider, DDS Social [...]
--- NOTE | 2025-02-02 09:27 | MHC.PC.OV ---
Intake Visit Reasons: medication management Allergies epinephrine [From EPIFRIN] Allergy (Intermediate, Verified 01/27/25 11:07) HEADACHES AND TACHYCARDIA Iodinated Contrast Media [IVP DYE] Allergy (Intermediate, Verified 01/27/25 11:07) DIFFICULTY BREATHING amoxicillin Allergy (Unknown, Verified 01/27/25 11:07) itchy tongue cantaloupe [CANTALOUPE] Allergy (Unknown, Verified 01/27/25 11:07) SHORTNESS OF BREATH cheese [CHEESE] Allergy (Unknown, Verified 01/27/25 11:07) UNKNOWN schulz [SCHULZ] Allergy (Unknown, Verified 01/27/25 11:07) SHORTNESS OF BREATH divalproex sodium [From DEPAKOTE] Allergy (Unknown, Verified 01/27/25 11:07) oral bumps fish derived [FISH] Allergy (Unknown, Verified 01/27/25 11:07) HIVES grapefruit [GRAPEFRUIT] Allergy (Unknown, Verified 01/27/25 11:07) UNKNOWN Nitrate Analogues [NITRATE ANALOGUES] Allergy (Unknown, Verified 01/27/25 11:07) UNKNOWN nut - unspecified [NUTS] Allergy (Unknown, Verified 01/27/25 11:07) SHORTNESS OF BREATH paroxetine [From PAXIL] Allergy (Unknown, Verified 01/27/25 11:07) somulence tetanus and diphtheria toxoids Allergy (Unknown, Verified 01/27/25 11:07) fever/hallucinations environmental Allergy (Unknown, Uncoded 11/09/24 08:05) unknown Medication List - Last Reconciled 02/02/25 by Lj Murcia MD alprazolam 0.25 mg PO DAILY PRN 90 days atenolol 25 mg PO DAILY cetirizine 10 mg PO DAILY fluticasone propionate 220 mcg/actuation 2 puffs inhalation BID ibuprofen 600 mg PO BID PRN meclizine 25 mg PO TID PRN 14 days naratriptan mg PO nicotine (polacrilex) 2 mg buccal Q2H onabotulinumtoxinA (Botox) units IM ONCE polyethylene glycol 3350 (Miralax) 17 grams PO DAILY 30 days Pulmicort Flexhaler 90 mcg/actuation (budesonide) 1 inh inhalation BID NS Ventolin HFA 90 mcg/actuation (albuterol sulfate) 1 inh inhalation QID PRN 30 days NS Tobacco use date assessed: 11/25/24 Dental Screening Dental Screen Date: 11/25/24 HPI medication management HPI Details History - The patient is a 49-year-old female presenting with medication management and inhaler prescription. - She has a history of Essential Hypertension and has been prescribed blood pressure medications, atenolol, that patient is reluctant to take. She reported having previously taken verapamil for headaches, which was prescribed by her Neuro. - The patient has been off verapamil for a while and wishes to restart it at a lower dose. She previously adjusted her dose gradually and reached 120 mg but now prefers to start at a lower dose due to discontinuation. 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 - She also inquired about the need for lifelong blood pressure medication, expressing a desire to manage her condition naturally, through weight loss and smoking cessation. - The patient reports a BMI of 29.3, which indicates she is slightly overweight. - She is currently using a powder inhaler for asthma but finds it ineffective. She had a better response to Flovent, which is no longer available. She is interested in finding a similar aerosol inhaler. Problem List - Essential Hypertension - Migraine - Asthma Patient Instructions - Take 100 mg of extended-release verapamil at bedtime for blood pressure management. - Avoid taking alprazolam while on verapamil. - Consult with your headache doctor regarding the medication regimen. - Check with the pharmacy regarding the availability of an aerosol inhaler similar to Flovent. - Monitor your blood pressure at home with a reliable blood pressure monitor. - Work on weight loss and smoking cessation to help manage blood pressure naturally. - Report to me if there are issues with the inhaler or blood pressure medication. Review of Systems - General: No fever no chills - Neurological: No headaches no dizziness - Ear nose throat: No sore throat no hearing difficulty no ear pain - Cardiovascular: No syncope, no chest pain, no palpitations - Gastrointestinal: No nausea vomiting or diarrhea [facility] Medical History Palpitations Atypical chest pain Asthma, moderate Tobacco abuse Surgical History History of breast surgery Hx of tubal ligation Family History Father Alcoholic Mother Elevated cholesterol CVD (cardiovascular disease) History of blood clots Son Anxiety Daughter Hearing loss Daughter Asthma Daughter Acid reflux Sister No problems noted. Other Mental health disorder Substance use disorder Social History Housing: Apartment Alcohol intake: current Alcohol intake frequency: holidays/special occasions only Patient Tobacco Use Status: Current everyday Tobacco user Tobacco use type: Cigarette Cigarette Packs Per Day: 1 Cigarettes Per Day: 20 Years Smoked: 30 Packs Per Year: 30 Packs per year/per ci.00 e-Cigarette/Vaping Use: Never Used service: No Current occupational status: unemployed Cognitive needs: No Hearing needs: No Vision needs: No Questionnaire Thrive Questionnaire Date Thrive assessed: 10/12/24 SUE-7 AMB Questionnaire SUE-7 Date SUE - 7 assessed: 10/12/24 Source: Developed by Drs. Barrington Guy, Caryn Hodge, Ulysses Thurman and colleagues, with an educational carmen from [employer]. Physical exam (Primary Care) Tobacco/Smoking Status: Tobacco use Status Tobacco use date assessed 11/25/24 02/02/25 09:27 Patient Tobacco Use Status Current everyday Tobacco 02/02/25 09:27 Tobacco use type Cigarette 02/02/25 09:27 e-Cigarette/Vaping Use Never Used 02/02/25 09:27 Thrive Assessment: Date of Thrive Assessment Date Thrive assessed 10/12/24 02/02/25 09:27 Telehealth Telehealth Telehealth Platform: [facility] Location of provider rendering services: practice address Location of patient: address on file Patient Identification confirmed using: Name, : Yes Telehealth method: video (attempted) Patient verbally consented to treatment: Yes Patient verbally consented to billing insurance company: Yes Patient informed of any privacy concerns related to visit: Yes Minutes spent on Phone/Video with Pt.: 13 Coding Level of Care Code Tele Est Pt Level 3 (02517) Diagnoses Hypertension, essential I10 Intractable migraine without status migrainosus, unspecified migraine type G43.919 Migraine type: unspecified Status migrainosus presence: without status migrainosus Intractability: intractable Moderate persistent asthma without complication J45.40 Asthma persistence: persistent Asthma complication type: uncomplicated Assessment & Plan Assessment & Plan (1) Hypertension, essential: Code(s): I10 - Essential (primary) hypertension Category: Medical (2) Migraine headache: Code(s): G43.909 - Migraine, unspecified, not intractable, without status migrainosus Category: Medical Qualifiers: Migraine type: unspecified Status migrainosus presence: without status migrainosus Intractability: intractable Qualified Code(s): G43.919 - Migraine, unspecified, intractable, without status migrainosus (3) Asthma, moderate: Code(s): J45.909 - Unspecified asthma, uncomplicated Category: Medical Qualifiers: Asthma persistence: persistent Asthma complication type: uncomplicated Qualified Code(s): J45.40 - Moderate persistent asthma, uncomplicated Plan History - The patient is a 49-year-old female presenting with medication management and inhaler prescription. - She has a history of Essential Hypertension and has been prescribed blood pressure medications, atenolol, that patient is reluctant to take. She reported having previously taken verapamil for headaches, which was prescribed by her Neuro. - The patient has been off verapamil for a while and wishes to restart it at a lower dose. She previously adjusted her dose gradually and reached 120 mg but now prefers to start at a lower dose due to discontinuation. 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 - She also inquired about the need for lifelong blood pressure medication, expressing a desire to manage her condition naturally, through weight loss and smoking cessation. - The patient reports a BMI of 29.3, which indicates she is slightly overweight. - She is currently using a powder inhaler for asthma but finds it ineffective. She had a better response to Flovent, which is no longer available. She is interested in finding a similar aerosol inhaler. Problem List - Essential Hypertension - Migraine - Asthma Patient Instructions - Take 100 mg of extended-release verapamil at bedtime for blood pressure management. - Avoid taking alprazolam while on verapamil. - Consult with your headache doctor regarding the medication regimen. - Check with the pharmacy regarding the availability of an aerosol inhaler similar to Flovent. - Monitor your blood pressure at home with a reliable blood pressure monitor. - Work on weight loss and smoking cessation to help manage blood pressure naturally. - Report to me if there are issues with the inhaler or blood pressure medication. Medications: New verapamil ER 100 mg PO BEDTIME 90 caps 0RF fluticasone propionate 220 mcg/actuation administer with spacer 1 puff inhalation BID 12 grams 0RF Discontinued atenolol Discontinued Reason: Doctor's Order 25 mg PO DAILY 90 tabs 0RF
== END 2025-02-02 09:28 | disposition home or self-care (01) ==
LOC: HO.HMCC 08:16
PROVIDERS: PCP Internal Medicine; Visit Provider Internal Medicine
DX: I10 Essential (primary) hypertension (principal); G43.919 Migraine, unspecified, intractable, without status migrainosus; J45.40 Moderate persistent asthma, uncomplicated

== ENCOUNTER → 2025-02-02 08:16 | Outpatient (BNVA) | payer OTHER, SELFPAY | PROVIDERS: PCP Internal Medicine; Visit Provider Internal Medicine | DX: Z13.89 Encounter for screening for other disorder (principal) ==

== ENCOUNTER 2025-02-06 13:45 | Outpatient (AMB) | payer OTHER, SELFPAY ==
--- NOTE | 2025-02-06 13:51 | AM.OFFWIN_ITS ---
Intake Vital Signs 02/06/25 13:54 Height 5 ft 4 in Weight 171 lb BMI 29.3 BP 126/80 Blood Pressure Location Rt brachial Position Sitting Pulse 98 Pulse Source Pulse Oximeter Pulse Oximetry (%) 97 Oxygen Delivery Method Room Air Intake Visit Reasons: EP Sinus/eye pain Intake Note: Patient here for sinus pressure and eye soreness that has been present for almost 2 weeks. Patient Tobacco Use Status: Current everyday Tobacco user Allergies epinephrine [From EPIFRIN] Allergy (Intermediate, Verified 02/06/25 13:55) HEADACHES AND TACHYCARDIA Iodinated Contrast Media [IVP DYE] Allergy (Intermediate, Verified 02/06/25 13:55) DIFFICULTY BREATHING amoxicillin Allergy (Unknown, Verified 02/06/25 13:55) itchy tongue cantaloupe [CANTALOUPE] Allergy (Unknown, Verified 02/06/25 13:55) SHORTNESS OF BREATH cheese [CHEESE] Allergy (Unknown, Verified 02/06/25 13:55) UNKNOWN plummer [PLUMMER] Allergy (Unknown, Verified 02/06/25 13:55) SHORTNESS OF BREATH divalproex sodium [From DEPAKOTE] Allergy (Unknown, Verified 02/06/25 13:55) oral bumps fish derived [FISH] Allergy (Unknown, Verified 02/06/25 13:55) HIVES grapefruit [GRAPEFRUIT] Allergy (Unknown, Verified 02/06/25 13:55) UNKNOWN Nitrate Analogues [NITRATE ANALOGUES] Allergy (Unknown, Verified 02/06/25 13:55) UNKNOWN nut - unspecified [NUTS] Allergy (Unknown, Verified 02/06/25 13:55) SHORTNESS OF BREATH paroxetine [From PAXIL] Allergy (Unknown, Verified 02/06/25 13:55) somulence tetanus and diphtheria toxoids Allergy (Unknown, Verified 02/06/25 13:55) fever/hallucinations environmental Allergy (Unknown, Uncoded 02/06/25 13:55) unknown Do you need a note to return to daycare/school/sports/work: No HPI HPI Comments History of Present Illness Details 49 y/o Female patient who presents to [facility] walk in clinic with c/o sinus pressure and eye soreness that has been present for almost 2 weeks. Pt reports that she does get lots Sinus Infections, and usually her PCP gives her Z-pack. Pt does report that she can't take Decongestants because she suffers from Chronic headaches and usually they are triggers. Pt reports that she had Positive Strep infection a week ago, did receive Abx and today wants repeat testing to make sure infection is gone. [facility] Medical History Palpitations Atypical chest pain Asthma, moderate Tobacco abuse Surgical History History of breast surgery Hx of tubal ligation Family History Father Alcoholic Mother Elevated cholesterol CVD (cardiovascular disease) History of blood clots Son Anxiety Daughter Hearing loss Daughter Asthma Daughter Acid reflux Sister No problems noted. Other Mental health disorder Substance use disorder Social History Housing: Apartment Alcohol intake: current Alcohol intake frequency: holidays/special occasions only Patient Tobacco Use Status: Current everyday Tobacco user Tobacco use type: Cigarette Cigarette Packs Per Day: 1 Cigarettes Per Day: 20 Years Smoked: 30 e-Cigarette/Vaping Use: Never Used service: No Current occupational status: unemployed Cognitive needs: No Hearing needs: No Vision needs: No Review of Systems Const All systems reviewed & are unremarkable except as noted in HPI and below Physical Exam Vital Signs: Last Vital Signs Pulse 98 02/06/25 13:54 BP 126/80 02/06/25 13:54 Pulse Ox 97 02/06/25 13:54 Oxygen Delivery Method Room Air 02/06/25 13:54 BMI result Body Mass Index 29.3 Const General: no acute distress Orientation/consciousness: patient oriented x3 HEENT Head: Yes normocephalic Ears: external ears normal and TM abnormal with fluid behind the TM bilateral General nose exam: Abnormal mucous membranes and turbinates present boggy Face and sinus: Yes sinuses nontender Mouth: moist mucous membranes Throat: Yes uvula midline Resp Effort & Inspection: normal respiratory effort and able to speak in complete sentences Auscultation: clear to auscultation bilaterally, no crackles, no rales, no rhonchi and no wheezes Cardio Heart sounds: S1 normal heart sound present and S2 normal heart sound present Neuro General: patient oriented x3 Assessment & Plan Assessment & Plan (1) Acute sinusitis: Code(s): J01.90 - Acute sinusitis, unspecified Qualifiers: Recurrence: not specified as recurrent Sinusitis location: unspecified location Qualified Code(s): J01.90 - Acute sinusitis, unspecified Plan: PE consistent with Allergic rhinitis - advised to use Normal Saline Nasal Sprays. Pt reports that she can't Use Decongestant due to headaches. Advised the use of Singular - Pt declined because it does not work for her. Pt has an appointment with PCP Thursday - she is to f/u with PCP Medications: Discontinued cetirizine Discontinued Reason: Patient Completed Course 10 mg PO DAILY 7 tabs 0RF fluticasone propionate 220 mcg/actuation Discontinued Reason: Duplicate 2 puffs inhalation BID 36 grams 3RF meclizine Discontinued Reason: Patient Completed Course 25 mg PO TID 14 days PRN 30 tabs 0RF dizziness Coding Level of Care Code Est Pt Level 4 (18177) Diagnoses Acute sinusitis, recurrence not specified, unspecified location J01.90 Recurrence: not specified as recurrent Sinusitis location: unspecified location Time Spent (min) 20
[2025-02-06 13:54] VITALS: BP 126/80; PULSE 98; O2SAT 97; BMI 29.3
--- OUTSIDE RECORDS SUMMARY | 2025-02-06 14:57 | XMS_ITS | Encounter Summary ---
Author Organization [employer] Address [address] [place] [address] [address] [place] [address] Care Team Providers Care Foam Caster Name Role Phone Unavailable Primary Care Provider Unavailabl e Encounter Details Date Type Department Care Team (Latest Contact Info) Description 05/30/2019 Abstract [facility] CONVERSIONS Dental, Provider, DDS Social History [...]
== END 2025-02-06 14:33 | disposition home or self-care (01) ==
PROVIDERS: PCP Internal Medicine; Visit Provider Nurse Practitioner Family
DX: J01.90 Acute sinusitis, unspecified (principal); Z13.9 Encounter for screening, unspecified

== ENCOUNTER → 2025-02-06 13:45 | Outpatient (BNVA) | payer OTHER, SELFPAY | PROVIDERS: PCP Internal Medicine; Visit Provider Nurse Practitioner Family | DX: J01.90 Acute sinusitis, unspecified (principal) | CPT/HCPCS: 87880; 99212 ==

== ENCOUNTER 2025-02-10 15:02 | Outpatient (AMB) | payer OTHER, SELFPAY ==
[2025-02-10 15:04] VITALS: BP 146/92; PULSE 80; TEMP 36.6; O2SAT 96; BMI 29.4
--- NOTE | 2025-02-10 15:04 | MHC.PC.OV ---
Vital Signs 02/10/25 15:04 Height 5 ft 4 in Weight 171 lb 8 oz BMI 29.4 BP 146/92 H Blood Pressure Location Rt brachial Position Sitting Pulse 80 Pulse Source Pulse Oximeter Temp 97.8 F Temp Source Oral Pulse Oximetry (%) 96 Oxygen Delivery Method Room Air Intake Visit Reasons: 2.5 week follow up Allergies epinephrine [From EPIFRIN] Allergy (Intermediate, Verified 02/06/25 13:55) HEADACHES AND TACHYCARDIA Iodinated Contrast Media [IVP DYE] Allergy (Intermediate, Verified 02/06/25 13:55) DIFFICULTY BREATHING amoxicillin Allergy (Unknown, Verified 02/06/25 13:55) itchy tongue cantaloupe [CANTALOUPE] Allergy (Unknown, Verified 02/06/25 13:55) SHORTNESS OF BREATH cheese [CHEESE] Allergy (Unknown, Verified 02/06/25 13:55) UNKNOWN schulz [SCHULZ] Allergy (Unknown, Verified 02/06/25 13:55) SHORTNESS OF BREATH divalproex sodium [From DEPAKOTE] Allergy (Unknown, Verified 02/06/25 13:55) oral bumps fish derived [FISH] Allergy (Unknown, Verified 02/06/25 13:55) HIVES grapefruit [GRAPEFRUIT] Allergy (Unknown, Verified 02/06/25 13:55) UNKNOWN Nitrate Analogues [NITRATE ANALOGUES] Allergy (Unknown, Verified 02/06/25 13:55) UNKNOWN nut - unspecified [NUTS] Allergy (Unknown, Verified 02/06/25 13:55) SHORTNESS OF BREATH paroxetine [From PAXIL] Allergy (Unknown, Verified 02/06/25 13:55) somulence tetanus and diphtheria toxoids Allergy (Unknown, Verified 02/06/25 13:55) fever/hallucinations environmental Allergy (Unknown, Uncoded 02/06/25 13:55) unknown Medication List - Last Reconciled 02/10/25 by Lj Murcia MD alprazolam 0.25 mg PO DAILY PRN 90 days fluticasone propionate 220 mcg/actuation 1 puff inhalation BID ibuprofen 600 mg PO BID PRN naratriptan mg PO nicotine (polacrilex) 2 mg buccal Q2H onabotulinumtoxinA (Botox) units IM ONCE polyethylene glycol 3350 (Miralax) 17 grams PO DAILY 30 days Pulmicort Flexhaler 90 mcg/actuation (budesonide) 1 inh inhalation BID NS Ventolin HFA 90 mcg/actuation (albuterol sulfate) 1 inh inhalation QID PRN 30 days NS verapamil ER 100 mg PO BEDTIME Tobacco use date assessed: 11/25/24 Dental Screening Dental Screen Date: 11/25/24 HPI 2.5 week follow up HPI Details History - The patient is a 49-year-old female presenting with concerns regarding elevated blood pressure. - During a recent stressful medical appointment with a urologist involving bladder assessments and an ultrasound, the patient experienced high blood pressure readings. She reports stress as a contributing factor to her hypertension. - Previously recorded blood pressure was 126/80 on February 06, without antihypertensive medication administration, suggesting control when stress levels are reduced. - The patient expressed anxiety over medical appointments impacting blood pressure, frequently associated with situational stress. - She reported a history of blood in urine, with ongoing evaluations to exclude malignancy. Recent ultrasounds revealed a concerning white ball in the bladder. Initial urine tests returned negative for cancer. - Anxiety contributes significantly to blood pressure variability, with associated symptoms including hot flashes linked to menopause. - Known situations, such as receiving medical procedures or anticipating dental extractions, provoke heightened blood pressure readings. - Social stressors include one adopted daughter requiring extensive mental health assistance. 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 - Tobacco use is noted, with the patient actively attempting to reduce cigarette consumption to improve overall health and blood pressure control. Family History: - Grandmother hospitalized (no specific diagnosis mentioned) Diagnostic Results: Tests and Diagnostics: - Recent ultrasound indicated a white ball in the bladder. - Urine tests negative for cancer markers. Problem List - Essential Hypertension - Anxiety Disorder - Menopause - Occasional Headaches - Possible Blood in Urine - Tobacco Use Disorder Patient Instructions - Obtain a new home blood pressure monitor for accurate tracking. - Consider taking alprazolam for anxiety management, especially considering the impact on blood pressure. - Reduce smoking to achieve better blood pressure control. - Discuss with the pharmacy about issues obtaining inhalers and seek clarification or alternatives. Review of Systems - General: No fever no chills - Ear nose throat: No sore throat no hearing difficulty no ear pain - Cardiovascular: No syncope, no chest pain, no palpitations - Gastrointestinal: No nausea vomiting or diarrhea - Endocrine: No polyuria polydipsia no heat intolerance - Genitourinary: No dysuria Physical Exam General: No acute distress HEENT: No acute findings Neck: Supple Respiratory system: Able to talk in full sentences, no audible wheeze, lungs are clear Cardiovascular: S1-S2 regular in rate and rhythm Gastrointestinal: No pain Extremities: No new findings FARM MANAGEMENT ADVISER: Alert awake oriented x3 motor sensory intact Skin: Normal turgor [facility] Medical History Palpitations Atypical chest pain Asthma, moderate Tobacco abuse Surgical History History of breast surgery Hx of tubal ligation Family History Father Alcoholic Mother Elevated cholesterol CVD (cardiovascular disease) History of blood clots Son Anxiety Daughter Hearing loss Daughter Asthma Daughter Acid reflux Sister No problems noted. Other Mental health disorder Substance use disorder Social History Housing: Apartment Alcohol intake: current Alcohol intake frequency: holidays/special occasions only Patient Tobacco Use Status: Current everyday Tobacco user Tobacco use type: Cigarette Cigarette Packs Per Day: 1 Cigarettes Per Day: 20 Years Smoked: 30 e-Cigarette/Vaping Use: Never Used service: No Current occupational status: unemployed Cognitive needs: No Hearing needs: No Vision needs: No Questionnaire Thrive Questionnaire Date Thrive assessed: 10/12/24 I am a: Patient What is your living situation today?: I have a steady place to live Within the past 12 months, did the food you bought not last and you didn't have the money to get more?: Never true Within the past 12 months, did you worry whether your food would run out before you got money to buy more?: Never true Do you have trouble paying for medicines?: No Do you have trouble getting transportation to medical appointments?: No Do you have trouble paying your heating and electricity bill?: No Do you have trouble taking care of your child, family member or friend?: No Do you have trouble with day-to-day activities such as bathing, preparing meals, shopping, managing finances, etc.?: No Are you currently unemployed and looking for a job?: No Are you interested in more education?: No Please select the resources that you would like help with: None Currently or been in a relationship where the following occur: No concerns reported THRIVE Score: 0 SUE-7 AMB Questionnaire SUE-7 Date SUE - 7 assessed: 10/12/24 Source: Developed by Drs. Barrington Guy, Caryn Hodge, Ulysses Thurman and colleagues, with an educational carmen from [employer]. Physical exam (Primary Care) Vital Signs: Last Vital Signs Temp 97.8 F 02/10/25 15:04 Pulse 80 02/10/25 15:04 BP 146/92 H 02/10/25 15:04 Pulse Ox 96 02/10/25 15:04 Oxygen Delivery Method Room Air 02/10/25 15:04 BMI result Body Mass Index 29.4 Tobacco/Smoking Status: Tobacco use Status Tobacco use date assessed 11/25/24 02/10/25 15:09 Patient Tobacco Use Status Current everyday Tobacco 02/10/25 15:09 Tobacco use type Cigarette 02/10/25 15:09 e-Cigarette/Vaping Use Never Used 02/10/25 15:09 Thrive Assessment: Date of Thrive Assessment Date Thrive assessed 10/12/24 02/10/25 15:09 Currently or been in a relationship where the following occur: No concerns reported Coding Level of Care Code Est Pt Level 4 (50426) Diagnoses Hypertension, essential I10 Intractable migraine without status migrainosus, unspecified migraine type G43.919 Migraine type: unspecified Status migrainosus presence: without status migrainosus Intractability: intractable Moderate persistent asthma without complication J45.40 Asthma persistence: persistent Asthma complication type: uncomplicated Microscopic hematuria R31.29 Panic anxiety syndrome F41.0 Stress at home F43.9 Assessment & Plan Assessment & Plan (1) Hypertension, essential: Code(s): I10 - Essential (primary) hypertension Category: Medical (2) Migraine headache: Code(s): G43.909 - Migraine, unspecified, not intractable, without status migrainosus Category: Medical Qualifiers: Migraine type: unspecified Status migrainosus presence: without status migrainosus Intractability: intractable Qualified Code(s): G43.919 - Migraine, unspecified, intractable, without status migrainosus (3) Asthma, moderate: Code(s): J45.909 - Unspecified asthma, uncomplicated Category: Medical Qualifiers: Asthma persistence: persistent Asthma complication type: uncomplicated Qualified Code(s): J45.40 - Moderate persistent asthma, uncomplicated (4) Microscopic hematuria: Code(s): R31.29 - Other microscopic hematuria Category: Medical (5) Panic anxiety syndrome: Code(s): F41.0 - Panic disorder [episodic paroxysmal anxiety] Category: Medical (6) Stress at home: Code(s): F43.9 - Reaction to severe stress, unspecified Category: Social Hx Plan History - The patient is a 49-year-old female presenting with concerns regarding elevated blood pressure. - During a recent stressful medical appointment with a urologist involving bladder assessments and an ultrasound, the patient experienced high blood pressure readings. She reports stress as a contributing factor to her hypertension. - Previously recorded blood pressure was 126/80 on February 06, without antihypertensive medication administration, suggesting control when stress levels are reduced. - The patient expressed anxiety over medical appointments impacting blood pressure, frequently associated with situational stress. - She reported a history of blood in urine, with ongoing evaluations to exclude malignancy. Recent ultrasounds revealed a concerning white ball in the bladder. Initial urine tests returned negative for cancer. - Anxiety contributes significantly to blood pressure variability, with associated symptoms including hot flashes linked to menopause. - Known situations, such as receiving medical procedures or anticipating dental extractions, provoke heightened blood pressure readings. - Social stressors include one adopted daughter requiring extensive mental health assistance. 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 - Tobacco use is noted, with the patient actively attempting to reduce cigarette consumption to improve overall health and blood pressure control. Family History: - Grandmother hospitalized (no specific diagnosis mentioned) Diagnostic Results: Tests and Diagnostics: - Recent ultrasound indicated a white ball in the bladder. - Urine tests negative for cancer markers. Problem List - Essential Hypertension - Anxiety Disorder - Menopause - Occasional Headaches - Possible Blood in Urine - Tobacco Use Disorder Patient Instructions - Obtain a new home blood pressure monitor for accurate tracking. - Consider taking alprazolam for anxiety management, especially considering the impact on blood pressure. - Reduce smoking to achieve better blood pressure control. - Discuss with the pharmacy about issues obtaining inhalers and seek clarification or alternatives. Medications: New [blood pressure monitor] As directed 1 ea 0RF I10 - Essential (primary) hypertension Refilled fluticasone propionate 220 mcg/actuation administer with spacer 1 puff inhalation BID 12 grams 0RF
== END 2025-02-10 15:37 | disposition home or self-care (01) ==
LOC: HO.HMCC 15:03
PROVIDERS: PCP Internal Medicine; Visit Provider Internal Medicine
DX: I10 Essential (primary) hypertension (principal); G43.919 Migraine, unspecified, intractable, without status migrainosus; J45.40 Moderate persistent asthma, uncomplicated; R31.29 Other microscopic hematuria; F41.0 Panic disorder [episodic paroxysmal anxiety]; F43.9 Reaction to severe stress, unspecified

== ENCOUNTER → 2025-02-10 15:02 | Outpatient (BNVA) | payer OTHER, SELFPAY | PROVIDERS: PCP Internal Medicine; Visit Provider Internal Medicine | DX: I10 Essential (primary) hypertension (principal); F41.9 Anxiety disorder, unspecified; G43.919 Migraine, unspecified, intractable, without status migrainosus; J45.40 Moderate persistent asthma, uncomplicated; R31.29 Other microscopic hematuria; F41.0 Panic disorder [episodic paroxysmal anxiety]; F43.9 Reaction to severe stress, unspecified | CPT/HCPCS: 99212 ==

== ENCOUNTER 2025-04-12 15:00 | Outpatient (AMB) | payer OTHER, SELFPAY ==
[2025-04-12 15:03] VITALS: BP 134/76; PULSE 85; O2SAT 97; BMI 29.0
--- NOTE | 2025-04-12 15:03 | A.OFFPC_ITS ---
Vital Signs 04/12/25 15:03 Height 5 ft 4 in Weight 169 lb BMI 29.0 BP 134/76 Blood Pressure Location Lt brachial Position Sitting Pulse 85 Pulse Source Pulse Oximeter Pulse Oximetry (%) 97 Intake Visit Reasons: 6m f/u Stop Attacher Required: No Allergies epinephrine (From EPIFRIN) Allergy (Intermediate, Verified 04/12/25 15:03) HEADACHES AND TACHYCARDIA Iodinated Contrast Media (IVP DYE) Allergy (Intermediate, Verified 04/12/25 15:03) DIFFICULTY BREATHING amoxicillin Allergy (Unknown, Verified 04/12/25 15:03) itchy tongue cantaloupe (CANTALOUPE) Allergy (Unknown, Verified 04/12/25 15:03) SHORTNESS OF BREATH cheese (CHEESE) Allergy (Unknown, Verified 04/12/25 15:03) UNKNOWN schulz (SCHULZ) Allergy (Unknown, Verified 04/12/25 15:03) SHORTNESS OF BREATH divalproex sodium (From DEPAKOTE) Allergy (Unknown, Verified 04/12/25 15:03) oral bumps fish derived (FISH) Allergy (Unknown, Verified 04/12/25 15:03) HIVES grapefruit (GRAPEFRUIT) Allergy (Unknown, Verified 04/12/25 15:03) UNKNOWN Nitrate Analogues (NITRATE ANALOGUES) Allergy (Unknown, Verified 04/12/25 15:03) UNKNOWN nut - unspecified (NUTS) Allergy (Unknown, Verified 04/12/25 15:03) SHORTNESS OF BREATH paroxetine (From PAXIL) Allergy (Unknown, Verified 04/12/25 15:03) somulence tetanus and diphtheria toxoids Allergy (Unknown, Verified 04/12/25 15:03) fever/hallucinations environmental Allergy (Unknown, Uncoded 02/06/25 13:55) unknown Medication List - Last Reconciled 04/12/25 by Lj Murcia MD alprazolam 0.25 mg PO DAILY PRN 90 days [blood pressure monitor As directed] fluticasone propionate 220 mcg/actuation 1 puff inhalation BID ibuprofen 600 mg PO BID PRN mometasone 200 mcg/actuation (Asmanex HFA) 1 puff inhalation BEDTIME naratriptan mg PO nicotine (polacrilex) 2 mg buccal Q2H onabotulinumtoxinA (Botox) units IM ONCE polyethylene glycol 3350 (Miralax) 17 grams PO DAILY 30 days Ventolin HFA 90 mcg/actuation (albuterol sulfate) 1 inh inhalation QID PRN 30 days NS verapamil ER 100 mg PO BEDTIME Tobacco use date assessed: 11/25/24 Dental Screening Dental Screen Date: 11/25/24 HPI 6m f/u HPI Details Chief Complaint The patient reports ineffective asthma control and a persistent skin rash. Presented for ongoing care History of Present Illness The patient is a 49-year-old female presenting with asthma management and skin rash. Asthma management: - The patient has a history of asthma an d has been experiencing uncontrolled symptoms despite treatment. - Transitioned to using Asmanex for asth ma management starting March 27 but reports it as ineffective. - Previous inhalers tried include Pulmic ort, with inadequate symptom control, and several unspecified inhalers. - The patient experiences frequent asthm a exacerbations requiring albuterol inhaler use approximately four times daily, indicative of poor asthma control. - There is a history of failed trials wi th multiple inhalers, including a preference for Flovent after experiencing inadequate results with Asmanex and Pulmicort. Skin rash: - The patient reports a rash presenting as a line, primarily affecting one side of the abdomen and additional spots on the foot. - Complaints include severe itching, wit h no improvement despite attempts with home treatments. - Rash also present under the breast, ex acerbated by warm weather and accompanying sweating; secondary skin irritation is noted in areas prone to moisture such as skin folds. Medical History: - History of asthma with frequent exacer bations. - Essential hypertension, managed with v erapamil. - Cluster headaches, managed with the al lowance for increased verapamil dosing during exacerbations. Medications: - Asmanex (mometasone furoate) inhaler f or asthma, noted to be ineffective. - Albuterol inhaler as a rescue medicati on, used approximately four times daily. - Verapamil 1 tablet at night for blood pressure management, with the option to increase during cluster headache episodes. Social History: - Reports reduced smoking habits. - Active lifestyle with frequent outdoor activities involving dogs, leading to increased heat and humidity exposure. - Occasional blood pressure monitoring a t home, showing variable results. Diagnostic Results: - Bladder scope was performed, results i ndicated no significant issues. - Prescribed Bactrim for unspecified inf ection, with subsequent improvement reported. Problem List - Uncontrolled asthma - Atopic dermatitis - Essential hypertension - Cluster headaches Patient Instructions - Monitor asthma symptoms closely and as sess response to current inhaler use. - Continue current verapamil regimen as discussed. - Consider trial of Flovent (fluticasone ) pending authorization. - Use the steroid-antifungal cream as pr escribed for skin rash. - Explore pharmacy options for better co verage or pricing for inhalers if necessary. Review of Systems - General: No fever no chills - Neurological: No headaches no dizziness - Ear nose throat: No sore throat no hearing difficulty no ear pain - Cardiovascular: No syncope, no chest pain, no palpitations - Gastrointestinal: No nausea vomiting or diarrhea - Endocrine: No polyuria polydipsia no heat intolerance - Genitourinary: No dysuria , no blood in urine Physical Exam General: No acute distress HEENT: No acute findings Neck: Supple Respiratory system: Able to talk in full sentences, no audible wheeze, lungs are clear Cardiovascular: S1-S2 regular in rate and rhythm Gastrointestinal: No pain Extremities: No new findings MORTGAGE COUNSELOR: Alert awake oriented x3 motor sensory intact Skin: Normal turgor, rash noted in a line on left side pelvic area, possibly eczema, additional rash under arm due to sweating, treatment with steroid and antifungal cream recommended [facility] Medical History Palpitations Atypical chest pain Asthma, moderate Tobacco abuse Surgical History History of breast surgery Hx of tubal ligation Family History Father Alcoholic Mother Elevated cholesterol CVD (cardiovascular disease) History of blood clots Son Anxiety Daughter Hearing loss Daughter Asthma Daughter Acid reflux Sister No problems noted. Other Mental health disorder Substance use disorder Social History Housing: Apartment Alcohol intake: current Alcohol intake frequency: holidays/special occasions only Patient Tobacco Use Status: Current everyday Tobacco user Tobacco use type: Cigarette Cigarette Packs Per Day: 1 Cigarettes Per Day: 20 Years Smoked: 30 Packs Per Year: 30 Packs per year/per ci.00 e-Cigarette/Vaping Use: Never Used service: No Current occupational status: unemployed Cognitive needs: No Hearing needs: No Vision needs: No Questionnaire Thrive Questionnaire Date Thrive assessed: 10/12/24 I am a: Patient What is your living situation today?: I have a steady place to live Within the past 12 months, did the food you bought not last and you didn't have the money to get more?: Never true Within the past 12 months, did you worry whether your food would run out before you got money to buy more?: Never true Do you have trouble paying for medicines?: No Do you have trouble getting transportation to medical appointments?: No Do you have trouble paying your heating and electricity bill?: No Do you have trouble taking care of your child, family member or friend?: No Do you have trouble with day-to-day activities such as bathing, preparing meals, shopping, managing finances, etc.?: No Are you currently unemployed and looking for a job?: No Are you interested in more education?: No Please select the resources that you would like help with: None Currently or been in a relationship where the following occur: No concerns reported THRIVE Score: 0 SUE-7 AMB Questionnaire SUE-7 Date SUE - 7 assessed: 10/12/24 Source: Developed by Drs. Barrington Guy, Caryn Hodge, Ulysses Thurman and colleagues, with an educational carmen from [employer]. Physical exam (Primary Care) Vital Signs: Last Vital Signs Pulse 85 04/12/25 15:03 BP 134/76 04/12/25 15:03 Pulse Ox 97 04/12/25 15:03 BMI result Body Mass Index 29.0 Tobacco/Smoking Status: Tobacco use Status Tobacco use date assessed 11/25/24 04/12/25 15:07 Patient Tobacco Use Status Current everyday Tobacco 04/12/25 15:07 Tobacco use type Cigarette 04/12/25 15:07 e-Cigarette/Vaping Use Never Used 04/12/25 15:07 Thrive Assessment: Date of Thrive Assessment Date Thrive assessed 10/12/24 04/12/25 15:07 Currently or been in a relationship where the following occur: No concerns reported Coding Level of Care Code Est Pt Level 4 (61807) Complex EM visit Add On G2211 Diagnoses Moderate persistent asthma without complication J45.40 Asthma persistence: persistent Asthma complication type: uncomplicated Hypertension, essential I10 Intractable migraine without status migrainosus, unspecified migraine type G43.919 Migraine type: unspecified Status migrainosus presence: without status migrainosus Intractability: intractable Tinea corporis B35.4 Assessment & Plan Assessment & Plan (1) Asthma, moderate: Code(s): J45.909 - Unspecified asthma, uncomplicated Category: Medical Qualifiers: Asthma persistence: persistent Asthma complication type: uncomplicated Qualified Code(s): J45.40 - Moderate persistent asthma, uncomplicated (2) Hypertension, essential: Code(s): I10 - Essential (primary) hypertension Category: Medical (3) Migraine headache: Code(s): G43.909 - Migraine, unspecified, not intractable, without status migrainosus Category: Medical Qualifiers: Migraine type: unspecified Status migrainosus presence: without status migrainosus Intractability: intractable Qualified Code(s): G43.919 - Migraine, unspecified, intractable, without status migrainosus (4) Tinea corporis: Code(s): B35.4 - Tinea corporis Category: Medical Plan Chief Complaint The patient reports ineffective asthma control and a persistent skin rash. History of Present Illness The patient is a 49-year-old female presenting with asthma management and skin rash. Asthma management: - The patient has a history of asthma and has been experiencing uncontrolled symptoms despite treatment. - Transitioned to using Asmanex for asthma management starting March 27 but reports it as ineffective. - Previous inhalers tried include Pulmicort, with inadequate symptom control, and several unspecified inhalers. - The patient experiences frequent asthma exacerbations requiring albuterol inhaler use approximately four times daily, indicative of poor asthma control. - There is a history of failed trials with multiple inhalers, including a preference for Flovent after experiencing inadequate results with Asmanex and Pulmicort. Skin rash: - The patient reports a rash presenting as a line, primarily affecting one side of the abdomen and additional spots on the foot. - Complaints include severe itching, with no improvement despite attempts with home treatments. - Rash also present under the breast, exacerbated by warm weather and accompanying sweating; secondary skin irritation is noted in areas prone to moisture such as skin folds. Medical History: - History of asthma with frequent exacerbations. - Essential hypertension, managed with verapamil. - Cluster headaches, managed with the allowance for increased verapamil dosing during exacerbations. Medications: - Asmanex (mometasone furoate) inhaler for asthma, noted to be ineffective. - Albuterol inhaler as a rescue medication, used approximately four times daily. - Verapamil 1 tablet at night for blood pressure management, with the option to increase during cluster headache episodes. Social History: - Reports reduced smoking habits. - Active lifestyle with frequent outdoor activities involving dogs, leading to increased heat and humidity exposure. - Occasional blood pressure monitoring at home, showing variable results. Diagnostic Results: - Bladder scope was performed, results indicated no significant issues. - Prescribed Bactrim for unspecified infection, with subsequent improvement reported. Problem List - Uncontrolled asthma - Atopic dermatitis - Essential hypertension - Cluster headaches Patient Instructions - Monitor asthma symptoms closely and assess response to current inhaler use. - Continue current verapamil regimen as discussed. - Consider trial of Flovent (fluticasone) pending authorization. - Use the steroid-antifungal cream as prescribed for skin rash. - Explore pharmacy options for better coverage or pricing for inhalers if necessary. Medications: New clotrimazole-betamethasone 1-0.05 % 1 appl topical ONCE 45 grams 0RF 30 days Changed From fluticasone propionate 220 mcg/actuation administer with spacer 1 puff inhalation BID 12 grams 0RF To fluticasone propionate 220 mcg/actuation administer with spacer 1 puff inhalation BID 30 days 12 grams 0RF Refilled fluticasone propionate 220 mcg/actuation administer with spacer 1 puff inhalation BID 12 grams 0RF 30 days
--- OUTSIDE RECORDS SUMMARY | 2025-04-12 15:31 | XMS_ITS | Clinical Summary ---
Author Organization [facility] [address] [place] [address] [place] [phone] Phone Care Team Providers Care Bit Welder Name Role Phone Lj Murcia MD Primary Care Provider Allergies Active Allergy Reactions Criticality Noted Date Comments Divalproex Hives 05/04/2015 Paroxetine Hcl 05/04/2015 Paxil [fd&c Blue #2 Al Nicole-paroxetine] Medications albuterol HFA (PROAIR HFA ; PROVENTIL HFA ; VENTOLIN HFA) 90 mcg/actuation inhaler Inhale 2 puffs by mouth every 4 (four) hours if needed. Active fluticasone HFA (FLOVENT HFA) 110 mcg/actuation inhaler Inhale 1 puff by mouth 2 (two) times a day. Active ibuprofen (ADVIL,MOTRIN) 600 mg tablet Take 1 Tab by mouth every 6 hours as needed for Pain. 06/26/20 16 Active naratriptan (AMERGE) 2.5 mg tablet Take [...] twice daily for two weeks. 30 g 12/21/19 25 Active Active Problems Problem Noted Date Diagnosed Date Tinea corporis 12/16/2024 Assessment & Plan (12/17/2024 9:04 AM EDT): Will treat with terbinafine Intermenstrual bleeding 12/16/2024 Assessment & Plan (12/17/2024 9:04 AM EDT): Will obtain US to evaluate for intracavitary pathology. Could just be menopausal transition. Cluster headache 01/21/2019 Overview (09/21/2024): Follows with [facility] in [place] Last Assessment & Plan: Pt will continue to see [facility] every 3 months. Will keep diary as above to determine if [facility] seem to be related to IUD. Migraine with aura 01/21/2019 Overview (09/21/2024): Has seen neuro at [facility] in [place] Smoker 11/16/2018 Overview (09/21/2024): Last Assessment & [...] Date Resolved Date Bacterial vaginosis 03/06/2021 12/18/19 25 Overview (09/21/2024): Last Assessment & Plan: Given [...] will call if this is the case. Surgical History Surgery Date Site/Laterality Comments TUBAL [...] Date Smoking Tobacco: Every Day Cigarettes 0.8 38.6 Started: 09/07/1986 Smokeless Tobacco: Never Alcohol Use [...] 12/16/2024 3:40 PM EDT Plan of Treatment Health Maintenance Due Date Last Done Comments Hepatitis B Vaccines (1 of 3 - 19+ 3-dose series) 1992 Pneumococcal Vaccine: 50+ Years (1 of 2 - PCV) 1992 DTaP,Tdap,and Td Vaccines (2 - Td or Tdap) 07/03/2007 07/03/1997 Cholesterol Screening (Lipid Panel) 08/16/2022 Colorectal Cancer Screening: Colonoscopy 08/16/2022 HIV Screening 08/16/2022 Hepatitis C Screening 08/16/2022 Lung Cancer Screening (Low Dose CT) 08/16/2022 Social Influencers of Health Screening 08/16/2022 Zoster Vaccines (1 of 2) 2023 COVID-19 Vaccine ( season) 2024 Depression Screening 09/07/2024 Influenza Vaccine (#1) 2025 Cervical Cancer Screening: HPV 12/03/2026 12/03/2021 [...] Date/Time Associated Diagnosis Comments MG MAMMO DIGITAL DIAGNOSTIC W MEJIA LEFT Routine 12/05/2024 1:58 PM EDT Abnormal mammogram HM HPV Routine 12/03/2021 from Last 3 Months or Most Recently Relevant to Health Maintenance Results * MG Mammo Digital Diagnostic w Mejia Left (12/05/2024 1:58 PM EDT) Anatomical Region Laterality Modality Breast Left Mammography 12/05/2024 2:01 PM EDT Impressions 12/05/2024 2:14 PM EDT Benign. Findings and recommendations were conveyed to the patient. BI-RADS CATEGORY: 2 - BENIGN RECOMMENDATION: Return to annual mammography. Return to annual mammography. Return to annual mammography. Return to annual mammography. Mammo Location: [facility], [address] [place] [address], [phone], . -------- FINAL REPORT -------- Dictated By: Kate Kiran Dictated Date: 12/05/2024 14:01 ET Assigned Physician: Kate Kiran Reviewed and Electronically Signed By: Kate Kiran Signed Date: 12/05/2024 14:14 ET Workstation ID: [id number] Transcribed By: Self Edit Transcribed Date: 12/05/2024 14:06 ET Narrative 12/05/2024 2:14 PM EDT CLINICAL: 49 years old, Female, focal asymmetry medial lower left breast on screening mammogram of 11/22/2024.. COMPARISON: Mammograms dating back to 08/04/2018. FINDINGS: MAMMOGRAPHY TECHNIQUE: CC, spot compression CC, and spot compression MLO views were obtained digitally with 3-D mammogram (digital breast tomosynthesis). Computer-aided detection was utilized in evaluation of this [...] mammography. Return to annual mammography. Mammo Location: [facility], [address] [place] [address], [id number], . -------- FINAL REPORT -------- Dictated By: Kate Kiran Dictated Date: 12/05/2024 14:01 ET Assigned Physician: Kate Kiran Reviewed and Electronically Signed By: Kate Kiran Signed Date: 12/05/2024 14:14 ET Workstation ID: [id number] Transcribed By: Self Edit Transcribed Date: 12/05/2024 14:06 ET Lj Murcia MD IMG BI PROCEDURES Final Result * Cervical Cancer Screening: HPV (12/03/2021) Pathologist [facility] Cervical Cancer Screening: HPV negative, abstracted Historical Provider HEALTH MAINTENANCE Final Result from Last 3 Months or Most Recently Relevant to Health Maintenance Insurance [facility] [employer] Care Teams Bit Welder Relationship Specialty Start Date End Date Lj Murcia MD [address] [place] [phone] PCP - General Internal Medicine 11/02/20
--- OUTSIDE RECORDS SUMMARY | 2025-04-12 15:31 | XMS_ITS | Encounter Summary ---
Author Organization [employer] Address [address] [place] [address] [address] [place] [address] Care Team Providers Care Regional Guide Name Role Phone Unavailable Primary Care Provider Unavailabl e Encounter Details Date Type Department Care Team (Latest Contact Info) Description 05/30/2019 Abstract [facility] CONVERSIONS Dental, Provider, DDS Social History [...]
--- OUTSIDE RECORDS SUMMARY | 2025-04-12 15:31 | XMS_ITS | Patient Health Record ---
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 Role Phone [employer]on[employer] Primary Care Provider Igor Gil Unavailable [phone] Allergies Allergen (clinical drug ingredient) Drug/Non Drug Allergy documented on EMR Reaction Allergy Type Onset Date Status PAXIL 10 MG/5 ML SUSPENSION (uncoded) SSRIS Allergy Active predniSONE prednisone Drug Allergy Activ e Reason For Referral No Information Medications Medication SIG (Take, Route, Frequency, Duration) Notes Start Date End Date Status Ibuprofen 200 mg 9 Oral 3 prn; Duration: 0 08/20/2010 Active Naratriptan HCl 2.5 MG 1 tablet Orally T wice a day.; Duration: 45 days 01/27/2024 Active Polyethylene Glycol 3350 17 GM MIX 1 PAC KET IN WATER AND DRINK EVERY MORNING; Duration: 28 Active PROAIR HFA 90 MCG INHALER MCG/ACTUATION 9; Duration: 0 08/20/2010 Active OnabotulinumtoxinA 200 UNIT Inject into face, head, neck and shoulder per MD IM Injection once; Duration: 84 days Active Verapamil HCl 120 MG TAKE 1 TABLET BY [facility] THREE TIMES A DAY FOR 90 DAYS; Duration: 90 days Active Acetaminophen Extra Strength 500 MG 0 [...] Risk Notes Problem Fear of medical treatment (834151721) Fear of injections and transfusions (F40.231) Active confirmed Problem Chronic intractable migraine without aura ([id number] 5) Chronic migraine without aura, intractable, without status migrainosus (G43.719) Active confirmed Problem Menstrual migraine (60251600) Menstrual migraine, not intractable, without status migrainosus (G43.829) Active confirmed Problem Episodic cluster headache (140118942) Episodic cluster headache, intractable (G44.011) Active confirmed Problem Chronic cluster headache (867643964) Chronic cluster headache, not intractable (G44.029) Active confirmed undefined Problem Atypical facial pain (40810821) 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 Problem Myalgia of auxiliary muscles, 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 Problem Migraine without aura (11805932) Migraine without aura, not intractable, with statu (G43.001) Active confirmed Vital Signs Heart Rate 83 /min 01/24/2025 Blood pressure diastolic 95 mm Hg 01/24/2025 Weight-kg 76.88 kg 01/24/2025 Height 64 in 01/24/2025 Blood pressure systolic 147 mm Hg 01/24/2025 Weight 169.5 lbs 01/24/2025 BMI 29.09 kg/m2 01/24/2025 Encounters Encounter Location Date Provider Diagnosis [facility] [address] [place] [address] 05/05/2024 Igor Wang Chronic migraine without aura, intractable, without status migrainosus G43.719 [facility] [place] [place] [address] 06/29/2024 Igor Wang Chronic migraine without aura, intractable, without status migrainosus G43.719 [facility] [place] [place] [address] 05/12/2024 Igor Wang Chronic migraine without aura, intractable, without status migrainosus G43.719 ; Episodic cluster headache, intractable G44.011 ; Myalgia of auxiliary muscles, head and neck M79.12 and Atypical facial pain G50.1 [facility] [address] [place] [address] 08/15/2024 Igor Felipe Chronic migraine without aura, intractable, without status migrainosus G43.719 ; Episodic cluster headache, intractable G44.011 ; Myalgia of auxiliary muscles, head and neck M79.12 and Atypical facial pain G50.1 [facility] [address] [place] [address] 11/01/2024 Igor Felipe Chronic migraine without aura, intractable, without status migrainosus G43.719 ; Episodic cluster headache, intractable G44.011 ; Myalgia of auxiliary muscles, head and neck M79.12 ; Atypical facial pain G50.1 and Fear of injections and transfusions F40.231 [facility] [address] [place] [address] 01/24/2025 Igor Wang Chronic migraine without aura, intractable, without status migrainosus G43.719 ; Episodic cluster headache, intractable G44.011 ; Myalgia of auxiliary muscles, head and neck M79.12 ; Atypical facial pain G50.1 and Fear of injections and transfusions F40.231 [facility] [address] [place] [address] 02/01/2025 Igor Wang [facility] [address] [place] [phone] 05/04/2024 Igor Wang [facility] [address] [place] [phone] 06/03/2024 Igor Wang [facility] [address] [place] [address] 07/19/2024 Igor Wang [facility] [address] [place] [address] 09/21/2024 Igor Wang Chronic cluster headache, not intractable G44.029 [facility] [address] [place] [address] 10/07/2024 Igor Wang [facility] [address] [place] [phone] 11/03/2024 Igor Wang [facility] [address] [place] [address] 03/28/2025 Igor Felipe [facility] [address] [place] [address] 04/09/2025 Igor Felipe Assessments Encounter Date Diagnosis (ICD Code) Assessment [...] migraine with aura and controlled cluster headaches. 01/24/2025 Chronic migraine without aura, intractable, without status migrainosus (ICD-10 - G43.719) Continue the same management. The next Botox treatment is scheduled for 11/01/2024 Controlled migraine with aura and controlled cluster headaches. 01/24/2025 Episodic cluster headache, intractable (ICD-10 - G44.011) [...] migraine with aura and controlled cluster headaches. 01/24/2025 Myalgia of auxiliary muscles, head and neck (ICD-10 - M79.12) Controlled migraine with aura and controlled cluster headaches. 01/24/2025 Atypical facial pain (ICD-10 - G50.1) Controlled migraine with aura and controlled cluster headaches. 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 08/15/2024 Atypical facial pain (ICD-10 - G50.1) Controlled migraine with aura and controlled cluster headaches. 05/12/2024 Atypical facial pain (ICD-10 - G50.1) Controlled migraine with aura and controlled cluster headaches. 01/24/2025 Fear of injections and transfusions (ICD-10 - F40.231) Controlled migraine with aura and controlled cluster headaches. Plan Of Treatment Next Appt Details Provider Name:Igor alberts, 04/18/2025 11:30:00 AM, [address] [place], [address], Insurance Providers Payer Name Payer Address Payer Phone Subscriber Number Group Number Insured Name Patient Relationship to Insured Coverage Start Date Coverage End Date [facility] [employer] [address] [id number] Annette Fenton Self - patient is the insured
== END 2025-04-12 15:49 | disposition home or self-care (01) ==
LOC: HO.HMCC 15:01
PROVIDERS: PCP Internal Medicine; Visit Provider Internal Medicine
DX: J45.40 Moderate persistent asthma, uncomplicated (principal); I10 Essential (primary) hypertension; G43.919 Migraine, unspecified, intractable, without status migrainosus; B35.4 Tinea corporis

== ENCOUNTER → 2025-04-12 15:00 | Outpatient (BNVA) | payer OTHER, SELFPAY | PROVIDERS: PCP Internal Medicine; Visit Provider Internal Medicine | DX: J45.40 Moderate persistent asthma, uncomplicated (principal); R21 Rash and other nonspecific skin eruption; I10 Essential (primary) hypertension; G43.919 Migraine, unspecified, intractable, without status migrainosus; B35.4 Tinea corporis | CPT/HCPCS: 99212 ==

== ENCOUNTER 2025-04-29 09:58 | Outpatient (AMB) | payer OTHER, SELFPAY ==
[2025-04-29 10:16] VITALS: BP 134/84; PULSE 88; O2SAT 98; BMI 29.0
--- NOTE | 2025-04-29 10:16 | MHC.OFFWIV ---
Intake Vital Signs 04/29/25 10:16 Height 5 ft 4 in Weight 169 lb BMI 29.0 BP 134/84 Blood Pressure Location Lt brachial Position Sitting Pulse 88 Pulse Source Pulse Oximeter Pulse Oximetry (%) 98 Oxygen Delivery Method Room Air Intake Visit Reasons: EP-Lt eye lid swollen/[phone] Patient Tobacco Use Status: Current everyday Tobacco user Allergies epinephrine (From EPIFRIN) Allergy (Intermediate, Verified 04/29/25 10:21) HEADACHES AND TACHYCARDIA Iodinated Contrast Media (IVP DYE) Allergy (Intermediate, Verified 04/29/25 10:21) DIFFICULTY BREATHING amoxicillin Allergy (Unknown, Verified 04/29/25 10:21) itchy tongue cantaloupe (CANTALOUPE) Allergy (Unknown, Verified 04/29/25 10:21) SHORTNESS OF BREATH cheese (CHEESE) Allergy (Unknown, Verified 04/29/25 10:21) UNKNOWN plummer (PLUMMER) Allergy (Unknown, Verified 04/29/25 10:21) SHORTNESS OF BREATH divalproex sodium (From DEPAKOTE) Allergy (Unknown, Verified 04/29/25 10:21) oral bumps fish derived (FISH) Allergy (Unknown, Verified 04/29/25 10:21) HIVES grapefruit (GRAPEFRUIT) Allergy (Unknown, Verified 04/29/25 10:21) UNKNOWN Nitrate Analogues (NITRATE ANALOGUES) Allergy (Unknown, Verified 04/29/25 10:21) UNKNOWN nut - unspecified (NUTS) Allergy (Unknown, Verified 04/29/25 10:21) SHORTNESS OF BREATH paroxetine (From PAXIL) Allergy (Unknown, Verified 04/29/25 10:21) somulence tetanus and diphtheria toxoids Allergy (Unknown, Verified 04/29/25 10:21) fever/hallucinations environmental Allergy (Unknown, Uncoded 02/06/25 13:55) unknown Do you need a note to return to daycare/school/sports/work: No HPI EP-Lt eye lid swollen/[phone] HPI Details Patient is a 50-year-old female who comes to the walk-in clinic complaining of left eye irritation while camping, no insect bite noted at the time, and finds left upper eyelid swollen Also has history of frequent Botox injections to the forehead due to migraine history Denies vision changes, fever chills, headache or dizziness, nausea vomiting or diarrhea, nasal congestion, cough or other respiratory symptoms, weakness, unsteadiness, altered mental status, numbness or tingling, or other significant associated symptoms [facility] Medical History Palpitations Atypical chest pain Asthma, moderate Tobacco abuse Surgical History History of breast surgery Hx of tubal ligation Family History Father Alcoholic Mother Elevated cholesterol CVD (cardiovascular disease) History of blood clots Son Anxiety Daughter Hearing loss Daughter Asthma Daughter Acid reflux Sister No problems noted. Other Mental health disorder Substance use disorder Social History Housing: Apartment Alcohol intake: current Alcohol intake frequency: holidays/special occasions only Patient Tobacco Use Status: Current everyday Tobacco user Tobacco use type: Cigarette Cigarette Packs Per Day: 1 Cigarettes Per Day: 20 Years Smoked: 30 e-Cigarette/Vaping Use: Never Used service: No Current occupational status: unemployed Cognitive needs: No Hearing needs: No Vision needs: No Review of Systems Const All systems reviewed & are unremarkable except as noted in HPI and below Physical Exam Exam Exam: PERRLA,EOMI, no FBO visualized, left upper eyelid mildly edematous and drooping, but able to lift the eyelid appropriately. No current discharge, scleral injection or other abnormalities noted to left eye, and no ehsan orbital findings Right eye unremarkable No other neuro deficits noted Vital Signs: Last Vital Signs Pulse 88 04/29/25 10:16 BP 134/84 04/29/25 10:16 Pulse Ox 98 04/29/25 10:16 Oxygen Delivery Method Room Air 04/29/25 10:16 BMI result Body Mass Index 29.0 Assessment & Plan Assessment & Plan (1) Allergic conjunctivitis of left eye: Code(s): H10.12 - Acute atopic conjunctivitis, left eye Plan: Patient with left upper eyelid swelling irritation and slight drooping, status post allergic contact versus bug bite while camping and could also be consistent with mild upper eyelid muscle weakness from Botox injection if this has been consistent since injection, however she is just noting it now. Advised allergy medication and prescribed antibiotic drops Follow up if symptoms persist or worsen, as she might need referral to Ophthalmology Medications: New polymyxin B sulf-trimethoprim 10,000 unit- 1 mg/mL while awake; do not exceed 6 doses in 24 hours 1 drp ophthalmic (eye) QID 10 mL 0RF 5 days Coding Level of Care Code Est Pt Level 4 (23920) Diagnoses Allergic conjunctivitis of left eye H10.12
== END 2025-04-29 11:32 | disposition home or self-care (01) ==
LOC: HO.HMCWIC 09:58
PROVIDERS: PCP Internal Medicine; Visit Provider Physician Assistant Medical
DX: H10.12 Acute atopic conjunctivitis, left eye (principal)

== ENCOUNTER → 2025-04-29 09:58 | Outpatient (BNVA) | payer OTHER, SELFPAY | PROVIDERS: PCP Internal Medicine; Visit Provider Physician Assistant Medical | DX: H10.12 Acute atopic conjunctivitis, left eye (principal) | CPT/HCPCS: 99212 ==

== ENCOUNTER 2025-05-05 12:59 | Outpatient (AMB) | payer OTHER, SELFPAY ==
--- OUTSIDE RECORDS SUMMARY | 2024-06-29 07:00 | XMS_ITS ---
Author Organization [facility] Address [address] [place] [address] Care Team Providers Care Tour Actor Name Role Phone Twin, Lynnponcho Primary Care Provider Igor Gil Unavailable [phone] Medications Medication SIG (Take, Route, Frequency, Duration) [...] HCl 120 MG TAKE 1 TABLET BY [facility] THREE TIMES A DAY FOR 90 DAYS; [...] Encounters Encounter Location Date Provider Diagnosis [facility] [address] [place] [address] 06/29/2024 Igor Wang Chronic migraine wit hout aura, intractable, without status migrainosus G43.719 Assessments Encounter Date Diagnosis (ICD Code) Assessment Notes Treatment Notes Treatment Clinical Notes Section Notes 06/29/2024 Chronic migraine without aura, intractable, without status migrainosus (ICD-10 - G43.719) Plan Of Treatment Next Appt Details Follow Up: 5 weeks after BTX of 08/11, Reason: Provider Name:Igor alberts, 07/11/2025 11:30:00 AM, [address] [place] [address], [phone], Progress Notes * Kenrick SOTOOB:1975 ( 50 yo F)Acc No.[id number]:06/29/2024 Progress Notes Patient: Annette PASTRANA Provider: Fausto Wang MD :1975 A ge:49 Y S ex:Female Date:06/29/2024 Address:[address] [place], [place] [id number] Pcp:Lj Murcia Subjective: * Chief Complaints: * [...] 08/11 * Billing Information: * Visit Code: 87329 OFFICE VISIT,EST PT,LEVEL 4. * Procedure Codes: * [place], [id number] on 05/05/2025 at 01:21 PM EDT Sign off status: Pending * Provider: Fausto Wang MD Date: Generated for Vu dean/Luann/eTransmitting on: 0 05/05/2025 01:21 PM EDT
--- NOTE | 2025-05-05 13:00 | MHC.PC.OV ---
Vital Signs 05/05/25 13:01 Height 5 ft 4 in Weight 167 lb BMI 28.7 BP 142/82 H Blood Pressure Location Lt brachial Position Sitting Respiration 20 Pulse 88 Pulse Source Pulse Oximeter Temp 98.0 F Temp Source Oral Pulse Oximetry (%) 98 Oxygen Delivery Method Room Air Intake Visit Reasons: Swollen eye Allergies epinephrine (From EPIFRIN) Allergy (Intermediate, Verified 05/05/25 13:01) HEADACHES AND TACHYCARDIA Iodinated Contrast Media (IVP DYE) Allergy (Intermediate, Verified 05/05/25 13:01) DIFFICULTY BREATHING amoxicillin Allergy (Unknown, Verified 05/05/25 13:01) itchy tongue cantaloupe (CANTALOUPE) Allergy (Unknown, Verified 05/05/25 13:01) SHORTNESS OF BREATH cheese (CHEESE) Allergy (Unknown, Verified 05/05/25 13:01) UNKNOWN schulz (SCHULZ) Allergy (Unknown, Verified 05/05/25 13:01) SHORTNESS OF BREATH divalproex sodium (From DEPAKOTE) Allergy (Unknown, Verified 05/05/25 13:01) oral bumps fish derived (FISH) Allergy (Unknown, Verified 05/05/25 13:01) HIVES grapefruit (GRAPEFRUIT) Allergy (Unknown, Verified 05/05/25 13:01) UNKNOWN Nitrate Analogues (NITRATE ANALOGUES) Allergy (Unknown, Verified 05/05/25 13:01) UNKNOWN nut - unspecified (NUTS) Allergy (Unknown, Verified 05/05/25 13:01) SHORTNESS OF BREATH paroxetine (From PAXIL) Allergy (Unknown, Verified 05/05/25 13:01) somulence tetanus and diphtheria toxoids Allergy (Unknown, Verified 05/05/25 13:01) fever/hallucinations environmental Allergy (Unknown, Uncoded 05/05/25 13:01) unknown Medication List - Last Reconciled 05/05/25 by Lj Murcia MD alprazolam 0.25 mg PO DAILY PRN 90 days [blood pressure monitor As directed] clotrimazole-betamethasone 1-0.05 % 1 appl topical .qd 30 days fluticasone propionate 220 mcg/actuation 1 puff inhalation BID 30 days ibuprofen 600 mg PO BID PRN mometasone 200 mcg/actuation (Asmanex HFA) 1 puff inhalation BEDTIME naratriptan mg PO nicotine (polacrilex) 2 mg buccal Q2H onabotulinumtoxinA (Botox) units IM ONCE polyethylene glycol 3350 (Miralax) 17 grams PO DAILY 30 days polymyxin B sulf-trimethoprim 10,000 unit- 1 mg/mL 1 drp ophthalmic (eye) QID 5 days Ventolin HFA 90 mcg/actuation (albuterol sulfate) 1 inh inhalation QID PRN 30 days NS verapamil ER 100 mg PO BEDTIME Tobacco use date assessed: 05/05/25 Dental Screening Dental Screen Date: 11/25/24 HPI Swollen eye HPI Details Chief Complaint The patient reports left upper eyelid swelling and redness. History of Present Illness The patient is a 50-year-old female presenting with left eyelid swelling. Left Upper Eyelid Swelling: - Reports swelling and redness of the left upper eyelid for a little over a week. - Symptoms began following a visit to urgent care on the previous Thursday, where she was prescribed eye drops. - There was a delay in obtaining the prescribed drops from [facility], with the patient starting the treatment only two days prior to this visit. - The patient notes mild improvement with the use of the drops, although the eyelid remains swollen and red. - Reports associated symptoms of dryness, itchiness, and irritation noted on the day of onset. - her symptoms are consistent with blepharitis. - No insect bite was noted during camping; suspect inciting factors include dust or allergens and potential irritation from using makeup. - Eyebrow shaving due to long hair was noted, causing itchiness but unrelated to the eye issue. Medications: - Polytrim eye drops for left upper eyelid swelling (unspecified dosage details). Social History: - Cares for a sick dog experiencing vomiting, which has added stress to the patient's daily life. - Recently visited [facility]. - Participated in a camping trip with activities around a camper. - Engages in the cosmetic practice of eyebrow grooming through shaving. Problem List - Blepharitis of the Left Upper Eyelid Patient Instructions - Continue using Polytrim eye drops as prescribed, typically four times a day while awake. - Apply cold compresses intermittently between drops using ice cubes in a Ziploc bag wrapped in a towel. - Avoid rubbing the eye to prevent further irritation. - Use an appropriate eyebrow sho instead of a razor for future grooming to avoid skin damage. 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 Other Mental health disorder Substance use disorder Social History Housing: Apartment Alcohol intake: current Alcohol intake frequency: holidays/special occasions only Patient Tobacco Use Status: Current everyday Tobacco user Tobacco use type: Cigarette Cigarette Packs Per Day: 1 Cigarettes Per Day: 20 Years Smoked: 30 e-Cigarette/Vaping Use: Never Used service: No Current occupational status: unemployed Cognitive needs: No Hearing needs: No Vision needs: No Questionnaire Thrive Questionnaire Date Thrive assessed: 10/12/24 I am a: Patient What is your living situation today?: I have a steady place to live Within the past 12 months, did the food you bought not last and you didn't have the money to get more?: Never true Within the past 12 months, did you worry whether your food would run out before you got money to buy more?: Never true Do you have trouble paying for medicines?: No Do you have trouble getting transportation to medical appointments?: No Do you have trouble paying your heating and electricity bill?: No Do you have trouble taking care of your child, family member or friend?: No Do you have trouble with day-to-day activities such as bathing, preparing meals, shopping, managing finances, etc.?: No Are you currently unemployed and looking for a job?: No Are you interested in more education?: No Please select the resources that you would like help with: None Currently or been in a relationship where the following occur: No concerns reported THRIVE Score: 0 SUE-7 AMB Questionnaire SUE-7 Date SUE - 7 assessed: 10/12/24 Source: Developed by Drs. Barrington Guy, Caryn Hodge, Ulysses Thurman and colleagues, with an educational carmen from [employer]. Physical exam (Primary Care) Vital Signs: Last Vital Signs Temp 98.0 F 05/05/25 13:01 Pulse 88 05/05/25 13:01 Resp 20 05/05/25 13:01 BP 142/82 H 05/05/25 13:01 Pulse Ox 98 05/05/25 13:01 Oxygen Delivery Method Room Air 05/05/25 13:01 BMI result Body Mass Index 28.7 Tobacco/Smoking Status: Tobacco use Status Tobacco use date assessed 05/05/25 05/05/25 13:02 Patient Tobacco Use Status Current everyday Tobacco 05/05/25 13:02 Tobacco use type Cigarette 05/05/25 13:02 e-Cigarette/Vaping Use Never Used 05/05/25 13:02 Thrive Assessment: Date of Thrive Assessment Date Thrive assessed 10/12/24 05/05/25 13:02 Currently or been in a relationship where the following occur: No concerns reported Coding Level of Care Code Est Pt Level 3 (48672) Diagnoses Blepharitis of left upper eyelid, unspecified type H01.004 Blepharitis type: unspecified type Assessment & Plan Assessment & Plan (1) Blepharitis of left upper eyelid: Code(s): H01.004 - Unspecified blepharitis left upper eyelid Category: Medical Qualifiers: Blepharitis type: unspecified type Qualified Code(s): H01.004 - Unspecified blepharitis left upper eyelid Plan Chief Complaint The patient reports left upper eyelid swelling and redness. History of Present Illness The patient is a 50-year-old female presenting with left eyelid swelling. Left Upper Eyelid Swelling: - Reports swelling and redness of the left upper eyelid for a little over a week. - Symptoms began following a visit to urgent care on the previous Thursday, where she was prescribed eye drops. - There was a delay in obtaining the prescribed drops from [facility], with the patient starting the treatment only two days prior to this visit. - The patient notes mild improvement with the use of the drops, although the eyelid remains swollen and red. - Reports associated symptoms of dryness, itchiness, and irritation noted on the day of onset. - her symptoms are consistent with blepharitis. - No insect bite was noted during camping; suspect inciting factors include dust or allergens and potential irritation from using makeup. - Eyebrow shaving due to long hair was noted, causing itchiness but unrelated to the eye issue. Medications: - Polytrim eye drops for left upper eyelid swelling (unspecified dosage details). Social History: - Cares for a sick dog experiencing vomiting, which has added stress to the patient's daily life. - Recently visited [facility]. - Participated in a camping trip with activities around a camper. - Engages in the cosmetic practice of eyebrow grooming through shaving. Problem List - Blepharitis of the Left Upper Eyelid Patient Instructions - Continue using Polytrim eye drops as prescribed, typically four times a day while awake. - Apply cold compresses intermittently between drops using ice cubes in a Ziploc bag wrapped in a towel. - Avoid rubbing the eye to prevent further irritation. - Use an appropriate eyebrow sho instead of a razor for future grooming to avoid skin damage.
[2025-05-05 13:01] VITALS: BP 142/82; PULSE 88; RESP 20; TEMP 36.7; O2SAT 98; BMI 28.7
--- OUTSIDE RECORDS SUMMARY | 2025-05-05 13:22 | XMS_ITS | Encounter Summary ---
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
--- OUTSIDE RECORDS SUMMARY | 2025-05-05 13:22 | XMS_ITS | Patient Health Record ---
Author Organization [facility] Address [address] [place] [address] Care Team Providers Care Fire Control Officer Name Role Phone Lj Murcia Primary Care Provider Igor Gil Unavailable [phone] Allergies Allergen (clinical drug ingredient) Drug/Non Drug Allergy documented on EMR Reaction Allergy Type Onset Date Status PAXIL 10 MG/5 ML SUSPENSION (uncoded) SSRIS Allergy Active predniSONE prednisone Drug Allergy Activ e Reason For Referral No Information Medications Medication SIG (Take, Route, Frequency, Duration) Notes Start Date End Date Status Polyethylene Glycol 3350 17 GM MIX 1 PAC KET IN WATER AND DRINK EVERY MORNING; Duration: 28 Active PROAIR HFA 90 MCG INHALER MCG/ACTUATION 9; Duration: 0 08/20/2010 Active Ibuprofen 200 mg 9 Oral 3 prn; Duration: 0 08/20/2010 Active Acetaminophen Extra Strength 500 MG 0 Oral 2 tabs prn; Duration: 30 01/30/2020 Active OnabotulinumtoxinA 200 UNIT Inject into face, head, neck and shoulder per MD IM Injection once; Duration: 84 days Active Verapamil HCl 120 MG TAKE 1 TABLET BY [facility] THREE TIMES A DAY FOR 90 DAYS; Duration: 90 days Active Naratriptan HCl 2.5 MG 1 tablet Orally T wice a day.; Duration: 45 days 01/27/2024 Active Pulmicort Flexhaler 90 MCG/ACT 1 puff [...] Risk Notes Problem Fear of medical treatment (228903823) Fear of injections and transfusions (F40.231) Active confirmed Problem Chronic intractable migraine without aura (42972548876109 5) Chronic migraine without aura, intractable, without status migrainosus (G43.719) Active confirmed Problem Menstrual migraine (67385535) Menstrual migraine, not intractable, without status migrainosus (G43.829) Active confirmed Problem Episodic cluster headache (678280100) Episodic cluster headache, intractable (G44.011) Active confirmed Problem Chronic cluster headache (688794292) Chronic cluster headache, not intractable (G44.029) Active confirmed undefined Problem Atypical facial pain (11495438) 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 Problem Myalgia of auxiliary muscles, 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 Problem Migraine without aura (19760484) Migraine without aura, not intractable, with statu (G43.001) Active confirmed Vital Signs Heart Rate 79 /min 04/18/2025 Blood pressure diastolic 58 mm Hg 04/18/2025 Weight-kg 75.66 kg 04/18/2025 Height 64 in 04/18/2025 Blood pressure systolic 118 mm Hg 04/18/2025 Weight 166.8 lbs 04/18/2025 BMI 28.63 kg/m2 04/18/2025 Encounters Encounter Location Date Provider Diagnosis [facility] [address] [place] [address] 05/05/2024 Igor Wang Chronic migraine without aura, intractable, without status migrainosus G43.719 [facility] [place] [address] 06/29/2024 Igor Wang Chronic migraine without aura, intractable, without status migrainosus G43.719 [facility] [place] [address] 05/12/2024 Igor Wang Chronic migraine without aura, intractable, without status migrainosus G43.719 ; Episodic cluster headache, intractable G44.011 ; Myalgia of auxiliary muscles, head and neck M79.12 and Atypical facial pain G50.1 [facility] [address] [place] [address] 08/15/2024 Igor Wang Chronic migraine without aura, intractable, without status migrainosus G43.719 ; Episodic cluster headache, intractable G44.011 ; Myalgia of auxiliary muscles, head and neck M79.12 and Atypical facial pain G50.1 [facility] [address] [place] [address] 11/01/2024 Igor Wang Chronic migraine without aura, intractable, without status migrainosus G43.719 ; Episodic cluster headache, intractable G44.011 ; Myalgia of auxiliary muscles, head and neck M79.12 ; Atypical facial pain G50.1 and Fear of injections and transfusions F40.231 [facility] [address] [place] [address] 01/24/2025 Igor Wang Chronic migraine without aura, intractable, without status migrainosus G43.719 ; Episodic cluster headache, intractable G44.011 ; Myalgia of auxiliary muscles, head and neck M79.12 ; Atypical facial pain G50.1 and Fear of injections and transfusions F40.231 [facility] [address] [place] [address] 04/18/2025 Igor Wang Chronic migraine without aura, intractable, without status migrainosus G43.719 ; Episodic cluster headache, intractable G44.011 ; Myalgia of auxiliary muscles, head and neck M79.12 ; Atypical facial pain G50.1 and Fear of injections and transfusions F40.231 [facility] [address] [place] [address] 02/01[facility]20[facility] [address] [place] [address] 06/03/2024 Igor [facility] [address] [place] [address] 07/19/2024 Igor [facility] [address] [place] [address] 09/21/2024 Igor Wang Chronic cluster headache, not intractable G44.029 [facility] [address] [place] [address] 10/07/2024 Igor Wang [facility] [address] [place] [address] 11/03/2024 Igor Wang [facility] [address] [place] [address] 03/28/2025 Igor Wang [facility] [address] [place] [address] 04/09/2025 Igor Wang [facility] [address] [place] [address] 04/27/2025 Igor Wang Chronic cluster headache, not intractable [...] migraine with aura and controlled cluster headaches. 04/18/2025 Chronic migraine without aura, intractable, without status migrainosus (ICD-10 - G43.719) Controlled migraine with aura and controlled cluster headaches. 04/27/2025 Chronic cluster headache, not intractable (ICD-10 - G44.029) 04/18/2025 Episodic cluster headache, intractable (ICD-10 - G44.011) [...] migraine with aura and controlled cluster headaches. 04/18/2025 Myalgia of auxiliary muscles, head and neck (ICD-10 - M79.12) Controlled migraine with aura and controlled cluster headaches. 04/18/2025 Atypical facial pain (ICD-10 - G50.1) Controlled [...] migraine with aura and controlled cluster headaches. 04/18/2025 Fear of injections and transfusions (ICD-10 - F40.231) Controlled migraine with aura and controlled cluster headaches. 01/24/2025 Fear of injections and transfusions (ICD-10 - F40.231) Controlled migraine with aura and controlled cluster headaches. Plan Of Treatment Next Appt Details Provider Name:Igoralphonso alberts, 07/11/2025 11:30:00 AM, [address] [place], [address], Insurance Providers Payer Name Payer Address Payer Phone Subscriber Number Group Number Insured Name Patient Relationship to Insured Coverage Start Date Coverage End Date [facility] [employer] [address] [id number] Annette Fenton Self - patient is the insured
--- OUTSIDE RECORDS SUMMARY | 2025-05-05 13:22 | XMS_ITS | Clinical Summary ---
Author Organization [facility] [address] [place] [address] [place] [phone] Phone Care Team Providers Care Sales And Marketing Agent Name Role Phone Lj Murcia MD Primary Care Provider [phone] Allergies Active Allergy Reactions Criticality Noted Date [...] Overview (09/21/2024): Follows with [facility] in [place] Last Assessment & Plan: Pt will continue to see [facility] every 3 months. Will keep diary as above to determine if [facility] seem to be related to IUD. Migraine with aura 01/21/2019 Overview (09/21/2024): Has seen neuro at [facility] in [place] Smoker 11/16/2018 Overview (09/21/2024): Last Assessment & [...] HISTORICAL DENTAL EXTRACTION ENDOMETRIAL ABLATION 06/06/2015 PROCEDURE: OH ENDOMETRIAL ABLTJ THERMAL W/O HYSTEROSCOPIC GUID; COMMENT: Daysi OTHER SURGICAL HISTORY 09/2017 PROCEDURE: HISTORICAL D&C; COMMENT: Using Myosure device for suspected hematometra BREAST SURGERY 2018 Right PROCEDURE: OH UNLISTED PROCEDURE BREAST; COMMENT: removed fibroid & other lump BREAST SURGERY pt doesn't remember Bilateral PROCEDURE: OH UNLISTED PROCEDURE BREAST BREAST BIOPSY pt. doesnt remember when Bilateral PROCEDURE: BX BREAST; PERC NEEDLE CORE W/IMAG GUID; COMMENT: bxs. of both breasts-removed lumps BREAST BIOPSY 2018 Right PROCEDURE: OH BX BREAST W/DEVICE 1ST LESION ULTRASOUND GUID OTHER SURGICAL HISTORY 05/20/2022 Left PROCEDURE: OH BX BREAST W/DEVICE 1ST LESION STEREOTACTIC GUID; [...] Date Smoking Tobacco: Every Day Cigarettes 0.7 38.7 Started: 09/07/1986 Smokeless Tobacco: Never Alcohol Use Standard Drinks/Week Comments Not Currently 0 (1 standard drink = 0.6 oz pur e alcohol) Comments No Sex and Gender Information Value Date Recorded Sex Assigned at Not on file Legal Sex Female 5:11 AM EST Gender Identity Not on file Sexual Orientation Not on file Obstetrics History * This document contains information received from the source organization and may not represent a complete record from that organization. Para Term AB IAB SAB Ectopic Multiple Livin g Live Births 6 4 4 4 4 Date Outcome GA Total Labor Labor//3rd Weight Sex Type Anes PTL [place] A1 A5 Name Clin Term Vag-S pont Living Term Vag-S pont Living Term Vag-S pont Living Term Vag-S pont Living Last Filed Vital Signs Vital Sign Reading [...] mammography. Return to annual mammography. Mammo Location: [facility], [address] [place] [address], [address], . -------- FINAL REPORT -------- Dictated By: Kate Kiran Dictated Date: 12/05/2024 14:01 ET Assigned Physician: Kate Kiran Reviewed and Electronically Signed By: Kate Kiran Signed Date: 12/05/2024 14:14 ET Workstation ID: [id number] Transcribed By: Self Edit Transcribed Date: 12/05/2024 [...] mammography. Return to annual mammography. Mammo Location: [facility], [address] [place] [address], [address], . -------- FINAL REPORT -------- Dictated By: Kate Kiran Dictated Date: 12/05/2024 14:01 ET Assigned Physician: Kate Krian Reviewed and Electronically Signed By: Kate Kiran Signed Date: 12/05/2024 14:14 ET Workstation ID: [id number] Transcribed By: Self Edit Transcribed Date: 12/05/2024 14:06 ET Lj Murcia MD IMG BI PROCEDURES Final Result * Cervical Cancer Screening: HPV (12/03/2021) Cervical Cancer Screening: HPV negative, abstracted Historical Provider HEALTH MAINTENANCE Final Result from Last 3 Months or Most Recently Relevant to Health Maintenance Insurance [facility] [employer] Care Teams Sales And Marketing Agent Relationship Specialty Start Date End Date Lj Murcia MD [address] [place] [address] PCP - General Internal Medicine 11/02/20
--- OUTSIDE RECORDS SUMMARY | 2025-05-05 13:22 | XMS_ITS | Encounter Summary ---
Author Organization [facility] Address [address] [place] [address] Care Team Providers Care Chemist Proteins Name Role Phone Lj Murcia MD Primary Care Provider [phone] Encounter Details Date Type Department Care Team (Late st Contact Info) Description 01/06/2025 Lab Requisition [facility] - Main Lab [address] [facility] [place] [address] Roderick Richter MD [address] [facility] [address] [place] [address] Benign essential microscopic hematuria Social History Tobacco Use Types Packs/Day Years [...] on file documented as of this encounter Procedures Procedure Name Priority Date/Time Associated Diagnosis Comments AP OUTSIDE CONSULT Routine 01/05/2025 12 :00 AM EDT Benign essential microscopic hematuria documented in this encounter Results * Anatomic pathology outside consult (01/05/2025 12:00 AM EDT) Final Diagnosis A. Urine, Voided, ([id number]): Negative for high grade urothelial carcinoma. Results of UroVysion fluorescence in situ hybridization (FISH) testing: CEP3: Normal CEP7: Normal CEP17: Normal LSI 9p21: Normal Interpretation: Normal profile Controls stained appropriately. Note: The results are intended as a screening device and should be interpreted in association with other clinical and pathological findings. 01/06/2025 4:54 PM EDT [facility] Clinical Information Benign essential microscopic hematuria R31.1 Urine Cytology/FISH (now) 01/06/2025 4:54 PM EDT [facility] Gross Description A. Urine, Voided, ([id number]): Received one ThinPrep slide for cytology and one ThinPrep slide for UroVysion FISH 01/06/2025 4:54 PM EDT [facility] Disclaimer Unless otherwise specified, all tissue is 10% NB formalin fixed and paraffin embedded. Technical pathology services provided by [facility] [address] [facility] [address] [place] [address] (CLIA #[id number]/Yuki Lewis MD, Non Cdl Driver) 01/06/2025 4:54 PM EDT [facility] Tissue Urine specimen from urethra / Unknown 01/05/2025 01/06/2025 8:06 AM EDT us Roderick Richter MD LAB PATHOLOGY ORDERABLES Final R esult [facility] [address] [place] [address], documented in this encounter Visit Diagnoses Diagnosis Benign essential microscopic hematuria documented in this encounter Care Teams Chemist Proteins Relationship Specialty Start Date End Date Lj Murcia MD [address] [place] [address] PCP - General Internal Medicine 11/02/20 documented as of this encounter
--- OUTSIDE RECORDS SUMMARY | 2025-05-05 13:22 | XMS_ITS | Clinical Summary ---
Author Organization [employer] Address [address] [place] [address] [address] [place] [address] Care Team Providers Care Lockstitch Waistline Joiner Name Role Phone Unavailable Primary Care Provider [...] 1973 FIT 1973 FOBT 1973 Sigmoidoscopy 1973 Disability Screening 1973 Alcohol/Substance Use Screening 1985 Tobacco Screening 1985 Family Planning (PISQ) 1988 DTaP/Tdap/Td Vaccines (1 - Tdap) 1992 Hepatitis B Vaccines (1 of 3 - 19+ 3-dose series) 1992 Pap Smear 1994 Cervical Cancer Screening 2003 HPV/Cotest 2003 Mammogram 2013 Pneumococcal Vaccine: 50+ Ye ars (1 of 1 - PCV) 2023 Zoster Vaccines (1 of 2) 2023 COVID-19 Vaccine (1 - 2023-2 5 season) 2024 Influenza Vaccine (#1) 2025 RSV Patients and Pa tients Aged 60 [...]
--- OUTSIDE RECORDS SUMMARY | 2025-05-05 13:22 | XMS_ITS | Encounter Summary ---
Author Organization [employer] Address [address] [place] [address] [address] [place] [address] Care Team Providers Care Match Up Person Name Role Phone Unavailable Primary Care Provider Unavailabl e Encounter Details Date Type Department Care Team (Latest Contact Info) Description 12/04/2020 Abstract [facility] CONVERSIONS Dental, Provider, DDS Social History Tobacco [...]
== END 2025-05-05 13:55 | disposition home or self-care (01) ==
LOC: HO.HMCC 12:59
PROVIDERS: PCP Internal Medicine; Visit Provider Internal Medicine
DX: H01.004 Unspecified blepharitis left upper eyelid (principal)

== ENCOUNTER → 2025-05-05 12:59 | Outpatient (BNVA) | payer OTHER, SELFPAY | PROVIDERS: PCP Internal Medicine; Visit Provider Internal Medicine | DX: H01.004 Unspecified blepharitis left upper eyelid (principal) | CPT/HCPCS: 99212 ==

== ENCOUNTER 2025-06-16 12:29 | Outpatient (AMB) | payer OTHER, SELFPAY ==
[2025-06-16 12:32] VITALS: BP 130/82; PULSE 87; O2SAT 97; BMI 28.3
--- NOTE | 2025-06-16 12:32 | A.OFFPC_ITS ---
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 Assistant Required: No Allergies epinephrine (From EPIFRIN) Allergy (Intermediate, Verified 06/16/25 12:32) HEADACHES AND TACHYCARDIA Iodinated Contrast Media (IVP DYE) Allergy (Intermediate, Verified 06/16/25 12:32) DIFFICULTY BREATHING amoxicillin Allergy (Unknown, Verified 06/16/25 12:32) itchy tongue cantaloupe (CANTALOUPE) Allergy (Unknown, Verified 06/16/25 12:32) SHORTNESS OF BREATH cheese (CHEESE) Allergy (Unknown, Verified 06/16/25 12:32) UNKNOWN schulz (SCHULZ) Allergy (Unknown, Verified 06/16/25 12:32) SHORTNESS OF BREATH divalproex sodium (From DEPAKOTE) Allergy (Unknown, Verified 06/16/25 12:32) oral bumps fish derived (FISH) Allergy (Unknown, Verified 06/16/25 12:32) HIVES grapefruit (GRAPEFRUIT) Allergy (Unknown, Verified 06/16/25 12:32) UNKNOWN Nitrate Analogues (NITRATE ANALOGUES) Allergy (Unknown, Verified 06/16/25 12:32) UNKNOWN nut - unspecified (NUTS) Allergy (Unknown, Verified 06/16/25 12:32) SHORTNESS OF BREATH paroxetine (From PAXIL) Allergy (Unknown, Verified 06/16/25 12:32) somulence tetanus and diphtheria toxoids Allergy (Unknown, Verified 06/16/25 12:32) fever/hallucinations environmental Allergy (Unknown, Uncoded 05/05/25 13:01) unknown Medication List - Last Reconciled 06/16/25 by Lj Murcia MD alprazolam 0.25 mg PO DAILY PRN 90 days [blood pressure monitor As directed] clotrimazole-betamethasone 1-0.05 % 1 appl topical .qd 30 days fluticasone propionate 220 mcg/actuation 1 puff inhalation Q12H ibuprofen 600 mg PO BID PRN mometasone 200 mcg/actuation (Asmanex HFA) 1 puff inhalation BEDTIME naratriptan mg PO nicotine (polacrilex) 2 mg buccal Q2H onabotulinumtoxinA (Botox) units IM ONCE polyethylene glycol 3350 (Miralax) 17 grams PO DAILY 30 days polymyxin B sulf-trimethoprim 10,000 unit- 1 mg/mL 1 drp ophthalmic (eye) QID 5 days Ventolin HFA 90 mcg/actuation (albuterol sulfate) 1 inh inhalation QID PRN 30 days NS verapamil ER 100 mg PO BEDTIME Tobacco use date assessed: 05/05/25 Dental Screening Dental Screen Date: 11/25/24 HPI Asthma HPI Details History of Present Illness The patient is a 50-year-old female presenting with asthma and yeast infection. Asthma: - Ongoing issue with asthma management, noting difficulty obtaining effective medication coverage. - Previous treatment with Flovent which effectively controlled symptoms but is no longer covered by her insurance. - Tried Asmanex, Pulmicort, and Qvar, wi th inadequate symptom control. - Experiences asthma exacerbations parti cularly during seasonal changes, with a noted worsening in recent weeks. - Asmanex reportedly causes her mouth to feel dry. - Last use of Asmanex was the night befo re the visit, but breathing difficulties persist. Yeast Infection: - Recent use of Augmentin for suspected eye infection led to slow healing. - Developed itching indicative of a pote ntial yeast infection after completing a one-week course of Augmentin, particularly a week post-treatment. - Seeks topical treatment for symptom al leviation, preferring a cream. Medical History: - History of asthma poorly controlled wi th medications other than Flovent. - Prediabetes. Medications: - Asmanex for asthma management (current ly not effective). - Completed course of Augmentin for a turner spected eye infection. Problem List - Asthma - Yeast Infection secondary to antibioti c use - Prediabetes Plan - Obtain prior authorization to restart Flovent or its generic equivalent for asthma management due to proven efficacy earlier. - Discontinue ineffective medications: A smanex, Pulmicort, and Qvar. - Address yeast infection symptoms post- Augmentin with a topical antifungal cream based on patient preference. - Reinforce dietary recommendations to m anage prediabetes and minimize potential recurrence of symptoms such as itching. Review of Systems - General: No fever no chills - Neurological: No headaches no dizziness - Ear nose throat: No sore throat no hearing difficulty no ear pain - Cardiovascular: No syncope, no chest pain, no palpitations - Gastrointestinal: No nausea vomiting or diarrhea - Endocrine: No polyuria polydipsia no heat intolerance - Genitourinary: No dysuria , no blood in urine Physical Exam General: No acute distress HEENT: No acute findings, recent eye infection treated with Augmentin Neck: Supple Respiratory system: Able to talk in full sentences, no audible wheeze Cardiovascular: S1-S2 regular in rate and rhythm Gastrointestinal: No pain Extremities: No new findings CHIEF MINISTER: Alert awake oriented x3 motor intact Skin: Normal turgor PFSH Medical History Palpitations Atypical chest pain Asthma, moderate Tobacco abuse Surgical History History of breast surgery Hx of tubal ligation Family History Father Alcoholic Mother Elevated cholesterol CVD (cardiovascular disease) History of blood clots Son Anxiety Daughter Hearing loss Daughter Asthma Daughter Acid reflux Sister No problems noted. Other Mental health disorder Substance use disorder Social History Housing: Apartment Alcohol intake: current Alcohol intake frequency: holidays/special occasions only Patient Tobacco Use Status: Current everyday Tobacco user Tobacco use type: Cigarette Cigarette Packs Per Day: 1 Cigarettes Per Day: 20 Years Smoked: 30 Packs Per Year: 30 Packs per year/per ci.00 e-Cigarette/Vaping Use: Never Used service: No Current occupational status: unemployed Cognitive needs: No Hearing needs: No Vision needs: No Questionnaire PHQ-9 Over the last 2 weeks, how often have you been bothered by any of the following problems? 1. Little interest or pleasure in doing things: several days 2. Feeling down, depressed, or hopeless: several days 3. Trouble falling or staying asleep, or sleeping too much: not at all 4. Feeling tired or having little energy: several days 5. Poor appetite or overeating: several days 6. Feeling bad about yourself - or that you are a failure or have let yourself or your family down: not at all 7. Trouble concentrating on things, such as reading the newspaper or watching television: several days 8. Moving or speaking so slowly that other people could have noticed. Or the opposite - being so fidgety or restless that you have been moving around a lot more than usual: not at all 9. Thoughts that you would be better off or of hurting yourself in some way: not at all Total score: 5 Depression Screening Interpretation: Negative Depression Screening Done: Yes 84933 - PHQ-9 Billing: Yes Source: Developed by Drs. Barrington Guy, Caryn Hodge, Ulysses Thurman and colleagues, with an educational carmen from [employer]. Thrive Questionnaire Date Thrive assessed: 10/12/24 I am a: Patient What is your living situation today?: I have a steady place to live Within the past 12 months, did the food you bought not last and you didn't have the money to get more?: Never true Within the past 12 months, did you worry whether your food would run out before you got money to buy more?: Never true Do you have trouble paying for medicines?: No Do you have trouble getting transportation to medical appointments?: No Do you have trouble paying your heating and electricity bill?: No Do you have trouble taking care of your child, family member or friend?: No Do you have trouble with day-to-day activities such as bathing, preparing meals, shopping, managing finances, etc.?: No Are you currently unemployed and looking for a job?: No Are you interested in more education?: No Please select the resources that you would like help with: None Currently or been in a relationship where the following occur: No concerns reported THRIVE Score: 0 AUDIT C Alcohol Use Questionnaire (AUDIT-C) 1. How often do you have a drink containing alcohol?: Never 3. How often do you have six or more drinks on one occasion?: Never Total Score: 0 SUE-7 AMB Questionnaire SUE-7 Date SUE - 7 assessed: 10/12/24 Feeling nervous, anxious, or on edge: 1 = Several days Not being able to stop or control worryin = Not at all Worrying too much about different things: 1 = Several days Trouble relaxin = Not at all Being so restless that it is hard to sit still: 0 = Not at all Becoming easily annoyed or irritable: 1 = Several days Feeling afraid as if something awful might happen: 0 = Not at all Total SUE-7 score (0-4 normal; 5-9 mild; 10-14 moderate; 15-21 severe): 3 Source: Developed by Drs. Barrington Guy, Caryn Hodge, Ulysses Thurman and colleagues, with an educational carmen from [employer]. SUE-7 Assessment Billing SUE-7 Assessment Tool: SUE-7 Assessment 78546 ACT Questionnaire In the past 4 weeks, how much of the time did your asthma keep you from getting as much done at work, school or at home?: Some of the time During the past 4 weeks, how often have you had shortness of breath?: More than once a day During the past 4 weeks, how often did your asthma symptoms wake you up at night or earlier than usual in the morning?: Not at all During the past 4 weeks, how often have you had to use your rescue inhaler or nebulizer medication?: More than 3 times per day How would you rate your asthma control during the past 4 weeks?: Not controlled at all ACT Interpretation: Positive Score: 11 Physical exam (Primary Care) Vital Signs: Last Vital Signs Pulse 87 06/16/25 12:32 BP 130/82 06/16/25 12:32 Pulse Ox 97 06/16/25 12:32 Oxygen Delivery Method Room Air 06/16/25 12:32 BMI result Body Mass Index 28.3 Tobacco/Smoking Status: Tobacco use Status Tobacco use date assessed 05/05/25 06/16/25 12:34 Patient Tobacco Use Status Current everyday Tobacco 06/16/25 12:34 Tobacco use type Cigarette 06/16/25 12:34 e-Cigarette/Vaping Use Never Used 06/16/25 12:34 PHQ-9: PHQ-9 Score PHQ-9: Total score 5 06/16/25 12:39 Depression Screening Interpretation: Negative Thrive Assessment: Date of Thrive Assessment Date Thrive assessed 10/12/24 06/16/25 12:34 Currently or been in a relationship where the following occur: No concerns reported Coding Level of Care Code Est Pt Level 3 (46182) Diagnoses Uncontrolled asthma J45.909 Vaginal itching N89.8 Impaired fasting blood sugar R73.01 Additional Codes Asthma Control Questionnaire - ACT Interpretation: Positive ([id number]) SUE-7 Assessment Billing - SUE-7 Assessment Tool: SUE-7 Assessment 13629 ([id number]) PHQ-9 - 71421 - PHQ-9 Billing: Yes ([id number]) Assessment & Plan Assessment & Plan (1) Uncontrolled asthma: Code(s): J45.909 - Unspecified asthma, uncomplicated Category: Medical (2) Vaginal itching: Code(s): N89.8 - Other specified noninflammatory disorders of vagina Category: Medical (3) Impaired fasting blood sugar: Code(s): R73.01 - Impaired fasting glucose Category: Medical Plan History of Present Illness The patient is a 50-year-old female presenting with asthma and yeast infection. Asthma: - Ongoing issue with asthma management, noting difficulty obtaining effective medication coverage. - Previous treatment with Flovent which effectively controlled symptoms but is no longer covered by her insurance. - Tried Asmanex, Pulmicort, and Qvar, with inadequate symptom control. - Experiences asthma exacerbations particularly during seasonal changes, with a noted worsening in recent weeks. - Asmanex reportedly causes her mouth to feel dry. - Last use of Asmanex was the night before the visit, but breathing difficulties persist. Yeast Infection: - Recent use of Augmentin for suspected eye infection led to slow healing. - Developed itching indicative of a potential yeast infection after completing a one-week course of Augmentin, particularly a week post-treatment. - Seeks topical treatment for symptom alleviation, preferring a cream. Medical History: - History of asthma poorly controlled with medications other than Flovent. - Prediabetes. Medications: - Asmanex for asthma management (currently not effective). - Completed course of Augmentin for a suspected eye infection. Problem List - Asthma - Yeast Infection secondary to antibiotic use - Prediabetes Plan - Obtain prior authorization to restart Flovent or its generic equivalent for asthma management due to proven efficacy earlier. - Discontinue ineffective medications: Asmanex, Pulmicort, and Qvar. - Address yeast infection symptoms post-Augmentin with a topical antifungal cream based on patient preference. - Reinforce dietary recommendations to manage prediabetes and minimize potential recurrence of symptoms such as itching. Medications: New fluticasone propionate 220 mcg/actuation 1 puff inhalation Q12H 12 grams 2RF nystatin 1 appl topical DAILY 30 grams 1RF 30 days
== END 2025-06-16 13:16 | disposition home or self-care (01) ==
LOC: HO.HMCC 12:29
PROVIDERS: PCP Internal Medicine; Visit Provider Internal Medicine
DX: J45.909 Unspecified asthma, uncomplicated (principal); N89.8 Other specified noninflammatory disorders of vagina; R73.01 Impaired fasting glucose

== ENCOUNTER → 2025-06-16 12:29 | Outpatient (BNVA) | payer OTHER, SELFPAY | PROVIDERS: PCP Internal Medicine; Visit Provider Internal Medicine | DX: J45.909 Unspecified asthma, uncomplicated (principal); B37.9 Candidiasis, unspecified; N89.8 Other specified noninflammatory disorders of vagina; R70.1 Abnormal plasma viscosity | CPT/HCPCS: 96127; 96160; 99212 ==

== ENCOUNTER 2025-08-07 03:17 | Emergency (ER) | payer OTHER, SELFPAY ==
[2025-08-07 03:28] VITALS: BP 154/83; PULSE 75; RESP 18; TEMP 36.6; O2SAT 97; BMI 27.8
--- OUTSIDE RECORDS SUMMARY | 2025-08-07 03:41 | XMS_ITS | Encounter Summary ---
Author Organization [employer] Address [address] [place] [address] [address] [place] [address] Care Team Providers Care Gold Leaf Roller Name Role Phone Unavailable Primary Care Provider [...]
--- OUTSIDE RECORDS SUMMARY | 2025-08-07 03:41 | XMS_ITS | Clinical Summary ---
Author Organization [facility] [address] [place] [address] [place] [phone] Phone Care Team Providers Care Pack Operator Name Role Phone Lj Murcia MD Primary Care Provider [phone] Allergies Active Allergy Reactions Criticality Noted Date [...] Overview (09/21/2024): Follows with [facility] in [place] Last Assessment & Plan: Pt will continue to see [facility] every 3 months. Will keep diary as above to determine if [facility] seem to be related to IUD. Migraine with aura 01/21/2019 Overview (09/21/2024): Has seen neuro at [facility] in [place] Smoker 11/16/2018 Overview (09/21/2024): Last Assessment & [...] Encounters Date Type Department Care Team Description 06/29/2025 1:15 PM EDT Office Visit Obstetrics and Gynecology - [address] [phone] Nguyen Perez CNM BV (bacterial vaginosis) (Primary Dx) 06/29/2025 Telephone Obstetrics and Gynecology - [address] [phone] Yesica Alvarez MD from Last 3 Months Surgical History Surgery Date Site/Laterality Comments TUBAL LIGATION PROCEDURE: HISTORICAL TUBAL LIGATION MULTIPLE TOOTH EXTRACTIONS PROCEDURE: HISTORICAL DENTAL EXTRACTION ENDOMETRIAL ABLATION 06/06/2015 PROCEDURE: CO ENDOMETRIAL ABLTJ THERMAL W/O HYSTEROSCOPIC GUID; COMMENT: Novasure OTHER SURGICAL HISTORY 09/2017 PROCEDURE: HISTORICAL D&C; COMMENT: Using Myosure device for suspected hematometra BREAST SURGERY 2018 Right PROCEDURE: CO UNLISTED PROCEDURE BREAST; COMMENT: removed fibroid & other lump BREAST SURGERY pt doesn't remember Bilateral PROCEDURE: CO UNLISTED PROCEDURE BREAST BREAST BIOPSY pt. doesnt remember when Bilateral PROCEDURE: BX BREAST; PERC NEEDLE CORE W/IMAG GUID; COMMENT: bxs. of both breasts-removed lumps BREAST BIOPSY 2017 Right PROCEDURE: CO BX BREAST W/DEVICE 1ST LESION ULTRASOUND GUID OTHER SURGICAL HISTORY 05/20/2022 Left PROCEDURE: CO BX BREAST W/DEVICE 1ST LESION STEREOTACTIC GUID; [...] Date Smoking Tobacco: Every Day Cigarettes 0.8 38.9 Started: 09/07/1986 Smokeless Tobacco: Never Tobacco Cessation:Ready to Q uit: Not Asked; Counseling Given: Not Answered Alcohol Use Standard Drinks/Week Comments Not Currently [...] Sign Reading Time Taken Comments Blood Pressure 130/83 06/29/2025 1:18 PM EDT Pulse 82 06/29/2025 1:18 PM EDT Temperature - - Respiratory Rate 16 12/16/2024 3:40 PM EDT Oxygen Saturation - - Inhaled Oxygen Concentration - - Weight 74.8 kg (165 lb) 06/29/2025 1:18 PM EDT Height 165.1 cm (5' 5 ) 12/16/2024 3:40 PM EDT Body Mass Index 27.46 12/16/2024 3:40 PM EDT Plan of Treatment Health Maintenance Due Date Last Done Comments Colorectal Cancer Screening: Colonoscopy 1973 Hepatitis B Vaccines (1 of 3 - 19+ 3-dose series) 1992 Pneumococcal Vaccine: 50+ Years (1 of 2 - PCV) 1992 DTaP,Tdap,and Td Vaccines (2 - Td or Tdap) 07/03/2007 07/03/1997 Cholesterol Screening (Lipid Panel) 08/16/2022 HIV Screening 08/16/2022 Hepatitis C Screening 08/16/2022 Lung Cancer Screening (Low Dose CT) 08/16/2022 Social Influencers of Health Screening 08/16/2022 RSV Immunization Adult Patients (1 - Risk 50-74 years 1-dose series) 2023 Zoster Vaccines (1 of 2) 2023 Depression Screening 09/07/2024 COVID-19 Vaccine ( - 2024- season) 2025 Influenza Vaccine (#1) 2025 Cervical Cancer Screening: HPV 12/03/2026 12/03/2021 Breast Cancer Screening 12/05/2026 12/06/19 25, 11/22/2024, 11/11/2023, Additional history exists HIB Vaccines [...] Procedure Name Priority Date/Time Associated Diagnosis Comments CHLAMYDIA TRACHOMATIS AND NEISSERIA GONORRHOEAE PCR Routine 06/29/2025 1:33 PM EDT BV (bacterial vaginosis) TRICHOMONAS VAGINALIS ANTIGEN Routine 06/29/2025 1:33 PM EDT BV (bacterial vaginosis) POC WET MOUNT Routine 06/29/2025 1:31 PM EDT BV (bacterial vaginosis) MG MAMMO DIGITAL DIAGNOSTIC W MEJIA LEFT Routine 12/05/2024 1:58 PM EDT Abnormal mammogram HM HPV Routine 12/03/2021 from Last 3 Months or Most Recently Relevant to Health Maintenance Results * Trichomonas vaginalis antigen (06/29/2025 1:33 PM EDT) Pathologist [facility] Trichomonas vaginalis Negative Negative 06/29/2025 9:13 PM EDT [facility] Swab Vaginal structure / Unknown Non-blood Collection / Unknown 06/29/2025 1:33 PM EDT 06/29/2025 1:33 PM EDT Nguyen PEREZ LAB MICROBIOLOGY - GENERAL SHERRY RODRIGUEZ Final Result [facility] [address] [place] [address], [place] [phone] * Chlamydia trachomatis and Neisseria gonorrhoeae molecular study (06/29/2025 1:33 PM EDT) Neisseria gonorrhoeae PCR Negative Negative LAB MOLECULAR DIAGNOSTICS METHOD 06/30/2025 11:39 AM EDT [facility] Chlamydia trachomatis PCR Negative Negative LAB MOLECULAR DIAGNOSTICS METHOD 06/30/2025 11:39 AM EDT [facility] Swab Cervix uteri structure / Unknown Non-blood Collection / Unknown 06/29/2025 1:33 PM EDT 06/29/2025 1:33 PM EDT Nguyen PEREZ LAB MICROBIOLOGY - GENERAL ORDE RABLES Final Result [facility] [address] [place] [address], * (ABNORMAL) POC Wet Mount (06/29/2025 1:31 PM EDT) Trichomonas, Wet Prep POC Absent Absent Yeast, Wet Prep POC Negative Not Applicable, Negative Clue Cells, Wet Prep POC Positive(A) Not Applicable, Negative PH FL Type POC 5.0 Vaginal Fluid Vaginal structure / Unknown 06/29/2025 1:31 PM EDT Nguyen Perez [facility] POINT OF CARE TEST ENTER/EDIT O RDERABLES Final Result * MG Mammo Digital Diagnostic w Mejia Left (12/05/2024 1:58 PM EDT) Anatomical Region Laterality Modality Breast Left Mammography 12/05/2024 2:01 PM EDT Impressions 12/05/2024 2:14 PM EDT Benign. Findings and recommendations were conveyed to the patient. BI-RADS CATEGORY: 2 - BENIGN RECOMMENDATION: Return to annual mammography. Return to annual mammography. Return to annual mammography. Return to annual mammography. Mammo Location: [facility], [address] [place] [address], [phone], . -------- FINAL REPORT -------- Dictated By: Kate Kiran Dictated Date: 12/05/2024 14:01 ET Assigned Physician: Kate Kiran Reviewed and Electronically Signed By: Kate Kiran Signed Date: 12/05/2024 14:14 ET Workstation ID: [id number] Transcribed By: Self Edit Transcribed Date: 12/05/2024 [...] mammography. Return to annual mammography. Mammo Location: [facility], [address] [place] [address], [phone], . -------- FINAL REPORT -------- Dictated By: Kate Kiran Dictated Date: 12/05/2024 14:01 ET Assigned Physician: Kate Kiran Reviewed and Electronically Signed By: Kate Kiran Signed Date: 12/05/2024 14:14 ET Workstation ID: [id number] Transcribed By: Self Edit Transcribed Date: 12/05/2024 14:06 ET Lj Murcia MD IMG BI PROCEDURES Final Result * Cervical Cancer Screening: HPV (12/03/2021) Cervical Cancer Screening: HPV negative, abstracted Historical Provider HEALTH MAINTENANCE Final Result from Last 3 Months or Most Recently Relevant to Health Maintenance Insurance [employer] Care Teams Pack Operator Relationship Specialty Start Date End Date Lj Murcia MD [address] [place] [phone] PCP - General Internal Medicine 11/02/20
--- OUTSIDE RECORDS SUMMARY | 2025-08-07 03:41 | XMS_ITS | Encounter Summary ---
Author Organization [facility] Address [address] [place] [address] Care Team Providers Care Motor Polarizer Name Role Phone Lj Murcia MD Primary Care Provider Encounter Details Date Type Department Care Team (Late st Contact Info) Description 01/06/2025 Lab Requisition [facility] - Main Lab [address] [facility] [place] [address] Roderick Richter MD [address] [facility] [address] [place] [address] Benign essential microscopic hematuria Social History Tobacco Use Types Packs/Day Years Used Date Smoking Tobacco: Every Day Cigarettes 0.8 38.9 Started: 09/07/1986 Smokeless Tobacco: Never Alcohol Use [...] AM EDT) Final Diagnosis A. Urine, Voided, ([id number]): Negative for high grade urothelial carcinoma. Results of UroVysion fluorescence in situ hybridization (FISH) testing: CEP3: Normal CEP7: Normal CEP17: Normal LSI 9p21: Normal Interpretation: Normal profile Controls stained appropriately. Note: The results are intended as a screening device and should be interpreted in association with other clinical and pathological findings. 01/06/2025 4:54 PM EDT [facility] at 1654 EDT Clinical Information Benign essential microscopic hematuria R31.1 Urine Cytology/FISH (now) 01/06/2025 4:54 PM EDT [facility] Gross Description A. Urine, Voided, ([id number]): Received one ThinPrep slide for cytology and one ThinPrep slide for UroVysion FISH 01/06/2025 4:54 PM EDT [facility] Disclaimer Unless otherwise specified, all tissue is 10% NB formalin fixed and paraffin embedded. Technical pathology services provided by [facility] [address] [facility] [facility] [address] [place] [address] (CLIA #[id number]/Yuki Lewis MD, Painting Technician) 01/06/2025 4:54 PM EDT [facility] Tissue Urine specimen from urethra / Unknown 01/05/2025 01/06/2025 8:06 AM EDT us Roderick Richter MD LAB PATHOLOGY ORDERABLES Final R esult [facility] [address] [place] [address], documented in this encounter Visit Diagnoses Diagnosis Benign essential microscopic hematuria documented in this encounter Care Teams Motor Polarizer Relationship Specialty Start Date End Date Lj Murcia MD [address] [place] [phone] PCP - General Internal Medicine 11/02/20 documented as of this encounter
--- OUTSIDE RECORDS SUMMARY | 2025-08-07 03:42 | XMS_ITS | Encounter Summary ---
Author Organization [employer] Address [address] [place] [address] [address] [place] [address] Care Team Providers Care Special Agent Name Role Phone Unavailable Primary Care Provider Unavailabl e Encounter Details Date Type Department Care Team (Latest Contact Info) Description 12/04/2020 Abstract [facility] CONVERSIONS Dental, Provider, DDS Social History [...]
--- OUTSIDE RECORDS SUMMARY | 2025-08-07 03:42 | XMS_ITS | Data Portability ---
Author Organization [facility] [address] Address [address] [place] [address] Assessment No assessment recorded. Plan of Treatment Reminders Order Date Submit Date Provider Last Modified By Organization Details Last Modified Time Details Appointments None recorded . Lab rapid strep group A, throat 023 02/06/20 [email or web address] [facility], [address] [place] [address], [phone], 17:21:55 Referral None recorded . Procedures None recorded . Surgeries None recorded . Imaging None recorded . Medication Orders None recorded . Patient TargetsNo targets recorded. Patient Instructions Encounter Date Encounter Id Patient Instructions Last Modified By Organization Details Last Modified Time 02/05/2023 [id number] upper respirator y infection (cold): care instructions [place] [address] Not available 02/05/2023 17:21:55 Reason for Referral None Reported. Results Created Date Observation Date Name Description Value Unit Range Abnormal Flag Note LastModifiedBy Organization Detail LastModifiedTime 02/06/2002/05/2023 rapid strep group A, throa t Unknown Analyte Normal = Negati ve Not Available [facility] [address] [place] [address], [phone], 02/05/2023 16:42:30 02/06/2002/05/2023 rapid strep group A, throa t Unknown Analyte negati ve Not Available [facility] [address] [place] [address], [phone], 02/05/2023 16:42:30 Result Notes None recorded. Problems Name Problem SNOMED Code Status Onset Date Resolution Date Notes Provider Name and Address Organization Details Recorded Time Migraine 98530643 Active 023 [facility] [place] [facility] 3 16:40:48 Asthma 923174228 Active 023 [facility] [place] [facility] 3 16:41:08 Problem Notes None recorded. Procedures Surgical History Date Name Laterality Status Provider Name and Address Organization Details Recorded Time ligation of fallopian tube completed [facility] [place] - [facility] 02/05/2023 16:42:25 ultrasonography guided transcervical radiofrequency ablation of uterine fibroid [facility] 02/05/2023 16:43:30 Imaging Results None recorded. Procedure Notes None recorded. Medical Equipment None Reported. Allergies Allergen ID Allergen Name Allergen Category Reaction Reaction Severity Criticality Documentation Date Start Date Code Code System Note Provider Name and Address Organization Details Recorded Time 690565 Vaccine product containin g only Clostridi um tetani antigen (medicina l product) medicatio n fever Not available Not available 02/05/2023 91851 2003 SNOMED [facility], [place] - [facility] 3 16:41:48 Medications Name [...] [Score] - Reported Respiratory rate Oxygen saturation Heart rate Body temperature Systolic And Diastolic Provider Name and Address Organization Details Last Updated DateTime 3 162.56 cm 29.2 kg/m2 02927.7 g 6 20 /min 98 % 74 /min 97.9 [degF] 152/90 mm[Hg] [facility] [place] - [facility] 3 16:44:31 Social History Question Answer Notes LastModified by Organizat ion Details LastModified Time Tobacco Smoking Status Current Every Day Smoker [facility] - [facility] 02/05/2023 16:42:08 How Much Tobacco Do You Smoke? 0.5 PPD [email or web address] Information not available 02/05/2023 Have You Recently Traveled Abroad? No [email or web address] Information not available 02/05/2023 Sex: Unknown Functional Status Question Answer Note LastModified by Organizat ion Details LastModified Time Do you use any illicit or recreational drugs? No [email or web address] Information not available 02/05/2023 Do you or have you ever used any other forms of tobacco or nicotine? No [email or web address] Information not available 02/05/2023 What is your level of alcohol consumption? None [email or web address] Information not available 02/05/2023 Mental Status None recorded. Family History Relationship Description Onset Age of this Age Resolved Age Notes LastModified by Organization Details LastModified Time Father No current problems or disability [email or web address] Not available 02/05 16:41:50 Mother No current problems or disability [email or web address] Not available 02/05 16:41:50 Medical History No medical history recorded. Gynecological History Statement/Question Response Date of LMP 12/06/2022 Is there any chance of ? No Obstetrics History GPAL:G 0 P 0 0 0 0 Past Encounters Encounter ID Performer Location Encounter Start Date Encounter Closed Date Diagnosis/Indication Diagnosis SNOMED-CT Code Diagnosis ICD10 Code Diagnosis IMO Codes Diagnosis Note [id number] [facility] [address] [place] [address] 07/13/2021 10:53:30 07/13/2021 14:09:05 [id number] [address] [address] [address] [facility] [address] [place] [address] 12/10/2017 19:23:49 12/10/2017 20:20:45 [id number] [address] [place] [address] 04/24/2018 15:11:26 04/24/2018 15:56:43 [id number] [address] [address] [address] [place] [address] 01/20/2020 12:58:17 01/20/2020 13:43:31 [id number] [address] [address] [place] [address] 05/03/2020 17:21:25 05/03/2020 18:34:07 [id number] [address] [place] [address] 01/24/2022 11:30:23 01/24/2022 12:43:54 [id number] [address] [address] [address] [place] [phone] 04/17/2019 16:44:12 04/17/2019 17:05:41 [id number] [address] [facility] [address] [place] [address] 07/27/2018 11:56:43 07/27/2018 13:09:15 [id number] Yani Bonilla MD [address] [place] [address] 02/05/2023 16:23:41 02/05/2023 17:23:27 Upper respiratory infection 93291873 J06.9 - Use the medication s prescribed [...] Recorded Advance Directives Directive None Recorded Payers Insurance Date Sequence Insurance Name Policy Number Policy Ford Covered Member ID Ford Member ID Guarantor Name 02/05/2023 1 [facility] - HEALTH NET PLAN (MEDICAID HMO) MARIKADANDYJoaquina Annette Fenton [id number] Annette Fenton Notes Date Note Type Note Provider Name and Address Organization Details Recorded Time 02/05/2023 text/html Sore throatRepor lm by PatientSore ThroatFor associated symptoms, patient reportssore throat,nasal congestion, andsinus pain/ congestionbut reportsno shortness of breathandno wheezing. For location, patient reportsthroat. For quality, patient reportshurts to swallow. For onset/timing, patient reports4 days. Yani Bonilla MD [address] [place], [address], [place] - [facility] 02/05/2023 19:49:54 OBGyn Episode No OBEpisode recorded.
--- OUTSIDE RECORDS SUMMARY | 2025-08-07 03:42 | XMS_ITS | Clinical Summary ---
Author Organization [employer] Address [address] [place] [address] [address] [place] [address] Care Team Providers Care Branch Billing Payroll Clerk Name Role Phone Unavailable Primary Care [...] of 2) 2023 COVID-19 Vaccine (1 - 2024-2 6 season) 2025 Influenza Vaccine (#1) 2025 RSV Patients and [...]
--- NOTE | 2025-08-07 05:20 | ECG_ITS ---
Test Reason : L CP Blood Pressure : */* mmHG Vent. Rate : 73 BPM Atrial Rate : 73 BPM P-R Int : 176 ms QRS Dur : 92 ms QT Int : 402 ms P-R-T Axes : 59 -3 32 degrees QTcB Int : 442 ms Normal sinus rhythm Possible Inferior infarct , age undetermined Abnormal ECG When compared with ECG of 28-Jul-2018 07:40, No significant change was found Referred By: Denae Cabral Electronically Signed By: TEMITOPE MUNOZ
--- NOTE | 2025-08-07 05:37 | ED_ITS ---
HPI - Extremity Problem General Chief complaint: Extremity Injury, Upper Stated complaint: Back Pain Time Seen by Provider: 08/07/25 05:17 Source: patient and family Mode of arrival: ambulatory Limitations: no limitations History of Present Illness ED Provider: Dr. Denae Cabral HPI Narrative: Patient comes to the emergency room complaining of 4 days of left arm pain. Patient states it is around the bicipital area. Denies pain in the forearm hand or shoulder. Patient denies any trauma no falls. Patient denies any shortness of breath. Patient reports that ibuprofen does not work. Patient denies any other injury. Related Data Home Medications ?Medication ?Instructions ?Recorded ?Confirmed naratriptan 2.5 mg tablet mg PO 08/23/20 06/16/25 ibuprofen 600 mg tablet 600 mg PO BID PRN 12/04/21 1 onabotulinumtoxinA 200 unit unit IM ONCE 11/08/2406/07 solution for injection (Botox) Previous Rx's ?Medication ?Instructions ?Recorded alprazolam 0.25 mg tablet 0.25 mg PO DAILY PRN anxiety 90 07/08/24 days #45 tabs nicotine (polacrilex) 2 mg gum 2 mg buccal Q2H #20 ea 12/19/24 verapamil 100 mg capsule 24hr 100 mg PO BEDTIME #90 ca ps 02/02/[address],ext.release blood pressure monitor #1 ea 02/10/25 mometasone 200 mcg/actuation HFA 1 puff inhalation BED TIME #13 grams 03/27/25 aerosol inhaler (Asmanex HFA) clotrimazole-betamethasone 1 1 appl topical .qd 30 day s #45 04/13/25 %-0.05 % topical cream grams polymyxin B sulfate 10,000 1 drp ophthalmic (eye) QID 5 days 04/29/25 unit-trimethoprim 1 mg/mL eye drops #10 mL fluticasone propionate 220 1 puff inhalation Q12H #12 grams 10/07/01 mcg/actuation HFA aerosol inhaler nystatin 100,000 unit/gram topical 1 appl topical JAE Y 30 days #30 06/16/25 cream grams polyethylene glycol 3350 17 17 g PO DAILY 30 days #510 grams 07/31/25 gram/dose oral powder (Miralax) Ventolin HFA 90 mcg/actuation 1 inh inhalation QID PRN shortness 08/01/25 aerosol inhaler (albuterol sulfate) of breath or wheez ing 30 days #8 grams cyclobenzaprine 10 mg tablet 10 mg PO TID PRN muscle s pasm #14 08/07/25 tabs ibuprofen 600 mg tablet 600 mg PO Q8H PRN fever or p ain 08/07/25 #30 tabs Allergies Allergy/AdvReac Type Severity Reaction Status Date / Time epinephrine (From EPIFRIN) Allergy Intermediate HEADACHES Verified 08/07/25 03:30 AND TACHYCARDIA Iodinated Contrast Media Allergy Intermediate DIFFICULTY Verified 08/07/25 03:30 (IVP DYE) BREATHING amoxicillin Allergy Unknown itchy Verified 08/07/25 03:30 tongue cantaloupe (CANTALOUPE) Allergy Unknown SHORTNESS Verified 08/07/25 03:30 OF BREATH cheese (CHEESE) Allergy Unknown UNKNOWN Verified 08/07/25 03:30 plummer (PLUMMER) Allergy Unknown SHORTNESS Verified 08/07/25 03:30 OF BREATH divalproex sodium (From Allergy Unknown oral bumps Verified 08/07/25 03:30 DEPAKOTE) fish derived (FISH) Allergy Unknown HIVES Verified 08/07/25 03:30 grapefruit (GRAPEFRUIT) Allergy Unknown UNKNOWN Verified 08/07/25 03:30 Nitrate Analogues (NITRATE Allergy Unknown UNKNOWN Verified 08/07/25 03:30 ANALOGUES) nut - unspecified (NUTS) Allergy Unknown SHORTNESS Verified 08/07/25 03:30 OF BREATH paroxetine (From PAXIL) Allergy Unknown somulence Verified 08/07/25 03:30 tetanus and diphtheria Allergy Unknown fever/hallu Verified 08/07/25 03:30 toxoids cinations environmental Allergy Unknown unknown Uncoded 05/05/25 13:01 Review of Systems 2 Review of Systems: Constitutional : No Weight loss, No Fever, No Chills, No Night Sweats, No Fatigue, No Malaise ENT/Mouth : No Hearing loss, No Ear Pain, No Nasal Congestion, No Sinus Pain, No Hoarseness, No sore throat, No Rhinorrhea, No Swallowing Difficulty Eyes: No Eye Pain, No Swelling, No Redness, No Foreign Body, No Discharge, No Vision Changes Cardiovascular : No Chest Pain, No SOB, No Dyspnea on Exertion, No Orthopnea, No Edema, No Palpitations Respiratory : No Cough, No Sputum, No Wheezing, No Smoke Exposure, No Dyspnea Gastrointestinal : No Nausea, No Vomiting, No Diarrhea, No Constipation, No abdominal Pain, No Hematochezia, No Melena Genitourinary : no irregular bleeding, No Dysuria, No Urinary Frequency, No Hematuria, No Urinary Incontinence, No Urgency, No Flank Pain, No Urinary Flow Changes, No Hesitancy Musculoskeletal : Complaining of right upper arm pain, denies pain in the forearm or hand or in the shoulder. No Myalgias, No Joint Swelling Skin : No Skin Lesions, No rash Neuro : No Weakness, No Numbness, No Paresthesias, No Loss of Consciousness, No Dizziness, No Headache Psych : No Anxiety/Panic, No Depression, No SI/HI/AH/VH, No Social Issues, Heme/Lymph: No Bruising, No Bleeding,No Lymphadenopathy Endocrine : No Polyuria, No Polydipsia, No Temperature Intolerance PMFSH Past Medical History Medical History Palpitations Atypical chest pain Asthma, moderate Tobacco abuse Surgical History History of breast surgery Hx of tubal ligation Family History Family History Father Alcoholic Mother Elevated cholesterol CVD (cardiovascular disease) History of blood clots Son Anxiety Daughter Hearing loss Daughter Asthma Daughter Acid reflux Sister No problems noted. Other Mental health disorder Substance use disorder Social History Social History Housing: Apartment Alcohol intake: current Alcohol intake frequency: holidays/special occasions only Patient Tobacco Use Status: Current everyday Tobacco user Tobacco use type: Cigarette Cigarette Packs Per Day: 1 Cigarettes Per Day: 20 Years Smoked: 30 Smoked in Last 30 Days: Yes e-Cigarette/Vaping Use: Never Used Use of substances other than those prescribed or required for medical reasons: No Advance Directives: No Advance Directives Information Provided: No Patient : No service: No Current occupational status: unemployed Cognitive needs: No Hearing needs: No Vision needs: No Physical Exam 2 Exam: Exam: Appearance: Alert. Oriented X3. Very anxious. Patient is in her room, has a hair enamel drier on which she is using to warm up her left arm Eyes: Pupils equal, round and reactive to light. ENT: Pharynx normal. Neck: Normal inspection. Neck supple. No lymph nodes noted. No crepitus CVS: Normal heart rate and rhythm. Pulses normal. Normal S1 and S2 Respiratory: No respiratory distress. Breath sounds normal. No Wheezing. No rales Abdomen: Soft and nontender. No rigidity. No distention. Skin: Skin warm and dry. Normal skin color. Normal skin turgor. Extremities: No lower extremity edema. No Lacerations. No Rash. Patient has normal flexion and extension at the wrist elbow and shoulder. However, it was noted that when patient is focused on her arm, she reports pain. However, when patient is distracted and her arm is being handled, flex extend and palpated, she does not report any pain at all. Neuro: Oriented X 3. No motor deficit. No sensory deficit. Moving all extremities. No slurred speech. CN 2 through 12 grossly intact Psych: calm, cooperative, very anxious Vital Signs: Vital Signs: Last Vital Signs Temp 97.9 F 08/07/25 03:28 Pulse 75 08/07/25 03:28 Resp 18 08/07/25 03:28 BP 154/83 H 08/07/25 03:28 Pulse Ox 97 08/07/25 03:28 O2 Del Method Room Air 08/07/25 03:28 BMI result Body Mass Index 27.8 Course Course Course Narrative: Overall, seems that patient has musculoskeletal pain. However, we will obtain an EKG and basic labs to rule out any cardiac etiology which are less likely I was reviewing patient's records from her primary care physician, seems that patient does have history of significant anxiety about her health. Medical Decision Making Medical Decision Making [facility] Narrative: My interpretation of EKG: Normal sinus rhythm, heart rate 73, no ST segment depression or elevation, no T-wave inversion, QTC 442 My interpretation of labs: No significant abnormality in patient's hematology and chemistry, troponin negative Differential Diagnosis Differential Diagnoses: The differential diagnosis associated with the presentation includes (Anxiety about health, musculoskeletal pain) Lab Data [facility] Lab Attestation statement: I reviewed the patient's lab results. 08/07/25 05:36 08/07/25 05:37 Labs: Lab Results 08/07/25 08/07/25 Range/Units 05:36 05:37 WBC 10.6 (4.8-10.8) X10*3/uL RBC 4.66 (4.20-5.50) X10*6/uL Hgb 14.2 (12.0-16.0) g/dl Hct 41.6 (37.0-47.0) % MCV 89.3 (80.0-98.0) fL MCH 30.5 (27.0-33.0) pg MCHC 34.1 (31.0-35.0) g/dl RDW 12.4 (11.0-16.0) % Plt Count 357 (160-400) X10*3/uL MPV 9.7 (9.4-12.3) fL Immature Gran % (Auto) 0.4 (0.0-0.4) % Neut % (Auto) 63.3 (45-73) % Lymph % (Auto) 26.1 (20-40) % Ford % (Auto) 6.0 (2-11) % Eos % (Auto) 3.4 (0-4) % Baso % (Auto) 0.8 (0-2) % Lymph # (Auto) 2.8 (1.2-4.9) X10*3/uL Ford # (Auto) 0.6 (0.1-1.2) X10*3/uL Eos # (Auto) 0.4 (0.0-0.4) X10*3/uL Baso # (Auto) 0.1 (0.0-0.2) X10*3/uL Abs Immat Gran (auto) 0.04 H (0.00-0.03) X10*3/uL Absolute Neuts (auto) 6.7 (2.0-8.3) x10*3/uL Absolute Nucleated RBC 0.000 (0.0-0.012) X10*3/uL Nucleated RBC % (auto) 0.0 (0.0-0.2) /100WBC Sodium 142 (135-145) mmol/L Potassium 4.1 (3.3-5.1) mmol/L Chloride 110 H (96-108) mmol/L Carbon Dioxide 22 (22-29) mmol/L Anion Gap 14 (12-20) BUN 12 (9-16) mg/dL Creatinine 0.73 (0.5-1.4) mg/dL Estim Creat Clear Calc 91.7 Estimated GFR > 60 Random Glucose 100 (60-115) mg/dL Calcium 9.2 (8.4-10.2) mg/dL Total Bilirubin 0.4 (0.0-1.0) mg/dL Direct Bilirubin 0.2 (0.0-0.5) mg/dL AST 22 (5-31) U/L ALT 22 (0-31) U/L Alkaline Phosphatase 77 (39-117) U/L Troponin I High Sens < 2.7 (<3.5-17.0) ng/L Total Protein 6.8 (6.5-8.0) g/dL Albumin 4.3 (3.5-5.0) g/dL Discharge Plan Discharge Clinical Impression: Musculoskeletal pain Patient Disposition: Home, Self-Care Additional Instructions: Please follow-up with your primary care physician tomorrow. If you have any worsening or new symptoms, please return to the emergency room or call 911 Prescriptions: New ibuprofen 600 mg tablet 600 mg PO Q8H PRN (Reason: fever or pain) Qty: 30 0RF cyclobenzaprine 10 mg tablet 10 mg PO TID PRN (Reason: muscle spasm) Qty: 14 0RF No Action Asmanex HFA 200 mcg/actuation HFA aerosol inhaler 1 puff inhalation BEDTIME Qty: 13 2RF clotrimazole-betamethasone 1-0.05 % cream 1 appl topical .qd 30 Days Qty: 45 0RF polyethylene glycol 3350 [Miralax] 17 gram/dose powder 17 g PO DAILY 30 Days Qty: 510 2RF albuterol sulfate [Ventolin HFA] 90 mcg/actuation HFA aerosol inhaler 1 inh inhalation QID PRN (Reason: shortness of breath or wheezing) 30 Days Qty: 8 2RF naratriptan 2.5 mg tablet PO ibuprofen 600 mg tablet 600 mg PO BID PRN alprazolam 0.25 mg tablet 0.25 mg PO DAILY PRN (Reason: anxiety) 90 Days Qty: 45 0RF nicotine (polacrilex) 2 mg gum 2 mg buccal Q2H Qty: 20 0RF (DME) blood pressure monitor See Rx Instructions .Route .MEDSUPPLY Qty: 1 0RF Rx Instructions: As directed verapamil 100 mg capsule, [address] 100 mg PO BEDTIME Qty: 90 0RF polymyxin B sulf-trimethoprim 10,000 unit- 1 mg/mL drops 1 drp ophthalmic (eye) QID 5 Days Qty: 10 0RF Rx Instructions: while awake; do not exceed 6 doses in 24 hours Botox 200 unit recon soln IM ONCE fluticasone propionate 220 mcg/actuation HFA aerosol inhaler 1 puff inhalation Q12H Qty: 12 2RF nystatin 100,000 unit/gram cream 1 appl topical DAILY 30 Days Qty: 30 1RF Print Language: [place] Citizen
[2025-08-07 05:41] LABS: Hematocrit 41.6 % (37.0-47.0); Hemoglobin 14.2 g/dl (12.0-16.0); Imm Gran Abs Auto 0.04 X10*3/uL (0.00-0.03); Imm Gran Pct Auto 0.4 % (0.0-0.4); Lymphocytes Absolute Auto 2.8 X10*3/uL (1.2-4.9); MANUAL DIFF FLAG NO; Mean Corpuscular HGB Conc 34.1 g/dl (31.0-35.0); Mean Corpuscular Hemoglobin 30.5 pg (27.0-33.0); Mean Corpuscular Volume 89.3 fL (80.0-98.0); NRBC Abs Auto 0.000 X10*3/uL (0.0-0.012); NRBC Pct Auto 0.0 /100WBC (0.0-0.2); Platelet Count 357 X10*3/uL (160-400); Red Blood Count 4.66 X10*6/uL (4.20-5.50); White Blood Count 10.6 X10*3/uL (4.8-10.8)
[2025-08-07 06:00] VITALS: BP 128/58; PULSE 74; RESP 16; TEMP 36.7; O2SAT 96
[2025-08-07 06:00] LABS: Alanine Aminotransferase 22 U/L (0-31); Albumin Level 4.3 g/dL (3.5-5.0); Alkaline Phosphatase 77 U/L (39-117); Anion Gap 14 (12-20); Aspartate Amino Transferase 22 U/L (5-31); Blood Urea Nitrogen 12 mg/dL (9-16); Calcium 9.2 mg/dL (8.4-10.2); Carbon Dioxide 22 mmol/L (22-29); Chloride 110 mmol/L (96-108); Creatinine Clr Calc Pharmacy 91.7; Estimated Glomerular Filt Rate > 60; Potassium 4.1 mmol/L (3.3-5.1); Sodium 142 mmol/L (135-145); Total Protein 6.8 g/dL (6.5-8.0)
[2025-08-07 06:11] LABS: Troponin-I High Sensitivity < 2.7 ng/L (<3.5-17.0)
[2025-08-07 06:59] VITALS: BP 128/58; PULSE 74; RESP 16; TEMP 36.7; O2SAT 96
== END 2025-08-07 07:01 | disposition home or self-care (01) ==
PROVIDERS: Emergency Provider Emergency Medicine; PCP Internal Medicine
DX: M79.602 Pain in left arm (principal); Z88.0 Allergy status to penicillin; Z88.8 Allergy status to other drugs, medicaments and biological substances; Z91.041 Radiographic dye allergy status; Z91.018 Allergy to other foods
CPT/HCPCS: 36415; 80048; 80076; 84484; 85025; 93005; 99283; 99284

== ENCOUNTER → 2025-08-07 05:20 | Outpatient (BNV) | payer OTHER, SELFPAY | PROVIDERS: Emergency Provider Emergency Medicine; PCP Internal Medicine; Visit Provider Internal Medicine | DX: R94.31 Abnormal electrocardiogram [ECG] [EKG] (principal); R07.89 Other chest pain | CPT/HCPCS: 93010 ==

== ENCOUNTER 2025-08-24 15:59 | Outpatient (AMB) | payer OTHER, SELFPAY ==
--- OUTSIDE RECORDS SUMMARY | 2024-05-05 05:00 | XMS_ITS ---
Author Organization [facility] Address [address] [place] [address] Care Team Providers Care Men'S Garment Fitter Name Role Phone Twin Lynnponcho Primary Care Provider Igor Gil Unavailable [phone] Medications Medication SIG (Take, Route, Frequency, Duration) Notes Start Date End Date Status Acetaminophen Extra Strength 500 MG 0 Oral 2 tabs prn; Duration: 30 01/30/2020 Active Ibuprofen 200 mg 9 Oral 3 prn; Duration: 0 08/20/2010 Active FLOVENT HFA 220 MCG INHALER MCG/ACTUATION 0 2 puffs qam; Duration: 30 04/04/2012 Active PROAIR HFA 90 MCG INHALER MCG/ACTUATION 9; Duration: 0 08/20/2010 Active Polyethylene Glycol 3350 17 GM MIX 1 PACKET IN WATER AND DRINK EVERY MORNING; Duration: 28 Active Naratriptan HCl 2.5 MG 1 tablet Orally T wice a day.; Duration: 45 days 01/27/2024 Active Verapamil HCl 120 MG TAKE 1 TABLET BY MOUTH THREE TIMES A DAY FOR 90 DAYS; Duration: 90 Active OnabotulinumtoxinA 200 UNIT Inject into face, head, neck and shoulder per MD IM Injection once; Duration: 84 days Active predniSONE 20 MG As directed, every morning with food. Orally 3 tabs qam x 2 days, 2tabs x 2 days, 1 tab x 2 days, 1/2 tab x 2 days.; Duration: 8 days 05/05/2024 05/13/2024 Active Naratriptan HCl 2.5 MG 1 tablet Orally T wice a day; Duration: 30 days Active Encounters Encounter Location Date Provider Diagnosis [facility] [address] [place] [id number] 05/05/2024 Igor Wang Chronic migraine without aura, intractable, without status migrainosus G43.719 Assessments Encounter Date Diagnosis (ICD Code) Assessment Notes Treatment Notes Treatment Clinical Notes Section Notes 05/05/2024 Chronic migraine without aura, intractable, without status migrainosus (ICD-10 - G43.719) Plan Of Treatment Medication Medication Name Sig Start Date Stop Date Notes predniSONE 20 MG As directed, every m orning with food. Orally 3 tabs qam x 2 days, 2tabs x 2 days, 1 tab x 2 days, 1/2 tab x 2 days.; Duration: 8 days 05/05/2024 05/13/2024 Next Appt Details Follow Up: 6 Weeks, Reason: Provider Name:Igor Sewell lexus, 10/03/2025 11:30:00 AM, [address] [place] [address], [phone], Progress Notes * Kenrick SOTOOB:1975 ( 50 yo F)Acc No.[id number]:05/05/2024 Patient: Annette PASTRANA Provider: Fausto Wang MD :1975 A ge:49 Y S ex:Female Date:05/05/2024 Address:[address] [place], [place] [id number] Pcp:Lj Murcia Subjective: * Chief Complaints: * * Medical History: * Medications: T aking Acetaminophen Extra Strength 500 MG Tablet 0 Oral 2 tabs prn , Taking Ibuprofen 200 mg Tablet 9 Oral 3 prn , Taking FLOVENT HFA 220 MCG INHALER MCG/ACTUATION 0 2 puffs qam , Taking PROAIR HFA 90 MCG INHALER MCG/ACTUATION 9 , Taking Polyethylene Glycol 3350 17 GM Packet MIX 1 PACKET IN WATER AND DRINK EVERY MORNING , Taking Naratriptan HCl 2.5 MG Tablet 1 tablet Orally Twice a day , Taking Naratriptan HCl 2.5 MG Tablet 1 tablet Orally Twice a day. , Taking Verapamil HCl 120 MG Tablet TAKE 1 TABLET BY MOUTH THREE TIMES A DAY FOR 90 DAYS , Taking OnabotulinumtoxinA 200 UNIT Solution Reconstituted Inject into face, head, neck and shoulder per MD IM Injection once Objective: * Vitals: Assessment: * Assessment: 1. C hronic migraine without aura, intractable, without status migrainosus - G43.719 (Primary)? Plan: * Treatment: * Follow Up: 6 Weeks * Billing Information: * Visit Code: 33900 OFFICE VISIT,EST PT,LEVEL 4. Modifiers: 95 * Procedure Codes: * [place], [id number] on 08/24/2025 at 07:35 PM EST Sign off status: Pending * Provider: Fausto Wang MD Date: 0 05/05/2024 Generated for Vu dean/Luann/eTjuanjosmitting on: 1 10/25/2024 07:35 PM EST
--- OUTSIDE RECORDS SUMMARY | 2024-06-29 06:00 | XMS_ITS ---
Author Organization [facility] Address [address] [place] [address] Care Team Providers Care Generator Man Name Role Phone Twin, Lynnponcho Primary Care Provider Igor Gil Unavailable [phone] Medications Medication SIG (Take, Route, Frequency, Duration) Notes Start Date End Date Status Acetaminophen Extra Strength 500 MG 0 Oral 2 tabs prn; Duration: 30 01/30/2020 Active Pulmicort Flexhaler 90 MCG/ACT 1 puff In halation Twice a day 06/29/2024 Active PROAIR HFA 90 MCG INHALER MCG/ACTUATION 9; Duration: 0 08/20/2010 Active Ibuprofen 200 mg 9 Oral 3 prn; Duration: 0 08/20/2010 Active Polyethylene Glycol 3350 17 GM MIX 1 PAC KET IN WATER AND DRINK EVERY MORNING; Duration: 28 Active Verapamil HCl 120 MG TAKE 1 TABLET BY [facility] THREE TIMES A DAY FOR 90 DAYS; Duration: 90 Active OnabotulinumtoxinA 200 UNIT Inject into face, head, neck and shoulder per MD IM Injection once; Duration: 84 days Active Naratriptan HCl 2.5 MG 1 tablet Orally T wice a day.; Duration: 45 days 01/27/2024 Active Vital Signs Blood pressure systolic 147 mm Hg 06/29/20 24 Blood pressure diastolic 83 mm Hg 024 Heart Rate 75 /min 06/29/2024 Height 64 in 06/29/2024 Weight 160.8 lbs 06/29/2024 BMI 27.6 kg/m2 06/29/2024 Weight-kg 72.94 kg 06/29/2024 Encounters Encounter Location Date Provider Diagnosis [facility], [address] [place] [address] 06/29/2024 Igor Wang Chronic migraine wit hout aura, intractable, without status migrainosus G43.719 Assessments Encounter Date Diagnosis (ICD Code) Assessment Notes Treatment Notes Treatment Clinical Notes Section Notes 06/29/2024 Chronic migraine without aura, intractable, without status migrainosus (ICD-10 - G43.719) Plan Of Treatment Next Appt Details Follow Up: 5 weeks after BTX of 08/11, Reason: Provider Name:Igor alberts, 10/03/2025 11:30:00 AM, [address] [place] [address], [phone], Progress Notes * Kenrick SOTOOB:1975 ( 50 yo F)Acc No.[id number]:06/29/2024 Progress Notes Patient: Annette PASTRANA Provider: Fausto Wang MD :1975 A ge:49 Y S ex:Female Date:06/29/2024 Address:[address] [place], [place] [id number] Pcp:Lj Murcia Subjective: * Chief Complaints: * * Medical History: * Medications: T aking Pulmicort Flexhaler 90 MCG/ACT Aerosol Powder Breath Activated 1 puff Inhalation Twice a day , Taking Acetaminophen Extra Strength 500 MG Tablet 0 Oral 2 tabs prn , Taking Ibuprofen 200 mg Tablet 9 Oral 3 prn , Taking PROAIR HFA 90 MCG INHALER [...] MD IM Injection once Objective: * Vitals: B P:147/83mm Hg, HR:75/min, Wt:160.8lbs, Wt-k.94 kg, Ht: 64 in, BMI:27.6Index, Body Surface Area: 1.81. Assessment: * Assessment: 1. C hronic migraine without aura, intractable, without status migrainosus - G43.719 (Primary)? Plan: * Treatment: * Follow Up: 5 weeks after BTX of 08/11 * Billing Information: * Visit Code: 84692 OFFICE VISIT,EST PT,LEVEL 4. * Procedure Codes: * Electronic [place], [id number] on 08/24/2025 at 07:35 PM EST Sign off status: Pending * Provider: Fausto Wang MD Date: 1 Generated for Vu dean/Luann/eTransmitting on: 1 10/25/2024 07:35 PM EST
--- OUTSIDE RECORDS SUMMARY | 2025-07-11 06:30 | XMS_ITS ---
Author Organization [facility] Address [address] [place] [address] Care Team Providers Care Explosives Engineer Name Role Phone Twin, Lynnponcho Primary Care Provider Igor Gil Unavailable [phone] Allergies Allergen (clinical drug ingredient) Drug/Non Drug Allergy documented on EMR Reaction Allergy Type Onset Date Status PAXIL 10 MG/5 ML SUSPENSION (uncoded) SSRIS Allergy Active predniSONE prednisone Drug Allergy Activ e REASON FOR VISIT chronic migraine Medications Medication SIG (Take, Route, Frequency, Duration) Notes Start Date End Date Status Verapamil HCl 120 MG TAKE 1 TABLET BY [facility] THREE TIMES A DAY FOR 90 DAYS; Duration: 90 Active OnabotulinumtoxinA 200 UNIT Inject into face, head, neck and shoulder per MD IM Injection once; Duration: 84 days Active Pulmicort Flexhaler 90 MCG/ACT 1 puff In halation Twice a day 06/29/2024 Active Ibuprofen 200 mg 9 Oral 3 prn; Duration: 0 08/20/2010 Active Acetaminophen Extra Strength 500 MG 0 Oral 2 tabs prn; Duration: 30 01/30/2020 Active Polyethylene Glycol 3350 17 GM MIX 1 PAC KET IN WATER AND DRINK EVERY MORNING; Duration: 28 Active PROAIR HFA 90 MCG INHALER MCG/ACTUATION 9; Duration: 0 08/20/2010 Active Naratriptan HCl 2.5 MG 1 tablet Orally T wice a day.; Duration: 45 days 01/27/2024 Active Vital Signs Blood pressure systolic 160 mm Hg 07/11/20 25 Blood pressure diastolic 93 mm Hg 025 Heart Rate 83 /min 07/11/2025 Height 64 in 07/11/2025 Weight 164.9 lbs 07/11/2025 BMI 28.3 kg/m2 07/11/2025 Weight-kg 74.8 kg 07/11/2025 Encounters Encounter Location Date Provider 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 Controlled migraine with aura and controlled cluster headaches. 07/11/2025 Myalgia of auxiliary muscles, head and neck (ICD-10 - M79.12) Controlled migraine with aura and controlled cluster headaches. 07/11/2025 Atypical facial pain (ICD-10 - G50.1) Controlled migraine with aura and controlled cluster headaches. 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 Plan Of Treatment Treatment Notes Assessment Notes Chronic migraine without aur a, intractable, without status migrainosus Continue the same management. Next Appt Details Follow Up: 12 WEEKS, Reason: Botox Provider Name:Igor alberts, 10/03/2025 11:30:00 AM, [address] [place] [address], [id number], Procedure Notes * Category Sub-Category Detail Notes [...] units) into ProcerusInject 0.1 mL (5 units) Oracle Developer bilateral (total of 10 units),Inject 0.1 mL [...] ice, and extra time for recovery,Lot #, [id number] Date, 08/2027 Progress Notes * Kenrick SOTOOB:1975 ( 50 yo F)Acc No.[id number]:07/11/2025 Patient: Annette PASTRANA Provider: Fausto Wang MD Resource:Jessica Santiago :1975 A ge:50 Y S ex:Female Date:07/11/2025 Address:[address] [place], [place] [id number] Pcp:Lj Murcia Subjective: * Chief Complaints: * 1 . Chronic migraine. * HPI: H eadache: Rochelle is a 50-year-old female who is here today for her Botox treatment. She complains of a level 3/10 headache. S he has an adopted daughter who has been i n the long-term for a few months now and seems to be doing well with the support she is receiving. She is hoping that the careworkers will let her take her out for visits. She visits her frequently. Depression = mild AE: none with Botox Sleep ok. * ROS: G eneral / Constitutional: Patient denies c hills, fatigue, fever, night sweats, sleep disturbance, recent exposure to viruses. * Medical History: * Medications: T aking [...] tablet Orally Twice a day. , Taking OnabotulinumtoxinA 200 UNIT Solution Reconstituted Inject into face, head, neck and shoulder per MD IM Injection once , Taking Verapamil HCl 120 MG Tablet TAKE 1 TABLET BY MOUTH THREE TIMES A DAY FOR 90 DAYS , Medication List reviewed and reconciled with the patient * Allergies: P AXIL 10 MG/5 ML SUSPENSION: SSRIS - Allergy, predniSONE: prednisone - Allergy. Objective: * Vitals: B P:160/93mm Hg, HR:83/min, Wt:164.9lbs, Wt-k.8 kg, Ht: 64 in, BMI:28.3Index, Pain scale:31-10, Body Surface Area: 1.84. * Examination: G eneral Examination: General appearance: a lert, pleasant, well-nourished and in no acute distress, , female, , obese,. Head: n ormocephalic, atraumatic. Throat: c lear. Skin: s kin is warm and dry, with no rashes, good skin turgor and normal hair distribution. Neurologic: N onfocal, alert and oriented, cognitive exam grossly normal, cooperative with exam, cranial nerves 2-12 grossly intact,. Psych: a lert and oriented x 3, cognitive function intact, cooperative with exam, maintains good eye contact, with good judgement and insight, normal affect / mood, anxious appearing. Assessment: * Assessment: 1. C hronic migraine without aura, intractable, without status migrainosus - G43.719 (Primary)? 2. M yalgia of auxiliary muscles, head and neck - M79.12 3 .?Atypical facial pain - G50.1 4 . F ear of injections and transfusions - F40.231 Controlled migraine with aur a and controlled cluster headaches. Plan: * Treatment: * Procedures: B otox 200 units: Botox reconstitution B otox 200 units reconstitute with 4 mL NS to final constitution of 50 U/mL.. I njection Sites I n a supine position the patient, Botox was injected into the following sites:, Inject 0.1 mL (5 units) into Procerus Inject 0.1 mL (5 units) Oracle Developer bilateral (total of 10 units), Inject 0.1 [...] Occipitalis 5 sites ( total 25 units), . P rocedural Pause P rocedural pause conducted to verify: correct patient identity, procedure to be performed, correct side and site, correct patient position, and special requirements.. W aste N o waste. P ost Procedural T olerated procedure well Gave adequate time to recover from the procedure, Offered water, ice, and extra time for recovery, Lot #, [id number] Expiration Date, 08/2027. T transplant worker Point Injection: Procedure: T he skin was prepped in the usual sterile [...] in good condition under their own power., . * Procedure Codes: 6 4615 Chemodenervation for Migraine, TRIGGER POINT,3 OR MORE MUSCLE, Modifiers: MASSIEL * Follow Up: 1 2 WEEKS (Reason: Botox) Care Plan: * Problems: * Billing Information: * Visit Code: 83000 OFFICE VISIT,EST PT,LEVEL 3. Modifiers: 25 * Procedure Codes: 58894 Chemodenervation for Migraine. TRIGGER POINT,3 OR MORE MUSCLE. Modifiers: MASSIEL * [place], [id number] on 08/24/2025 at 07:35 PM EST Sign off status: Pending * Provider: Fausto Wang MD Date: 09/10/2024 Generated for Vu dean/Luann/Cristalsmgamal on: 10/25/2024 07:35 PM EST History and Physical Notes * Examination Category Sub-Category Detail Notes Category Not es General Examination General appearance: alert, p leasant, well-nourished and in no acute distress, , female, , obese, Head: normocephalic, atrau matic Throat: clear Neurologic: Nonfocal, alert and oriented, cognitive exam grossly normal, cooperative with exam, cranial nerves 2-12 grossly intact, Skin: skin is warm and dry , with no rashes, good skin turgor and normal hair distribution Psych: alert and oriented x 3, cognitive function intact, cooperative with exam, maintains good eye contact, with good judgement and insight, normal affect / mood, anxious appearing
[2025-08-24 16:20] VITALS: BP 140/82; PULSE 79; TEMP 36.8; O2SAT 97; BMI 27.1
--- NOTE | 2025-08-24 16:20 | AM.OFFWIN_ITS ---
Intake Vital Signs 08/24/25 16:20 Height 5 ft 5 in Weight 163 lb BMI 27.1 BP 140/82 H Blood Pressure Location Rt brachial Position Sitting Pulse 79 Pulse Source Pulse Oximeter Temp 98.3 F Temp Source Oral Pulse Oximetry (%) 97 Oxygen Delivery Method Room Air Intake Visit Reasons: EP white spots on tongue, sore throat Intake Note: pt presents with a sore throat and red spots on tongue for a couple days- states took ibuprofen recently Patient Tobacco Use Status: Current everyday Tobacco user Allergies epinephrine (From EPIFRIN) Allergy (Intermediate, Verified 08/24/25 16:21) HEADACHES AND TACHYCARDIA Iodinated Contrast Media (IVP DYE) Allergy (Intermediate, Verified 08/24/25 16:21) DIFFICULTY BREATHING amoxicillin Allergy (Unknown, Verified 08/24/25 16:21) itchy tongue cantaloupe (CANTALOUPE) Allergy (Unknown, Verified 08/24/25 16:21) SHORTNESS OF BREATH cheese (CHEESE) Allergy (Unknown, Verified 08/24/25 16:21) UNKNOWN schulz (SCHULZ) Allergy (Unknown, Verified 08/24/25 16:21) SHORTNESS OF BREATH divalproex sodium (From DEPAKOTE) Allergy (Unknown, Verified 08/24/25 16:21) oral bumps fish derived (FISH) Allergy (Unknown, Verified 08/24/25 16:21) HIVES grapefruit (GRAPEFRUIT) Allergy (Unknown, Verified 08/24/25 16:21) UNKNOWN Nitrate Analogues (NITRATE ANALOGUES) Allergy (Unknown, Verified 08/24/25 16:21) UNKNOWN nut - unspecified (NUTS) Allergy (Unknown, Verified 08/24/25 16:21) SHORTNESS OF BREATH paroxetine (From PAXIL) Allergy (Unknown, Verified 08/24/25 16:21) somulence tetanus and diphtheria toxoids Allergy (Unknown, Verified 08/24/25 16:21) fever/hallucinations environmental Allergy (Unknown, Uncoded 08/24/25 16:21) unknown Do you need a note to return to daycare/school/sports/work: Yes HPI HPI Comments History of Present Illness Details History - The patient is a 50 year old female pr esenting with a burning sensation on her tongue and a sore throat upon swallowing. - She notes the burning is bothersome wh en she eats. - She reports the symptoms began after t aking a large amount of ibuprofen for tendinitis. - A recent increase in her verapamil dos age has also caused significant xerostomia. - Associated symptoms include fatigue, a slight cough, and postnasal drip; she denies fever or rashes. - Her medical history is notable for the use of inhalers, though she denies recent changes. - She has observed a white film on the r omega of her mouth that she can scrape off. - She denies fever, chills, DUBOIS, congesti on, cough, CP, SOB, abd pain, or n/v/d. Physical Exam General: Cooperative, healthy appearing, comfortable and no acute distress Orientation/consciousness: Patient oriented x3 Limitations: No limitations Head: Normal to inspection Ears: Hearing grossly normal bilaterally, external ears normal and TM's normal bilaterally Nose: Normal external nose present, normal nares present, and no nasal discharge present. Face and sinus: Sinuses nontender to palpation. Mouth: Oral thrush present with white coating and red dots. Normal oral and palatal mucosa present and moist mucous membranes noted. Throat: Tonsils normal. Uvula is midline. Posterior oropharynx with erythema and no exudates. Respiratory: Clear to auscultation bilaterally. Normal respiratory effort, able to speak in complete sentences. No respiratory distress, not tachypneic, no tripod positioning and no use of accessory muscles. Cardiovascular: Regular rate and rhythm. Normal S1 and S2 Skin: No rashes or lesions noted Patient was informed and verbally consented to the use of an ambient scribe for clinic note documentation during this visit [facility] Medical History Palpitations Atypical chest pain Asthma, moderate Tobacco abuse Surgical History History of breast surgery Hx of tubal ligation Family History Father Alcoholic Mother Elevated cholesterol CVD (cardiovascular disease) History of blood clots Son Anxiety Daughter Hearing loss Daughter Asthma Daughter Acid reflux Sister No problems noted. Other Mental health disorder Substance use disorder Social History Housing: Apartment Alcohol intake: current Alcohol intake frequency: holidays/special occasions only Patient Tobacco Use Status: Current everyday Tobacco user Tobacco use type: Cigarette Cigarette Packs Per Day: 1 Cigarettes Per Day: 20 Years Smoked: 30 e-Cigarette/Vaping Use: Never Used service: No Current occupational status: unemployed Cognitive needs: No Hearing needs: No Vision needs: No Review of Systems Const All systems reviewed & are unremarkable except as noted in HPI and below Physical Exam Vital Signs: Last Vital Signs Temp 98.3 F 08/24/25 16:20 Pulse 79 08/24/25 16:20 BP 140/82 H 08/24/25 16:20 Pulse Ox 97 08/24/25 16:20 Oxygen Delivery Method Room Air 08/24/25 16:20 BMI result Body Mass Index 27.1 Assessment & Plan Assessment & Plan (1) Thrush: Code(s): B37.0 - Candidal stomatitis Plan Most likely Oral Candidiasis rapid was negative plan - The patient's symptoms of a burning tongue and odynophagia, along with physical exam findings of a white, scrapable film, are consistent with oral candidiasis. - Streptococcal pharyngitis was ruled out by a negative rapid strep test. - The patient declined treatment with oral Diflucan and preferred nystatin over clotrimazole troches, citing familiarity and no known allergy. - She was advised that her symptoms should improve within a few days. - Prescribed nystatin oral suspension, swish and swallow. - Diet as tolerated - follow up with PCP Medications: New nystatin administer 1/2 of dose in each side of the mouth, swish and swallow 5 mL buccal qid 140 mL 0RF 7 days Coding Level of Care Code Est Pt Level 3 (89435) Diagnoses Thrush B37.0
--- OUTSIDE RECORDS SUMMARY | 2025-08-24 19:35 | XMS_ITS | Patient Health Record ---
Author Organization [facility] Address [address] [place] [address] Care Team Providers Care Credit Representative Name Role Phone Twin[employer] melendez Primary Care Provider Igor Gil Unavailable [phone] Allergies Allergen (clinical drug ingredient) Drug/Non Drug Allergy documented on EMR Reaction Allergy Type Onset Date Status PAXIL 10 MG/5 ML SUSPENSION (uncoded) SSRIS Allergy Active predniSONE prednisone Drug Allergy Activ e Reason For Referral No Information Medications Medication SIG (Take, Route, Frequency, Duration) Notes Start Date End Date Status Verapamil HCl 120 MG TAKE 1 TABLET BY MO [facility] THREE TIMES A DAY FOR [...] a day.; Duration: 45 days 01/27/2024 Active Social History Tobacco Use: Social History [...] Risk Notes Problem Fear of medical treatment (351236115) Fear of injections and transfusions (F40.231) Active confirmed Problem Chronic intractable migraine without aura (32948683465271 5) Chronic migraine without aura, intractable, without status migrainosus (G43.719) Active confirmed Problem Menstrual migraine (05235984) Menstrual migraine, not intractable, without status migrainosus (G43.829) Active confirmed Problem Episodic cluster headache (545167971) Episodic cluster headache, intractable (G44.011) Active confirmed Problem Chronic cluster headache (174587839) Chronic cluster headache, not intractable (G44.029) Active confirmed undefined Problem Atypical facial pain (73453603) 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 Problem Myalgia of auxiliary muscles, 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 Problem Migraine without aura (33017728) Migraine without aura, not intractable, with statu (G43.001) Active confirmed Vital Signs Heart Rate 83 /min 07/11/2025 Blood pressure diastolic 93 mm Hg 07/11/2025 Weight-kg 74.8 kg 07/11/2025 Height 64 in 07/11/2025 Blood pressure systolic 160 mm Hg 07/11/2025 Weight 164.9 lbs 07/11/2025 BMI 28.3 kg/m2 07/11/2025 Encounters Encounter [facility] Date [facility] [address] [place] [id number] 07/11/2025 Igor Wang Chronic migraine wit hout aura, intractable, without status migrainosus G43.719 ; Myalgia of auxiliary muscles, head and neck M79.12 ; Atypical facial pain G50.1 and Fear of injections and transfusions F40.231 [facility] [address] [place] [address] 11/01/2024 Igor Wang Chronic migraine wit hout aura, intractable, without status migrainosus G43.719 ; Episodic cluster headache, intractable G44.011 ; Myalgia of auxiliary muscles, head and neck M79.12 ; Atypical facial pain G50.1 and Fear of injections and transfusions F40.231 [facility] [address] [place] [address] 01/24/2025 Igor Wang Chronic migraine wit hout aura, intractable, without status migrainosus G43.719 ; Episodic cluster headache, intractable G44.011 ; Myalgia of auxiliary muscles, head and neck M79.12 ; Atypical facial pain G50.1 and Fear of injections and transfusions F40.231 [facility] [address] [place] [address] 04/18/2025 Igor Wang Chronic migraine wit hout aura, intractable, without status migrainosus G43.719 ; Episodic cluster headache, intractable G44.011 ; Myalgia of auxiliary muscles, head and neck M79.12 ; Atypical facial pain G50.1 and Fear of injections and transfusions F40.231 [facility] [address] [place] [address] 02/01/2025 Igor Wang [facility] [address] [place] [phone] 09/21/2024 Igor Wang Chronic cluster head ache, not intractable G44.029 [facility] [address] [place] [address] 10/07/2024 Igor Wang [facility] [address] [place] [phone] 11/03/2024 Igor Wang [facility] [address] [place] [phone] 03/28/2025 Igor Wang [facility] [address] [place] [phone] 04/09/2025 Igor Wang [facility] [address] [place] [phone] 04/27/2025 Igor Wang Chronic cluster head ache, not intractable G44.029 [facility] [address] [place] [phone] 06/24/2025 Igor Wang [facility] [address] [place] [phone] 07/04/2025 Igor Wang Assessments Encounter Date Diagnosis (ICD [...] cluster headache, not intractable (ICD-10 - G44.029) 07/11/2025 Chronic migraine without aura, intractable, without status migrainosus (ICD-10 - G43.719) Continue the same management. Controlled migraine with aura and controlled cluster headaches. 07/11/2025 Myalgia of auxiliary muscles, head and neck (ICD-10 - M79.12) Controlled migraine with aura and controlled cluster headaches. 04/18/2025 Episodic cluster headache, intractable (ICD-10 - [...] Treatment Next Appt Details Provider Name:Igoralphonso alberts, 10/03/2025 11:30:00 AM, [address] [place], [address], Insurance Providers Payer Name Payer Address Payer Phone Subscriber Number Group Number Insured Name Patient Relationship to Insured Coverage Start Date Coverage End Date [facility] [employer] [employer] [address] [id number] Annette Fenton Self - patient is the insured
--- OUTSIDE RECORDS SUMMARY | 2025-08-24 19:35 | XMS_ITS | Data Portability ---
Author Organization [facility] [address] Address [address] [place] [address] Assessment No assessment recorded. Plan of Treatment Reminders Order Date Submit Date Provider Last Modified By Organization Details Last Modified Time Details Appointments None recorded . Lab rapid strep group A, throat 023 02/06/20 [email or web address] [facility], [address] [place] [address], [phone], 17:21:55 Referral None recorded . Procedures None recorded . Surgeries None recorded . Imaging None recorded . Medication Orders None recorded . Patient TargetsNo targets recorded. Patient Instructions Encounter Date Encounter Id Patient Instructions Last Modified By Organization Details Last Modified Time 02/05/2023 [id number] upper respirator y infection (cold): care instructions [place] [id number] Not available 02/05/2023 17:21:55 Reason for Referral None Reported. Results Created Date Observation Date Name Description Value Unit Range Abnormal Flag Note LastModifiedBy Organization Detail LastModifiedTime 02/06/2002/05/2023 rapid strep group A, throa t Unknown Analyte Normal = Negati ve Not Available [facility] [address] [place] [address], [phone], 02/05/2023 16:42:30 02/06/2002/05/2023 rapid strep group A, throa t Unknown Analyte negati ve Not Available [facility] [address] [place] [address], [phone], 02/05/2023 16:42:30 Result Notes None recorded. Problems Name Problem SNOMED Code Status Onset Date Resolution Date Notes Provider Name and Address Organization Details Recorded Time Migraine 63878884 [facility] 3 16:40:48 Asthma 760846877 Active 023 [facility] [place] [facility] 3 16:41:08 Problem Notes None recorded. Procedures Surgical History Date Name Laterality Status Provider Name and Address Organization Details Recorded Time ligation of fallopian tube completed [facility] [place] - [facility] 02/05/2023 16:42:25 ultrasonography guided transcervical radiofrequency ablation of uterine fibroid completed [facility] 02/05/2023 16:43:30 Imaging Results None recorded. Procedure Notes None recorded. Medical Equipment None Reported. Allergies Allergen ID Allergen Name Allergen Category Reaction Reaction Severity Criticality Documentation Date Start Date Code Code System Note Provider Name and Address Organization Details Recorded Time 625707 Vaccine product containin g only Clostridi um tetani antigen (medicina l product) medicatio n fever Not available Not available 02/05/2023 01760 2003 SNOMED [facility], [place] - [facility] 3 16:41:48 Medications Name [...] Updated DateTime 3 162.56 cm 29.2 kg/m2 10489.7 g 6 20 /min 98 % 74 /min 97.9 [degF] 152/90 mm[Hg] [facility] [place] [facility] 3 16:44:31 Social History Question Answer Notes LastModified by Organizat ion Details LastModified Time Tobacco Smoking Status Current Every Day Smoker JIN Norris - [facility] 02/05/2023 16:42:08 How Much Tobacco Do You Smoke? 0.5 PPD [email or web address] Information not available 02/05/2023 Have You Recently Traveled Abroad? No [email or web address] Information not available 02/05/2023 Sex: Unknown Functional Status Question Answer Note LastModified by Organizat ion Details LastModified Time Do you use any illicit or recreational drugs? No [email or web address] Information not available 02/05/2023 Do you or have you ever used any other forms of tobacco or nicotine? No Information not available 02/05/2023 What is your level of alcohol consumption? None [email or web address] Information not available 02/05/2023 Mental Status None recorded. Family History Relationship Description Onset Age of this Age Resolved Age Notes LastModified by Organization Details LastModified Time Father No current problems or disability [email or web address] Not available 02/05 16:41:50 Mother No current [...] ICD10 Code Diagnosis IMO Codes Diagnosis Note [id number] [facility] [address] [place] [address] 07/13/2021 10:53:30 07/13/2021 14:09:05 [id number] [address] [facility] [address] [place] [address] 12/10/2017 19:23:49 12/10/2017 20:20:45 [id number] [address] [address] [address] [place] [address] 04/24/2018 15:11:26 04/24/2018 15:56:43 [id number] [address] [address] [address] [place] [address] 01/20/2020 12:58:17 01/20/2020 13:43:31 [id number] [address] [address] [address] [place] [address] 05/03/2020 17:21:25 05/03/2020 18:34:07 [id number] [address] [place] [address] 01/24/2022 11:30:23 01/24/2022 12:43:54 [id number] [address] [address] [address] [place] [phone] 04/17/2019 16:44:12 04/17/2019 17:05:41 [id number] [address] [address] [address] [place] [address] 07/27/2018 11:56:43 07/27/2018 13:09:15 [id number] Yani Bonilla MD [address] [address] [place] [address] 02/05/2023 16:23:41 02/05/2023 17:23:27 Upper respiratory infection 85730005 J06.9 - Use the medication s prescribed [...] Ford Member ID Guarantor Name 02/05/2023 1 [facility] - HEALTH NET PLAN (MEDICAID HMO) MARIKADANDYJoaquina Annette Fenton [id number] Annette Fenton Notes Date Note Type Note Provider Name and Address Organization Details Recorded Time 02/05/2023 text/html Sore throatRepor lm by PatientSore ThroatFor associated symptoms, patient reportssore throat,nasal congestion, andsinus pain/ congestionbut reportsno shortness of breathandno wheezing. For location, patient reportsthroat. For quality, patient reportshurts to swallow. For onset/timing, patient reports4 days. Yani Bonilla MD [address] [place], [address], [place] - [facility] 02/05/2023 19:49:54 OBGyn Episode No OBEpisode recorded.
--- OUTSIDE RECORDS SUMMARY | 2025-08-24 19:35 | XMS_ITS | Encounter Summary ---
Author Organization [facility] Address [address] [place] [address] Care Team Providers Care Division Traffic Superintendent Name Role Phone Lj Murcia MD Primary Care Provider [phone] Encounter Details Date Type Department Care Team (Late st Contact Info) Description 01/06/2025 Lab Requisition [facility] - Main Lab [address] [facility] [place] [address] Roderick Richter MD [address] [facility] [address] [place] [address] Benign essential microscopic hematuria Social History Tobacco Use Types Packs/Day Years Used Date Smoking Tobacco: Every Day Cigarettes 0.8 39 Started: 09/07/1986 Smokeless Tobacco: Never Alcohol Use [...] AM EDT) Final Diagnosis A. Urine, Voided, ([id number]): Negative for high grade urothelial carcinoma. Results of UroVysion fluorescence in situ hybridization (FISH) testing: CEP3: Normal CEP7: Normal CEP17: Normal LSI 9p21: Normal Interpretation: Normal profile Controls stained appropriately. Note: The results are intended as a screening device and should be interpreted in association with other clinical and pathological findings. 01/06/2025 4:54 PM EDT [facility] at [address]54 EDT Clinical Information Benign essential microscopic hematuria R31.1 Urine Cytology/FISH (now) 01/06/2025 4:54 PM EDT [facility] Gross Description A. Urine, Voided, ([id number]): Received one ThinPrep slide for cytology and one ThinPrep slide for UroVysion FISH 01/06/2025 4:54 PM EDT [facility] Disclaimer Unless otherwise specified, all tissue is 10% NB formalin fixed and paraffin embedded. Technical pathology services provided by [facility] [address] [address] [place] [address] (CLIA #[id number]/Yuki Lewis MD, Family Medicine Chair) 01/06/2025 4:54 PM EDT [facility] Tissue Urine specimen from urethra / Unknown 01/05/2025 01/06/2025 8:06 AM EDT us Roderick Richter MD LAB PATHOLOGY ORDERABLES Final R esult [facility] [address] [place] [address], documented in this encounter Visit Diagnoses Diagnosis Benign essential microscopic hematuria documented in this encounter Care Teams Division Traffic Superintendent Relationship Specialty Start Date End Date Lj Murcia MD [address] [place] [address] PCP - General Internal Medicine 11/02/20 documented as of this encounter
--- OUTSIDE RECORDS SUMMARY | 2025-08-24 19:35 | XMS_ITS | Clinical Summary ---
Author Organization [employer] Address [address] [place] [address] [address] [place] [address] Care Team Providers Care Mold Design Engineer Name Role Phone Unavailable Primary Care [...]
--- OUTSIDE RECORDS SUMMARY | 2025-08-24 19:35 | XMS_ITS | Clinical Summary ---
Author Organization [facility] [address] [place] [address] [place] [phone] Phone Care Team Providers Care [facility] Representative Name Role Phone Lj Murcia MD Primary Care Provider [phone] Allergies Active Allergy Reactions Criticality Noted Date [...] mouth 2 (two) times a day. Active naratriptan (AMERGE) 2.5 mg tablet Take [...] for two weeks. 30 g 025 Active methocarbamoL (ROBAXIN) 750 mg tablet Take 1 tablet (750 mg total) by mouth 4 (four) times a day for 10 days. 40 each Active ibuprofen (ADVIL,MOTRIN ) 600 mg tablet Take 1 Tab by mouth every 6 hours as needed for Pain. 016 2024 Discontinued ibuprofen (ADVIL,MOTRIN ) 600 mg tablet Take 1 tablet (600 mg total) by mouth every 6 (six) hours if needed for mild pain, headaches or moderate pain for up to 10 days. 30 tablet 025 2024 acetaminophen (TYLENOL) 500 mg tablet Take 2 tablets (1,000 mg total) by mouth every 6 (six) hours if needed for mild pain for up to 10 days. 30 tablet 025 2024 Active Problems Problem Noted Date Diagnosed Date Tinea corporis 12/16/2024 Assessment & Plan (12/17/2024 9:04 AM EDT): Will treat with terbinafine Intermenstrual bleeding 12/16/2024 Assessment & Plan (12/17/2024 9:04 AM EDT): Will obtain US to evaluate for intracavitary pathology. Could just be menopausal transition. Cluster headache 01/21/2019 Overview (09/21/2024): Follows with [facility] in [place] Last Assessment & Plan: Pt will continue to see [facility] every 3 months. Will keep diary as above to determine if [facility] seem to be related to IUD. Migraine with aura 01/21/2019 Overview (09/21/2024): Has seen neuro at [facility] in [place] Smoker 11/16/2018 Overview (09/21/2024): Last Assessment & [...] Encounters Date Type Department Care Team Description 08/12/2025 5:49 PM EST - 08/12/2025 7:17 PM EST Emergency [facility] Emergency [address] [place] [phone] Strain of left shoulder, initial encounter (Primary Dx) Discharge Disposition: Home or Self Care 06/29/2025 1:15 PM EDT Office Visit Obstetrics and Gynecology - [address] [phone] Nguyen Perez CNM BV (bacterial vaginosis) (Primary Dx) 06/29/2025 Telephone Obstetrics and Gynecology - [address] [phone] Yesica Alvarez MD from Last 3 Months Surgical History Surgery Date Site/Laterality Comments TUBAL LIGATION PROCEDURE: HISTORICAL TUBAL LIGATION MULTIPLE TOOTH EXTRACTIONS PROCEDURE: HISTORICAL DENTAL EXTRACTION ENDOMETRIAL ABLATION 06/06/2015 PROCEDURE: MN ENDOMETRIAL ABLTJ THERMAL W/O HYSTEROSCOPIC GUID; COMMENT: Novasure OTHER SURGICAL HISTORY 09/2017 PROCEDURE: HISTORICAL D&C; COMMENT: Using Myosure device for suspected hematometra BREAST SURGERY 2018 Right PROCEDURE: MN UNLISTED PROCEDURE BREAST; COMMENT: removed fibroid & other lump BREAST SURGERY pt doesn't remember Bilateral PROCEDURE: MN UNLISTED PROCEDURE BREAST BREAST BIOPSY pt. doesnt remember when Bilateral PROCEDURE: BX BREAST; PERC NEEDLE CORE W/IMAG GUID; COMMENT: bxs. of both breasts-removed lumps BREAST BIOPSY 2017 Right PROCEDURE: MN BX BREAST W/DEVICE 1ST LESION ULTRASOUND GUID OTHER SURGICAL HISTORY 05/20/2022 Left PROCEDURE: MN BX BREAST W/DEVICE 1ST LESION STEREOTACTIC GUID; [...] anemia du e to chronic blood loss Asthma Family History Medical History Relation Name Comments Colon cancer Aunt fath side 60 Breast cancer Neg Hx Ovarian cancer Neg Hx Pancreatic cancer Neg Hx Prostate cancer Neg Hx Uterine cancer Neg Hx Relation Name Status Comments Aunt fath side 60 Alive Social History Tobacco Use Types Packs/Day Years Used Date Smoking Tobacco: Every Day Cigarettes 0.8 39 Started: 09/07/1986 Smokeless Tobacco: Never Tobacco Cessation:Ready [...] Sign Reading Time Taken Comments Blood Pressure 150/88 08/12/2025 5:29 PM EST Pulse 86 08/12/2025 5:29 PM EST Temperature 36.5 C (97.7 F) 08/12/2025 5:29 PM EST Respiratory Rate 18 08/12/2025 5:29 PM EST Oxygen Saturation 98% 08/12/2025 5:29 PM EST Inhaled Oxygen Concentration - - Weight 72.6 kg (160 lb) 08/12/2025 5:29 PM EST Height 162.6 cm (5' 4 ) 08/12/2025 5:29 PM EST Body Mass Index 27.46 08/12/2025 5:29 PM EST Plan of Treatment Health Maintenance Due Date [...] 2023 Depression Screening 09/07/2024 COVID-19 Vaccine ( season) 2025 Influenza Vaccine (#1) 2025 Cervical [...] Trichomonas vaginalis antigen (06/29/2025 1:33 PM EDT) Trichomonas vaginalis Negative Negative 06/29/2025 9:13 PM EDT [facility] Swab Vaginal structure / Unknown Non-blood Collection / Unknown 06/29/2025 1:33 PM EDT 06/29/2025 1:33 PM EDT us Nguyen Perez CNM LAB MICROBIOLOGY - GENERAL ORDE RABLES Final Result Performing Organization Address City/[facility]/ZIP Co de Phone Number [facility] [address] [place] [address], [place] [phone] * Chlamydia trachomatis and Neisseria gonorrhoeae molecular study (06/29/2025 1:33 PM EDT) Neisseria gonorrhoeae PCR Negative Negative LAB MOLECULAR DIAGNOSTICS METHOD 06/30/2025 11:39 AM EDT [facility] Chlamydia trachomatis PCR Negative Negative LAB MOLECULAR DIAGNOSTICS METHOD 06/30/2025 11:39 AM EDT [facility] Swab Cervix uteri structure / Unknown Non-blood Collection / Unknown 06/29/2025 1:33 PM EDT 06/29/2025 1:33 PM EDT us Nguyen Perez CNM LAB MICROBIOLOGY - GENERAL ORDE RABDILMA Final Result Performing Organization Address [facility]/ZIP Co de Phone Number [facility] [address] [place] [address], [place] [phone] * (ABNORMAL) POC Wet [place] (06/29/2025 1:31 PM EDT) Trichomonas, Wet Prep POC Absent Absent Yeast, Wet Prep POC Negative Not Applicable, Negative Clue Cells, Wet Prep POC Positive(A) Not Applicable, Negative PH FL Type POC 5.0 Vaginal Fluid Vaginal structure / Unknown 06/29/2025 1:31 PM EDT us Nguyen Perez CNM POINT OF CARE TEST ENTER/EDIT O RDERABLES [...] mammography. Return to annual mammography. Mammo Location: [facility], [address] [place] [address], [phone], . -------- FINAL REPORT -------- Dictated By: Kate Kiran Dictated Date: 12/05/2024 14:01 ET Assigned Physician: Kate Kiran Reviewed and Electronically Signed By: Kate Kiran Signed Date: 12/05/2024 14:14 ET Workstation ID: [id number] Transcribed By: Self Edit Transcribed Date: 12/05/2024 [...] mammography. Return to annual mammography. Mammo Location: [facility], [address] [place] [address], [address], . -------- FINAL REPORT -------- Dictated By: Kate Kiran Dictated Date: 12/05/2024 14:01 ET Assigned Physician: Kate Kiran Reviewed and Electronically Signed By: Kate Kiran Signed Date: 12/05/2024 14:14 ET Workstation ID: [id number] Transcribed By: Self Edit Transcribed Date: 12/05/2024 14:06 ET Lj Murcia MD IMG BI PROCEDURES Final Result * Cervical Cancer Screening: HPV (12/03/2021) Cervical Cancer Screening: HPV negative, abstracted Historical Provider HEALTH MAINTENANCE Final Result from Last 3 Months or Most Recently Relevant to Health Maintenance Insurance [facility] Care Teams Medical Center Representative Relationship Specialty Start Date End Date Lj Murcia MD [address] [place] [phone] PCP - General Internal Medicine 11/02/20
--- OUTSIDE RECORDS SUMMARY | 2025-08-24 19:35 | XMS_ITS | Encounter Summary ---
Author Organization [employer] Address [address] [place] [address] [address] [place] [address] Care Team Providers Care Truck Unloader Name Role Phone Unavailable Primary Care Provider Unavailabl e Encounter Details Date Type Department Care Team (Latest Contact Info) Description 12/04/2020 Abstract [facility] CONVERSIONS Dental, Provider, DDS Social History [...]
--- OUTSIDE RECORDS SUMMARY | 2025-08-24 19:35 | XMS_ITS | Encounter Summary ---
Author Organization [employer] Address [address] [place] [address] [address] [place] [address] Care Team Providers Care Resume Specialist Name Role Phone Unavailable Primary Care Provider Unavailabl e Encounter Details Date Type Department Care Team (Latest Contact Info) Description 05/30/2019 Abstract [facility] CONVERSIONS Dental, Provider, DDS Social History Tobacco [...]
== END 2025-08-24 16:41 | disposition home or self-care (01) ==
PROVIDERS: PCP Internal Medicine; Visit Provider Physician Assistant Medical
DX: Z13.9 Encounter for screening, unspecified (principal); B37.0 Candidal stomatitis

== ENCOUNTER → 2025-08-24 15:59 | Outpatient (BNVA) | payer OTHER, SELFPAY | PROVIDERS: PCP Internal Medicine; Visit Provider Physician Assistant Medical | DX: B37.0 Candidal stomatitis (principal) | CPT/HCPCS: 87880; 99212 ==